=== PATIENT | male | born 1935 | race Caucasian/White ===

== ENCOUNTER → 2019-03-30 10:33 | Outpatient (CLI) | payer MEDICARE, OTHER, SELFPAY ==
[2019-03-30 10:56] LABS: Influenza A and B by PCR Rapid Negative (Negative)
== END ==
PROVIDERS: Visit Provider Physician Assistant
DX: J02.9 Acute pharyngitis, unspecified (principal); R68.89 Other general symptoms and signs
CPT/HCPCS: 87070; 87400; 87502

== ENCOUNTER 2019-11-13 11:13 | Emergency (ER) | payer MEDICARE, OTHER, SELFPAY ==
[2019-11-13 11:15] VITALS: BP 196/89; PULSE 69; RESP 18; O2SAT 99
--- NOTE | 2019-11-13 11:29 | DI.RAD.S_ITS ---
PROCEDURE: XR CHEST 1V INDICATIONS: chest pain TECHNIQUE: One view of the chest was acquired. COMPARISON: None. FINDINGS: Surgical changes and devices: None. Lungs and pleura: Subtle hazy opacity of the right upper lung zone possibly related to positioning/technique. No focal consolidation. Lung volumes are slightly diminished. Minimal eventration right hemidiaphragm. No pleural effusions or pneumothorax. Mediastinum: Mediastinal contours appear normal. Heart size is normal. Bones and chest wall: No suspicious bony lesions. Overlying soft tissues appear unremarkable. IMPRESSION: Subtle hazy opacity of the right upper lungs possibly related to positioning/technique. Otherwise, no acute cardiopulmonary abnormalities or focal consolidation. Consider dedicated PA and lateral views of the chest when patient is able. Dictated by: Emir Hilton M.D. on 11/13/2019 at 11:55 Approved by: Emir Hilton M.D. on 11/13/2019 at 11:58
--- NOTE | 2019-11-13 11:35 | ED.CHESTPAIN ---
HPI - Chest Pain <JULIANE Odom - Last Filed: 11/13/19 21:01> General Chief Complaint: Chest Pain Stated Complaint: Tightness in chest & light headed Time Seen by Provider: 11/13/19 11:13 Source: patient Mode of arrival: Wheelchair Limitations: no limitations History of Present Illness HPI narrative: This is a 84-year-old male, former smoker, who presents to ED with chief complain of intermittent mid chest pressure and lightheadedness since last night at 11:30 a.m. when he lied down to go to bed. Patient also states his left hand felt tingly and numb which was similar to carpal tunnel symptoms that he had in the past. Patient denies short of breath, dyspnea, nausea/vomiting, cold sweats but states he fell like I was in a boat rocking around. Patient reports his symptoms are intermittent and he felt similar symptoms again this morning when he woke up from sleeping and this lasts for a brief period. Patient denies current chest pressure or lightheadedness. Patient had taken 1 baby aspirin this morning as routine medication. Patient denies headache, vision change, speech difficulty, weakness to 1 side of his body. Patient denies seen pleater hand at this time. Patient is unable to associated symptoms aggravating or relieving factors. Patient walks 3 miles several times a week. Mother had sudden at age 62 and of younger brother has a pacemaker for last several years. Patient is not aware of father's medical history since he did not grow up with him since 3rd grade. Patient has history of hypertension, diabetes, hyperlipidemia, thyroid cancer with resection surgery, right hand carpal tunnel surgery, and back surgery from a ruptured disc. Related Data Home Medications Medication Instructions Recorded Confirmed aspirin [Adult Low Dose Aspirin] 81 mg PO QAM 11/13/19 11/13/19 levothyroxine [Synthroid] 125 mcg PO QAM 11/13/19 11/13/19 lisinopril 10 mg PO BEDTIME 11/13/19 11/13/19 metformin 500 mg PO TID 11/13/19 11/13/19 simvastatin 10 mg PO BEDTIME 11/13/19 11/13/19 Allergies Allergy/AdvReac Type Severity Reaction Status Date / Time No Known Drug Allergies Allergy Verified 11/13/19 11:24 Review of Systems <JULIANE Odom - Last Filed: 11/13/19 21:01> Review of Systems Narrative: General: Denies fever, chills, fatigue, malaise, sweats. HEENT: Denies sinus pain, ear pain, sore throat, difficulty swallowing, dizziness. Respiratory: Denies dyspnea, cough, wheezing, hemoptysis, sputum. Cardiovascular: See HPI Gastrointestinal: Denies nausea, vomiting, abdominal pain, diarrhea, constipation, melena. : Denies dysuria, frequency, incontinence, hematuria, urinary retention. Musculoskeletal: Denies weakness, joint pain or bony pain. Skin: Denies rash, skin lesions, or other. Neurologic: Denies weakness, headache, (+) light headededness, numbness, change in speech, confusion, seizures, incoordination. Psychiatric: No concerning psychosocial issues. 12-point review of systems is negative except for those stated above. Patient History <JULIANE Odom - Last Filed: 11/13/19 21:01> Medical History (Updated 11/13/19 @ 16:05 by JULIANE Odom) High cholesterol (Acute) Hypertension (Acute) Hypothyroid (Acute) Thyroid cancer (Acute) Type 2 diabetes mellitus (Acute) Surgical History (Updated 11/13/19 @ 11:45 by JULIANE Odom) History of back surgery (Acute) History of carpal tunnel release (Acute) History of thyroidectomy (Acute) Social History Smoking Status: Former smoker Smoking Status: Former smoker alcohol intake frequency: 0-2 drinks per day Substance Use Type: does not use Exam <JULIANE Odom - Last Filed: 11/13/19 21:01> Narrative Exam Narrative: GEN: Alert, oriented x 3, well appearing and nourished, and in no acute distress. Head: Normal cephalic, atraumatic. No scalp or temporal tenderness, palpable mass or rash. EYES: Pupils are equal, round, and reactive to light and accommodation. Extraocular muscles are intact bilaterally. There is no subconjunctival hemorrhage, exudate and sclera non-icteric. ENT: Bilateral auditory canals and tympanic membranes clear. Hearing grossly intact. Nose without bleeding, purulent discharge, septal hematoma or deviation. Turbinate without erythema or swelling. Facial sinuses nontender to palpate. Mucous membrane moist, no mucosal lesion. Throat without erythema, tonsillar hypertrophy or exudate. Uvula in midline, airway patent. Neck: Trachea in midline. No JVD, non-tender without lymphadenopathy. No masses or thyroid megaly. Supple, non-tender and no meningeal signs. CARDIAC: Normal regular rate and rhythm without murmurs, gallops, or rubs. No chest wall tenderness. No peripheral edema, cyanosis or pallor. Capillary refill is less than 2 seconds. No carotid bruits. RESPIRATORY: Lungs are cleat to auscultate bilaterally. No cough, wheezes, rales, or rhonchi. No stridor, respiratory distress, increase work of breathing, or accessary muscle used. ABD: Abdomen soft, nontender and non-distended. No guarding or rebound tenderness to palpate. Bowel sounds are normal in all 4 quadrants. There is no palpable masses or organomegaly. EXT: Full painless ROM of all extremities with no loss of sensation, strength, effusion or edema. SKIN: Warm, dry, normal color for patient. No erythema, lesions or rash. BACK: Nontender without deformity or crepitance. No flank tenderness. NEUROLOGICAL: Alert and oriented to place, time and person. No facial droops, dysphasia. Strength and sensation symmetric and intact throughout. Cerebellar testing normal. PSYCHIATRIC: Good judgement and reason, without hallucinations, abnormal affect or abnormal behaviors during the examination. Initial Vital Signs Initial Vital Signs: Vital Signs Pulse Rate 69 11/13/19 11:15 Respiratory Rate 18 11/13/19 11:15 Blood Pressure 196/89 H 11/13/19 11:15 Pulse Oximetry 99 11/13/19 11:15 <Jessy Thompson MD - Last Filed: 11/14/19 07:12> Initial Vital Signs Initial Vital Signs: Vital Signs Pulse Rate 69 11/13/19 11:15 Respiratory Rate 18 11/13/19 11:15 Blood Pressure 196/89 H 11/13/19 11:15 Pulse Oximetry 99 11/13/19 11:15 Scores <JULIANE Odom - Last Filed: 11/13/19 21:01> GCS Shane coma scale eye opening: Spontaneous [place] coma scale verbal response: Orientated [place] coma scale motor response: Obey commands Shane coma scale total score: 15 HEART Score Heart Score history: Slightly Suspicious Heart Score EKG: Normal Heart Score Age: > or = 65 years old Heart Score risk factors: 1-2 risk factors Heart Score troponin: < or = to normal limit Heart Score Total: 3 Course <JULIANE Odom - Last Filed: 11/13/19 21:01> Orders Ordered: Discontinued Medications Aspirin (Aspirin Chew) 243 mg PO NOW ONE Stop: 11/13/19 11:30 Last Admin: 11/13/19 11:43 Dose: 243 mg Documented by: CARRIE Vital Signs Vital signs: Vital Signs - 8 hr 11/13/19 13:00 11/13/19 13:58 11/13/19 15:28 Pulse Rate 72 58 L 56 L Respiratory Rate 15 16 18 Blood Pressure [Left Arm] 156/74 H 143/72 H 155/74 H Pulse Oximetry 98 98 98 11/13/19 16:07 Pulse Rate 58 L Respiratory Rate 16 Blood Pressure [Left Arm] 145/71 H Pulse Oximetry 100 <Jessy Thompson MD - Last Filed: 11/14/19 07:12> Orders Ordered: Discontinued Medications Aspirin (Aspirin Chew) 243 mg PO NOW ONE Stop: 11/13/19 11:30 Last Admin: 11/13/19 11:43 Dose: 243 mg Documented by: CARRIE Vital Signs Vital signs: Vital Signs - 8 hr 11/13/19 13:00 11/13/19 13:58 11/13/19 15:28 Pulse Rate 72 58 L 56 L Respiratory Rate 15 16 18 Blood Pressure [Left Arm] 156/74 H 143/72 H 155/74 H Pulse Oximetry 98 98 98 11/13/19 16:07 Pulse Rate 58 L Respiratory Rate 16 Blood Pressure [Left Arm] 145/71 H Pulse Oximetry 100 MDM - Chest Pain <JULIANE Odom - Last Filed: 11/13/19 21:01> Differential Diagnosis Differential diagnosis: Likely stable angina, atypical chest pain and other (Arrhythmia) Medical Records Data Attestation: I reviewed the patient's medical records. Lab Data Attestation: I reviewed the patient's lab results. Result diagrams: 11/13/19 11:20 11/13/19 11:20 Labs: Lab Results 11/13/19 11/13/19 11/13/19 Range/Units 11:20 11:20 11:20 WBC 6.1 (4.5-11.0) X10^3/uL RBC 4.64 (4.5-5.9) X10^6/uL Hgb 14.9 (13.5-17.5) g/dL Hct 44.8 (41-53) % MCV 96.6 (80-100) fL MCH 32.0 (26-34) PG MCHC 33.2 (30-36) % RDW 14.0 (11.6-14.8) % Plt Count 218 (150-400) X10^3/uL Neut % (Auto) 64.7 (50-75) % Lymph % (Auto) 24.8 L (25-40) % [place] % (Auto) 7.7 (3-14) % Eos % (Auto) 2.3 (2-4) % Baso % (Auto) 0.5 (0-2) % Neut # (Auto) 4000 (7385-2761) /uL Lymph # (Auto) 1500 (0047-6601) /uL [place] # (Auto) 500 (0-900) /uL Eos # (Auto) 100 (0-450) /uL Baso # (Auto) 0 (0-100) /uL PT 11.0 (10.1-12.7) SECONDS INR 1.0 (0.9-1.3) APTT 31 (26.4-36.2) SECONDS Sodium 136 L (137-145) mmol/L Potassium 4.6 (3.4-5.1) mmol/L Chloride 103 (98-107) mmol/L Carbon Dioxide 24 (22-32) mmol/L BUN 22 H (9-20) mg/dL Creatinine 1.17 (0.66-1.25) mg/dL Estimated GFR 59.7 L (>60) mL/min BUN/Creatinine Ratio 18.8 (6-22) Glucose 232 H (80-110) mg/dL Calcium 10.1 (8.4-10.2) mg/dL Total Bilirubin 0.7 (0.2-1.3) mg/dL AST 34 (17-59) IU/L ALT 24 (<50) IU/L Alkaline Phosphatase 63 (38-126) U/L Total Creatine Kinase 333 H (55-170) U/L CK-MB (CK-2) 6.38 H (<2.37) ng/mL CK-MB (CK-2) Rel Index 1.9 (1.5-5.0) % Troponin I < 0.012 (0.01-0.034) ng/mL Total Protein 7.5 (6.3-8.2) g/dL Albumin 4.6 (3.5-5.0) g/dL Globulin 2.9 (1.7-4.1) g/dL Albumin/Globulin Ratio 1.6 (1.0-2.8) Lipase 107 (23-300) U/L 11/13/19 Range/Units 14:25 WBC (4.5-11.0) X10^3/uL RBC (4.5-5.9) X10^6/uL Hgb (13.5-17.5) g/dL Hct (41-53) % MCV (80-100) fL MCH (26-34) PG MCHC (30-36) % RDW (11.6-14.8) % Plt Count (150-400) X10^3/uL Neut % (Auto) (50-75) % Lymph % (Auto) (25-40) % [place] % (Auto) (3-14) % Eos % (Auto) (2-4) % Baso % (Auto) (0-2) % Neut # (Auto) (0201-9843) /uL Lymph # (Auto) (1655-1887) /uL [place] # (Auto) (0-900) /uL Eos # (Auto) (0-450) /uL Baso # (Auto) (0-100) /uL PT (10.1-12.7) SECONDS INR (0.9-1.3) APTT (26.4-36.2) SECONDS Sodium (137-145) mmol/L Potassium (3.4-5.1) mmol/L Chloride (98-107) mmol/L Carbon Dioxide (22-32) mmol/L BUN (9-20) mg/dL Creatinine (0.66-1.25) mg/dL Estimated GFR (>60) mL/min BUN/Creatinine Ratio (6-22) Glucose (80-110) mg/dL Calcium (8.4-10.2) mg/dL Total Bilirubin (0.2-1.3) mg/dL AST (17-59) IU/L ALT (<50) IU/L Alkaline Phosphatase (38-126) U/L Total Creatine Kinase 296 H (55-170) U/L CK-MB (CK-2) 5.14 H (<2.37) ng/mL CK-MB (CK-2) Rel Index 1.7 (1.5-5.0) % Troponin I < 0.012 (0.01-0.034) ng/mL Total Protein (6.3-8.2) g/dL Albumin (3.5-5.0) g/dL Globulin (1.7-4.1) g/dL Albumin/Globulin Ratio (1.0-2.8) Lipase (23-300) U/L Imaging Data Chest x-ray: Radiologist's Impression: [address] [address] XRay Report Signed Patient: Yaron Hernandez [facility]#: [id number] : 7Acct:[id number] Age/Sex: 84 / MDate of Service: 11/13/19 Loc: ED Accession Number: [id number] Procedure: XR chest 1V Ordering Provider: Ben Mcneal PROCEDURE: XR CHEST 1V INDICATIONS: chest pain TECHNIQUE: One view of the chest was acquired. COMPARISON: None. FINDINGS: Surgical changes and devices: None. Lungs and pleura: Subtle hazy opacity of the right upper lung zone possibly related to positioning/technique. No focal consolidation. Lung volumes are slightly diminished. Minimal eventration right hemidiaphragm. No pleural effusions or pneumothorax. Mediastinum: Mediastinal contours appear normal. Heart size is normal. Bones and chest wall: No suspicious bony lesions. Overlying soft tissues appear unremarkable. IMPRESSION: Subtle hazy opacity of the right upper lungs possibly related to positioning/technique. Otherwise, no acute cardiopulmonary abnormalities or focal consolidation. Consider dedicated PA and lateral views of the chest when patient is able. Dictated by: Emir Hilton M.D. on 11/13/2019 at 11:55 Approved by: Emir Hilton M.D. on 11/13/2019 at 11:58 ECG Data Attestation: I personally reviewed and interpreted this ECG as follows: Prior ECG tracings: not available for review Interpretation: Sinus rhythm rate at 63. NC int 180, QRS dur 90, QT/QTC 375/381. Normal [place]. Will ST elevation or depression. MDM Narrative Medical decision making narrative: This is a 84-year-old male with history of diabetes, hypertension, hyperlipidemia presents to ED with chief complaint of intermittent mild mid chest pressure and vertigo like lightheadedness since 2330 last night at rest to go to sleep. Patient denies other associated symptoms such as breathing difficulty, cough, fever, nausea/vomiting, cold sweats. Patient had left arm tingling and numbness but he states he has carpal tunnel syndrome and has similar symptoms in the past. There was no focal neurological deficit per exam. EKG was normal sinus rhythm rate at [address] elevation or depression. H&H was within normal limits. Serum glucose slightly elevated to 232, mild elevated BUN of 22, slight hyponatremia of 136. Initial troponin was negative with slightly elevated CK-MB and total CK of 6.38/333. CK-MB index was within normal. Subtle hazy opacity of right upper lobe possibly related to positioning/technique otherwise no acute cardiopulmonary findings were appreciated. Patient does not have respiratory symptoms, fever, short of breath. Patient's O2 sat is 100% in room air without increased work of breathing. Patient was medicated with additional aspirin in ED. 2nd troponin was negative as well with trending down CK-MB and total CK of 5.1 for/296 with normal CK-MB index. Patient reports his chest discomfort and lightheadedness were resolved and feeling much better at this time. Return precautions were discussed with the patient and patient advised to follow-up with PCP for possible further evaluation and tests since patient has not seen pleater hand, treadmill test, echocardiogram in the past. Patient verbalized understanding and in agreement with the treatment plan. <Jessy Thompson MD - Last Filed: 11/14/19 07:12> Lab Data Labs: Lab Results 11/13/19 11/13/19 11/13/19 Range/Units 11:20 11:20 11:20 WBC 6.1 (4.5-11.0) X10^3/uL RBC 4.64 (4.5-5.9) X10^6/uL Hgb 14.9 (13.5-17.5) g/dL Hct 44.8 (41-53) % MCV 96.6 (80-100) fL MCH 32.0 (26-34) PG MCHC 33.2 (30-36) % RDW 14.0 (11.6-14.8) % Plt Count 218 (150-400) X10^3/uL Neut % (Auto) 64.7 (50-75) % Lymph % (Auto) 24.8 L (25-40) % [place] % (Auto) 7.7 (3-14) % Eos % (Auto) 2.3 (2-4) % Baso % (Auto) 0.5 (0-2) % Neut # (Auto) 4000 (6718-6326) /uL Lymph # (Auto) 1500 (9474-8350) /uL [place] # (Auto) 500 (0-900) /uL Eos # (Auto) 100 (0-450) /uL Baso # (Auto) 0 (0-100) /uL PT 11.0 (10.1-12.7) SECONDS INR 1.0 (0.9-1.3) APTT 31 (26.4-36.2) SECONDS Sodium 136 L (137-145) mmol/L Potassium 4.6 (3.4-5.1) mmol/L Chloride 103 (98-107) mmol/L Carbon Dioxide 24 (22-32) mmol/L BUN 22 H (9-20) mg/dL Creatinine 1.17 (0.66-1.25) mg/dL Estimated GFR 59.7 L (>60) mL/min BUN/Creatinine Ratio 18.8 (6-22) Glucose 232 H (80-110) mg/dL Calcium 10.1 (8.4-10.2) mg/dL Total Bilirubin 0.7 (0.2-1.3) mg/dL AST 34 (17-59) IU/L ALT 24 (<50) IU/L Alkaline Phosphatase 63 (38-126) U/L Total Creatine Kinase 333 H (55-170) U/L CK-MB (CK-2) 6.38 H (<2.37) ng/mL CK-MB (CK-2) Rel Index 1.9 (1.5-5.0) % Troponin I < 0.012 (0.01-0.034) ng/mL Total Protein 7.5 (6.3-8.2) g/dL Albumin 4.6 (3.5-5.0) g/dL Globulin 2.9 (1.7-4.1) g/dL Albumin/Globulin Ratio 1.6 (1.0-2.8) Lipase 107 (23-300) U/L 11/13/19 Range/Units 14:25 WBC (4.5-11.0) X10^3/uL RBC (4.5-5.9) X10^6/uL Hgb (13.5-17.5) g/dL Hct (41-53) % MCV (80-100) fL MCH (26-34) PG MCHC (30-36) % RDW (11.6-14.8) % Plt Count (150-400) X10^3/uL Neut % (Auto) (50-75) % Lymph % (Auto) (25-40) % [place] % (Auto) (3-14) % Eos % (Auto) (2-4) % Baso % (Auto) (0-2) % Neut # (Auto) (6636-4626) /uL Lymph # (Auto) (8373-0028) /uL [place] # (Auto) (0-900) /uL Eos # (Auto) (0-450) /uL Baso # (Auto) (0-100) /uL PT (10.1-12.7) SECONDS INR (0.9-1.3) APTT (26.4-36.2) SECONDS Sodium (137-145) mmol/L Potassium (3.4-5.1) mmol/L Chloride (98-107) mmol/L Carbon Dioxide (22-32) mmol/L BUN (9-20) mg/dL Creatinine (0.66-1.25) mg/dL Estimated GFR (>60) mL/min BUN/Creatinine Ratio (6-22) Glucose (80-110) mg/dL Calcium (8.4-10.2) mg/dL Total Bilirubin (0.2-1.3) mg/dL AST (17-59) IU/L ALT (<50) IU/L Alkaline Phosphatase (38-126) U/L Total Creatine Kinase 296 H (55-170) U/L CK-MB (CK-2) 5.14 H (<2.37) ng/mL CK-MB (CK-2) Rel Index 1.7 (1.5-5.0) % Troponin I < 0.012 (0.01-0.034) ng/mL Total Protein (6.3-8.2) g/dL Albumin (3.5-5.0) g/dL Globulin (1.7-4.1) g/dL Albumin/Globulin Ratio (1.0-2.8) Lipase (23-300) U/L Discharge Plan Departure Patient Disposition: Home Clinical Impression: Lightheadedness Chest pain Qualifiers: Chest pain type: unspecified Qualified Code(s): R07.9 - Chest pain, unspecified Discharge Date/Time: 11/13/19 16:13 Instructions: DI for Chest Pain, DI for Dizziness-Nonvertigo Activity Restrictions/Additional Instructions: You have been diagnosed with [chest pain and lightheadedness. EKG shows normal sinus rhythm. Cardiac enzyme for troponins were negative. Initial CK and CK-MB were mildly elevated to 333/6.38 and the 2nd enzymes for CK and CK-MB were 296/5.14 post 3 hr check. Chest x-ray does not show acute findings. Other lab tests were unremarkable. Your symptoms were resolved while in ED. What to do: *Take your medications as directed. *Follow up with your primary care provider in 2-3 days, call for an appointment. Let them know you were seen in the ED and that we asked you to be seen in follow up. You may need further workup test if your symptoms recur, persistent, as needed. *Return to ED if you have any new, worsening, or concerning symptoms, such as [chest pain, breathing difficulty, unable to tolerate fluids, nausea/vomiting, cold sweats, or any acute concerns]. Prescriptions: No Action simvastatin 10 mg tablet 10 mg PO BEDTIME RF: 0 levothyroxine [Synthroid] 125 mcg tablet 125 mcg PO QAM RF: 0 aspirin [Adult Low Dose Aspirin] 81 mg Tablet,Delayed Release (Dr/Ec) 81 mg PO QAM RF: 0 lisinopril 10 mg tablet 10 mg PO BEDTIME RF: 0 metformin 500 mg tablet extended release 24 hr 500 mg PO TID RF: 0 Referrals: Rafael Garcia MD [Non-Staff] - <Jessy Thompson MD - Last Filed: 11/14/19 07:12> Cosign ED Attending Cosignature Attestation: I was immediately available in the department for consultation throughout this patient's visit. I agree with documentation as above. Jessy Thompson MD
[2019-11-13] MEDS: ASPIRIN 81 MG CHEW TAB 243 MG PO (11:43)
[2019-11-13 11:44] LABS: Add Manual Diff / Slide Review NO; Basophils Absolute Auto 0 /uL (0-100); Basophils Percent Auto 0.5 % (0-2); Eosinophils Absolute Auto 100 /uL (0-450); Eosinophils Percent Auto 2.3 % (2-4); Hematocrit 44.8 % (41-53); Hemoglobin 14.9 g/dL (13.5-17.5); Lymphocytes Absolute Auto 1500 /uL (1100-4500); Lymphocytes Percent Auto 24.8 % (25-40); Mean Corpuscular HGB Conc 33.2 % (30-36); Mean Corpuscular Volume 96.6 fL (80-100); Monocytes Absolute Auto 500 /uL (0-900); Monocytes Percent Auto 7.7 % (3-14); Neutrophils Absolute Auto 4000 /uL (1500-7000); Neutrophils Percent Auto 64.7 % (50-75); Platelet Count 218 X10^3/uL (150-400); Red Blood Cell Count 4.64 X10^6/uL (4.5-5.9); White Blood Cell Count 6.1 X10^3/uL (4.5-11.0)
[2019-11-13 11:48] LABS: PTT Partial Thromboplastin Tim 31 SECONDS (26.4-36.2)
[2019-11-13 11:49] LABS: Alanine Aminotransferase 24 IU/L (<50); Albumin 4.6 g/dL (3.5-5.0); Albumin Globulin Ratio 1.6 (1.0-2.8); Alkaline Phosphatase 63 U/L (38-126); Aspartate Aminotransferase 34 IU/L (17-59); BUN Creatinine Ratio 18.8 (6-22); Bilirubin Total 0.7 mg/dL (0.2-1.3); Blood Urea Nitrogen 22 mg/dL (9-20); Calcium 10.1 mg/dL (8.4-10.2); Carbon Dioxide 24 mmol/L (22-32); Chloride 103 mmol/L (98-107); Creatine Kinase 333 U/L (55-170); Estimated Glomerular Filt Rate 59.7 mL/min (>60); Globulin 2.9 g/dL (1.7-4.1); Glucose 232 mg/dL (80-110); HEMOLYSIS < 15 (0-50); Lipase 107 U/L (23-300); Potassium 4.6 mmol/L (3.4-5.1); Sodium 136 mmol/L (137-145); Total Protein 7.5 g/dL (6.3-8.2)
[2019-11-13 12:00] VITALS: BP 136/68; PULSE 58; RESP 18; O2SAT 98
[2019-11-13 12:01] LABS: Troponin I < 0.012 ng/mL (0.01-0.034)
[2019-11-13 12:05] LABS: CKMB % Relative Index 1.9 % (1.5-5.0); Creatine Kinase MB 6.38 ng/mL (<2.37)
[2019-11-13 13:00] VITALS: BP 156/74; PULSE 72; RESP 15; O2SAT 98
[2019-11-13 13:58] VITALS: BP 143/72; PULSE 58; RESP 16; O2SAT 98
[2019-11-13 14:53] LABS: Creatine Kinase 296 U/L (55-170)
[2019-11-13 15:06] LABS: Troponin I < 0.012 ng/mL (0.01-0.034)
[2019-11-13 15:28] VITALS: BP 155/74; PULSE 56; RESP 18; O2SAT 98
[2019-11-13 15:31] LABS: CKMB % Relative Index 1.7 % (1.5-5.0); Creatine Kinase MB 5.14 ng/mL (<2.37)
[2019-11-13 16:07] VITALS: BP 145/71; PULSE 58; RESP 16; O2SAT 100
== END 2019-11-13 16:13 | disposition home or self-care (01) ==
PROVIDERS: Emergency Provider Nurse Practitioner Family
DX: R42 Dizziness and giddiness (principal); R07.9 Chest pain, unspecified
CPT/HCPCS: 36415; 71045; 80053; 82550; 82553; 83690; 84484; 85025; 85610; 85730; 93005; 99284

== ENCOUNTER → 2020-04-04 11:20 | Outpatient (CLI) | payer MEDICARE, OTHER, SELFPAY ==
[2020-04-04 12:05] LABS: Hemoglobin A1C% w Est Avg Glu 6.8 % (4.0-6.0)
[2020-04-04 12:10] LABS: Cholesterol 144 mg/dL (140-199); HDL Cholesterol 43 mg/dL (40-60); LDL Cholesterol Calculated 70 mg/dL (<100); Magnesium 1.9 mg/dL (1.6-2.3); Triglycerides 156 mg/dL (35-150)
[2020-04-04 12:41] LABS: Thyroid Stimulating Hormone 3.67 uIU/mL (0.47-4.68)
== END ==
PROVIDERS: PCP Family Medicine; Referring Provider Family Medicine; Visit Provider Internal Medicine Cardiovascular Disease
DX: E78.5 Hyperlipidemia, unspecified (principal); I10 Essential (primary) hypertension; E11.9 Type 2 diabetes mellitus without complications
CPT/HCPCS: 36415; 80061; 83036; 83735; 84443

== ENCOUNTER → 2020-04-12 09:36 | Outpatient (CLI) | payer MEDICARE, OTHER, SELFPAY ==
[2020-04-13 07:46] LABS: COVID19 Sendout Not Detected (Not Detect)
== END ==
PROVIDERS: PCP Family Medicine; Visit Provider Nurse Practitioner
DX: Z11.59 Encounter for screening for other viral diseases (principal)
CPT/HCPCS: 87635

== ENCOUNTER → 2020-04-15 07:58 | Outpatient (CLI) | payer MEDICARE, OTHER, SELFPAY ==
--- NOTE | 2020-04-15 08:16 | DI.ECHO.S_ITS ---
Echocardiogram Report + + :Name: VERONICA BROWN JR FStudy Date: 04/15/2020 Height: 71 in : :[facility] Weight: 193 lb : : Gender: Male BSA: 2.1 m2 : :: 1935 Age: 85 yrs BP: 157/87 mmHg: :Reason For Study: Chest pain : :Ordering Physician: Rusty : :Juan Manuel Amezquita Performed By: Apryl Mason : + + Interpretation Summary The left ventricle is normal in size. The ejection fraction is estimated to be 60-65%. The right ventricle is at the upper limits of normal in size. The right ventricular systolic function is normal. No significant valvular pathology seen. Procedure: A two-dimensional transthoracic echocardiogram with color flow and Doppler was performed. The study quality was technically adequate. There is no prior echocardiogram noted for this patient. The patient was in sinus bradycardia with heart rates between 48-57 bpm during the exam. Left Ventricle: The left ventricle is normal in size. Left ventricular wall thickness is normal. There is no ventricular septal defect visualized. There is no thrombus. The ejection fraction is estimated to be 60-65%. There are no focal wall motion abnormalities. Diastolic parameters suggest a relaxation abnormality of the left ventricle, consistent with probable normal filling pressures. Right Ventricle: The right ventricle is at the upper limits of normal in size. The right ventricular systolic function is normal. Atria: The left atrium is mildly dilated. Right atrial size is normal. A prominent eustachian valve is noted. There is no Doppler evidence for an interatrial shunt. Mitral Valve: The mitral valve leaflets appear mildly thickened, but open well. There is mild mitral annular calcification. There is trace mitral regurgitation. Aortic Valve: The aortic valve is trileaflet. The aortic valve opens well. There is mild aortic valve sclerosis. No aortic regurgitation is present. Tricuspid Valve: The tricuspid valve is normal in structure and function. There is trace tricuspid regurgitation. The right ventricular systolic pressure is estimated to be at least 28 mmHg based on an estimated right atrial pressure of 3 mm Hg. Pulmonic Valve: The pulmonic valve is not well seen, but is grossly normal. There is mild pulmonic regurgitation. Great Vessels: The aortic root is normal size. The ascending aorta is normal in size. The aortic arch is at the upper limits of normal in size. The pulmonary artery is normal size. The IVC is of normal diameter and collapses greater than 50% with a sniff. This suggests a low right atrial pressure of 3 mm Hg. Pericardium/ Pleura There is no pericardial effusion. MMode/2D Measurements & Calculations LVIDd: 4.6 cm LVOT diam: 2.0 cm LVIDs: 2.8 cm Ao root diam: 3.6 cm FS: 38.6 % asc Aorta Diam: 3.2 cm EPSS: 0.16 cm Ao Arch Diam (Prox Trans): 3.2 cm IVSd: 1.0 cm LVPWd: 0.80 cm LV aguilar. diameter/BSA (cm/m^2): 2.2 LV sys. diameter/BSA (cm/m^2): 1.3 LA A2 area: 19.5 cm2 RA long axis: 5.1 cm LA A4 area: 22.1 cm2 RA area: 15.3 cm2 LA length (vol): 5.1 cm RA vol: 38.5 ml LA vol: 71.2 ml RA : 18.5 ml/m2 LA vol index: 34.3 ml/m2 IVC diam: 1.6 cm RVD1 (basal): 4.1 cm RVD2 (mid): 3.1 cm TAPSE: 3.0 cm Doppler Measurements & Calculations Ao V2 max: 186.5 cm/sec LVOT Max Julien: 101.7 cm/sec Ao V2 mean: 121.4 cm/sec LV V1 max P.1 mmHg Ao max P.9 mmHg LV V1 VTI: 24.7 cm Ao mean P.7 mmHg LINDA(I,D): 2.0 cm2 Ao V2 VTI: 38.1 cm LINDA(V,D): 1.7 cm2 sev ratio: 0.65 LINDA indexed to BSA (cm^2/m^2): 0.95 MV E max julien: 89.8 cm/sec TR max julien: 248.8 cm/sec MV A max julien: 93.8 cm/sec TR max P.8 mmHg MV E/A: 0.96 PA V2 max: 78.4 cm/sec Med Peak E' Julien: 6.8 cm/sec PA V2 mean: 50.0 cm/sec E/E' med: 13.2 PA mean P.2 mmHg Lat Peak E' Julien: 8.3 cm/sec PA Accel Time: 0.12 sec E/E' lat: 10.8 E/e' average: 12.0 MV dec time: 0.27 sec MV P1/2t: 76.8 msec MV P1/2t max julien: 89.8 cm/sec SV(LVOT): 75.5 ml MVA(2t): 2.9 cm2 Reading Physician:05:44 PM
--- NOTE | 2020-04-15 18:46 | DI.NM.S_ITS ---
DATE OF SERVICE: 04/15/2020 PROCEDURE: Exercise perfusion study. INDICATION: Chest pain with underlying diabetes mellitus, hypertension, hyperlipidemia. Patient is an 85-year-old male. RADIOPHARMACEUTICAL: 27.1 millicurie technetium-99m Myoview IV was injected at stress and 14.5 millicurie technetium-99m Myoview IV was injected at rest. It was a one day protocol. CARDIAC STRESS: The patient underwent exercise perfusion study under the supervision of an attending staff. He walked on Jamey protocol for 3 minutes 25 seconds, achieved 4.6 METs of workload, functional aerobic impairment positive 18 percent, 95 percent of target heart rate and normal blood pressure response. No chest pain. Patient felt fatigue. Baseline EKG revealed sinus rhythm. During stress, there was some nonspecific upsloping ST depression in inferior lateral leads without any convincing ischemic changes. No significant arrhythmia is seen. RAW DATA: There is increased subdiaphragmatic activity. GATED STUDY: stress LV ejection fraction is 75 percent and resting LV ejection fraction is 73 percent. Resting end-diastolic volume 97 mL. TID ratio 0.75, which is within normal limits. Lung/heart ratio 0.28, which is within normal limits. MYOCARDIAL PERFUSION: Stress supine, resting supine and stress prone images were compared to each other. Stress supine images revealed normal myocardial perfusion. Resting supine images revealed minimally decreased perfusion of apex. On stress prone, there was small decreased perfusion of distal anterior wall. CONCLUSION: I would call this study likely a normal myocardial perfusion study, as stress supine images revealed normal myocardial perfusion. Diminished exercise tolerance. No anginal symptoms. No convincing ischemic EKG changes. No significant arrhythmias. Preserved left ventricular function. Yaron Hernandez Jr - GILLIAN/devin/selina doc#: [id number]/job#: [id number] dd: 04/15/2020 17:04:00 dt: 04/15/2020 18:40:00 DICTATING MD/COPIES TO: Rusty Amezquita MD COPIES MNE: MARVIN;
== END ==
PROVIDERS: PCP Family Medicine; Referring Provider Family Medicine; Visit Provider Internal Medicine Cardiovascular Disease
DX: I37.1 Nonrheumatic pulmonary valve insufficiency (principal); I35.8 Other nonrheumatic aortic valve disorders; R07.89 Other chest pain; I10 Essential (primary) hypertension; E78.5 Hyperlipidemia, unspecified; E11.9 Type 2 diabetes mellitus without complications
CPT/HCPCS: 78452; 93017; 93306; A9502

== ENCOUNTER → 2021-08-16 13:04 | Outpatient (CLI) | payer MEDICARE, OTHER, SELFPAY ==
--- NOTE | 2021-08-16 | DI.CT.S_ITS ---
PROCEDURE: CT ABDOMEN PELVIS WO/W CON INDICATIONS: HEMATURIA TECHNIQUE: Optional 5 mm thick noncontrast images acquired from the diaphragm to the symphysis pubis. After the administration of intravenous contrast, 5 mm thick images acquired from the diaphragm to the symphysis pubis after a 10-minute delay. 2 mm thick coronal and sagittal reformats were then performed of the kidneys and ureters. For radiation dose reduction, the following was used: automated exposure control, adjustment of mA and/or kV according to patient size. COMPARISON: None. FINDINGS: Image quality: Excellent. Lung bases: Lung bases are clear. Heart size is normal. Urinary system: Both kidneys are normal in size, without hydronephrosis or nephrolithiasis on pre-contrast images. No perinephric fat stranding. There is normal bilateral renal enhancement. Renal calyces appear normal in morphology when filled with contrast. Opacified portions of both ureters demonstrate normal caliber. There is an infiltrative bladder wall malignancy along the right lateral wall of the bladder which measures approximately 2.4 x 2.7 x 3.0 cm. There is ill definition of the subjacent fat suggesting possible subjacent spread into the perivesicular fat. Also noted is extrinsic compression on the base of the bladder by an enlarged prostate. There is mild diffuse bladder wall thickening. Other solid organs: Liver is normal in size and enhancement. Mild diffuse hepatic steatosis. Gallbladder is unremarkable . Biliary system is non dilated. Pancreas enhances normally. Spleen is normal in size and enhancement. No adrenal nodules. Peritoneum and bowel: Bowel loops demonstrate normal wall thickness and caliber. No free fluid or air. Nodes and vessels: No retroperitoneal or mesenteric adenopathy by size criteria. Aorta and inferior vena cava are normal in size. Incidental note is made of the presence of a circumaortic left renal vein. Abdominal wall: No ventral hernias. Pelvis: No pathologic free pelvic fluid. Small fat containing right inguinal hernia. Bones: Extensive lumbar degenerative change. Severe canal stenosis at L4-L5. Question hyperdense intrathecal lesion at L4-L5. No lytic or blastic bony lesions. No compression fractures. IMPRESSION: 1. There is a right lateral bladder wall malignancy of 3.0 cm maximum diameter which may have spread to the adjacent fat. 2. No evidence of metastatic disease. 3. Prostate enlargement. 4. Extensive lumbar degenerative change, multilevel lumbar canal stenosis. 5. Question intrathecal hyperdense lesion at L4-L5. Comment: Recommend lumbar spine MRI with without contrast to evaluate a possible intrathecal mass at L4-L5, possibly representing a small schwannoma or meningioma. Dictated by: Martinez Torres M.D. on 08/16/2021 at 16:32 Approved by: Martinez Torres M.D. on 08/16/2021 at 16:46
== END ==
PROVIDERS: PCP Family Medicine; Referring Provider Student in an Organized Health Care Education/Training Program; Visit Provider Student in an Organized Health Care Education/Training Program
DX: C67.2 Malignant neoplasm of lateral wall of bladder (principal); N40.0 Benign prostatic hyperplasia without lower urinary tract symptoms; M47.816 Spondylosis without myelopathy or radiculopathy, lumbar region; M48.061 Spinal stenosis, lumbar region without neurogenic claudication; R31.9 Hematuria, unspecified
CPT/HCPCS: 74178; Q9967

== ENCOUNTER → 2021-09-04 14:48 | Outpatient (CLI) | payer MEDICARE, OTHER, SELFPAY ==
[2021-09-04 16:15] LABS: COVID19 -Nasal RAPID Negative (Negative)
== END ==
PROVIDERS: PCP Family Medicine; Referring Provider Specialist; Visit Provider Specialist
DX: Z20.822 Contact with and (suspected) exposure to COVID-19 (principal)
CPT/HCPCS: 87635; C9803

== ENCOUNTER → 2021-09-18 13:00 | Outpatient (CLI) | payer MEDICARE, OTHER, SELFPAY ==
[2021-09-18 14:38] LABS: COVID19 -Nasal RAPID Negative (Negative)
== END ==
PROVIDERS: PCP Family Medicine; Visit Provider Urology
DX: Z20.822 Contact with and (suspected) exposure to COVID-19 (principal)
CPT/HCPCS: 87635; C9803

== ENCOUNTER 2021-09-21 06:43 | Day surgery (SDC) | payer MEDICARE, OTHER, SELFPAY ==
[2021-09-07 10:55] VITALS: BMI 25.7
[2021-09-21] VITALS (7 sets, daily range): BP systolic 123–147; BP diastolic 52–79; PULSE 53–70; RESP 13–18; TEMP 36.1–36.7; O2SAT 96–100; BMI 25.7
--- NOTE | 2021-09-21 | PATH_ITS ---
[facility] Accession Number: [id number] . 01 Material submitted: . bladder - BLADDER TUMOR RIGHT LATERAL WALL . 02 Diagnosis: A. Bladder, Right Lateral Wall Tumor, Biopsy: Papillary urothelial carcinoma, high-grade, focally invasive into lamina propria. Lymphovascular invasion: Not identified. A small fragment of muscularis propria (1 mm) is present and is uninvolved. . Comment: The papillary urothelial carcinoma shows predominantly inverted growth pattern. Focally, loulou/conventional invasion into the lamina propria is present. Deeper levels are examined. . As part of quality consultant and control, Dr. Gonzalez reviewed this case and concurs with the diagnosis. [facility] 09/26/2021 1818 Local . 02 Electronically signed: . Giulia Ayala MD, Pathologist NPI- [id number] . 01 Gross description: . BLADDER TUMOR RIGHT LATERAL WALL: Received in formalin are multiple fragment(s) of starr, soft tissue measuring 2.5 x 1.9 x 0.6 cm in aggregate submitted entirely in 1 cassette(s) /TR 09/23/2021 1802 Local . 02 Pathologist provided ICD-10: C67.9 . 02 CPT . 034910 Specimen Comment: A courtesy copy of this report has been sent to [phone] Performed at: 01 [facility] [address] [place] [address], [place], [place] [id number] MD Gurinder Toney MD Phone: [phone] Performed at: 02 [facility] [address] [place], [place] [id number] MD Isidra Winslow MD Phone: [phone]
--- NOTE | 2021-09-21 07:20 | SUR.OPER ---
Lithotomy on padded OR bed, head on pillow, arms secured on padded arm boards at <90 degrees abduction. Legs secured in padded yellow fins stirrups.
--- NOTE | 2021-09-21 07:21 | PM.PREOP ---
Pre-operative Note COVID-19 COVID-19 status: Negative Result date/Date tested (Pos, Neg/Pending): 09/18/21 Criteria for continued procedure: Expected advancement of disease process, Possibility delay results in more complex future surgery or treatment, Deterioration of the patient's condition or overall health, Delay expected to result in less-positive ultimate med/surg outcome and Non-surgical alternatives not available or appropriate per current SOC Interval Note History & Physical reviewed/Exam performed by Physician: Yes Changes to H&P: No
[2021-09-21] MEDS: LACTATED RINGERS 1,000 ML 42 ML IV (07:30)
[2021-09-21] MEDS: CEFAZOLIN 2 GM/20 ML SYRINGE IV (07:50)
[2021-09-21] MEDS: BELLADONNA/OPIUM SUPPOSITORIES 1 EACH PR (07:53)
--- NOTE | 2021-09-21 08:22 | PM.OP.1 ---
Procedure & Clinicians Procedure: Transurethral resection of bladder tumor medium Same procedure as scheduled: Yes Indications: This is an 86-year-old male who had CT scan which showed a right bladder wall mass with extension through the bladder wall. He presents this time for transurethral resection of bladder tumor/biopsy of the tumor. Because of the obvious extension through the bladder wall complete resection will not be entertained for multiple reasons. Patient is aware and in agreement. Surgeon: Alex Hernandez Click Yes if Unassisted: Yes Anesthesia Type: General Operative Notes Findings: Urethral meatus normal, urethra normal along its length. Sphincter as well coapted with normal mucosa. Prostate exhibits moderate to severe obstructive character with a very high bladder neck. Within the bladder there is severe trabeculation cellules there was a diverticula on the left lateral wall and proximity to the left ureteral orifice. Each ureteral orifices in normal position with clear efflux. On the right lateral wall there was an approximately 3 cm solid-appearing tumor. At its base there is a small amount of what would appear to be papillary urothelial carcinoma. Within the bladder there are no other abnormalities. Again the tumor was incompletely resected hemostasis was good. A 22 Salvadorean ?hematuria catheter? was left in place. Closure Type: not applicable Specimen(s): other (Right lateral wall bladder tumor fragments) Applied: catheter Estimated Blood Loss (mL): 5 Blood products transfused: none Procedure in detail: After informed consent was obtained, the patient was identified and brought to the operating room. The patient was then placed in a supine position on the operative table and anesthesia was induced and maintained. With an adequate level of anesthesia the patient was transitioned to the lithotomy position where he was prepped, draped and prepared in a sterile fashion for transurethral procedure. After prepping, draping, ensuring an adequate level of anesthesia the resectoscope was passed through the urethra and into the bladder under direct vision. This was after the meatus was dilated with sounds to 28 Salvadorean. Once within the bladder cystoscopy was performed findings were noted. The working element was then exchanged for the direct-vision grinder set up operator surface and resection begun. The tumor was sequentially resected till adequate samples were obtained. Hemostasis was then ensured the of the electric cautery. Patient's bladder was drained filled drained filled hemostasis appeared good. In the straining and filling process all fragments were removed and placed in formalin to be sent to pathology. The bladder was once again inspected the bladder was left full the scope backed out and the catheter passed through the urethra prostate and bladder with the balloon was filled with 30 cc of sterile water. The catheter was in place to gravity drainage, the patient was awakened and taken to the postanesthesia care unit having tolerated the procedure well. The patient will be discharged home from the postanesthesia care unit he will go home with a Nj catheter. Patient tolerated the procedure well and there were no complications. Note: The patient had a BN or suppository placed after he was prepped and before he was draped at the beginning of the procedure. Complications: none Post-operative Condition: stable Disposition: PACU Plan for aftercare: Patient to be discharged home with Nj catheter to follow up my office in approximately 10 days.
[2021-09-21] MEDS: PHENAZOPYRIDINE 100 MG TABLET 200 MG PO (09:05)
[2021-09-21] MEDS: OXYCODONE/ACETAMINOPHEN 5/325 TABLET 1 TAB PO (09:06)
--- NOTE | 2021-09-21 09:12 | SUR.PHASEI ---
Patient transferred Peg Gomez with SBAR report at bedside. Pt tolerated apple sauce and koby megan. Nj draining well.
== END 2021-09-21 09:50 | disposition home or self-care (01) ==
PROVIDERS: PCP Family Medicine; Referring Provider Urology; Visit Provider Urology
PROC: 0TBB8ZZ Excision of Bladder, Via Natural or Artificial Opening Endoscopic (ICD-10-PCS; CPT 52235; principal; 2021-09-21 07:45)
DX: C67.2 Malignant neoplasm of lateral wall of bladder (principal); N40.1 Benign prostatic hyperplasia with lower urinary tract symptoms; E11.9 Type 2 diabetes mellitus without complications; E03.9 Hypothyroidism, unspecified; I10 Essential (primary) hypertension; E78.5 Hyperlipidemia, unspecified; Z79.84 Long term (current) use of oral hypoglycemic drugs
CPT/HCPCS: 52235; 82962; J0690; J2405; J2704; J3010

== ENCOUNTER → 2021-09-28 09:54 | Outpatient (CLI) | payer MEDICARE, OTHER, SELFPAY | PROVIDERS: PCP Family Medicine; Visit Provider Urology | DX: C67.2 Malignant neoplasm of lateral wall of bladder (principal); N32.89 Other specified disorders of bladder; R30.0 Dysuria; R31.0 Gross hematuria; Z87.891 Personal history of nicotine dependence | CPT/HCPCS: 81002; 87077; 87086; 87186; 99214 ==

== ENCOUNTER 2021-10-04 13:44 | Emergency (ER) | payer MEDICARE, OTHER, SELFPAY ==
[2021-10-04] VITALS (7 sets, daily range): BP systolic 154–210; BP diastolic 71–84; PULSE 60–76; RESP 18–20; TEMP 36.9; O2SAT 95–98
[2021-10-04 14:46] LABS: Add Manual Diff / Slide Review NO; Basophils Absolute Auto 100 /uL (0-100); Basophils Percent Auto 0.7 % (0-2); Eosinophils Absolute Auto 200 /uL (0-450); Eosinophils Percent Auto 2.2 % (2-4); Hematocrit 37.6 % (41-53); Hemoglobin 12.6 g/dL (13.5-17.5); Lymphocytes Absolute Auto 1400 /uL (1100-4500); Lymphocytes Percent Auto 15.7 % (25-40); Mean Corpuscular HGB Conc 33.5 % (30-36); Mean Corpuscular Hemoglobin 32.1 PG (26-34); Mean Corpuscular Volume 95.8 fL (80-100); Monocytes Absolute Auto 1000 /uL (0-900); Monocytes Percent Auto 11.4 % (3-14); Neutrophils Absolute Auto 6200 /uL (1500-7000); Platelet Count 275 X10^3/uL (150-400); Red Blood Cell Count 3.92 X10^6/uL (4.5-5.9); Red Cell Distribution Width 13.3 % (11.6-14.8); White Blood Cell Count 8.8 X10^3/uL (4.5-11.0)
[2021-10-04 14:55] LABS: Alanine Aminotransferase 23 IU/L (<50); Albumin 4.3 g/dL (3.5-5.0); Albumin Globulin Ratio 1.4 (1.0-2.8); Alkaline Phosphatase 66 U/L (38-126); Aspartate Aminotransferase 36 IU/L (17-59); BUN Creatinine Ratio 19.7 (6-22); Bilirubin Total 0.6 mg/dL (0.2-1.3); Blood Urea Nitrogen 31 mg/dL (9-20); Calcium 10.1 mg/dL (8.4-10.2); Carbon Dioxide 27 mmol/L (22-32); Chloride 102 mmol/L (98-107); Estimated Glomerular Filt Rate 42.3 mL/min (>60); Glucose 135 mg/dL (80-110); HEMOLYSIS < 15 (0-50); Lipase 92 U/L (23-300); Potassium 4.3 mmol/L (3.4-5.1); Sodium 136 mmol/L (137-145); Total Protein 7.3 g/dL (6.3-8.2)
--- NOTE | 2021-10-04 18:30 | DI.US.S_ITS ---
PROCEDURE: US PERIPH VENOUS LOW EXTREM BI INDICATIONS: PAIN, EDEMA TECHNIQUE: Real-time imaging, as well as color and pulse Doppler interrogation, were performed of the deep veins of both legs from the inguinal ligament to the popliteal fossa. COMPARISON: None. FINDINGS: Right: The common femoral, femoral and popliteal veins are normally compressible, and free of intraluminal thrombus. Color and pulse Doppler demonstrate normal phasic intravascular flow. There is normal augmentation response to distal compression maneuver. Left: The common femoral, femoral and popliteal veins are normally compressible, and free of intraluminal thrombus. Color and pulse Doppler demonstrate normal phasic intravascular flow. There is normal augmentation response to distal compression maneuver. IMPRESSION: 1. No DVT in the right or left lower extremity. Dictated by: Felisa Palencia M.D. on 10/04/2021 at 19:46 Approved by: Felisa Palencia M.D. on 10/04/2021 at 19:46
--- NOTE | 2021-10-04 19:00 | ED_ITS ---
HPI - Extremity Injury (Lower) <Shyanne Mejiasmer, [employer] - Last Filed: 10/04/21 20:37> General Chief Complaint: Extremity Injury, Lower Stated Complaint: Severe cramping, swelling in lower extremites Time Seen by Provider: 10/04/21 16:46 Source: patient and family Mode of arrival: Ambulatory Limitations: no limitations History of Present Illness HPI Narrative: The patient is an 86-year-old male former smoker with history of Synthroid, recent diagnosis of bladder cancer with antibiotic treatment for urinary tract infection status post Nj catheter removal. He states that over the past few days he has noticed some swelling and pain is bilateral lower extremities, right worse than left. He initially spoke up with his urologist, who switched him from ciprofloxacin to a different antibiotic. However today he presents concerned about blood clots given that his leg cramping is worse at night, recent cancer diagnosis etcetera. He also notes that he has been relatively immobile with his Nj catheter. He comes with his daughter. He denies any chest pain or shortness of breath. He denies any history of blood clots. Related Data Home Medications Medication Instructions Recorded Confirmed levothyroxine 125 mcg tablet 125 mcg PO QAM 11/13/19 09/28/21 (Synthroid) lisinopril 10 mg tablet 10 mg PO BEDTIME 11/13/19 09/28/21 metformin 500 mg tablet,extended 500 mg PO TID 11/13/19 09/28/21 release 24 hr simvastatin 10 mg tablet 10 mg PO BEDTIME 11/13/19 09/28/21 CoQ 10 PO 08/29/21 09/28/21 tamsulosin 0.4 mg capsule 0.4 mg PO DAILY 08/29/21 09/28/21 Previous Rx's Medication Instructions Recorded nitrofurantoin macrocrystal 100 mg 100 mg PO BID #20 cap 10/02/21 capsule oxybutynin chloride 5 mg tablet 5 mg PO BID-TID PRN #30 tab 10/02/21 phenazopyridine 200 mg tablet 200 mg PO TID PRN #30 tab 10/02/21 (Pyridium) tamsulosin 0.4 mg capsule 0.8 mg PO DAILY #60 cap 10/02/21 methocarbamol 750 mg tablet 750 mg PO TID PRN #14 tab 10/04/21 Allergies Allergy/AdvReac Type Severity Reaction Status Date / Time No Known Drug Allergies Allergy Verified 10/02/21 15:07 Review of Systems <FLORENCE Montes De Oca - Last Filed: 10/04/21 20:37> Review of Systems Narrative: GENERAL: Denies chills, fatigue, malaise, fever, sweats. HEENT: Denies sinus pain, ear pain, sore throat, difficulty swallowing, dizziness. RESPIRATORY: Denies dyspnea, cough, wheezing, hemoptysis, sputum. CARDIOVASCULAR: Denies chest pain, palpitations, orthopnea, edema, GASTROINTESTINAL: Denies nausea, vomiting, abdominal pain, diarrhea, constipation, melena. : Denies dysuria, frequency, incontinence, hematuria, urinary retention. MUSCULOSKELETAL: See HPI SKIN: Denies rash, skin lesions, or other NEUROLOGIC: Denies weakness, headache, numbness, change in speech, confusion, seizures, incoordination. PSYCHIATRIC: No concerning psychosocial issues. 12 point review of systems is negative except for those stated above Patient History <FLORENCE Montes De Oca - Last Filed: 10/04/21 20:37> Medical History (Updated 10/04/21 @ 20:08 by FLORENCE Montes De Oca) Benign prostatic hyperplasia Bladder cancer Bladder mass Carpal tunnel syndrome Gross hematuria High cholesterol History of tobacco use Hypertension Hypothyroid Incomplete emptying of bladder Lower urinary tract symptoms Thyroid cancer Type 2 diabetes mellitus UTI (urinary tract infection) Surgical History H/O vasectomy History of appendectomy History of back surgery History of carpal tunnel release History of thyroidectomy Family History Grandmother Stroke Social History marital status: number of children: 2 Smoking Status: Former smoker alcohol intake: current Type(s) of exercise: walking and weight lifting frequency: 3-4 times per week Smoking Status: Former smoker alcohol intake frequency: 0-2 drinks per day Substance Use Type: does not use Exam <FLORENCE Montes De Oca - Last Filed: 10/04/21 20:37> Narrative Exam Narrative: GENERAL: This is a well-nourished, well-developed patient, in no acute distress HEAD: Atraumatic. Normocephalic. No temporal or scalp tenderness. EYES: Pupils equal round and reactive. Extraocular motions intact. No scleral icterus. No injection or drainage. ENT: Nose without bleeding, purulent drainage or septal hematoma. Wearing a mask Airway patent. NECK: Trachea midline. No JVD or lymphadenopathy. Supple, nontender, no meningeal signs. CARDIOVASCULAR: Regular rate and rhythm RESPIRATORY: No cough. No increased respiratory effort. No accessory muscle use. EXTREMITIES: Bilateral pedal pulses intact, bilateral pedal edema noted, right slightly worse than left. +2 on right, +1 on left. BACK: Nontender without deformity or crepitance. No flank tenderness. NEURO: AOx3. SKIN: No rash or erythema on visible skin Initial Vital Signs Initial Vital Signs: Vital Signs Temperature 98.4 F 10/04/21 13:51 Pulse Rate 76 10/04/21 13:51 Respiratory Rate 18 10/04/21 13:51 Blood Pressure 192/79 H 10/04/21 13:51 Pulse Oximetry 97 10/04/21 13:51 <Alex Upton MD - Last Filed: 10/05/21 01:32> Initial Vital Signs Initial Vital Signs: Vital Signs Temperature 98.4 F 10/04/21 13:51 Pulse Rate 76 10/04/21 13:51 Respiratory Rate 18 10/04/21 13:51 Blood Pressure 192/79 H 10/04/21 13:51 Pulse Oximetry 97 10/04/21 13:51 Scores <FLORENCE Montes De Oca - Last Filed: 10/04/21 20:37> GCS [place] coma scale eye opening: Spontaneous Shane coma scale verbal response: Orientated Shane coma scale motor response: Obey commands Shane coma scale total score: 15 <Alex Upton MD - Last Filed: 10/05/21 01:32> GCS [place] coma scale total score: 15 Course <FLORENCE Montes De Oca - Last Filed: 10/04/21 20:37> Orders Ordered: ED Orders 10/04/21 18:30 periph venous low extrem bi Stat Discontinued Medications Methocarbamol (Methocarbamol 500 Mg Tablet) 750 mg PO NOW ONE Stop: 10/04/21 20:04 Last Admin: 10/04/21 20:16 Dose: 750 mg Documented by: OKROYLE Vital Signs Vital signs: Vital Signs - 8 hr 10/04/21 18:00 10/04/21 20:27 Pulse Rate 61 67 Respiratory Rate 20 Blood Pressure 172/73 H 157/74 H Pulse Oximetry 97 95 <Alex Upton MD - Last Filed: 10/05/21 01:32> Orders Ordered: ED Orders 10/04/21 18:30 periph venous low extrem bi Stat Discontinued Medications Methocarbamol (Methocarbamol 500 Mg Tablet) 750 mg PO NOW ONE Stop: 10/04/21 20:04 Last Admin: 10/04/21 20:16 Dose: 750 mg Documented by: ROCIO Vital Signs Vital signs: Vital Signs - 8 hr 10/04/21 18:00 10/04/21 20:27 Pulse Rate 61 67 Respiratory Rate 20 Blood Pressure 172/73 H 157/74 H Pulse Oximetry 97 95 MDM - Extremity Injury (Lower) <FLORENCE Montes De Oca - Last Filed: 10/04/21 20:37> Lab Data Result diagrams: 10/04/21 14:15 10/04/21 14:15 Labs: Lab Results 10/04/21 10/04/21 10/04/21 Range/Units 14:15 14:15 14:15 WBC 8.8 (4.5-11.0) X10^3/uL RBC 3.92 L (4.5-5.9) X10^6/uL Hgb 12.6 L (13.5-17.5) g/dL Hct 37.6 L (41-53) % MCV 95.8 (80-100) fL MCH 32.1 (26-34) PG MCHC 33.5 (30-36) % RDW 13.3 (11.6-14.8) % Plt Count 275 (150-400) X10^3/uL Neut % (Auto) 70.0 (50-75) % Lymph % (Auto) 15.7 L (25-40) % [place] % (Auto) 11.4 (3-14) % Eos % (Auto) 2.2 (2-4) % Baso % (Auto) 0.7 (0-2) % Neut # (Auto) 6200 (7486-9970) /uL Lymph # (Auto) 1400 (7756-2365) /uL [place] # (Auto) 1000 H (0-900) /uL Eos # (Auto) 200 (0-450) /uL Baso # (Auto) 100 (0-100) /uL Sodium 136 L (137-145) mmol/L Potassium 4.3 (3.4-5.1) mmol/L Chloride 102 (98-107) mmol/L Carbon Dioxide 27 (22-32) mmol/L BUN 31 H (9-20) mg/dL Creatinine 1.57 H (0.66-1.25) mg/dL Estimated GFR 42.3 L (>60) mL/min BUN/Creatinine Ratio 19.7 (6-22) Glucose 135 H (80-110) mg/dL Calcium 10.1 (8.4-10.2) mg/dL Magnesium 1.9 (1.6-2.3) mg/dL Total Bilirubin 0.6 (0.2-1.3) mg/dL AST 36 (17-59) IU/L ALT 23 (<50) IU/L Alkaline Phosphatase 66 (38-126) U/L Total Protein 7.3 (6.3-8.2) g/dL Albumin 4.3 (3.5-5.0) g/dL Globulin 3.0 (1.7-4.1) g/dL Albumin/Globulin Ratio 1.4 (1.0-2.8) Lipase 92 (23-300) U/L Imaging Data US - DVT: Radiologist's Impression: [address] [place], [place] [id number] Ultrasound Report Signed Patient: Yaron Hernandez Jr MR#: [id number] : 1935 Acct:[id number] Age/Sex: 86 / M Date of Service: 10/04/21 Loc: ED Accession Number: [id number] ?? Procedure: US periph venous low extrem bi Ordering Provider: Shyanne Love- PROCEDURE:? US PERIPH VENOUS LOW EXTREM BI ? INDICATIONS:? PAIN, EDEMA ? TECHNIQUE:? Real-time imaging, as well as color and pulse Doppler interrogation, were performed of the deep veins of both legs from the inguinal ligament to the popliteal fossa.? ? COMPARISON:? None. ? FINDINGS:? ? Right: The common femoral, femoral and popliteal veins are normally compressible, and free of intraluminal thrombus.? Color and pulse Doppler demonstrate normal phasic intravascular flow.? There is normal augmentation response to distal compression maneuver.? ? Left: The common femoral, femoral and popliteal veins are normally compressible, and free of intraluminal thrombus.? Color and pulse Doppler demonstrate normal phasic intravascular flow.? There is normal augmentation response to distal compression maneuver.? ? ? IMPRESSION:? ? 1. No DVT in the right or left lower extremity.? ? ? Dictated by: Felisa Palencia M.D. on 10/04/2021 at 19:46 ? ? Approved by: Felisa Palencia M.D. on 10/04/2021 at 19:46 ? MDM Narrative Medical decision making narrative: The patient is an 86-year-old male who presents with a chief complaint of cramping, swelling bilateral lower extremities, right worse than left. I discussed muscle cramp alleviation, hydration, following up with primary care provider. We elected to do a quick trial of muscle relaxer. Discussed at length the importance of following up with primary care provider as well as his entire care team, return precautions to the emergency department for any acute concerns. Patient daughter have no questions or concerns upon discharge states understanding return precautions as well as follow-up care. <Alex Upton MD - Last Filed: 10/05/21 01:32> Lab Data Labs: Lab Results 10/04/21 10/04/21 10/04/21 Range/Units 14:15 14:15 14:15 WBC 8.8 (4.5-11.0) X10^3/uL RBC 3.92 L (4.5-5.9) X10^6/uL Hgb 12.6 L (13.5-17.5) g/dL Hct 37.6 L (41-53) % MCV 95.8 (80-100) fL MCH 32.1 (26-34) PG MCHC 33.5 (30-36) % RDW 13.3 (11.6-14.8) % Plt Count 275 (150-400) X10^3/uL Neut % (Auto) 70.0 (50-75) % Lymph % (Auto) 15.7 L (25-40) % [place] % (Auto) 11.4 (3-14) % Eos % (Auto) 2.2 (2-4) % Baso % (Auto) 0.7 (0-2) % Neut # (Auto) 6200 (8685-2700) /uL Lymph # (Auto) 1400 (4624-0534) /uL [place] # (Auto) 1000 H (0-900) /uL Eos # (Auto) 200 (0-450) /uL Baso # (Auto) 100 (0-100) /uL Sodium 136 L (137-145) mmol/L Potassium 4.3 (3.4-5.1) mmol/L Chloride 102 (98-107) mmol/L Carbon Dioxide 27 (22-32) mmol/L BUN 31 H (9-20) mg/dL Creatinine 1.57 H (0.66-1.25) mg/dL Estimated GFR 42.3 L (>60) mL/min BUN/Creatinine Ratio 19.7 (6-22) Glucose 135 H (80-110) mg/dL Calcium 10.1 (8.4-10.2) mg/dL Magnesium 1.9 (1.6-2.3) mg/dL Total Bilirubin 0.6 (0.2-1.3) mg/dL AST 36 (17-59) IU/L ALT 23 (<50) IU/L Alkaline Phosphatase 66 (38-126) U/L Total Protein 7.3 (6.3-8.2) g/dL Albumin 4.3 (3.5-5.0) g/dL Globulin 3.0 (1.7-4.1) g/dL Albumin/Globulin Ratio 1.4 (1.0-2.8) Lipase 92 (23-300) U/L Discharge Plan Departure Patient Disposition: Home Clinical Impression: Cramp in muscle, Swelling of lower leg Activity Restrictions/Additional Instructions: Thank you for trusting us with your care today. As discussed, your lab work resulted well and your ultrasound shows no evidence of blood clots. I sent a small prescription of a muscle relaxer to [facility]. You can also try pressure socks, elevation. Please be sure that you are hydrated. As discussed, please follow-up with primary care provider the next few days. Please come back to the emergency department for any acute concerns. Prescriptions: New methocarbamol 750 mg tablet 750 mg PO TID PRN (Reason: muscle spasm) Qty: 14 0RF No Action phenazopyridine [Pyridium] 200 mg tablet 200 mg PO TID PRN (Reason: Bladder irritation) Qty: 30 0RF oxybutynin chloride 5 mg tablet 5 mg PO BID-TID PRN (Reason: bladder spasms) Qty: 30 0RF tamsulosin 0.4 mg capsule 0.8 mg PO DAILY Qty: 60 12RF nitrofurantoin macrocrystal 100 mg capsule 100 mg PO BID Qty: 20 0RF Rx Instructions: must administer with a meal/food simvastatin 10 mg tablet 10 mg PO BEDTIME 0RF levothyroxine [Synthroid] 125 mcg tablet 125 mcg PO QAM 0RF lisinopril 10 mg tablet 10 mg PO BEDTIME 0RF metformin 500 mg tablet extended release 24 hr 500 mg PO TID 0RF tamsulosin 0.4 mg capsule 0.4 mg PO DAILY 0RF CoQ 10 PO 0RF Referrals: Rafael Garcia MD [Primary Care Provider] - <Alex Upton MD - Last Filed: 10/05/21 01:32> Cosign ED Attending Cosignature Attestation: I was immediately available in the department for consultation. This documentation has been reviewed and I agree with assessment and plan. Supervised by Alex Upton MD
[2021-10-04 19:29] LABS: Magnesium 1.9 mg/dL (1.6-2.3)
[2021-10-04] MEDS: methocarbamoL 500 MG TABLET 750 MG PO (20:16)
== END 2021-10-04 20:31 | disposition home or self-care (01) ==
PROVIDERS: Emergency Medicine; Emergency Provider Nurse Practitioner Family; PCP Family Medicine
DX: R25.2 Cramp and spasm (principal); M79.89 Other specified soft tissue disorders
CPT/HCPCS: 36415; 80053; 83690; 83735; 85025; 93970; 99283; 99284

== ENCOUNTER → 2021-10-05 10:37 | Outpatient (CLI) | payer MEDICARE, OTHER, SELFPAY ==
--- NOTE | 2021-10-05 10:39 | DI.NM.S_ITS ---
PROCEDURE: NM BONE SCAN WHOLE BODY RADIOPHARMACEUTICAL: 20.3 mCi Tc-99m MDP IV. INDICATIONS: Bladder cancer TECHNIQUE: Delayed whole-body scintigrams were obtained approximately 3-4 hours after intravenous injection of radiotracer. Anterior and posterior views were acquired from vertex to feet. Additional left and right oblique views of the pelvis were obtained. COMPARISON: [facility], CT, CT ABDOMEN PELVIS WO/W CON, 08/16/2021, 14:21. FINDINGS: No lesions are identified in skull, sternum, clavicles, scapulae, ribs, bony pelvis, and visualized shafts of the long bones. There are foci of increased uptake in cervical, thoracic and lumbar spine with distribution indistinguishable from degenerative disc and facet disease; early metastasis to spine could be obscured by degenerative changes. There are foci of increased periarticular activity involving shoulders, sternoclavicular joints, elbows, wrists, hands, hips, SI joints, knees, ankles and feet, compatible with degenerative/arthritic changes. IMPRESSION: 1. 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 2. Degenerative changes as described. Dictated by: Maria Del Carmen Galaviz M.D. on 10/05/2021 at 17:42 Approved by: Maria Del Carmen Galaviz M.D. on 10/06/2021 at 8:34
== END ==
PROVIDERS: PCP Family Medicine; Referring Provider Urology; Visit Provider Urology
DX: C67.9 Malignant neoplasm of bladder, unspecified (principal); Z87.891 Personal history of nicotine dependence
CPT/HCPCS: 78306; A9503

== ENCOUNTER → 2022-08-09 10:50 | Outpatient (CLI) | payer MEDICARE, OTHER, SELFPAY ==
[2022-08-09 12:59] LABS: Alanine Aminotransferase 25 IU/L (<50); Albumin 4.1 g/dL (3.5-5.0); Albumin Globulin Ratio 1.4 (1.0-2.8); Alkaline Phosphatase 50 U/L (38-126); Aspartate Aminotransferase 26 IU/L (17-59); BUN Creatinine Ratio 20.2 (6-22); Bilirubin Total 0.6 mg/dL (0.2-1.3); Blood Urea Nitrogen 24 mg/dL (9-20); Calcium 9.2 mg/dL (8.4-10.2); Carbon Dioxide 23 mmol/L (22-32); Chloride 104 mmol/L (98-107); Cholesterol 131 mg/dL (140-199); Estimated Glomerular Filt Rate 60 mL/min (>60); Globulin 2.9 g/dL (1.7-4.1); Glucose 151 mg/dL (80-110); HDL Cholesterol 44 mg/dL (40-60); HEMOLYSIS 18 (0-50); LDL Cholesterol Calculated 56 mg/dL (<100); Sodium 136 mmol/L (137-145); Triglycerides 154 mg/dL (35-150)
== END ==
PROVIDERS: PCP Student in an Organized Health Care Education/Training Program; Referring Provider Internal Medicine Cardiovascular Disease; Visit Provider Internal Medicine Cardiovascular Disease
DX: E78.5 Hyperlipidemia, unspecified (principal); I10 Essential (primary) hypertension
CPT/HCPCS: 36415; 80053; 80061

== ENCOUNTER → 2022-09-17 18:50 | Outpatient (CLI) | payer MEDICARE, OTHER, SELFPAY ==
--- NOTE | 2022-09-17 | DI.MRI.S_ITS ---
PROCEDURE: MR LUMBAR SPINE WO/W CON INDICATIONS: 87-year-old male with low back pain and history of bladder cancer TECHNIQUE: Noncontrast sagittal T1 spin echo and T2 fast spin echo, sagittal STIR, axial T1 and T2 fast spin echo through the lumbar spine. In cases with scoliosis, additional coronal T2 fast spin echo may be performed. After the administration of contrast, sagittal and axial T1 spin echo with fat saturation through the lumbar spine. COMPARISON: None. FINDINGS: Image quality: Excellent. Alignment and curvature: Convex left thoracolumbar scoliosis present. No vertebral anomalies. Grade 1 trace degenerative retrolisthesis at L1-2, L2-3 and L5-S1 Marrow: No acute vertebral body compression fractures. No suspicious marrow enhancement. Chronic degenerative endplate changes present in the upper spine. Edematous Modic type 1 degenerative changes noted L4-5 and L5-S1 Spinal cord: Conus medullaris terminates at the L1 level. Visualized spinal cord demonstrates normal signal, without suspicious enhancement. Paraspinous soft tissues: No paravertebral masses or abnormal enhancement. T12-L1: Disc height is maintained. No central or foraminal stenosis. L1-L2: Disc space narrowing with circumferential disc bulge and hypertrophic facet joints results in moderate central stenosis. Severe right and moderate left foraminal stenosis L2-L3: Disc space narrowing and circumferential disc bulge with hypertrophic facet joints and dorsal epidural fat results in moderate to severe central stenosis. Moderate right and left foraminal stenosis L3-L4: Disc space narrowing with posterior disc bulge, dorsal epidural fat and hypertrophic facet joints results in severe central stenosis. Severe left and mild right foraminal stenosis L4-L5: Disc space narrowing with circumferential disc bulge, hypertrophic facet joints and ligamentum flavum laxity all combined result in severe central stenosis. Moderate right and severe left foraminal stenosis. Additionally, probable synovial cyst arises from the left facet effaces the left lateral recess inferiorly. L5-S1: Circumferential disc bulge with superimposed central protrusion results in [id number] central stenosis. Severe left and moderate right foraminal stenosis IMPRESSION: Para 1. 1. No evidence of metastatic disease. 2. 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 Superimposed left synovial cyst also noted L4-5. Approved by: Iban Gandhi M.D. on 09/18/2022 at 11:56
== END ==
PROVIDERS: Family Provider Student in an Organized Health Care Education/Training Program; PCP Student in an Organized Health Care Education/Training Program; Referring Provider Student in an Organized Health Care Education/Training Program; Visit Provider Student in an Organized Health Care Education/Training Program
DX: M51.36 Other intervertebral disc degeneration, lumbar region (principal); M51.37 Other intervertebral disc degeneration, lumbosacral region; M47.816 Spondylosis without myelopathy or radiculopathy, lumbar region; M47.817 Spondylosis without myelopathy or radiculopathy, lumbosacral region; M71.38 Other bursal cyst, other site; M54.50 Low back pain, unspecified
CPT/HCPCS: 72158; A9579

== ENCOUNTER 2023-01-07 12:15 | Outpatient (RCR) | payer MEDICARE, OTHER, SELFPAY ==
--- NOTE | 2022-10-23 12:00 | PT.OIE ---
Current Diagnoses Other specified joint disorders, unspecified joint (10/23/22) Spinal stenosis, site unspecified (10/23/22) Other intervertebral disc degeneration, lumbar region (10/23/22) Low back pain, unspecified (10/23/22) Past Medical History (Last Updated 07/18/22 @ 08:04 by Alex Hernandez MD) Benign prostatic hyperplasia Bladder cancer Bladder mass Carpal tunnel syndrome Gross hematuria High cholesterol History of chemotherapy History of tobacco use Hx of radiation therapy Hypertension Hypothyroid Incomplete emptying of bladder Lower urinary tract symptoms Thyroid cancer Type 2 diabetes mellitus UTI (urinary tract infection) Past Surgical History (Last Reviewed 09/21/21 @ 07:08 by Cresencio Dior RN) H/O vasectomy History of appendectomy History of back surgery History of carpal tunnel release History of thyroidectomy Visit Care Team Role Provider Type Oleksandr Grove PA-C Attending Provider Non-Staff Family Provider Primary Care Provider Referring Provider Specialty: Medical Address: [address] [place] [address], [facility] Email: Physical Therapy Initial Evaluation PT-OP-A Visit Information Start: 10/22/22 16:37 Freq: Status: Active Protocol: Document 10/23/22 08:08 [facility] (Rec: 10/23/22 09:04 [facility] [id number]) Out-Patient Physical Therapy Visit Information Visit Information Visit Type Initial Evaluation Visit Start Time 08:15 Visit Stop Time 09:00 Total Visit Minutes 45 Visit Number 1 Evaluation Information Evaluation Date 10/23/22 Precautions Precautions history bladder cancer PT-OP-B Current Condition Start: 10/22/22 16:37 Freq: Status: Active Protocol: Document 10/23/22 08:08 [facility]AK (Rec: 10/23/22 09:04 [facility] [id number]) Current Condition History of Current Condition Onset Date late June Current Complaints timmy LBP and radicular symptoms timmy LE's History of Current Condition Moved furniture, helped clean out aunts place. Had lumbar surgery 40 years ago. Onset of worsened LBP with radicular symptoms left greater than right LE's including numbness left LE, tingling right LE. Activity very limited due to pain. When in bed pain worse in LEs, when gets up pain more LB and legs. Sleep very interrupted. Took a week of Prednisone initially with some improvement, flying to [place] next week and was given another week of Prednisone to tolerate that trip. Sings in group, has to stand 45 min at a time when performing, last time increased his pain. More comfortable to lay on left side for sleep vs right, gets acid reflux on right side. Prior Treatments and Tests MRI 09/17/22 convex left thoracolumbar scoliosis 1. No evidence of metastatic disease. 2. 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 Superimposed left synovial cyst also noted L4-5. BAck to oncologist in November after returns from vacation PMH: thyroidectomy, prior lumbar surgery 40 years ago L5S1, currently undergoing treatment for Future Testing and Treatments Planned none planned at the moment Treatment Goals Patient/Caregiver Goals dec pain, return to [facility] Prior Functional Status Baseline Function- ADL's Independent Baseline Function- Mobility Independent Baseline Function- Gait no limitations Baseline Function- Recreation/Hobbies golf PT-OP-C Subjective Start: 10/22/22 16:37 Freq: Status: Active Protocol: Document 10/23/22 08:08 [facility] (Rec: 10/23/22 09:04 [facility] [id number]) OP-PT Pain Assessment Pain Assessment Grid Paper Pain Assessment Grid Completed Yes Location timmy LBP, timmy LE's Intensity 5 Description Aching,Burning,Spasm,Tightness Frequency Frequent Pain Aggravating Factors Changing Position,ADL's, Activity,Exercise,Standing, Sitting,Walking Home Pain Medication Use Pain Medications Used Yes PT-OP-H Neuro Start: 10/22/22 16:37 Freq: Status: Active Protocol: Document 10/23/22 08:08 [facility] (Rec: 10/24/22 11:59 [facility] [id number]) Sensation Evaluation Gross Sensation Gross Sensation Left LE Impaired,Right LE Impaired Sensation Description Paresthesia PT-OP-J Posture/Palpation/Skin Start: 10/22/22 16:37 Freq: Status: Active Protocol: Document 10/23/22 08:08 [facility] (Rec: 10/24/22 11:59 [facility] [id number]) Posture Evaluation Position Standing Head/C-Spine Posture C-Spine Flattened T-Spine Posture Increased Kyphosis L-Spine Posture Flattened Shoulder Posture (L) Rounded,(R) Rounded Scapula Posture (L) Protracted,(R) Protracted Arm Posture (L) Internally Rotated,(R) Internally Rotated Pelvis Posture Posterior Tilted Hip Posture (L) Externally Rotated Knee Posture (L) Genu Recurvatum Palpation Assessment Location timmy lumbar paraspinals Palpation Findings Soft Tissue Tightness,Muscle Guarding PT-OP-K Range of Motion Start: 10/22/22 16:37 Freq: Status: Active Protocol: Document 10/23/22 08:08 [facility] (Rec: 10/23/22 09:04 [facility] [id number]) Lumbar Spine Range of Motion Lumbar Spine Active Flexion 30 Extension 5 Rotation Left 30 Rotation Right 25 Lateral Flexion Left 25 Lateral Flexion Right 25 Comments pain left LE with rotation right, pain left hip with left sidebending, pain right hip with right sidebending. PT-OP-L Special Tests Start: 10/22/22 16:37 Freq: Status: Active Protocol: Document 10/23/22 08:08 [facility] (Rec: 10/24/22 11:59 [facility] [id number]) Special Tests Lumbar Spine Special Tests Deangelo Test Results positive muscle tightness Straight Leg Raise Test Results positive muscle tightness Standing Flexion Test Results positive inc in pain Slump Test Results positive PT-OP-M Strength Start: 10/22/22 16:37 Freq: Status: Active Protocol: Document 10/23/22 08:08 [facility] (Rec: 10/24/22 11:59 [facility] [id number]) Trunk Strength Trunk Manual Muscle Testing Flexion 3+ Fair+ Extension 3 Fair Core Stabilization poor Hip Strength Hip Manual Muscle Testing Left Flexion (L2) 4 Good Extension (S1) 3+ Fair+ Abduction 3+ Fair+ Adduction 3+ Fair+ External Rotation 4- Good- Internal Rotation 4- Good- Right Flexion (L2) 4 Good Extension (S1) 3+ Fair+ Abduction 3+ Fair+ Adduction 3+ Fair+ External Rotation 3+ Fair+ Internal Rotation 4- Good- Knee Strength Knee Manual Muscle Testing Left Flexion (S2) 4+ Good+ Extension (L3) 4+ Good+ Right Flexion (S2) 4 Good Extension (L3) 4 Good Ankle/Foot Strength Ankle and Foot Manual Muscle Testing Right Dorsiflexion (L4) 4- Good- Plantarflexion (S1) 4- Good- Left Dorsiflexion (L4) 4 Good Plantarflexion (S1) 4- Good- PT-OP-Q Treatments Start: 10/22/22 16:37 Freq: Status: Active Protocol: Document 10/23/22 08:08 [facility] (Rec: 10/24/22 11:59 [facility] [id number]) Self-Care/Home Management Treatment Education Patient Education Body Mechanics,Home Exercise Program,Pain Management, Posture PT-OP-T Assessment and Plan Start: 10/22/22 16:37 Freq: Status: Active Protocol: Document 10/23/22 08:08 [facility] (Rec: 10/23/22 09:04 [facility] [id number]) Physical Therapy Assessment Rehab Potential Rehabilitation Potential Good Goals Four Impairment impaired sleep and ability to stand Impairment sleep is interrupted and patient unable to stand greater than 5 min without an increase in pain Director College Goal (LTG) Patient will be able to sleep 7-8 hours, and resume standing for up to 45 min to perform with singing group with minimal to no increase in pain LTG Duration 12/23/22 Three Impairment impairments in ROM, strength, and core stab Short Term Goal (STG) Patient to be instructed in HEP to address impairments STG Duration 11/23/22 [employer] Goal (LTG) Patient to be independent and compliant with HEP and demonstrate improvements in flexibility, strength, and core stabilization to allow him to return to prior level of function LTG Duration 12/23/22 Two Impairment limited ability to walks Director [employer] Goal (LTG) Able to walk and play golf for 9 holes, able to return to walking [address] for exercise (2.8 miles) with minimal to no increase in pain LTG Duration 12/23/22 One Impairment back pain Director [employer] Goal (LTG) Patient to report overall at least 50% reduction in pain level in all positions and with all activities LTG Duration 12/23/22 Assessment Summary Assessment Patient presents to PT with function limiting LBP with radicular symptoms into bilateral LE's limiting his activity level and tolerance. Evaluation reveals tightness throughout his lumbar spine and hips, decreased core muscle strength, and signs and symptoms of nerve root impingement. Feel he would benefit from PT to decrease his pain, improve his flexibility and strength and help him return to his prior level of function. POC was discussed and patient was in agreement. Physical Therapy Plan Frequency and Duration Frequency of Treatment 2x/Week Duration of treatment (weeks) 8 Plan of Care Start Date 10/23/22 Plan of Care End Date 12/23/22 Therapeutic Interventions Therapeutic Interventions Home Exercise Program,Manual Therapy,Neuromuscular Re- education,Patient/Caregiver Education,Self-Care/Home Management,Sensory Integration ,Taping,Therapeutic Activities ,Therapeutic Exercises Modalities Cold Pack/Ice Massage,Electric Stimulation,Hot Packs, Traction- Mechanical, Ultrasound Next Visit Focus/Plan Next Note Type Treatment Note Next Visit Plan Assess response to travel, HEP . Gentle progression of ther ex, trial manual traction. Modalities and manual therapy PRN
--- NOTE | 2022-10-23 12:01 | PT.OPPOC ---
Physical, Occupational & Speech Therapy At [facility] Current Diagnoses Other specified joint disorders, unspecified joint (10/23/22) Spinal stenosis, site unspecified (10/23/22) Other intervertebral disc degeneration, lumbar region (10/23/22) Low back pain, unspecified (10/23/22) Visit Care Team Role Provider Type Oleksandr Grove PA-C Attending Provider Non-Staff Family Provider Primary Care Provider Referring Provider Specialty: Medical Address: [address] [place] [address], [id number] Email: Plan Of Care PT-OP-T Assessment and Plan Start: 10/22/22 16:37 Freq: Status: Active Protocol: Document 10/23/22 08:08 [facility] (Rec: 10/23/22 09:04 [facility] [id number]) Physical Therapy Assessment Rehab Potential Rehabilitation Potential Good Goals Four Impairment impaired sleep and ability to stand Impairment sleep is interrupted and patient unable to stand greater than 5 min without an increase in pain Longterm Goal (LTG) Patient will be able to sleep 7-8 hours, and resume standing for up to 45 min to perform with singing group with minimal to no increase in pain LTG Duration 12/23/22 Three Impairment impairments in ROM, strength, and core stab Short Term Goal (STG) Patient to be instructed in HEP to address impairments STG Duration 11/23/22 Equine Science Instructor Goal (LTG) Patient to be independent and compliant with HEP and demonstrate improvements in flexibility, strength, and core stabilization to allow him to return to prior level of function LTG Duration 12/23/22 Two Impairment limited ability to walks Longterm Goal (LTG) Able to walk and play golf for 9 holes, able to return to walking [address] for exercise (2.8 miles) with minimal to no increase in pain LTG Duration 12/23/22 One Impairment back pain Longterm Goal (LTG) Patient to report overall at least 50% reduction in pain level in all positions and with all activities LTG Duration 12/23/22 Assessment Summary Assessment Patient presents to PT with function limiting LBP with radicular symptoms into bilateral LE's limiting his activity level and tolerance. Evaluation reveals tightness throughout his lumbar spine and hips, decreased core muscle strength, and signs and symptoms of nerve root impingement. Feel he would benefit from PT to decrease his pain, improve his flexibility and strength and help him return to his prior level of function. POC was discussed and patient was in agreement. Physical Therapy Plan Frequency and Duration Frequency of Treatment 2x/Week Duration of treatment (weeks) 8 Plan of Care Start Date 10/23/22 Plan of Care End Date 12/23/22 Therapeutic Interventions Therapeutic Interventions Home Exercise Program,Manual Therapy,Neuromuscular Re- education,Patient/Caregiver Education,Self-Care/Home Management,Sensory Integration ,Taping,Therapeutic Activities ,Therapeutic Exercises Modalities Cold Pack/Ice Massage,Electric Stimulation,Hot Packs, Traction- Mechanical, Ultrasound Next Visit Focus/Plan Next Note Type Treatment Note Next Visit Plan Assess response to travel, HEP . Gentle progression of ther ex, trial manual traction. Modalities and manual therapy PRN Plan of Care Dates Plan of Care Start Date 10/23/22 Plan of Care End Date 12/23/22 Electronically Signed by: Janet Youssef, PT 10/24/22 0633 If you are in agreement with this Plan of Care, please return a signed and dated copy. I have reviewed this Plan of Care and certify that the skilled therapy services above are required to meet the patient?s needs. Physician Signature Date Printed Name and Credentials Clinical Instructor Signature Printed Name and Credentials
--- NOTE | 2022-11-14 16:32 | PT.OTN ---
Current Diagnoses Other specified joint disorders, unspecified joint (11/14/22) Spinal stenosis, site unspecified (11/14/22) Other intervertebral disc degeneration, lumbar region (11/14/22) Low back pain, unspecified (11/14/22) Physical Therapy Treatment Note PT-OP-A Visit Information Start: 10/22/22 16:37 Freq: Status: Active Protocol: Document 11/14/22 09:01 [facility] (Rec: 11/14/22 09:48 [facility] [id number]) Out-Patient Physical Therapy Visit Information Visit Information Visit Type Treatment Note Visit Note Still numbness left LE. Compliant to HEP. Was on vacation for 2 weeks; some days better, some days worse. Walked a lot. Visit Start Time 09:02 Visit Stop Time 09:57 Total Visit Minutes 55 Visit Number 2 Evaluation Information Evaluation Date 10/23/22 Precautions Precautions history bladder cancer PT-OP-B Current Condition Start: 10/22/22 16:37 Freq: Status: Active Protocol: Document 11/14/22 09:01 [facility] (Rec: 11/14/22 09:48 [facility] [id number]) Current Condition History of Current Condition Onset Date late June Current Complaints timmy LBP and radicular symptoms timmy LE's History of Current Condition Moved furniture, helped clean out aunts place. Had lumbar surgery 40 years ago. Onset of worsened LBP with radicular symptoms left greater than right LE's including numbness left LE, tingling right LE. Activity very limited due to pain. When in bed pain worse in LEs, when gets up pain more LB and legs. Sleep very interrupted. Took a week of Prednisone initially with some improvement, flying to [place] next week and was given another week of Prednisone to tolerate that trip. Sings in group, has to stand 45 min at a time when performing, last time increased his pain. More comfortable to lay on left side for sleep vs right, gets acid reflux on right side. Prior Treatments and Tests MRI 09/17/22 convex left thoracolumbar scoliosis 1. No evidence of metastatic disease. 2. 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 Superimposed left synovial cyst also noted L4-5. BAck to oncologist in November after returns from vacation PMH: thyroidectomy, prior lumbar surgery 40 years ago L5S1, currently undergoing treatment for Future Testing and Treatments Planned none planned at the moment PT-OP-C Subjective Start: 10/22/22 16:37 Freq: Status: Active Protocol: Document 10/23/22 08:08 [facility] (Rec: 10/23/22 09:04 [facility] [id number]) OP-PT Pain Assessment Pain Assessment Grid Paper Pain Assessment Grid Completed Yes Location timmy LBP, timmy LE's Intensity 5 Description Aching,Burning,Spasm,Tightness Frequency Frequent Pain Aggravating Factors Changing Position,ADL's, Activity,Exercise,Standing, Sitting,Walking Home Pain Medication Use Pain Medications Used Yes PT-OP-H Neuro Start: 10/22/22 16:37 Freq: Status: Active Protocol: Document 10/23/22 08:08 [facility] (Rec: 10/24/22 11:59 [facility] [id number]) Sensation Evaluation Gross Sensation Gross Sensation Left LE Impaired,Right LE Impaired Sensation Description Paresthesia PT-OP-J Posture/Palpation/Skin Start: 10/22/22 16:37 Freq: Status: Active Protocol: Document 10/23/22 08:08 [facility] (Rec: 10/24/22 11:59 [facility] [id number]) Posture Evaluation Position Standing Head/C-Spine Posture C-Spine Flattened T-Spine Posture Increased Kyphosis L-Spine Posture Flattened Shoulder Posture (L) Rounded,(R) Rounded Scapula Posture (L) Protracted,(R) Protracted Arm Posture (L) Internally Rotated,(R) Internally Rotated Pelvis Posture Posterior Tilted Hip Posture (L) Externally Rotated Knee Posture (L) Genu Recurvatum Palpation Assessment Location timmy lumbar paraspinals Palpation Findings Soft Tissue Tightness,Muscle Guarding PT-OP-K Range of Motion Start: 10/22/22 16:37 Freq: Status: Active Protocol: Document 10/23/22 08:08 [facility] (Rec: 10/23/22 09:04 [facility] [id number]) Lumbar Spine Range of Motion Lumbar Spine Active Flexion 30 Extension 5 Rotation Left 30 Rotation Right 25 Lateral Flexion Left 25 Lateral Flexion Right 25 Comments pain left LE with rotation right, pain left hip with left sidebending, pain right hip with right sidebending. PT-OP-L Special Tests Start: 10/22/22 16:37 Freq: Status: Active Protocol: Document 10/23/22 08:08 [facility] (Rec: 10/24/22 11:59 [facility] [id number]) Special Tests Lumbar Spine Special Tests Deangelo Test Results positive muscle tightness Straight Leg Raise Test Results positive muscle tightness Standing Flexion Test Results positive inc in pain Slump Test Results positive PT-OP-M Strength Start: 10/22/22 16:37 Freq: Status: Active Protocol: Document 10/23/22 08:08 [facility] (Rec: 10/24/22 11:59 [facility] [id number]) Trunk Strength Trunk Manual Muscle Testing Flexion 3+ Fair+ Extension 3 Fair Core Stabilization poor Hip Strength Hip Manual Muscle Testing Left Flexion (L2) 4 Good Extension (S1) 3+ Fair+ Abduction 3+ Fair+ Adduction 3+ Fair+ External Rotation 4- Good- Internal Rotation 4- Good- Right Flexion (L2) 4 Good Extension (S1) 3+ Fair+ Abduction 3+ Fair+ Adduction 3+ Fair+ External Rotation 3+ Fair+ Internal Rotation 4- Good- Knee Strength Knee Manual Muscle Testing Left Flexion (S2) 4+ Good+ Extension (L3) 4+ Good+ Right Flexion (S2) 4 Good Extension (L3) 4 Good Ankle/Foot Strength Ankle and Foot Manual Muscle Testing Right Dorsiflexion (L4) 4- Good- Plantarflexion (S1) 4- Good- Left Dorsiflexion (L4) 4 Good Plantarflexion (S1) 4- Good- PT-OP-Q Treatments Start: 10/22/22 16:37 Freq: Status: Active Protocol: Document 11/14/22 09:01 [facility] (Rec: 11/14/22 09:48 [facility] [id number]) Cardio Equipment Recumbent Stepper (Sci-Fit) Duration (Minutes) 5 Resistance 1 Seat Position 13 Other cues for neutral LE alignment Gym Equipment Shuttle Recovery Unilateral Squats Resistance 50 Reps/Time 10x2 Bilateral Squats Resistance 62 Reps/Time 10x2 Therapeutic Exercises Supine Exercises TrA Reps/Minutes 5x Comments cued with breath HS stretch Supine Exercise Name manual Reps/Minutes 3x 30 Comments contract relax piriformis stretch Supine Exercise Name figure 4 and knee to opp shoulder Reps/Minutes 2x30 Sidelying Exercises clamshell Sidelying Exercise Name next session hip abd Sidelying Exercise Name next session Standing Exercises wall posture Standing Exercise Name next session Manual Therapy Treatment Soft Tissue Mobilization self-massage Body Location left piriformis Comments instruction in use of tennis or raquetball at wall left IT band, piriformis Mobilization Type Strumming,Sustained Pressure Intensity/Depth mod Body Position right sidelying Manual Traction Lumbar Reps/Duration 5 min Comments knees bent, feet on table, strap around upper thighs. May want to try withpatient 90 /90 or try mechanical traction . Self-Care/Home Management Treatment Education Patient Education Body Mechanics,Home Exercise Program,Pain Management, Posture PT-OP-R Modalities Start: 10/22/22 16:37 Freq: Status: Active Protocol: Document 11/14/22 09:01 [facility] (Rec: 11/14/22 09:48 [facility] [id number]) Hot Pack/Cold Pack Treatment left piriformis Patient Position Sidelying Treatment Duration (minutes) 15 Patient Tolerance Good Comments pillows between legs PT-OP-T Assessment and Plan Start: 10/22/22 16:37 Freq: Status: Active Protocol: Document 11/14/22 09:01 [facility] (Rec: 11/14/22 09:48 [facility] [id number]) Physical Therapy Assessment Goals Four Impairment impaired sleep and ability to stand Impairment sleep is interrupted and patient unable to stand greater than 5 min without an increase in pain Breeder [employer] Service Technician Goal (LTG) Patient will be able to sleep 7-8 hours, and resume standing for up to 45 min to perform with singing group with minimal to no increase in pain LTG Duration 12/23/22 Three Impairment impairments in ROM, strength, and core stab Short Term Goal (STG) Patient to be instructed in HEP to address impairments STG Duration 11/23/22 Breeder [employer] Service Technician Goal (LTG) Patient to be independent and compliant with HEP and demonstrate improvements in flexibility, strength, and core stabilization to allow him to return to prior level of function LTG Duration 12/23/22 Two Impairment limited ability to walks Breeder [employer] Service Technician Goal (LTG) Able to walk and play golf for 9 holes, able to return to walking [address] for exercise (2.8 miles) with minimal to no increase in pain LTG Duration 12/23/22 One Impairment back pain Breeder Hen Service Technician Goal (LTG) Patient to report overall at least 50% reduction in pain level in all positions and with all activities LTG Duration 12/23/22 Physical Therapy Plan Frequency and Duration Frequency of Treatment 2x/Week Duration of treatment (weeks) 8 Plan of Care Start Date 10/23/22 Plan of Care End Date 12/23/22 Therapeutic Interventions Therapeutic Interventions Home Exercise Program,Manual Therapy,Neuromuscular Re- education,Patient/Caregiver Education,Self-Care/Home Management,Sensory Integration ,Taping,Therapeutic Activities ,Therapeutic Exercises Modalities Cold Pack/Ice Massage,Electric Stimulation,Hot Packs, Traction- Mechanical, Ultrasound Next Visit Focus/Plan Next Note Type Treatment Note Next Visit Plan Consider manual traction with patient 90/90 or mechanical traction. Continue flexiblity ex, progress core strengthening and stab. Modalities and manual therapy PRN
--- NOTE | 2022-11-16 16:50 | PT.OTN ---
Current Diagnoses Other specified joint disorders, unspecified joint (11/16/22) Spinal stenosis, site unspecified (11/16/22) Other intervertebral disc degeneration, lumbar region (11/16/22) Low back pain, unspecified (11/16/22) Physical Therapy Treatment Note PT-OP-A Visit Information Start: 10/22/22 16:37 Freq: Status: Active Protocol: Document 11/16/22 09:14 NBM (Rec: 11/16/22 10:06 NBM [id number]) Out-Patient Physical Therapy Visit Information Visit Information Visit Type Treatment Note Visit Start Time 09:18 Visit Stop Time 10:04 Total Visit Minutes 46 Visit Number 3 Number of SIGN LANGUAGE INSTRUCTOR Visits 1 Evaluation Information Evaluation Date 10/23/22 Precautions Precautions history bladder cancer PT-OP-B Current Condition Start: 10/22/22 16:37 Freq: Status: Active Protocol: Document 11/14/22 09:01 SAK (Rec: 11/14/22 09:48 SAK [id number]) Current Condition History of Current Condition Onset Date late June Current Complaints timmy LBP and radicular symptoms timmy LE's History of Current Condition Moved furniture, helped clean out aunts place. Had lumbar surgery 40 years ago. Onset of worsened LBP with radicular symptoms left greater than right LE's including numbness left LE, tingling right LE. Activity very limited due to pain. When in bed pain worse in LEs, when gets up pain more LB and legs. Sleep very interrupted. Took a week of Prednisone initially with some improvement, flying to [place] next week and was given another week of Prednisone to tolerate that trip. Sings in group, has to stand 45 min at a time when performing, last time increased his pain. More comfortable to lay on left side for sleep vs right, gets acid reflux on right side. Prior Treatments and Tests MRI 09/17/22 convex left thoracolumbar scoliosis 1. No evidence of metastatic disease. 2. 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 Superimposed left synovial cyst also noted L4-5. BAck to oncologist in November after returns from vacation PMH: thyroidectomy, prior lumbar surgery 40 years ago L5S1, currently undergoing treatment for Future Testing and Treatments Planned none planned at the moment PT-OP-C Subjective Start: 10/22/22 16:37 Freq: Status: Active Protocol: Document 11/16/22 09:14 NB (Rec: 11/16/22 10:06 NB [id number]) OP-PT Subjective Patient Comments Patient Comments Pt states he is having some back pain this morning. He states he tried to do his ex's while traveling but that was kind of tough and he just got back, and spent the day at yesterday for scan for bladder cancer. He did a lot of walking. PT-OP-H Neuro Start: 10/22/22 16:37 Freq: Status: Active Protocol: Document 10/23/22 08:08 SAK (Rec: 10/24/22 11:59 SAK [id number]) Sensation Evaluation Gross Sensation Gross Sensation Left LE Impaired,Right LE Impaired Sensation Description Paresthesia PT-OP-J Posture/Palpation/Skin Start: 10/22/22 16:37 Freq: Status: Active Protocol: Document 10/23/22 08:08 SAK (Rec: 10/24/22 11:59 SAK [id number]) Posture Evaluation Position Standing Head/C-Spine Posture C-Spine Flattened T-Spine Posture Increased Kyphosis L-Spine Posture Flattened Shoulder Posture (L) Rounded,(R) Rounded Scapula Posture (L) Protracted,(R) Protracted Arm Posture (L) Internally Rotated,(R) Internally Rotated Pelvis Posture Posterior Tilted Hip Posture (L) Externally Rotated Knee Posture (L) Genu Recurvatum Palpation Assessment Location timmy lumbar paraspinals Palpation Findings Soft Tissue Tightness,Muscle Guarding PT-OP-K Range of Motion Start: 10/22/22 16:37 Freq: Status: Active Protocol: Document 10/23/22 08:08 SAK (Rec: 10/23/22 09:04 SAK [id number]) Lumbar Spine Range of Motion Lumbar Spine Active Flexion 30 Extension 5 Rotation Left 30 Rotation Right 25 Lateral Flexion Left 25 Lateral Flexion Right 25 Comments pain left LE with rotation right, pain left hip with left sidebending, pain right hip with right sidebending. PT-OP-L Special Tests Start: 10/22/22 16:37 Freq: Status: Active Protocol: Document 10/23/22 08:08 SAK (Rec: 10/24/22 11:59 SAK [id number]) Special Tests Lumbar Spine Special Tests Deangelo Test Results positive muscle tightness Straight Leg Raise Test Results positive muscle tightness Standing Flexion Test Results positive inc in pain Slump Test Results positive PT-OP-M Strength Start: 10/22/22 16:37 Freq: Status: Active Protocol: Document 10/23/22 08:08 [facility] (Rec: 10/24/22 11:59 [facility] [id number]) Trunk Strength Trunk Manual Muscle Testing Flexion 3+ Fair+ Extension 3 Fair Core Stabilization poor Hip Strength Hip Manual Muscle Testing Left Flexion (L2) 4 Good Extension (S1) 3+ Fair+ Abduction 3+ Fair+ Adduction 3+ Fair+ External Rotation 4- Good- Internal Rotation 4- Good- Right Flexion (L2) 4 Good Extension (S1) 3+ Fair+ Abduction 3+ Fair+ Adduction 3+ Fair+ External Rotation 3+ Fair+ Internal Rotation 4- Good- Knee Strength Knee Manual Muscle Testing Left Flexion (S2) 4+ Good+ Extension (L3) 4+ Good+ Right Flexion (S2) 4 Good Extension (L3) 4 Good Ankle/Foot Strength Ankle and Foot Manual Muscle Testing Right Dorsiflexion (L4) 4- Good- Plantarflexion (S1) 4- Good- Left Dorsiflexion (L4) 4 Good Plantarflexion (S1) 4- Good- PT-OP-Q Treatments Start: 10/22/22 16:37 Freq: Status: Active Protocol: Document 11/16/22 09:14 [id number] (Rec: 11/16/22 10:06 [facility] [id number]) Cardio Equipment Recumbent Stepper (Sci-Fit) Duration (Minutes) 5 Resistance 1 Seat Position 13 Other cues for neutral LE alignment Gym Equipment Shuttle Recovery Unilateral Squats Details vc to push through heel Resistance 50 Reps/Time 10x2 Bilateral Squats Resistance 62 Reps/Time 10x2, cues for slower pacing Therapeutic Exercises Supine Exercises Hip Adduction Supine Exercise Name Ball squeeze w/ TrA focus Equipment Used blue/white ball Reps/Minutes 10 x 5 SH Comments pt reports no back pain TrA Reps/Minutes 5x Comments cued with breath/no breathholding piriformis stretch Supine Exercise Name figure 4 and knee to opp shoulder Reps/Minutes 2x30 Comments cues for form. Standing Exercises wall posture Equipment Used wall, thick pillow behind head Reps/Minutes 4' Comments cues for chin tuck, scap setting, arms externally rotated Manual Therapy Treatment Manual Traction Lumbar Reps/Duration 5 min Comments knees bent, feet on table, strap around upper thighs. May want to try withpatient 90 /90 or try mechanical traction . Self-Care/Home Management Treatment Education Patient Education Home Exercise Program,Pain Management,Posture Other Education Review of HEP, posture and core with importance of no breathholding. PT-OP-R Modalities Start: 10/22/22 16:37 Freq: Status: Active Protocol: Document 11/14/22 09:01 SAK (Rec: 11/14/22 09:48 SAK [id number]) Hot Pack/Cold Pack Treatment left piriformis Patient Position Sidelying Treatment Duration (minutes) 15 Patient Tolerance Good Comments pillows between legs PT-OP-T Assessment and Plan Start: 10/22/22 16:37 Freq: Status: Active Protocol: Document 11/16/22 09:14 NBM (Rec: 11/16/22 10:06 NBM [id number]) Physical Therapy Assessment Goals Four Impairment impaired sleep and ability to stand Impairment sleep is interrupted and patient unable to stand greater than 5 min without an increase in pain Prison Goal (LTG) Patient will be able to sleep 7-8 hours, and resume standing for up to 45 min to perform with singing group with minimal to no increase in pain LTG Duration 12/23/22 Three Impairment impairments in ROM, strength, and core stab Short Term Goal (STG) Patient to be instructed in HEP to address impairments STG Duration 11/23/22 Prison Goal (LTG) Patient to be independent and compliant with HEP and demonstrate improvements in flexibility, strength, and core stabilization to allow him to return to prior level of function LTG Duration 12/23/22 Two Impairment limited ability to walks Prison Goal (LTG) Able to walk and play golf for 9 holes, able to return to walking [address] for exercise (2.8 miles) with minimal to no increase in pain LTG Duration 12/23/22 One Impairment back pain Prison Goal (LTG) Patient to report overall at least 50% reduction in pain level in all positions and with all activities LTG Duration 12/23/22 Assessment Summary Assessment Treatment focus on review of HEP, postural and core education. Pt requires cues for form with HEP. With wall posture pt needs cues for chin tuck and scapular retraction, and collapses into baseline posture afte ~5 steps despite cues to maintain posture. He demonstrates good awareness of LE alignment with shuttle recovery. Physical Therapy Plan Frequency and Duration Frequency of Treatment 2x/Week Duration of treatment (weeks) 8 Plan of Care Start Date 10/23/22 Plan of Care End Date 12/23/22 Therapeutic Interventions Therapeutic Interventions Home Exercise Program,Manual Therapy,Neuromuscular Re- education,Patient/Caregiver Education,Self-Care/Home Management,Sensory Integration ,Taping,Therapeutic Activities ,Therapeutic Exercises Modalities Cold Pack/Ice Massage,Electric Stimulation,Hot Packs, Traction- Mechanical, Ultrasound Next Visit Focus/Plan Next Note Type Treatment Note Next Visit Plan Consider manual traction with patient 90/90 or mechanical traction. Continue flexiblity ex, progress core strengthening and stab. Modalities and manual therapy PRN
--- NOTE | 2022-11-20 09:00 | PT.OTN ---
Current Diagnoses Other specified joint disorders, unspecified joint (11/20/22) Spinal stenosis, site unspecified (11/20/22) Other intervertebral disc degeneration, lumbar region (11/20/22) Low back pain, unspecified (11/20/22) Physical Therapy Treatment Note PT-OP-A Visit Information Start: 10/22/22 16:37 Freq: Status: Active Protocol: Document 11/20/22 08:20 SP (Rec: 11/20/22 09:05 SP [id number]) Out-Patient Physical Therapy Visit Information Visit Information Visit Type Treatment Note Visit Start Time 08:20 Visit Stop Time 09:00 Total Visit Minutes 40 Visit Number 4 Number of ENGINEERING COORDINATOR Visits 2 Evaluation Information Evaluation Date 10/23/22 Precautions Precautions history bladder cancer PT-OP-B Current Condition Start: 10/22/22 16:37 Freq: Status: Active Protocol: Document 11/14/22 09:01 SAK (Rec: 11/14/22 09:48 SAK [id number]) Current Condition History of Current Condition Onset Date late June Current Complaints timmy LBP and radicular symptoms timmy LE's History of Current Condition Moved furniture, helped clean out aunts place. Had lumbar surgery 40 years ago. Onset of worsened LBP with radicular symptoms left greater than right LE's including numbness left LE, tingling right LE. Activity very limited due to pain. When in bed pain worse in LEs, when gets up pain more LB and legs. Sleep very interrupted. Took a week of Prednisone initially with some improvement, flying to [place] next week and was given another week of Prednisone to tolerate that trip. Sings in group, has to stand 45 min at a time when performing, last time increased his pain. More comfortable to lay on left side for sleep vs right, gets acid reflux on right side. Prior Treatments and Tests MRI 09/17/22 convex left thoracolumbar scoliosis 1. No evidence of metastatic disease. 2. 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 Superimposed left synovial cyst also noted L4-5. BAck to oncologist in November after returns from vacation PMH: thyroidectomy, prior lumbar surgery 40 years ago L5S1, currently undergoing treatment for Future Testing and Treatments Planned none planned at the moment PT-OP-C Subjective Start: 10/22/22 16:37 Freq: Status: Active Protocol: Document 11/20/22 08:20 SP (Rec: 11/20/22 09:05 SP [id number]) OP-PT Subjective Patient Comments Patient Comments Pt reports lateral L leg still giving him pain. He reports has been doing the stretching his hamstring. PT-OP-H Neuro Start: 10/22/22 16:37 Freq: Status: Active Protocol: Document 10/23/22 08:08 SAK (Rec: 10/24/22 11:59 SAK [id number]) Sensation Evaluation Gross Sensation Gross Sensation Left LE Impaired,Right LE Impaired Sensation Description Paresthesia PT-OP-J Posture/Palpation/Skin Start: 10/22/22 16:37 Freq: Status: Active Protocol: Document 10/23/22 08:08 SAK (Rec: 10/24/22 11:59 SAK [id number]) Posture Evaluation Position Standing Head/C-Spine Posture C-Spine Flattened T-Spine Posture Increased Kyphosis L-Spine Posture Flattened Shoulder Posture (L) Rounded,(R) Rounded Scapula Posture (L) Protracted,(R) Protracted Arm Posture (L) Internally Rotated,(R) Internally Rotated Pelvis Posture Posterior Tilted Hip Posture (L) Externally Rotated Knee Posture (L) Genu Recurvatum Palpation Assessment Location timmy lumbar paraspinals Palpation Findings Soft Tissue Tightness,Muscle Guarding PT-OP-K Range of Motion Start: 10/22/22 16:37 Freq: Status: Active Protocol: Document 10/23/22 08:08 SAK (Rec: 10/23/22 09:04 SAK [id number]) Lumbar Spine Range of Motion Lumbar Spine Active Flexion 30 Extension 5 Rotation Left 30 Rotation Right 25 Lateral Flexion Left 25 Lateral Flexion Right 25 Comments pain left LE with rotation right, pain left hip with left sidebending, pain right hip with right sidebending. PT-OP-L Special Tests Start: 10/22/22 16:37 Freq: Status: Active Protocol: Document 10/23/22 08:08 SAK (Rec: 10/24/22 11:59 SAK [id number]) Special Tests Lumbar Spine Special Tests Deangelo Test Results positive muscle tightness Straight Leg Raise Test Results positive muscle tightness Standing Flexion Test Results positive inc in pain Slump Test Results positive PT-OP-M Strength Start: 10/22/22 16:37 Freq: Status: Active Protocol: Document 10/23/22 08:08 SAK (Rec: 10/24/22 11:59 SAK [id number]) Trunk Strength Trunk Manual Muscle Testing Flexion 3+ Fair+ Extension 3 Fair Core Stabilization poor Hip Strength Hip Manual Muscle Testing Left Flexion (L2) 4 Good Extension (S1) 3+ Fair+ Abduction 3+ Fair+ Adduction 3+ Fair+ External Rotation 4- Good- Internal Rotation 4- Good- Right Flexion (L2) 4 Good Extension (S1) 3+ Fair+ Abduction 3+ Fair+ Adduction 3+ Fair+ External Rotation 3+ Fair+ Internal Rotation 4- Good- Knee Strength Knee Manual Muscle Testing Left Flexion (S2) 4+ Good+ Extension (L3) 4+ Good+ Right Flexion (S2) 4 Good Extension (L3) 4 Good Ankle/Foot Strength Ankle and Foot Manual Muscle Testing Right Dorsiflexion (L4) 4- Good- Plantarflexion (S1) 4- Good- Left Dorsiflexion (L4) 4 Good Plantarflexion (S1) 4- Good- PT-OP-Q Treatments Start: 10/22/22 16:37 Freq: Status: Active Protocol: Document 11/20/22 08:20 SP (Rec: 11/20/22 09:05 SP [id number]) Cardio Equipment Recumbent Stepper (Sci-Fit) Duration (Minutes) 5 Resistance 2 Seat Position 13>12 Other cues for neutral LE alignment Therapeutic Exercises Supine Exercises Hip Adduction Supine Exercise Name Ball squeeze w/ TrA focus Equipment Used blue/white ball Reps/Minutes 10 x 5 SH Comments pt reports no back pain HS stretch Supine Exercise Name sustained stretch, w/ AP Resistance manual and ed towel behind thigh, lift lower leg AP Reps/Minutes 3x 30 Comments good feedback stretch, cues set up and lift lower leg piriformis stretch Supine Exercise Name figure 4 and knee to opp shoulder Reps/Minutes 2x30 Comments cues for form. Sidelying Exercises clamshell Sidelying Exercise Name added to HEP Side left Reps/Minutes 5 reps, 8 reps Comments cued TA, no pelvic wobble hip abd Sidelying Exercise Name initiated in PT Side left Reps/Minutes x5 reps Comments weakness lift, litte more tension today- recheck next tx Other Exercises self STMs Other Exercise Name quad, ITB, HS, calf Side left Equipment Used rolling pin Comments good response Manual Therapy Treatment Soft Tissue Mobilization left IT band, piriformis Mobilization Type Instrument Assisted,Strumming Intensity/Depth mod Body Position right sidelying Comments manual, ed self application rolling pin Manual Traction Lumbar Reps/Duration 5 min Comments knees bent, feet on table, strap around upper thighs. 90 /90. Good feedack response PT-OP-R Modalities Start: 10/22/22 16:37 Freq: Status: Active Protocol: Document 11/14/22 09:01 SAK (Rec: 11/14/22 09:48 SAK [id number]) Hot Pack/Cold Pack Treatment left piriformis Patient Position Sidelying Treatment Duration (minutes) 15 Patient Tolerance Good Comments pillows between legs PT-OP-T Assessment and Plan Start: 10/22/22 16:37 Freq: Status: Active Protocol: Document 11/20/22 08:20 SP (Rec: 11/20/22 09:05 SP [id number]) Physical Therapy Assessment Goals Four Impairment impaired sleep and ability to stand Impairment sleep is interrupted and patient unable to stand greater than 5 min without an increase in pain Group Home Goal (LTG) Patient will be able to sleep 7-8 hours, and resume standing for up to 45 min to perform with singing group with minimal to no increase in pain LTG Duration 12/23/22 Three Impairment impairments in ROM, strength, and core stab Short Term Goal (STG) Patient to be instructed in HEP to address impairments STG Duration 11/23/22 Dental Mold Maker Goal (LTG) Patient to be independent and compliant with HEP and demonstrate improvements in flexibility, strength, and core stabilization to allow him to return to prior level of function LTG Duration 12/23/22 Two Impairment limited ability to walks Dental Mold Maker Goal (LTG) Able to walk and play golf for 9 holes, able to return to walking [employer] road for exercise (2.8 miles) with minimal to no increase in pain LTG Duration 12/23/22 One Impairment back pain Dental Mold Maker Goal (LTG) Patient to report overall at least 50% reduction in pain level in all positions and with all activities LTG Duration 12/23/22 Assessment Summary Assessment Pt good feedback response to manual and self application. Decreased tension L ITB and will incorporate at home. Added clamshel to HEP, good muscle facilitation Glut med and ITB, no increased pain. Physical Therapy Plan Frequency and Duration Frequency of Treatment 2x/Week Duration of treatment (weeks) 8 Plan of Care Start Date 10/23/22 Plan of Care End Date 12/23/22 Therapeutic Interventions Therapeutic Interventions Home Exercise Program,Manual Therapy,Neuromuscular Re- education,Patient/Caregiver Education,Self-Care/Home Management,Sensory Integration ,Taping,Therapeutic Activities ,Therapeutic Exercises Modalities Cold Pack/Ice Massage,Electric Stimulation,Hot Packs, Traction- Mechanical, Ultrasound Next Visit Focus/Plan Next Note Type Treatment Note Next Visit Plan Consider manual traction with patient 90/90 or mechanical traction. Continue flexiblity ex, progress core strengthening and stab. Modalities and manual therapy PRN
--- NOTE | 2022-11-23 13:21 | PT.OTN ---
Current Diagnoses Other specified joint disorders, unspecified joint (11/23/22) Spinal stenosis, site unspecified (11/23/22) Other intervertebral disc degeneration, lumbar region (11/23/22) Low back pain, unspecified (11/23/22) Physical Therapy Treatment Note PT-OP-A Visit Information Start: 10/22/22 16:37 Freq: Status: Active Protocol: Document 11/23/22 12:14 NBM (Rec: 11/23/22 13:19 NBM [id number]) Out-Patient Physical Therapy Visit Information Visit Information Visit Type Treatment Note Visit Start Time 12:15 Visit Stop Time 13:02 Total Visit Minutes 47 Visit Number 5 Number of AUDITING CONTROL CLERK Visits 3 Evaluation Information Evaluation Date 10/23/22 Precautions Precautions history bladder cancer PT-OP-B Current Condition Start: 10/22/22 16:37 Freq: Status: Active Protocol: Document 11/14/22 09:01 SAK (Rec: 11/14/22 09:48 SAK [id number]) Current Condition History of Current Condition Onset Date late June Current Complaints timmy LBP and radicular symptoms timmy LE's History of Current Condition Moved furniture, helped clean out aunts place. Had lumbar surgery 40 years ago. Onset of worsened LBP with radicular symptoms left greater than right LE's including numbness left LE, tingling right LE. Activity very limited due to pain. When in bed pain worse in LEs, when gets up pain more LB and legs. Sleep very interrupted. Took a week of Prednisone initially with some improvement, flying to [place] next week and was given another week of Prednisone to tolerate that trip. Sings in group, has to stand 45 min at a time when performing, last time increased his pain. More comfortable to lay on left side for sleep vs right, gets acid reflux on right side. Prior Treatments and Tests MRI 09/17/22 convex left thoracolumbar scoliosis 1. No evidence of metastatic disease. 2. 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 Superimposed left synovial cyst also noted L4-5. BAck to oncologist in November after returns from vacation PMH: thyroidectomy, prior lumbar surgery 40 years ago L5S1, currently undergoing treatment for Future Testing and Treatments Planned none planned at the moment PT-OP-C Subjective Start: 10/22/22 16:37 Freq: Status: Active Protocol: Document 11/23/22 12:14 NBM (Rec: 11/23/22 13:19 NBM [id number]) OP-PT Subjective Patient Comments Patient Comments Pt reports his back his feeling a little better. I seem to have a little more feeling in my left calf. It's not quite as numb as it had been before. I think I detect a slight improvement on some of the stuff about his HEP. He reports he's getting 5 -6K steps daily. He's been using the rolling pin for self -massage with good results. PT-OP-H Neuro Start: 10/22/22 16:37 Freq: Status: Active Protocol: Document 10/23/22 08:08 SAK (Rec: 10/24/22 11:59 [facility] [id number]) Sensation Evaluation Gross Sensation Gross Sensation Left LE Impaired,Right LE Impaired Sensation Description Paresthesia PT-OP-J Posture/Palpation/Skin Start: 10/22/22 16:37 Freq: Status: Active Protocol: Document 10/23/22 08:08 SAK (Rec: 10/24/22 11:59 [facility] [id number]) Posture Evaluation Position Standing Head/C-Spine Posture C-Spine Flattened T-Spine Posture Increased Kyphosis L-Spine Posture Flattened Shoulder Posture (L) Rounded,(R) Rounded Scapula Posture (L) Protracted,(R) Protracted Arm Posture (L) Internally Rotated,(R) Internally Rotated Pelvis Posture Posterior Tilted Hip Posture (L) Externally Rotated Knee Posture (L) Genu Recurvatum Palpation Assessment Location timmy lumbar paraspinals Palpation Findings Soft Tissue Tightness,Muscle Guarding PT-OP-K Range of Motion Start: 10/22/22 16:37 Freq: Status: Active Protocol: Document 10/23/22 08:08 SAK (Rec: 10/23/22 09:04 SAK [id number]) Lumbar Spine Range of Motion Lumbar Spine Active Flexion 30 Extension 5 Rotation Left 30 Rotation Right 25 Lateral Flexion Left 25 Lateral Flexion Right 25 Comments pain left LE with rotation right, pain left hip with left sidebending, pain right hip with right sidebending. PT-OP-L Special Tests Start: 10/22/22 16:37 Freq: Status: Active Protocol: Document 10/23/22 08:08 SAK (Rec: 10/24/22 11:59 [facility] [id number]) Special Tests Lumbar Spine Special Tests Deangelo Test Results positive muscle tightness Straight Leg Raise Test Results positive muscle tightness Standing Flexion Test Results positive inc in pain Slump Test Results positive PT-OP-M Strength Start: 10/22/22 16:37 Freq: Status: Active Protocol: Document 10/23/22 08:08 [facility] (Rec: 10/24/22 11:59 [facility] [id number]) Trunk Strength Trunk Manual Muscle Testing Flexion 3+ Fair+ Extension 3 Fair Core Stabilization poor Hip Strength Hip Manual Muscle Testing Left Flexion (L2) 4 Good Extension (S1) 3+ Fair+ Abduction 3+ Fair+ Adduction 3+ Fair+ External Rotation 4- Good- Internal Rotation 4- Good- Right Flexion (L2) 4 Good Extension (S1) 3+ Fair+ Abduction 3+ Fair+ Adduction 3+ Fair+ External Rotation 3+ Fair+ Internal Rotation 4- Good- Knee Strength Knee Manual Muscle Testing Left Flexion (S2) 4+ Good+ Extension (L3) 4+ Good+ Right Flexion (S2) 4 Good Extension (L3) 4 Good Ankle/Foot Strength Ankle and Foot Manual Muscle Testing Right Dorsiflexion (L4) 4- Good- Plantarflexion (S1) 4- Good- Left Dorsiflexion (L4) 4 Good Plantarflexion (S1) 4- Good- PT-OP-Q Treatments Start: 10/22/22 16:37 Freq: Status: Active Protocol: Document 11/23/22 12:14 [facility] (Rec: 11/23/22 13:19 [facility] [id number]) Cardio Equipment Recumbent Stepper (Sci-Fit) Duration (Minutes) 5 Resistance 2 Seat Position 12 Other cues for L heel contact and push through heels Therapeutic Exercises Supine Exercises Hip Adduction Supine Exercise Name Ball squeeze w/ TrA focus Equipment Used blue/white ball Reps/Minutes 10 x 5 SH HS stretch Supine Exercise Name sustained stretch, w/ AP Resistance towel behind thigh, lift lower leg AP Reps/Minutes 2x 30 Comments cues for ankle pump easier than holding leg w/ hands piriformis stretch Supine Exercise Name figure 4 and knee to opp shoulder Reps/Minutes 2x30 Comments cues for form. Sidelying Exercises clamshell Sidelying Exercise Name HEP Side left Reps/Minutes 5 reps, 8 reps Comments cued TA, no pelvic wobble hip abd Sidelying Exercise Name clinic only Side left Reps/Minutes x8 reps Comments weakness lift, cues for pelvic roll - recheck next tx Standing Exercises wall posture Standing Exercise Name Discussed only Equipment Used wall, thick pillow behind head Reps/Minutes 4' Comments cues for chin tuck, scap setting, arms externally rotated Manual Therapy Treatment Manual Traction Lumbar Body Position Hooklying Reps/Duration 5 min Comments knees bent, feet on table, strap around upper thighs. Good feedack response Self-Care/Home Management Treatment Education Patient Education Home Exercise Program,Posture Other Education Discussed personal HEP using 5 # weights for seated biceps curls, and encouraged chin tuck and posture mindfulness. Reviewed wall posture and upright posture w/ chin tucks for walks and ex's. Doorway pec stretch added to HEP - HO declined. PT-OP-R Modalities Start: 10/22/22 16:37 Freq: Status: Active Protocol: Document 11/14/22 09:01 SAK (Rec: 11/14/22 09:48 SAK [id number]) Hot Pack/Cold Pack Treatment left piriformis Patient Position Sidelying Treatment Duration (minutes) 15 Patient Tolerance Good Comments pillows between legs PT-OP-T Assessment and Plan Start: 10/22/22 16:37 Freq: Status: Active Protocol: Document 11/23/22 12:14 NBM (Rec: 11/23/22 13:19 NBM [id number]) Physical Therapy Assessment Goals Four Impairment impaired sleep and ability to stand Impairment sleep is interrupted and patient unable to stand greater than 5 min without an increase in pain 11/23/22: Pt reports sleeps has been good, interrupted only for usual bathroom calls and he goes right back to sleep. Standing without pain is a little better but he notices back pain when working in the kitchen. 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 with minimal to no increase in pain LTG Duration 12/23/22 Three Impairment impairments in ROM, strength, and core stab Short Term Goal (STG) Patient to be instructed in HEP to address impairments STG Duration 11/23/22 Political Science Research Assistant Goal (LTG) Patient to be independent and compliant with HEP and demonstrate improvements in flexibility, strength, and core stabilization to allow him to return to prior level of function LTG Duration 12/23/22 Two Impairment limited ability to walks Jail Goal (LTG) Able to walk and play golf for 9 holes, able to return to walking [address] for exercise (2.8 miles) with minimal to no increase in pain LTG Duration 12/23/22 One Impairment back pain Political Science Research Assistant Goal (LTG) Patient to report overall at least 50% reduction in pain level in all positions and with all activities LTG Duration 12/23/22 Assessment Summary Assessment Pt demonstrates HEP compliance and progress w/ improved sleeping (STG 4). Pt has positive feedback response to doorway pec stretch (added to HEP, HO declined) and requires initial cues for hold. Pt requires cues on recumbant stepper for L heel contact and pushing through both heels. He needs consistent postural cues for chin tuck with upright ex's - reviewed wall posture and upright posture w/ chin tucks for walks and ex's . He is challenged in sidelying w/ hip abduction. Discussed personal HEP using 5 # weights for seated biceps curls, and encouraged chin tuck and posture mindfulness. Physical Therapy Plan Frequency and Duration Frequency of Treatment 2x/Week Duration of treatment (weeks) 8 Plan of Care Start Date 10/23/22 Plan of Care End Date 12/23/22 Therapeutic Interventions Therapeutic Interventions Home Exercise Program,Manual Therapy,Neuromuscular Re- education,Patient/Caregiver Education,Self-Care/Home Management,Sensory Integration ,Taping,Therapeutic Activities ,Therapeutic Exercises Modalities Cold Pack/Ice Massage,Electric Stimulation,Hot Packs, Traction- Mechanical, Ultrasound Next Visit Focus/Plan Next Note Type Treatment Note Next Visit Plan Consider manual traction with patient 90/90 or mechanical traction. Continue flexiblity ex, progress core strengthening and stab. Modalities and manual therapy PRN
--- NOTE | 2022-11-27 11:19 | PT.OTN ---
Current Diagnoses Other specified joint disorders, unspecified joint (11/27/22) Spinal stenosis, site unspecified (11/27/22) Other intervertebral disc degeneration, lumbar region (11/27/22) Low back pain, unspecified (11/27/22) Physical Therapy Treatment Note PT-OP-A Visit Information Start: 10/22/22 16:37 Freq: Status: Active Protocol: Document 11/27/22 10:33 SAK (Rec: 11/27/22 11:[address] [facility] [id number]) Out-Patient Physical Therapy Visit Information Visit Information Visit Type Treatment Note Visit Start Time 10:39 Visit Stop Time 10:21 Total Visit Minutes 42 Visit Number 6 Number of SUPERVISOR SAWMILL Visits 0 Evaluation Information Evaluation Date 10/23/22 Precautions Precautions history bladder cancer PT-OP-B Current Condition Start: 10/22/22 16:37 Freq: Status: Active Protocol: Document 11/27/22 10:33 SAK (Rec: 11/27/22 11:[address] [facility] [id number]) Current Condition History of Current Condition Onset Date late June Current Complaints timmy LBP and radicular symptoms timmy LE's History of Current Condition Moved furniture, helped clean out aunts place. Had lumbar surgery 40 years ago. Onset of worsened LBP with radicular symptoms left greater than right LE's including numbness left LE, tingling right LE. Activity very limited due to pain. When in bed pain worse in LEs, when gets up pain more LB and legs. Sleep very interrupted. Took a week of Prednisone initially with some improvement, flying to [place] next week and was given another week of Prednisone to tolerate that trip. Sings in group, has to stand 45 min at a time when performing, last time increased his pain. More comfortable to lay on left side for sleep vs right, gets acid reflux on right side. Prior Treatments and Tests MRI 09/17/22 convex left thoracolumbar scoliosis 1. No evidence of metastatic disease. 2. 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 Superimposed left synovial cyst also noted L4-5. BAck to oncologist in November after returns from vacation PMH: thyroidectomy, prior lumbar surgery 40 years ago L5S1, currently undergoing treatment for Future Testing and Treatments Planned none planned at the moment PT-OP-C Subjective Start: 10/22/22 16:37 Freq: Status: Active Protocol: Document 11/27/22 10:33 SAK (Rec: 11/27/22 11:[address] 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 Reports right LE significantly better, Left about the same. Using rolling pin for ruma-massage. Walking a little better, 5-6000 steps per day. PT-OP-H Neuro Start: 10/22/22 16:37 Freq: Status: Active Protocol: Document 10/23/22 08:08 SAK (Rec: 10/24/22 11:[address] [facility] [id number]) Sensation Evaluation Gross Sensation Gross Sensation Left LE Impaired,Right LE Impaired Sensation Description Paresthesia PT-OP-J Posture/Palpation/Skin Start: 10/22/22 16:37 Freq: Status: Active Protocol: Document 10/23/22 08:[address] [facility] (Rec: 10/24/22 11:[address] [facility] [id number]) Posture Evaluation Position Standing Head/C-Spine Posture C-Spine Flattened T-Spine Posture Increased Kyphosis L-Spine Posture Flattened Shoulder Posture (L) Rounded,(R) Rounded Scapula Posture (L) Protracted,(R) Protracted Arm Posture (L) Internally Rotated,(R) Internally Rotated Pelvis Posture Posterior Tilted Hip Posture (L) Externally Rotated Knee Posture (L) Genu Recurvatum Palpation Assessment Location timmy lumbar paraspinals Palpation Findings Soft Tissue Tightness,Muscle Guarding PT-OP-K Range of Motion Start: 10/22/22 16:37 Freq: Status: Active Protocol: Document 10/23/22 08:[address] [facility] (Rec: 10/23/22 09:[address] [facility] [id number]) Lumbar Spine Range of Motion Lumbar Spine Active Flexion 30 Extension 5 Rotation Left 30 Rotation Right 25 Lateral Flexion Left 25 Lateral Flexion Right 25 Comments pain left LE with rotation right, pain left hip with left sidebending, pain right hip with right sidebending. PT-OP-L Special Tests Start: 10/22/22 16:37 Freq: Status: Active Protocol: Document 10/23/22 08:08 SAK (Rec: 10/24/22 11:[address] [facility] [id number]) Special Tests Lumbar Spine Special Tests Deangelo Test Results positive muscle tightness Straight Leg Raise Test Results positive muscle tightness Standing Flexion Test Results positive inc in pain Slump Test Results positive PT-OP-M Strength Start: 10/22/22 16:37 Freq: Status: Active Protocol: Document 10/23/22 08:08 SAK (Rec: 10/24/22 11:[address] [facility] [id number]) Trunk Strength Trunk Manual Muscle Testing Flexion 3+ Fair+ Extension 3 Fair Core Stabilization poor Hip Strength Hip Manual Muscle Testing Left Flexion (L2) 4 Good Extension (S1) 3+ Fair+ Abduction 3+ Fair+ Adduction 3+ Fair+ External Rotation 4- Good- Internal Rotation 4- Good- Right Flexion (L2) 4 Good Extension (S1) 3+ Fair+ Abduction 3+ Fair+ Adduction 3+ Fair+ External Rotation 3+ Fair+ Internal Rotation 4- Good- Knee Strength Knee Manual Muscle Testing Left Flexion (S2) 4+ Good+ Extension (L3) 4+ Good+ Right Flexion (S2) 4 Good Extension (L3) 4 Good Ankle/Foot Strength Ankle and Foot Manual Muscle Testing Right Dorsiflexion (L4) 4- Good- Plantarflexion (S1) 4- Good- Left Dorsiflexion (L4) 4 Good Plantarflexion (S1) 4- Good- PT-OP-Q Treatments Start: 10/22/22 16:37 Freq: Status: Active Protocol: Document 11/27/22 10:33 SAK (Rec: 11/27/22 11:[address] [facility] [id number]) Cardio Equipment Recumbent Stepper (Sci-Fit) Duration (Minutes) 5 Resistance 2 Seat Position 12 Other cues for L heel contact and push through heels Therapeutic Exercises Supine Exercises HS stretch Supine Exercise Name sustained stretch, w/ AP Resistance towel behind thigh, lift lower leg AP Reps/Minutes 2x 30 Comments cues for ankle pump piriformis stretch Supine Exercise Name figure 4 and knee to opp shoulder Reps/Minutes 2x30 Comments cues for form. Sidelying Exercises clamshell Side bilateral Reps/Minutes 10x Comments cued TA, no pelvic wobble hip abd Sidelying Exercise Name clinic only Side left Reps/Minutes x8 reps Comments weakness lift, cues for pelvic roll - recheck next tx Other Exercises self STMs Other Exercise Name verbal review Self-Care/Home Management Treatment Education Patient Education Home Exercise Program,Posture PT-OP-R Modalities Start: 10/22/22 16:37 Freq: Status: Active Protocol: Document 11/27/22 10:33 SAK (Rec: 11/27/22 11:[address] [facility] [id number]) Spinal Traction Traction Treatment Lumbar Method Static Patient Position Hooklying Force Applied (Pounds) 52 Duration of Treatment (Minutes) 10 Heating Pad Applied n0 Traction Treatment Comment good tolerance PT-OP-T Assessment and Plan Start: 10/22/22 16:37 Freq: Status: Active Protocol: Document 11/27/22 10:[address] [facility] (Rec: 11/27/22 11:[address] [facility] [id number]) Physical Therapy Assessment Goals Four Impairment impaired sleep and ability to stand Impairment sleep is interrupted and patient unable to stand greater than 5 min without an increase in pain 11/23/22: Pt reports sleeps has been good, interrupted only for usual bathroom calls and he goes right back to sleep. Standing without pain is a little better but he notices back pain when working in the kitchen. 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 with minimal to no increase in pain LTG Duration 12/23/22 Three Impairment impairments in ROM, strength, and core stab Short Term Goal (STG) Patient to be instructed in HEP to address impairments STG Duration 11/23/22 Boat Joiner Helper Goal (LTG) Patient to be independent and compliant with HEP and demonstrate improvements in flexibility, strength, and core stabilization to allow him to return to prior level of function LTG Duration 12/23/22 Two Impairment limited ability to walks Skilled Nursing Goal (LTG) Able to walk and play golf for 9 holes, able to return to walking [address] for exercise (2.8 miles) with minimal to no increase in pain LTG Duration 12/23/22 One Impairment back pain Boat Joiner Helper Goal (LTG) Patient to report overall at least 50% reduction in pain level in all positions and with all activities LTG Duration 12/23/22 Progress Towards Goals Progress Towards Goals Progressing Toward Goals Assessment Summary Assessment Improving performance of HEP, occasional cues for not rolling backward with clamshell and s/l hip abduction. Physical Therapy Plan Frequency and Duration Frequency of Treatment 2x/Week Duration of treatment (weeks) 8 Plan of Care Start Date 10/23/22 Plan of Care End Date 12/23/22 Therapeutic Interventions Therapeutic Interventions Home Exercise Program,Manual Therapy,Neuromuscular Re- education,Patient/Caregiver Education,Self-Care/Home Management,Sensory Integration ,Taping,Therapeutic Activities ,Therapeutic Exercises Modalities Cold Pack/Ice Massage,Electric Stimulation,Hot Packs, Traction- Mechanical, Ultrasound Next Visit Focus/Plan Next Note Type Treatment Note Next Visit Plan Assess response to mechanical traction, continue exercise progression, manual treatment as indicated.
--- NOTE | 2022-11-30 13:17 | PT.OTN ---
Current Diagnoses Other specified joint disorders, unspecified joint (11/30/22) Spinal stenosis, site unspecified (11/30/22) Other intervertebral disc degeneration, lumbar region (11/30/22) Low back pain, unspecified (11/30/22) Physical Therapy Treatment Note PT-OP-A Visit Information Start: 10/22/22 16:37 Freq: Status: Active Protocol: Document 11/30/22 12:22 NBM (Rec: 11/30/22 13:15 NBM [id number]) Out-Patient Physical Therapy Visit Information Visit Information Visit Type Treatment Note Visit Start Time 12:22 Visit Stop Time 13:09 Total Visit Minutes 47 Visit Number 7 Number of DIRECTOR SCRIPT Visits 1 PT-OP-B Current Condition Start: 10/22/22 16:37 Freq: Status: Active Protocol: Document 11/27/22 10:33 SAK (Rec: 11/27/22 11:19 SAK [id number]) Current Condition History of Current Condition Onset Date late June Current Complaints timmy LBP and radicular symptoms timmy LE's History of Current Condition Moved furniture, helped clean out aunts place. Had lumbar surgery 40 years ago. Onset of worsened LBP with radicular symptoms left greater than right LE's including numbness left LE, tingling right LE. Activity very limited due to pain. When in bed pain worse in LEs, when gets up pain more LB and legs. Sleep very interrupted. Took a week of Prednisone initially with some improvement, flying to [place] next week and was given another week of Prednisone to tolerate that trip. Sings in group, has to stand 45 min at a time when performing, last time increased his pain. More comfortable to lay on left side for sleep vs right, gets acid reflux on right side. Prior Treatments and Tests MRI 09/17/22 convex left thoracolumbar scoliosis 1. No evidence of metastatic disease. 2. 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 Superimposed left synovial cyst also noted L4-5. BAck to oncologist in November after returns from vacation PMH: thyroidectomy, prior lumbar surgery 40 years ago L5S1, currently undergoing treatment for Future Testing and Treatments Planned none planned at the moment PT-OP-C Subjective Start: 10/22/22 16:37 Freq: Status: Active Protocol: Document 11/30/22 12:22 NBM (Rec: 11/30/22 13:15 [facility] [id number]) OP-PT Subjective Patient Comments Patient Comments Pt reports what we're doing here is working and his R side is pretty good right now, but the L side still has some issues. Mechanical traction felt good. He's hoping to walk about a mile tomorrow in the park at a reasonable pace. Pt reports he was in [place] for cancer follow up and was cleared to follow up in 6 months instead of 3 months. He did HEP yesterday. PT-OP-H Neuro Start: 10/22/22 16:37 Freq: Status: Active Protocol: Document 10/23/22 08:08 SAK (Rec: 10/24/22 11:59 [facility] [id number]) Sensation Evaluation Gross Sensation Gross Sensation Left LE Impaired,Right LE Impaired Sensation Description Paresthesia PT-OP-J Posture/Palpation/Skin Start: 10/22/22 16:37 Freq: Status: Active Protocol: Document 10/23/22 08:08 SAK (Rec: 10/24/22 11:59 [facility] [id number]) Posture Evaluation Position Standing Head/C-Spine Posture C-Spine Flattened T-Spine Posture Increased Kyphosis L-Spine Posture Flattened Shoulder Posture (L) Rounded,(R) Rounded Scapula Posture (L) Protracted,(R) Protracted Arm Posture (L) Internally Rotated,(R) Internally Rotated Pelvis Posture Posterior Tilted Hip Posture (L) Externally Rotated Knee Posture (L) Genu Recurvatum Palpation Assessment Location timmy lumbar paraspinals Palpation Findings Soft Tissue Tightness,Muscle Guarding PT-OP-K Range of Motion Start: 10/22/22 16:37 Freq: Status: Active Protocol: Document 10/23/22 08:08 SAK (Rec: 10/23/22 09:04 [facility] [id number]) Lumbar Spine Range of Motion Lumbar Spine Active Flexion 30 Extension 5 Rotation Left 30 Rotation Right 25 Lateral Flexion Left 25 Lateral Flexion Right 25 Comments pain left LE with rotation right, pain left hip with left sidebending, pain right hip with right sidebending. PT-OP-L Special Tests Start: 10/22/22 16:37 Freq: Status: Active Protocol: Document 10/23/22 08:08 SAK (Rec: 10/24/22 11:59 [facility] [id number]) Special Tests Lumbar Spine Special Tests Deangelo Test Results positive muscle tightness Straight Leg Raise Test Results positive muscle tightness Standing Flexion Test Results positive inc in pain Slump Test Results positive PT-OP-M Strength Start: 10/22/22 16:37 Freq: Status: Active Protocol: Document 10/23/22 08:08 [facility] (Rec: 10/24/22 11:59 [facility] [id number]) Trunk Strength Trunk Manual Muscle Testing Flexion 3+ Fair+ Extension 3 Fair Core Stabilization poor Hip Strength Hip Manual Muscle Testing Left Flexion (L2) 4 Good Extension (S1) 3+ Fair+ Abduction 3+ Fair+ Adduction 3+ Fair+ External Rotation 4- Good- Internal Rotation 4- Good- Right Flexion (L2) 4 Good Extension (S1) 3+ Fair+ Abduction 3+ Fair+ Adduction 3+ Fair+ External Rotation 3+ Fair+ Internal Rotation 4- Good- Knee Strength Knee Manual Muscle Testing Left Flexion (S2) 4+ Good+ Extension (L3) 4+ Good+ Right Flexion (S2) 4 Good Extension (L3) 4 Good Ankle/Foot Strength Ankle and Foot Manual Muscle Testing Right Dorsiflexion (L4) 4- Good- Plantarflexion (S1) 4- Good- Left Dorsiflexion (L4) 4 Good Plantarflexion (S1) 4- Good- PT-OP-Q Treatments Start: 10/22/22 16:37 Freq: Status: Active Protocol: Document 11/30/22 12:22 [facility] (Rec: 11/30/22 13:15 [facility] [id number]) Cardio Equipment Recumbent Stepper (Sci-Fit) Duration (Minutes) 5 Resistance 2 Seat Position 12 Other cues for L heel contact and push through heels Therapeutic Exercises Sidelying Exercises clamshell Side bilateral Reps/Minutes 10x Comments cued TA, no pelvic wobble hip abd Sidelying Exercise Name clinic only Side left Reps/Minutes x10 reps Comments weakness lift, cues for pelvic roll - recheck next tx Standing Exercises wall posture Equipment Used wall, thick pillow behind head Reps/Minutes 4' Comments cues for chin tuck, scap setting, arms externally rotated Manual Therapy Treatment Soft Tissue Mobilization left IT band, piriformis Mobilization Type Cross-Friction,Strumming, Sustained Pressure Intensity/Depth mod Body Position right sidelying Comments cross-friction and circular strokes to TFL and ITB, sustained pressure to Piriformis. Self-Care/Home Management Treatment Education Patient Education Home Exercise Program,Posture Other Education Reviewed being mindful of chin tucks and upright posture with walking and throughout the day. -Discussed placing foot on step/ledge with dishwashing to reduce LBP - HO of Daily Activities given. PT-OP-R Modalities Start: 10/22/22 16:37 Freq: Status: Active Protocol: Document 11/30/22 12:22 NBM (Rec: 11/30/22 13:15 [facility] [id number]) Hot Pack/Cold Pack Treatment Hot Pack Location lumbar Patient Position Hooklying Treatment Duration (minutes) 10 Patient Tolerance Good Comments LE estevan support PT-OP-T Assessment and Plan Start: 10/22/22 16:37 Freq: Status: Active Protocol: Document 11/30/22 12:22 NBM (Rec: 11/30/22 13:15 [facility] [id number]) Physical Therapy Assessment Goals Four Impairment impaired sleep and ability to stand Impairment sleep is interrupted and patient unable to stand greater than 5 min without an increase in pain 11/23/22: Pt reports sleeps has been good, interrupted only for usual bathroom calls and he goes right back to sleep. Standing without pain is a little better but he notices back pain when working in the kitchen. 11/30/22: Sleep unchanged; pt was able to stand for 30 minutes for singing last Saturday without low back pain. Personal Lines Insurance Advisor Goal (LTG) Patient will be able to sleep 7-8 hours, and resume standing for up to 45 min to perform with singing group with minimal to no increase in pain LTG Duration 12/23/22 Three Impairment impairments in ROM, strength, and core stab Short Term Goal (STG) Patient to be instructed in HEP to address impairments STG Duration 11/23/22 Skilled Nursing Goal (LTG) Patient to be independent and compliant with HEP and demonstrate improvements in flexibility, strength, and core stabilization to allow him to return to prior level of function LTG Duration 12/23/22 Two Impairment limited ability to walks Skilled Nursing Goal (LTG) Able to walk and play golf for 9 holes, able to return to walking [address] for exercise (2.8 miles) with minimal to no increase in pain LTG Duration 12/23/22 One Impairment back pain Personal Lines Insurance Advisor Goal (LTG) Patient to report overall at least 50% reduction in pain level in all positions and with all activities LTG Duration 12/23/22 Progress Towards Goals Progress Towards Goals Progressing Toward Goals Assessment Summary Assessment Two more visits. Ben continues to progress towards goals Two and Four. He lacks carryover of upright posture with wall posture ex but self-awareness improves with cues. Pt demonstrates improving self- awareness of tendency to roll pelvis backwards with sidelying clamshell and cues to focus on form rather than range. He is much more challenged w/ sidelying hip abduction when cued for neutral or slight hip extension but demonstrates good eccentric control. He has a positive feedback response to manual long-axis lumbar traction end of session. Physical Therapy Plan Frequency and Duration Frequency of Treatment 2x/Week Duration of treatment (weeks) 8 Plan of Care Start Date 10/23/22 Plan of Care End Date 12/23/22 Therapeutic Interventions Therapeutic Interventions Home Exercise Program,Manual Therapy,Neuromuscular Re- education,Patient/Caregiver Education,Self-Care/Home Management,Sensory Integration ,Taping,Therapeutic Activities ,Therapeutic Exercises Modalities Cold Pack/Ice Massage,Electric Stimulation,Hot Packs, Traction- Mechanical, Ultrasound Next Visit Focus/Plan Next Note Type Treatment Note Next Visit Plan mechanical or manual traction, continue exercise progression , manual treatment as indicated.
--- NOTE | 2022-12-04 16:50 | PT.OTN ---
Current Diagnoses Other specified joint disorders, unspecified joint (12/04/22) Spinal stenosis, site unspecified (12/04/22) Other intervertebral disc degeneration, lumbar region (12/04/22) Low back pain, unspecified (12/04/22) Physical Therapy Treatment Note PT-OP-A Visit Information Start: 10/22/22 16:37 Freq: Status: Active Protocol: Document 12/04/22 10:32 [facility] (Rec: 12/04/22 11:16 [facility] [id number]) Out-Patient Physical Therapy Visit Information Visit Information Visit Type Treatment Note Visit Start Time 10:32 Visit Stop Time 11:22 Total Visit Minutes 50 Visit Number 8 Number of RHIC SYSTEMS SAFETY ENGINEER Visits 0 Evaluation Information Evaluation Date 10/23/22 Precautions Precautions history bladder cancer PT-OP-B Current Condition Start: 10/22/22 16:37 Freq: Status: Active Protocol: Document 12/04/22 10:32 SAK (Rec: 12/04/22 11:16 [facility] [id number]) Current Condition History of Current Condition Onset Date late June Current Complaints timmy LBP and radicular symptoms timmy LE's History of Current Condition Moved furniture, helped clean out aunts place. Had lumbar surgery 40 years ago. Onset of worsened LBP with radicular symptoms left greater than right LE's including numbness left LE, tingling right LE. Activity very limited due to pain. When in bed pain worse in LEs, when gets up pain more LB and legs. Sleep very interrupted. Took a week of Prednisone initially with some improvement, flying to [place] next week and was given another week of Prednisone to tolerate that trip. Sings in group, has to stand 45 min at a time when performing, last time increased his pain. More comfortable to lay on left side for sleep vs right, gets acid reflux on right side. Prior Treatments and Tests MRI 09/17/22 convex left thoracolumbar scoliosis 1. No evidence of metastatic disease. 2. 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 Superimposed left synovial cyst also noted L4-5. BAck to oncologist in November after returns from vacation PMH: thyroidectomy, prior lumbar surgery 40 years ago L5S1, currently undergoing treatment for Future Testing and Treatments Planned none planned at the moment PT-OP-C Subjective Start: 10/22/22 16:37 Freq: Status: Active Protocol: Document 12/04/22 10:32 SAK (Rec: 12/04/22 11:16 [facility] [id number]) OP-PT Subjective Patient Comments Patient Comments [place] good Saturday after PT. Saturday started doing things on deck, trying not to do heavy lifting. Did put new gas tank in grill. Pain started getting worse. Saturday was bad with pain including down to left ankle was new. PT-OP-H Neuro Start: 10/22/22 16:37 Freq: Status: Active Protocol: Document 10/23/22 08:08 SAK (Rec: 10/24/22 11:59 [facility] [id number]) Sensation Evaluation Gross Sensation Gross Sensation Left LE Impaired,Right LE Impaired Sensation Description Paresthesia PT-OP-J Posture/Palpation/Skin Start: 10/22/22 16:37 Freq: Status: Active Protocol: Document 10/23/22 08:08 SAK (Rec: 10/24/22 11:59 [facility] [id number]) Posture Evaluation Position Standing Head/C-Spine Posture C-Spine Flattened T-Spine Posture Increased Kyphosis L-Spine Posture Flattened Shoulder Posture (L) Rounded,(R) Rounded Scapula Posture (L) Protracted,(R) Protracted Arm Posture (L) Internally Rotated,(R) Internally Rotated Pelvis Posture Posterior Tilted Hip Posture (L) Externally Rotated Knee Posture (L) Genu Recurvatum Palpation Assessment Location timmy lumbar paraspinals Palpation Findings Soft Tissue Tightness,Muscle Guarding PT-OP-K Range of Motion Start: 10/22/22 16:37 Freq: Status: Active Protocol: Document 10/23/22 08:08 [facility] (Rec: 10/23/22 09:04 [facility] [id number]) Lumbar Spine Range of Motion Lumbar Spine Active Flexion 30 Extension 5 Rotation Left 30 Rotation Right 25 Lateral Flexion Left 25 Lateral Flexion Right 25 Comments pain left LE with rotation right, pain left hip with left sidebending, pain right hip with right sidebending. PT-OP-L Special Tests Start: 10/22/22 16:37 Freq: Status: Active Protocol: Document 10/23/22 08:08 SAK (Rec: 10/24/22 11:59 [facility] [id number]) Special Tests Lumbar Spine Special Tests Deangelo Test Results positive muscle tightness Straight Leg Raise Test Results positive muscle tightness Standing Flexion Test Results positive inc in pain Slump Test Results positive PT-OP-M Strength Start: 10/22/22 16:37 Freq: Status: Active Protocol: Document 10/23/22 08:08 [facility] (Rec: 10/24/22 11:59 [facility] [id number]) Trunk Strength Trunk Manual Muscle Testing Flexion 3+ Fair+ Extension 3 Fair Core Stabilization poor Hip Strength Hip Manual Muscle Testing Left Flexion (L2) 4 Good Extension (S1) 3+ Fair+ Abduction 3+ Fair+ Adduction 3+ Fair+ External Rotation 4- Good- Internal Rotation 4- Good- Right Flexion (L2) 4 Good Extension (S1) 3+ Fair+ Abduction 3+ Fair+ Adduction 3+ Fair+ External Rotation 3+ Fair+ Internal Rotation 4- Good- Knee Strength Knee Manual Muscle Testing Left Flexion (S2) 4+ Good+ Extension (L3) 4+ Good+ Right Flexion (S2) 4 Good Extension (L3) 4 Good Ankle/Foot Strength Ankle and Foot Manual Muscle Testing Right Dorsiflexion (L4) 4- Good- Plantarflexion (S1) 4- Good- Left Dorsiflexion (L4) 4 Good Plantarflexion (S1) 4- Good- PT-OP-Q Treatments Start: 10/22/22 16:37 Freq: Status: Active Protocol: Document 12/04/22 10:32 [facility] (Rec: 12/04/22 11:16 [facility] [id number]) Cardio Equipment Recumbent Stepper (Sci-Fit) Duration (Minutes) 7 Resistance 2 Seat Position 12 Other cues for L heel contact and push through heels Therapeutic Exercises Supine Exercises SKTC Reps/Minutes 2x30 Standing Exercises wall posture Equipment Used wall, thick pillow behind head Reps/Minutes 4' Comments cues for chin tuck, scap setting, arms externally rotated Self-Care/Home Management Treatment Education Patient Education Body Mechanics,Home Exercise Program,Posture Other Education Reviewed body mechanics for lifting activities with use of yardstick for visual demo regarding long spine during squat and lift, short lever UE 's, activation of core PT-OP-R Modalities Start: 10/22/22 16:37 Freq: Status: Active Protocol: Document 12/04/22 10:32 SAK (Rec: 12/04/22 11:16 [facility] [id number]) Hot Pack/Cold Pack Treatment Hot Pack Location lumbar Patient Position Supine Treatment Duration (minutes) 10 Patient Tolerance Good Comments during LE stretches Spinal Traction Traction Treatment Lumbar Method Static Patient Position Hooklying Force Applied (Pounds) 52 Duration of Treatment (Minutes) 10 Heating Pad Applied yes;prior to LB during stretches Traction Treatment Comment good tolerance PT-OP-T Assessment and Plan Start: 10/22/22 16:37 Freq: Status: Active Protocol: Document 12/04/22 10:32 [facility] (Rec: 12/04/22 11:16 [facility] [id number]) Physical Therapy Assessment Goals Four Impairment impaired sleep and ability to stand Impairment sleep is interrupted and patient unable to stand greater than 5 min without an increase in pain 11/23/22: Pt reports sleeps has been good, interrupted only for usual bathroom calls and he goes right back to sleep. Standing without pain is a little better but he notices back pain when working in the kitchen. 11/30/22: Sleep unchanged; pt was able to stand for 30 minutes for singing last Saturday without low back pain. Wine Steward/Stewardess Goal (LTG) Patient will be able to sleep 7-8 hours, and resume standing for up to 45 min to perform with singing group with minimal to no increase in pain LTG Duration 12/23/22 Three Impairment impairments in ROM, strength, and core stab Short Term Goal (STG) Patient to be instructed in HEP to address impairments STG Duration 11/23/22 Senior Living Goal (LTG) Patient to be independent and compliant with HEP and demonstrate improvements in flexibility, strength, and core stabilization to allow him to return to prior level of function LTG Duration 12/23/22 Two Impairment limited ability to walks Wine Steward/Stewardess Goal (LTG) Able to walk and play golf for 9 holes, able to return to walking [address] for exercise (2.8 miles) with minimal to no increase in pain LTG Duration 12/23/22 One Impairment back pain Senior Living Goal (LTG) Patient to report overall at least 50% reduction in pain level in all positions and with all activities LTG Duration 12/23/22 Progress Towards Goals Progress Towards Goals Progressing Toward Goals Assessment Summary Assessment Patient back pain inc with new pain down into foot after cleaning his patio, moving furniture and installing new propane tank. Patient educated in back protection and body mechanics principles with demo and return demo; may benfit from further review and practice. Feel he would benefit from further PT as he only has 1 PT visit left on schedule. Physical Therapy Plan Frequency and Duration Frequency of Treatment 2x/Week Duration of treatment (weeks) 8 Plan of Care Start Date 10/23/22 Plan of Care End Date 12/23/22 Therapeutic Interventions Therapeutic Interventions Home Exercise Program,Manual Therapy,Neuromuscular Re- education,Patient/Caregiver Education,Self-Care/Home Management,Sensory Integration ,Taping,Therapeutic Activities ,Therapeutic Exercises Modalities Cold Pack/Ice Massage,Electric Stimulation,Hot Packs, Traction- Mechanical, Ultrasound Next Visit Focus/Plan Next Note Type Treatment Note Next Visit Plan mechanical or manual traction, continue exercise progression , manual treatment as indicated, further posture and body mechanics education
--- NOTE | 2022-12-07 13:30 | PT.OTN ---
Current Diagnoses Other specified joint disorders, unspecified joint (12/07/22) Spinal stenosis, site unspecified (12/07/22) Other intervertebral disc degeneration, lumbar region (12/07/22) Low back pain, unspecified (12/07/22) Physical Therapy Treatment Note PT-OP-A Visit Information Start: 10/22/22 16:37 Freq: Status: Active Protocol: Document 12/07/22 12:27 NBM (Rec: 12/07/22 13:30 NBM [id number]) Out-Patient Physical Therapy Visit Information Visit Information Visit Type Treatment Note Visit Start Time 12:21 Visit Stop Time 13:10 Total Visit Minutes 49 Visit Number 9 Number of MILITARY PAY TECHNICIAN Visits 1 PT-OP-B Current Condition Start: 10/22/22 16:37 Freq: Status: Active Protocol: Document 12/04/22 10:32 SAK (Rec: 12/04/22 11:16 SAK [id number]) Current Condition History of Current Condition Onset Date late June Current Complaints timmy LBP and radicular symptoms timmy LE's History of Current Condition Moved furniture, helped clean out aunts place. Had lumbar surgery 40 years ago. Onset of worsened LBP with radicular symptoms left greater than right LE's including numbness left LE, tingling right LE. Activity very limited due to pain. When in bed pain worse in LEs, when gets up pain more LB and legs. Sleep very interrupted. Took a week of Prednisone initially with some improvement, flying to [place] next week and was given another week of Prednisone to tolerate that trip. Sings in group, has to stand 45 min at a time when performing, last time increased his pain. More comfortable to lay on left side for sleep vs right, gets acid reflux on right side. Prior Treatments and Tests MRI 09/17/22 convex left thoracolumbar scoliosis 1. No evidence of metastatic disease. 2. 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 Superimposed left synovial cyst also noted L4-5. BAck to oncologist in November after returns from vacation PMH: thyroidectomy, prior lumbar surgery 40 years ago L5S1, currently undergoing treatment for Future Testing and Treatments Planned none planned at the moment PT-OP-C Subjective Start: 10/22/22 16:37 Freq: Status: Active Protocol: Document 12/07/22 12:27 NBM (Rec: 12/07/22 13:30 [facility] [id number]) OP-PT Subjective Patient Comments Patient Comments Pt reports he has felt good the past couple of days. He has scheduled 5 more PT appointments (1/week) since this is helping so much. He did not get much chance to practice the lifting techniques taught last session . He will be going to the [employer] for the first time in a couple of months. He walked leisurely close to a mile the other day with no issues. PT-OP-H Neuro Start: 10/22/22 16:37 Freq: Status: Active Protocol: Document 10/23/22 08:08 SAK (Rec: 10/24/22 11:59 [facility] [id number]) Sensation Evaluation Gross Sensation Gross Sensation Left LE Impaired,Right LE Impaired Sensation Description Paresthesia PT-OP-J Posture/Palpation/Skin Start: 10/22/22 16:37 Freq: Status: Active Protocol: Document 10/23/22 08:08 SAK (Rec: 10/24/22 11:59 [facility] [id number]) Posture Evaluation Position Standing Head/C-Spine Posture C-Spine Flattened T-Spine Posture Increased Kyphosis L-Spine Posture Flattened Shoulder Posture (L) Rounded,(R) Rounded Scapula Posture (L) Protracted,(R) Protracted Arm Posture (L) Internally Rotated,(R) Internally Rotated Pelvis Posture Posterior Tilted Hip Posture (L) Externally Rotated Knee Posture (L) Genu Recurvatum Palpation Assessment Location timmy lumbar paraspinals Palpation Findings Soft Tissue Tightness,Muscle Guarding PT-OP-K Range of Motion Start: 10/22/22 16:37 Freq: Status: Active Protocol: Document 10/23/22 08:08 SAK (Rec: 10/23/22 09:04 [facility] [id number]) Lumbar Spine Range of Motion Lumbar Spine Active Flexion 30 Extension 5 Rotation Left 30 Rotation Right 25 Lateral Flexion Left 25 Lateral Flexion Right 25 Comments pain left LE with rotation right, pain left hip with left sidebending, pain right hip with right sidebending. PT-OP-L Special Tests Start: 10/22/22 16:37 Freq: Status: Active Protocol: Document 10/23/22 08:08 SAK (Rec: 10/24/22 11:59 [facility] [id number]) Special Tests Lumbar Spine Special Tests Deangelo Test Results positive muscle tightness Straight Leg Raise Test Results positive muscle tightness Standing Flexion Test Results positive inc in pain Slump Test Results positive PT-OP-M Strength Start: 10/22/22 16:37 Freq: Status: Active Protocol: Document 10/23/22 08:08 [facility] (Rec: 10/24/22 11:59 [facility] [id number]) Trunk Strength Trunk Manual Muscle Testing Flexion 3+ Fair+ Extension 3 Fair Core Stabilization poor Hip Strength Hip Manual Muscle Testing Left Flexion (L2) 4 Good Extension (S1) 3+ Fair+ Abduction 3+ Fair+ Adduction 3+ Fair+ External Rotation 4- Good- Internal Rotation 4- Good- Right Flexion (L2) 4 Good Extension (S1) 3+ Fair+ Abduction 3+ Fair+ Adduction 3+ Fair+ External Rotation 3+ Fair+ Internal Rotation 4- Good- Knee Strength Knee Manual Muscle Testing Left Flexion (S2) 4+ Good+ Extension (L3) 4+ Good+ Right Flexion (S2) 4 Good Extension (L3) 4 Good Ankle/Foot Strength Ankle and Foot Manual Muscle Testing Right Dorsiflexion (L4) 4- Good- Plantarflexion (S1) 4- Good- Left Dorsiflexion (L4) 4 Good Plantarflexion (S1) 4- Good- PT-OP-Q Treatments Start: 10/22/22 16:37 Freq: Status: Active Protocol: Document 12/07/22 12:27 [facility] (Rec: 12/07/22 13:30 [facility] [id number]) Cardio Equipment Recumbent Stepper (Sci-Fit) Duration (Minutes) 7 Resistance 2 Seat Position 12 Other cues for L heel contact and push through heels Gym Equipment Sport Cord green Exercise Details fwd/bwd, lateral Cord/Resistance black/white cord w/ green Reps/Duration 5 x 8 steps Comments mirror, cues for hip er w/ bwd ,chin tuck. lateral: 3 x 8 steps, neutral foot position Therapeutic Exercises Supine Exercises LTR Supine Exercise Name lower trunk rotation Side bilateral Equipment Used 55cm physioball Reps/Minutes x10 ea SKTC Reps/Minutes 2x30 HS stretch Supine Exercise Name sustained stretch, w/ AP Resistance towel behind thigh, lift lower leg AP Reps/Minutes 2x 30 Comments cues for ankle pump piriformis stretch Supine Exercise Name figure 4 and knee to opp shoulder Reps/Minutes 2x30 Comments cues for form. Sidelying Exercises clamshell Side bilateral Resistance Sequoyah Tb Reps/Minutes x5, x10 w/ Tb Comments cued no pelvic wobble hip abd Sidelying Exercise Name clinic only Side left Reps/Minutes x10 reps Comments weakness lift, cues for pelvic roll - recheck next tx Standing Exercises wall squats Equipment Used 55cm physioball Reps/Minutes x10 Comments cues for LE alignment, hip hinge shoulder row Side bilateral Resistance Green Tb Reps/Minutes x12 Comments vc for chin tuck shoulder extension Side bilateral Resistance Green Tb Reps/Minutes x12 Comments initial cues for upright posture, scapular setting; eccentric control lunge stretch Standing Exercise Name calf and hamstring Side bilateral Equipment Used handrail Reps/Minutes 3 x 20s Comments cues for toes fwd, square hips . PT-OP-R Modalities Start: 10/22/22 16:37 Freq: Status: Active Protocol: Document 12/07/22 12:27 NB (Rec: 12/07/22 13:30 [facility] [id number]) Hot Pack/Cold Pack Treatment Hot Pack Location lumbar Patient Position Supine Treatment Duration (minutes) 10 Patient Tolerance Good Comments LE bolster support PT-OP-T Assessment and Plan Start: 10/22/22 16:37 Freq: Status: Active Protocol: Document 12/07/22 12:27 NBM (Rec: 12/07/22 13:30 [facility] [id number]) Physical Therapy Assessment Goals Four Impairment impaired sleep and ability to stand Impairment sleep is interrupted and patient unable to stand greater than 5 min without an increase in pain 11/23/22: Pt reports sleeps has been good, interrupted only for usual bathroom calls and he goes right back to sleep. Standing without pain is a little better but he notices back pain when working in the kitchen. 11/30/22: Sleep unchanged; pt was able to stand for 30 minutes for singing last Saturday without low back pain. Snf Goal (LTG) Patient will be able to sleep 7-8 hours, and resume standing for up to 45 min to perform with singing group with minimal to no increase in pain LTG Duration 12/23/22 Three Impairment impairments in ROM, strength, and core stab Short Term Goal (STG) Patient to be instructed in HEP to address impairments STG Duration 11/23/22 Snf Goal (LTG) Patient to be independent and compliant with HEP and demonstrate improvements in flexibility, strength, and core stabilization to allow him to return to prior level of function LTG Duration 12/23/22 Two Impairment limited ability to walks Snf Goal (LTG) Able to walk and play golf for 9 holes, able to return to walking [address] for exercise (2.8 miles) with minimal to no increase in pain LTG Duration 12/23/22 One Impairment back pain Snf Goal (LTG) Patient to report overall at least 50% reduction in pain level in all positions and with all activities LTG Duration 12/23/22 Assessment Summary Assessment Pt tolerates progression in sidelying clamshell of addition of resistance with minimal cues for form - peach Tb given. Physical Therapy Plan Frequency and Duration Frequency of Treatment 2x/Week Duration of treatment (weeks) 8 Plan of Care Start Date 10/23/22 Plan of Care End Date 12/23/22 Therapeutic Interventions Therapeutic Interventions Home Exercise Program,Manual Therapy,Neuromuscular Re- education,Patient/Caregiver Education,Self-Care/Home Management,Sensory Integration ,Taping,Therapeutic Activities ,Therapeutic Exercises Modalities Cold Pack/Ice Massage,Electric Stimulation,Hot Packs, Traction- Mechanical, Ultrasound Next Visit Focus/Plan Next Note Type Treatment Note Next Visit Plan mechanical or manual traction, continue exercise progression , manual treatment as indicated, further posture and body mechanics education
--- NOTE | 2022-12-11 16:07 | PT.OTN ---
Current Diagnoses Other specified joint disorders, unspecified joint (12/11/22) Spinal stenosis, site unspecified (12/11/22) Other intervertebral disc degeneration, lumbar region (12/11/22) Low back pain, unspecified (12/11/22) Physical Therapy Treatment Note PT-OP-A Visit Information Start: 10/22/22 16:37 Freq: Status: Active Protocol: Document 12/11/22 14:18 NBM (Rec: 12/11/22 15:56 NBM [id number]) Out-Patient Physical Therapy Visit Information Visit Information Visit Type Treatment Note Visit Start Time 14:18 Visit Stop Time 15:02 Total Visit Minutes 44 Visit Number 10 Number of HEEL ATTACHER WOOD Visits 2 Evaluation Information Evaluation Date 10/23/22 Precautions Precautions history bladder cancer PT-OP-B Current Condition Start: 10/22/22 16:37 Freq: Status: Active Protocol: Document 12/04/22 10:32 SAK (Rec: 12/04/22 11:16 SAK [id number]) Current Condition History of Current Condition Onset Date late June Current Complaints timmy LBP and radicular symptoms timmy LE's History of Current Condition Moved furniture, helped clean out aunts place. Had lumbar surgery 40 years ago. Onset of worsened LBP with radicular symptoms left greater than right LE's including numbness left LE, tingling right LE. Activity very limited due to pain. When in bed pain worse in LEs, when gets up pain more LB and legs. Sleep very interrupted. Took a week of Prednisone initially with some improvement, flying to [place] next week and was given another week of Prednisone to tolerate that trip. Sings in group, has to stand 45 min at a time when performing, last time increased his pain. More comfortable to lay on left side for sleep vs right, gets acid reflux on right side. Prior Treatments and Tests MRI 09/17/22 convex left thoracolumbar scoliosis 1. No evidence of metastatic disease. 2. 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 Superimposed left synovial cyst also noted L4-5. BAck to oncologist in November after returns from vacation PMH: thyroidectomy, prior lumbar surgery 40 years ago L5S1, currently undergoing treatment for Future Testing and Treatments Planned none planned at the moment PT-OP-C Subjective Start: 10/22/22 16:37 Freq: Status: Active Protocol: Document 12/11/22 14:18 NB (Rec: 12/11/22 15:56 [facility] [id number]) OP-PT Subjective Patient Comments Patient Comments Pt reports he did ex's on Saturday and really felt it yesterday but is better today. The ex's he did were the Fig 4 stretch, abdominal bracing, the clamshell and leg lift [ hamstring stretch], and the stretchy bands. He felt it in his L leg and both hips. He used a rolling pin on his L calf yesterday and a heating pad to low back/hips which helped. He is thinking of trying to hit a few golf balls this weekend. [place] [employer] [place] went well and he was on his feet for 40 min or more but he noticed hip pain on both sides. His singing group is singing this Sat so he will be on his feet. He's been putting foot up on ledge in kitchen and isn't sure if it's helping, but is planning to get a stool for the kitchen. He uses [employer] hot tub once/ week. PT-OP-H Neuro Start: 10/22/22 16:37 Freq: Status: Active Protocol: Document 10/23/22 08:08 SAK (Rec: 10/24/22 11:59 [facility] [id number]) Sensation Evaluation Gross Sensation Gross Sensation Left LE Impaired,Right LE Impaired Sensation Description Paresthesia PT-OP-J Posture/Palpation/Skin Start: 10/22/22 16:37 Freq: Status: Active Protocol: Document 10/23/22 08:08 SAK (Rec: 10/24/22 11:59 [facility] [id number]) Posture Evaluation Position Standing Head/C-Spine Posture C-Spine Flattened T-Spine Posture Increased Kyphosis L-Spine Posture Flattened Shoulder Posture (L) Rounded,(R) Rounded Scapula Posture (L) Protracted,(R) Protracted Arm Posture (L) Internally Rotated,(R) Internally Rotated Pelvis Posture Posterior Tilted Hip Posture (L) Externally Rotated Knee Posture (L) Genu Recurvatum Palpation Assessment Location timmy lumbar paraspinals Palpation Findings Soft Tissue Tightness,Muscle Guarding PT-OP-K Range of Motion Start: 10/22/22 16:37 Freq: Status: Active Protocol: Document 10/23/22 08:08 SAK (Rec: 03/21/23 09:04 [facility] [id number]) Lumbar Spine Range of Motion Lumbar Spine Active Flexion 30 Extension 5 Rotation Left 30 Rotation Right 25 Lateral Flexion Left 25 Lateral Flexion Right 25 Comments pain left LE with rotation right, pain left hip with left sidebending, pain right hip with right sidebending. PT-OP-L Special Tests Start: 10/22/22 16:37 Freq: Status: Active Protocol: Document 10/23/22 08:08 [facility] (Rec: 10/24/22 11:59 [facility] [id number]) Special Tests Lumbar Spine Special Tests Deangelo Test Results positive muscle tightness Straight Leg Raise Test Results positive muscle tightness Standing Flexion Test Results positive inc in pain Slump Test Results positive PT-OP-M Strength Start: 10/22/22 16:37 Freq: Status: Active Protocol: Document 10/23/22 08:08 [facility] (Rec: 10/24/22 11:59 [facility] [id number]) Trunk Strength Trunk Manual Muscle Testing Flexion 3+ Fair+ Extension 3 Fair Core Stabilization poor Hip Strength Hip Manual Muscle Testing Left Flexion (L2) 4 Good Extension (S1) 3+ Fair+ Abduction 3+ Fair+ Adduction 3+ Fair+ External Rotation 4- Good- Internal Rotation 4- Good- Right Flexion (L2) 4 Good Extension (S1) 3+ Fair+ Abduction 3+ Fair+ Adduction 3+ Fair+ External Rotation 3+ Fair+ Internal Rotation 4- Good- Knee Strength Knee Manual Muscle Testing Left Flexion (S2) 4+ Good+ Extension (L3) 4+ Good+ Right Flexion (S2) 4 Good Extension (L3) 4 Good Ankle/Foot Strength Ankle and Foot Manual Muscle Testing Right Dorsiflexion (L4) 4- Good- Plantarflexion (S1) 4- Good- Left Dorsiflexion (L4) 4 Good Plantarflexion (S1) 4- Good- PT-OP-Q Treatments Start: 10/22/22 16:37 Freq: Status: Active Protocol: Document 12/11/22 14:18 NBM (Rec: 12/11/22 15:56 NBM [id number]) Cardio Equipment Recumbent Stepper (Sci-Fit) Duration (Minutes) 6 Resistance 2 Seat Position 12>13 Other Pt felt position 12 too close today Therapeutic Exercises Supine Exercises TrA Supine Exercise Name Corrected abdominal overactivation/TrA focus - new HO issued Reps/Minutes 10x2-3 breath cycles Comments cued with breath/no breathholding HS stretch Supine Exercise Name sustained stretch Side bilateral Resistance towel behind thigh, lift lower leg AP Reps/Minutes 2x 30 piriformis stretch Supine Exercise Name figure 4 and knee to opp shoulder Reps/Minutes 2x30 Comments good form Sidelying Exercises clamshell Side bilateral Resistance Tama Tb Reps/Minutes x10 w/ Tb Comments good form and range. hip abd Sidelying Exercise Name clinic only Side left Reps/Minutes x10 reps Comments weakness lift, cues for pelvic roll - recheck next tx Standing Exercises kitchen sink stretch Side bilateral Equipment Used handrail Comments positive feedback response shoulder row Side bilateral Resistance Green Tb Reps/Minutes x12 Comments initial cues for upright posture, scap setting, slower pacing shoulder extension Side bilateral Resistance Green Tb Reps/Minutes x12 Comments initial cues for upright posture, scap setting, slower pacing lunge stretch Standing Exercise Name calf and hamstring Side bilateral Equipment Used handrail Reps/Minutes 2 x 20s Comments cues for toes fwd Self-Care/Home Management Treatment Education Patient Education Home Exercise Program,Posture Other Education HEP Review with re-education for appropriate TrA activation ex - new HO issued w/ updated instructions. Added to HEP: Kitchen sink stretch - HO declined. PT-OP-R Modalities Start: 10/22/22 16:37 Freq: Status: Active Protocol: Document 12/11/22 14:18 NBM (Rec: 12/11/22 15:56 [facility] [id number]) Hot Pack/Cold Pack Treatment Hot Pack Location lumbar Patient Position Supine Treatment Duration (minutes) 10 Patient Tolerance Good Comments LE estevan support PT-OP-T Assessment and Plan Start: 10/22/22 16:37 Freq: Status: Active Protocol: Document 12/11/22 14:18 NBM (Rec: 12/11/22 15:56 [facility] [id number]) Physical Therapy Assessment Goals Four Impairment impaired sleep and ability to stand Impairment sleep is interrupted and patient unable to stand greater than 5 min without an increase in pain 11/23/22: Pt reports sleeps has been good, interrupted only for usual bathroom calls and he goes right back to sleep. Standing without pain is a little better but he notices back pain when working in the kitchen. 11/30/22: Sleep unchanged; pt was able to stand for 30 minutes for singing last Saturday without low back pain. Intermediate Goal (LTG) Patient will be able to sleep 7-8 hours, and resume standing for up to 45 min to perform with singing group with minimal to no increase in pain LTG Duration 12/23/22 Three Impairment impairments in ROM, strength, and core stab Short Term Goal (STG) Patient to be instructed in HEP to address impairments STG Duration 11/23/22 [employer] G[employer] Goal (LTG) Patient to be independent and compliant with HEP and demonstrate improvements in flexibility, strength, and core stabilization to allow him to return to prior level of function LTG Duration 12/23/22 Two Impairment limited ability to walks Intermediate Goal (LTG) Able to walk and play golf for 9 holes, able to return to walking [employer] [address] for exercise (2.8 miles) with minimal to no increase in pain LTG Duration 12/23/22 One Impairment back pain Creative Guru Goal (LTG) Patient to report overall at least 50% reduction in pain level in all positions and with all activities LTG Duration 12/23/22 Assessment Summary Assessment Treatment focus on HEP Review which revealed pt requiring re -education for appropriate TrA activation ex due to combination of overactivation of all abdominals and breathholding - end of session pt is able to demonstrate appropriate TrA activation w/ out breathholding - new HO issued w/ updated instructions . Pt also requires postural and scapular setting cues for resisted posterior chain strengthening as well as slower pacing. Added to HEP: Kitchen sink stretch - HO declined. Physical Therapy Plan Frequency and Duration Frequency of Treatment 2x/Week Duration of treatment (weeks) 8 Plan of Care Start Date 10/23/22 Plan of Care End Date 12/23/22 Therapeutic Interventions Therapeutic Interventions Home Exercise Program,Manual Therapy,Neuromuscular Re- education,Patient/Caregiver Education,Self-Care/Home Management,Sensory Integration ,Taping,Therapeutic Activities ,Therapeutic Exercises Modalities Cold Pack/Ice Massage,Electric Stimulation,Hot Packs, Traction- Mechanical, Ultrasound Next Visit Focus/Plan Next Note Type Treatment Note Next Visit Plan Can assess s/l hip abduction for HEP; reassess TrA activation ex. Progress POC. POC: mechanical or manual traction, continue exercise progression, manual treatment as indicated, further posture and body mechanics education
--- NOTE | 2022-12-19 16:59 | PT.OTRE ---
Current Diagnoses Other specified joint disorders, unspecified joint (12/19/22) Spinal stenosis, site unspecified (12/19/22) Other intervertebral disc degeneration, lumbar region (12/19/22) Low back pain, unspecified (12/19/22) Past Medical History (Last Updated 07/18/22 @ 08:04 by Alex Hernandez MD) Benign prostatic hyperplasia Bladder cancer Bladder mass Carpal tunnel syndrome Gross hematuria High cholesterol History of chemotherapy History of tobacco use Hx of radiation therapy Hypertension Hypothyroid Incomplete emptying of bladder Lower urinary tract symptoms Thyroid cancer Type 2 diabetes mellitus UTI (urinary tract infection) Surgical History (Last Reviewed 09/21/21 @ 07:08 by Cresencio Dior RN) H/O vasectomy History of appendectomy History of back surgery History of carpal tunnel release History of thyroidectomy Visit Care Team Role Provider Type Oleksandr Grove PA-C Attending Provider Non-Staff Family Provider Primary Care Provider Referring Provider Specialty: Medical Address: [address] [place] [address], Replaced by [facility] Email: Physical Therapy Re-Evaluation PT-OP-A Visit Information Start: 10/22/22 16:37 Freq: Status: Active Protocol: Document 12/19/22 09:32 [facility] (Rec: 12/19/22 10:15 [facility] [id number]) Out-Patient Physical Therapy Visit Information Visit Information Visit Type Treatment Note Visit Start Time 09:33 Visit Stop Time 10:32 Total Visit Minutes 59 Visit Number 11 Number of SAFETY REPRESENTATIVE Visits 0 Evaluation Information Evaluation Date 10/23/22 Precautions Precautions history bladder cancer PT-OP-B Current Condition Start: 10/22/22 16:37 Freq: Status: Active Protocol: Document 12/04/22 10:32 [facility]AK (Rec: 12/04/22 11:16 [facility] [id number]) Current Condition History of Current Condition Onset Date late June Current Complaints timmy LBP and radicular symptoms timmy LE's History of Current Condition Moved furniture, helped clean out aunts place. Had lumbar surgery 40 years ago. Onset of worsened LBP with radicular symptoms left greater than right LE's including numbness left LE, tingling right LE. Activity very limited due to pain. When in bed pain worse in LEs, when gets up pain more LB and legs. Sleep very interrupted. Took a week of Prednisone initially with some improvement, flying to [place] next week and was given another week of Prednisone to tolerate that trip. Sings in group, has to stand 45 min at a time when performing, last time increased his pain. More comfortable to lay on left side for sleep vs right, gets acid reflux on right side. Prior Treatments and Tests MRI 09/17/22 convex left thoracolumbar scoliosis 1. No evidence of metastatic disease. 2. 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 Superimposed left synovial cyst also noted L4-5. BAck to oncologist in November after returns from vacation PMH: thyroidectomy, prior lumbar surgery 40 years ago L5S1, currently undergoing treatment for Future Testing and Treatments Planned none planned at the moment PT-OP-C Subjective Start: 10/22/22 16:37 Freq: Status: Active Protocol: Document 12/19/22 09:32 [facility] (Rec: 12/19/22 10:15 [facility] [id number]) OP-PT Subjective Patient Comments Patient Comments Feels PT helping, 20% better. Pain 0-4/10. Sleeping better, pain in left groin and timmy LB improved. Used to hurt just walking around the house, now that is mostly gone . Feels traction was helpful, would like to try again. PT-OP-H Neuro Start: 10/22/22 16:37 Freq: Status: Active Protocol: Document 10/23/22 08:08 [facility] (Rec: 10/24/22 11:59 [facility] [id number]) Sensation Evaluation Gross Sensation Gross Sensation Left LE Impaired,Right LE Impaired Sensation Description Paresthesia PT-OP-J Posture/Palpation/Skin Start: 10/22/22 16:37 Freq: Status: Active Protocol: Document 10/23/22 08:08 [facility] (Rec: 10/24/22 11:59 [facility] [id number]) Posture Evaluation Position Standing Head/C-Spine Posture C-Spine Flattened T-Spine Posture Increased Kyphosis L-Spine Posture Flattened Shoulder Posture (L) Rounded,(R) Rounded Scapula Posture (L) Protracted,(R) Protracted Arm Posture (L) Internally Rotated,(R) Internally Rotated Pelvis Posture Posterior Tilted Hip Posture (L) Externally Rotated Knee Posture (L) Genu Recurvatum Palpation Assessment Location timmy lumbar paraspinals Palpation Findings Soft Tissue Tightness,Muscle Guarding PT-OP-K Range of Motion Start: 10/22/22 16:37 Freq: Status: Active Protocol: Document 10/23/22 08:08 [facility] (Rec: 10/23/22 09:04 [facility] [id number]) Lumbar Spine Range of Motion Lumbar Spine Active Flexion 30 Extension 5 Rotation Left 30 Rotation Right 25 Lateral Flexion Left 25 Lateral Flexion Right 25 Comments pain left LE with rotation right, pain left hip with left sidebending, pain right hip with right sidebending. PT-OP-L Special Tests Start: 10/22/22 16:37 Freq: Status: Active Protocol: Document 10/23/22 08:08 [facility] (Rec: 10/24/22 11:59 [facility] [id number]) Special Tests Lumbar Spine Special Tests Deangelo Test Results positive muscle tightness Straight Leg Raise Test Results positive muscle tightness Standing Flexion Test Results positive inc in pain Slump Test Results positive PT-OP-M Strength Start: 10/22/22 16:37 Freq: Status: Active Protocol: Document 10/23/22 08:08 [facility] (Rec: 10/24/22 11:59 [facility] [id number]) Trunk Strength Trunk Manual Muscle Testing Flexion 3+ Fair+ Extension 3 Fair Core Stabilization poor Hip Strength Hip Manual Muscle Testing Left Flexion (L2) 4 Good Extension (S1) 3+ Fair+ Abduction 3+ Fair+ Adduction 3+ Fair+ External Rotation 4- Good- Internal Rotation 4- Good- Right Flexion (L2) 4 Good Extension (S1) 3+ Fair+ Abduction 3+ Fair+ Adduction 3+ Fair+ External Rotation 3+ Fair+ Internal Rotation 4- Good- Knee Strength Knee Manual Muscle Testing Left Flexion (S2) 4+ Good+ Extension (L3) 4+ Good+ Right Flexion (S2) 4 Good Extension (L3) 4 Good Ankle/Foot Strength Ankle and Foot Manual Muscle Testing Right Dorsiflexion (L4) 4- Good- Plantarflexion (S1) 4- Good- Left Dorsiflexion (L4) 4 Good Plantarflexion (S1) 4- Good- PT-OP-Q Treatments Start: 10/22/22 16:37 Freq: Status: Active Protocol: Document 12/19/22 09:32 [facility] (Rec: 12/19/22 10:15 [facility] [id number]) Cardio Equipment Recumbent Stepper (Sci-Fit) Duration (Minutes) 6 Resistance 2 Seat Position 13 Therapeutic Exercises Supine Exercises bridge Reps/Minutes 10x5 butterfly stretch Reps/Minutes 2x30 Sidelying Exercises clamshell Sidelying Exercise Name HEP hip abd Sidelying Exercise Name clinic only Side left Reps/Minutes x10 reps Comments weakness lift, cues for pelvic roll - recheck next tx Self-Care/Home Management Treatment Education Patient Education Home Exercise Program,Posture Other Education postural correction, importance in all positions and during all activities PT-OP-R Modalities Start: 10/22/22 16:37 Freq: Status: Active Protocol: Document 12/19/22 09:32 [facility] (Rec: 12/19/22 10:15 [facility] [id number]) Hot Pack/Cold Pack Treatment Hot Pack Location lumbar Patient Position Supine Treatment Duration (minutes) 10 Patient Tolerance Good Comments LE bolster support Spinal Traction Traction Treatment Lumbar Method Static Patient Position Hooklying Force Applied (Pounds) 55 Duration of Treatment (Minutes) 10 Heating Pad Applied No Traction Treatment Comment good tolerance PT-OP-T Assessment and Plan Start: 10/22/22 16:37 Freq: Status: Active Protocol: Document 12/19/22 09:32 [facility] (Rec: 12/19/22 10:15 [facility] [id number]) Physical Therapy Assessment Goals Four Impairment impaired sleep and ability to stand Impairment sleep is interrupted and patient unable to stand greater than 5 min without an increase in pain 11/23/22: Pt reports sleeps has been good, interrupted only for usual bathroom calls and he goes right back to sleep. Standing without pain is a little better but he notices back pain when working in the kitchen. 11/30/22: Sleep unchanged; pt was able to stand for 30 minutes for singing last Saturday without low back pain. Cement Handler Goal (LTG) Patient will be able to sleep 7-8 hours, and resume standing for up to 45 min to perform with singing group with minimal to no increase in pain 12/19/22: good progress with sleep. Was able to perform with singing group over the weekend but had increase in pain with prolonged standing LTG Duration 01/22/23 Three Impairment impairments in ROM, strength, and core stab Short Term Goal (STG) Patient to be instructed in HEP to address impairments 12/19/22: goal met, ongoing progression STG Duration goal met Cement Handler Goal (LTG) Patient to be independent and compliant with HEP and demonstrate improvements in flexibility, strength, and core stabilization to allow him to return to prior level of function 12/19/22: improving strength except left hip ext 3+/5. Added bridging to HEP today. LTG Duration 01/22/23 Two Impairment limited ability to walks Cement Handler Goal (LTG) Able to walk and play golf for 9 holes, able to return to walking [address] for exercise (2.8 miles) with minimal to no increase in pain 12/19/22: now can walk 1 mile. goal progress LTG Duration 01/22/23 One Impairment back pain Snf Goal (LTG) Patient to report overall at least 50% reduction in pain level in all positions and with all activities 12/19/22: reports now no pain while walking in house. Good progress. Experiences pain with prolonged standing and walking but reduced intensity. LTG Duration 01/22/23 Progress Towards Goals Progress Towards Goals Progressing Toward Goals Assessment Summary Assessment Good goal progress as noted above. Weakness left gluteals persists, added bridging exercise to HEP with new HO. Needs moderate cues for correct performance and alignment with hip abduction strengthening. Patient exhibiting poor postural habits sitting in waiting room , while filling out paperwork; continue postural education and importance in all positions and activities. Patient has good potential for further improvement with continued PT. Physical Therapy Plan Frequency and Duration Frequency of Treatment 2x/Week Duration of treatment (weeks) 5 Plan of Care Start Date 12/19/22 Plan of Care End Date 01/22/23 Therapeutic Interventions Therapeutic Interventions Home Exercise Program,Manual Therapy,Neuromuscular Re- education,Patient/Caregiver Education,Self-Care/Home Management,Sensory Integration ,Taping,Therapeutic Activities ,Therapeutic Exercises Modalities Cold Pack/Ice Massage,Electric Stimulation,Hot Packs, Traction- Mechanical, Ultrasound Next Visit Focus/Plan Next Note Type Treatment Note Next Visit Plan Continue PT for strengthening, core stabilization, flexibility , pain management.
--- NOTE | 2022-12-19 16:59 | PT.OPPOC ---
Physical, Occupational & Speech Therapy At [facility] Current Diagnoses Other specified joint disorders, unspecified joint (12/19/22) Spinal stenosis, site unspecified (12/19/22) Other intervertebral disc degeneration, lumbar region (12/19/22) Low back pain, unspecified (12/19/22) Visit Care Team Role Provider Type Oleksandr Grove PA-C Attending Provider Non-Staff Family Provider Primary Care Provider Referring Provider Specialty: Medical Address: [address] [place] [address], [id number] Email: Plan Of Care PT-OP-T Assessment and Plan Start: 10/22/22 16:37 Freq: Status: Active Protocol: Document 12/19/22 09:32 [facility] (Rec: 12/19/22 10:15 [facility] [id number]) Physical Therapy Assessment Goals Four Impairment impaired sleep and ability to stand Impairment sleep is interrupted and patient unable to stand greater than 5 min without an increase in pain 11/23/22: Pt reports sleeps has been good, interrupted only for usual bathroom calls and he goes right back to sleep. Standing without pain is a little better but he notices back pain when working in the kitchen. 11/30/22: Sleep unchanged; pt was able to stand for 30 minutes for singing last Saturday without low back pain. [facility] Goal (LTG) Patient will be able to sleep 7-8 hours, and resume standing for up to 45 min to perform with singing group with minimal to no increase in pain 12/19/22: good progress with sleep. Was able to perform with singing group over the weekend but had increase in pain with prolonged standing LTG Duration 01/22/23 Three Impairment impairments in ROM, strength, and core stab Short Term Goal (STG) Patient to be instructed in HEP to address impairments 12/19/22: goal met, ongoing progression STG Duration goal met Quality Control Microbiologist Goal (LTG) Patient to be independent and compliant with HEP and demonstrate improvements in flexibility, strength, and core stabilization to allow him to return to prior level of function 12/19/22: improving strength except left hip ext 3+/5. Added bridging to HEP today. LTG Duration 01/22/23 Two Impairment limited ability to walks [facility] Goal (LTG) Able to walk and play golf for 9 holes, able to return to walking [address] for exercise (2.8 miles) with minimal to no increase in pain 12/19/22: now can walk 1 mile. goal progress LTG Duration 01/22/23 One Impairment back pain Quality Control Microbiologist Goal (LTG) Patient to report overall at least 50% reduction in pain level in all positions and with all activities 12/19/22: reports now no pain while walking in house. Good progress. Experiences pain with prolonged standing and walking but reduced intensity. LTG Duration 01/22/23 Progress Towards Goals Progress Towards Goals Progressing Toward Goals Assessment Summary Assessment Good goal progress as noted above. Weakness left gluteals persists, added bridging exercise to HEP with new HO. Needs moderate cues for correct performance and alignment with hip abduction strengthening. Patient exhibiting poor postural habits sitting in waiting room , while filling out paperwork; continue postural education and importance in all positions and activities. Patient has good potential for further improvement with continued PT. Physical Therapy Plan Frequency and Duration Frequency of Treatment 2x/Week Duration of treatment (weeks) 5 Plan of Care Start Date 12/19/22 Plan of Care End Date 01/22/23 Therapeutic Interventions Therapeutic Interventions Home Exercise Program,Manual Therapy,Neuromuscular Re- education,Patient/Caregiver Education,Self-Care/Home Management,Sensory Integration ,Taping,Therapeutic Activities ,Therapeutic Exercises Modalities Cold Pack/Ice Massage,Electric Stimulation,Hot Packs, Traction- Mechanical, Ultrasound Next Visit Focus/Plan Next Note Type Treatment Note Next Visit Plan Continue PT for strengthening, core stabilization, flexibility , pain management. Plan of Care Dates Plan of Care Start Date 12/19/22 Plan of Care End Date 01/22/23 Electronically Signed by: Janet Youssef, PT 12/19/22 [id number] If you are in agreement with this Plan of Care, please return a signed and dated copy. I have reviewed this Plan of Care and certify that the skilled therapy services above are required to meet the patient?s needs. Physician Signature Date Printed Name and Credentials Clinical Instructor Signature Printed Name and Credentials
--- NOTE | 2022-12-25 12:36 | PT.OTN ---
Current Diagnoses Other specified joint disorders, unspecified joint (12/25/22) Spinal stenosis, site unspecified (12/25/22) Other intervertebral disc degeneration, lumbar region (12/25/22) Low back pain, unspecified (12/25/22) Physical Therapy Treatment Note PT-OP-A Visit Information Start: 10/22/22 16:37 Freq: Status: Active Protocol: Document 12/25/22 11:48 [facility] (Rec: 12/25/22 12:36 [facility] [id number]) Out-Patient Physical Therapy Visit Information Visit Information Visit Type Treatment Note Visit Start Time 11:48 Visit Stop Time 12:28 Total Visit Minutes 40 Visit Number 12 Number of RACECOURSE BARRIER ATTENDANT Visits 0 Evaluation Information Evaluation Date 10/23/22 PT-OP-C Subjective Start: 10/22/22 16:37 Freq: Status: Active Protocol: Document 12/25/22 11:48 [facility] (Rec: 12/25/22 12:36 [facility] [id number]) OP-PT Subjective Patient Comments Patient Comments Patient reported he was quite sore after the last treatment, thinks the traction wasn't very helpful. Still having trouble lifting anything heavy and standing/working in the kitchen, doing dishes, and singing in his singing group. Hit some golf balls last week and it made his back sore after a few shots. PT-OP-Q Treatments Start: 10/22/22 16:37 Freq: Status: Active Protocol: Document 12/25/22 11:48 [facility] (Rec: 12/25/22 12:36 [facility] [id number]) Cardio Equipment Recumbent Stepper (Sci-Fit) Duration (Minutes) 6 Resistance 2 Seat Position 13 Therapeutic Exercises Supine Exercises Hip flexor stretch Side bilateral Reps/Minutes 2x30s Comments Off edge of bed, opposite leg flexed, manual pelvic stabilization in PPT IPA core series Supine Exercise Name Flexion, extension, and oblique Reps/Minutes [id number] ea position SL bridge Side bilateral Reps/Minutes [id number] ea side bridge Reps/Minutes [id number] Standing Exercises shoulder row Side bilateral Resistance Green Tb Reps/Minutes x15 shoulder extension Side bilateral Resistance Green Tb Reps/Minutes x15 Self-Care/Home Management Treatment Education Patient Education Home Exercise Program,Posture Other Education Patient brought in HEP folder, reviewed with patient. Education on hip hinge with bending, including with golf posture. PT-OP-R Modalities Start: 10/22/22 16:37 Freq: Status: Active Protocol: Document 12/19/22 09:32 [facility] (Rec: 12/19/22 10:15 [facility] [id number]) Hot Pack/Cold Pack Treatment Hot Pack Location lumbar Patient Position Supine Treatment Duration (minutes) 10 Patient Tolerance Good Comments LE bolster support Spinal Traction Traction Treatment Lumbar Method Static Patient Position Hooklying Force Applied (Pounds) 55 Duration of Treatment (Minutes) 10 Heating Pad Applied No Traction Treatment Comment good tolerance PT-OP-T Assessment and Plan Start: 10/22/22 16:37 Freq: Status: Active Protocol: Document 12/25/22 11:48 [facility] (Rec: 12/25/22 12:36 [facility] [id number]) Physical Therapy Assessment Goals Four Impairment impaired sleep and ability to stand Impairment sleep is interrupted and patient unable to stand greater than 5 min without an increase in pain 11/23/22: Pt reports sleeps has been good, interrupted only for usual bathroom calls and he goes right back to sleep. Standing without pain is a little better but he notices back pain when working in the kitchen. 11/30/22: Sleep unchanged; pt was able to stand for 30 minutes for singing last Saturday without low back pain. Intermediate Goal (LTG) Patient will be able to sleep 7-8 hours, and resume standing for up to 45 min to perform with singing group with minimal to no increase in pain 12/19/22: good progress with sleep. Was able to perform with singing group over the weekend but had increase in pain with prolonged standing LTG Duration 01/22/23 Three Impairment impairments in ROM, strength, and core stab Short Term Goal (STG) Patient to be instructed in HEP to address impairments 12/19/22: goal met, ongoing progression STG Duration goal met Intermediate Goal (LTG) Patient to be independent and compliant with HEP and demonstrate improvements in flexibility, strength, and core stabilization to allow him to return to prior level of function 12/19/22: improving strength except left hip ext 3+/5. Added bridging to HEP today. LTG Duration 01/22/23 Two Impairment limited ability to walks Energy Specialist Goal (LTG) Able to walk and play golf for 9 holes, able to return to walking [address] for exercise (2.8 miles) with minimal to no increase in pain 12/19/22: now can walk 1 mile. goal progress LTG Duration 01/22/23 One Impairment back pain Energy Specialist Goal (LTG) Patient to report overall at least 50% reduction in pain level in all positions and with all activities 12/19/22: reports now no pain while walking in house. Good progress. Experiences pain with prolonged standing and walking but reduced intensity. LTG Duration 01/22/23 Progress Towards Goals Progress Towards Goals Progressing Toward Goals Assessment Summary Assessment Patient had increased pain with standing band ex's, and demonstrated tendency for forward flexion in trunk with prolonged standing. He was able to tolerate progression of SL bridge without increased pain. He had increased pain with hip flexor stretching, reduced with opposite knee flexed and with manual stabilization of pelvis. He was easily fatigued with core series and will benefit from further glute and abdominal strengthening to improve standing tolerance. Physical Therapy Plan Next Visit Focus/Plan Next Note Type Treatment Note Next Visit Plan Progress TrA and glute strength, hip flexibility.
--- NOTE | 2023-01-07 13:36 | PT.OTN ---
Current Diagnoses Other specified joint disorders, unspecified joint (01/07/23) Spinal stenosis, site unspecified (01/07/23) Other intervertebral disc degeneration, lumbar region (01/07/23) Low back pain, unspecified (01/07/23) Physical Therapy Treatment Note PT-OP-A Visit Information Start: 10/22/22 16:37 Freq: Status: Active Protocol: Document 01/07/23 12:26 NBM (Rec: 01/07/23 13:33 NBM [id number]) Out-Patient Physical Therapy Visit Information Visit Information Visit Type Treatment Note Visit Start Time 12:17 Visit Stop Time 13:03 Total Visit Minutes 46 Visit Number 13 Number of LOCUM TENENS Visits 1 Evaluation Information Evaluation Date 10/23/22 Precautions Precautions history bladder cancer PT-OP-B Current Condition Start: 10/22/22 16:37 Freq: Status: Active Protocol: Document 12/04/22 10:32 SAK (Rec: 12/04/22 11:16 SAK [id number]) Current Condition History of Current Condition Onset Date late June Current Complaints timmy LBP and radicular symptoms timmy LE's History of Current Condition Moved furniture, helped clean out aunts place. Had lumbar surgery 40 years ago. Onset of worsened LBP with radicular symptoms left greater than right LE's including numbness left LE, tingling right LE. Activity very limited due to pain. When in bed pain worse in LEs, when gets up pain more LB and legs. Sleep very interrupted. Took a week of Prednisone initially with some improvement, flying to [place] next week and was given another week of Prednisone to tolerate that trip. Sings in group, has to stand 45 min at a time when performing, last time increased his pain. More comfortable to lay on left side for sleep vs right, gets acid reflux on right side. Prior Treatments and Tests MRI 09/17/22 convex left thoracolumbar scoliosis 1. No evidence of metastatic disease. 2. 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 Superimposed left synovial cyst also noted L4-5. BAck to oncologist in November after returns from vacation PMH: thyroidectomy, prior lumbar surgery 40 years ago L5S1, currently undergoing treatment for Future Testing and Treatments Planned none planned at the moment PT-OP-C Subjective Start: 10/22/22 16:37 Freq: Status: Active Protocol: Document 01/07/23 12:26 NB (Rec: 01/07/23 13:33 [facility] [id number]) OP-PT Subjective Patient Comments Patient Comments Pt reports his L hip and leg are sore today. He did a lot of walking 7K steps Sat and ~ 5K steps Saturday. He was able to stand and sing for one hour and walked around festival after probably 2 hours altogether, but he was sore later. His singing group is singing next weekend [facility]. PT-OP-H Neuro Start: 10/22/22 16:37 Freq: Status: Active Protocol: Document 10/23/22 08:08 SAK (Rec: 10/24/22 11:59 [facility] [id number]) Sensation Evaluation Gross Sensation Gross Sensation Left LE Impaired,Right LE Impaired Sensation Description Paresthesia PT-OP-J Posture/Palpation/Skin Start: 10/22/22 16:37 Freq: Status: Active Protocol: Document 10/23/22 08:08 SAK (Rec: 10/24/22 11:59 [facility] [id number]) Posture Evaluation Position Standing Head/C-Spine Posture C-Spine Flattened T-Spine Posture Increased Kyphosis L-Spine Posture Flattened Shoulder Posture (L) Rounded,(R) Rounded Scapula Posture (L) Protracted,(R) Protracted Arm Posture (L) Internally Rotated,(R) Internally Rotated Pelvis Posture Posterior Tilted Hip Posture (L) Externally Rotated Knee Posture (L) Genu Recurvatum Palpation Assessment Location timmy lumbar paraspinals Palpation Findings Soft Tissue Tightness,Muscle Guarding PT-OP-K Range of Motion Start: 10/22/22 16:37 Freq: Status: Active Protocol: Document 10/23/22 08:08 SAK (Rec: 10/23/22 09:04 [facility] [id number]) Lumbar Spine Range of Motion Lumbar Spine Active Flexion 30 Extension 5 Rotation Left 30 Rotation Right 25 Lateral Flexion Left 25 Lateral Flexion Right 25 Comments pain left LE with rotation right, pain left hip with left sidebending, pain right hip with right sidebending. PT-OP-L Special Tests Start: 10/22/22 16:37 Freq: Status: Active Protocol: Document 10/23/22 08:08 SAK (Rec: 10/24/22 11:59 [facility] [id number]) Special Tests Lumbar Spine Special Tests Deangelo Test Results positive muscle tightness Straight Leg Raise Test Results positive muscle tightness Standing Flexion Test Results positive inc in pain Slump Test Results positive PT-OP-M Strength Start: 10/22/22 16:37 Freq: Status: Active Protocol: Document 10/23/22 08:08 [facility] (Rec: 10/24/22 11:59 [facility] [id number]) Trunk Strength Trunk Manual Muscle Testing Flexion 3+ Fair+ Extension 3 Fair Core Stabilization poor Hip Strength Hip Manual Muscle Testing Left Flexion (L2) 4 Good Extension (S1) 3+ Fair+ Abduction 3+ Fair+ Adduction 3+ Fair+ External Rotation 4- Good- Internal Rotation 4- Good- Right Flexion (L2) 4 Good Extension (S1) 3+ Fair+ Abduction 3+ Fair+ Adduction 3+ Fair+ External Rotation 3+ Fair+ Internal Rotation 4- Good- Knee Strength Knee Manual Muscle Testing Left Flexion (S2) 4+ Good+ Extension (L3) 4+ Good+ Right Flexion (S2) 4 Good Extension (L3) 4 Good Ankle/Foot Strength Ankle and Foot Manual Muscle Testing Right Dorsiflexion (L4) 4- Good- Plantarflexion (S1) 4- Good- Left Dorsiflexion (L4) 4 Good Plantarflexion (S1) 4- Good- PT-OP-Q Treatments Start: 10/22/22 16:37 Freq: Status: Active Protocol: Document 01/07/23 12:26 NB (Rec: 01/07/23 13:33 [facility] [id number]) Cardio Equipment Recumbent Stepper (Sci-Fit) Duration (Minutes) 6 Resistance 2 Seat Position 13 Therapeutic Exercises Supine Exercises Hip flexor stretch Side bilateral Reps/Minutes 2x30s Comments Off edge of bed, opposite leg flexed, cue for PPT LTR Supine Exercise Name lower trunk rotation Side bilateral Equipment Used 55cm physioball Reps/Minutes x10 ea Comments I feel that in the hips piriformis stretch Supine Exercise Name figure 4 and knee to opp shoulder Reps/Minutes 2x30 Comments good form Standing Exercises Corner Pec stretch Side bilateral Equipment Used corner Reps/Minutes 3x20s Comments cues for initial form shoulder row Side bilateral Resistance Green Tb Reps/Minutes x15 shoulder extension Side bilateral Resistance Green Tb Reps/Minutes x15 lunge stretch Standing Exercise Name calf and hamstring>hip flexor Side bilateral Equipment Used handrail Reps/Minutes 2 x 20s Comments cues for toes fwd Other Exercises self STMs Other Exercise Name verbal review Manual Therapy Treatment Soft Tissue Mobilization left IT band, piriformis Body Location L hip abductors and adductors Mobilization Type Cross-Friction,Rolling, Strumming,Sustained Pressure Intensity/Depth mod Body Position Hooklying Comments abductor focus. cross-friction and circular strokes to TFL and ITB; discussed self-STM w/ rolling pin to L adductors as well as abductors and quads. Manual Traction Lumbar Body Position Hooklying Reps/Duration 3x90s Comments knees bent, feet on table, strap around upper thighs. Good feedack response. No change to baseline LE symptoms . Self-Care/Home Management Treatment Education Patient Education Home Exercise Program,Posture Other Education -Standing postural education review. -Reviewed education on hip hinge with bending, including with golf posture. -HEP discussion with encouragement of stretching with strengthening, and mindfulness of PPT. -Verbal review of self-STM w/ rolling pin and tennis ball. PT-OP-R Modalities Start: 10/22/22 16:37 Freq: Status: Active Protocol: Document 12/19/22 09:32 [facility] (Rec: 12/19/22 10:15 [facility] [id number]) Hot Pack/Cold Pack Treatment Hot Pack Location lumbar Patient Position Supine Treatment Duration (minutes) 10 Patient Tolerance Good Comments LE bolster support Spinal Traction Traction Treatment Lumbar Method Static Patient Position Hooklying Force Applied (Pounds) 55 Duration of Treatment (Minutes) 10 Heating Pad Applied No Traction Treatment Comment good tolerance PT-OP-T Assessment and Plan Start: 10/22/22 16:37 Freq: Status: Active Protocol: Document 01/07/23 12:26 NB (Rec: 01/07/23 13:33 [facility] [id number]) Physical Therapy Assessment Goals Four Impairment impaired sleep and ability to stand Impairment sleep is interrupted and patient unable to stand greater than 5 min without an increase in pain 11/23/22: Pt reports sleeps has been good, interrupted only for usual bathroom calls and he goes right back to sleep. Standing without pain is a little better but he notices back pain when working in the kitchen. 11/30/22: Sleep unchanged; pt was able to stand for 30 minutes for singing last Saturday without low back pain. Fdc Goal (LTG) Patient will be able to sleep 7-8 hours, and resume standing for up to 45 min to perform with singing group with minimal to no increase in pain 12/19/22: good progress with sleep. Was able to perform with singing group over the weekend but had increase in pain with prolonged standing LTG Duration 01/22/23 Three Impairment impairments in ROM, strength, and core stab Short Term Goal (STG) Patient to be instructed in HEP to address impairments 12/19/22: goal met, ongoing progression STG Duration goal met Fdc Goal (LTG) Patient to be independent and compliant with HEP and demonstrate improvements in flexibility, strength, and core stabilization to allow him to return to prior level of function 12/19/22: improving strength except left hip ext 3+/5. Added bridging to HEP today. LTG Duration 01/22/23 Two Impairment limited ability to walks Fdc Goal (LTG) Able to walk and play golf for 9 holes, able to return to walking [address] for exercise (2.8 miles) with minimal to no increase in pain 12/19/22: now can walk 1 mile. goal progress 01/07/23: Pt reports 7K steps Saturday and ~5K steps Saturday, and that he stood 1 hour for singing group and walked another hour after with soreness onset later. LBP with golf stance. LTG Duration 01/22/23 One Impairment back pain Business Management Specialist Goal (LTG) Patient to report overall at least 50% reduction in pain level in all positions and with all activities 12/19/22: reports now no pain while walking in house. Good progress. Experiences pain with prolonged standing and walking but reduced intensity. LTG Duration 01/22/23 Assessment Summary Assessment One more visit scheduled w/ PT . Pt is compliant with HEP but discussed not to overdo activity as he consistently experiences onset of soreness within 24 hours rather than during activity. Treatment focus on postural and HEP review. Pt requires cues for chin tuck and scapular retraction with resisted shoulder ex's. Significant time spent on Self-Care: Review of standing postural education and hip hinge with bending, including with golf posture, as well as HEP discussion with emphasis on stretching, and mindfulness of PPT. Cues for Posterior pelvic tilt improves pt's low back and hip pain with LTR ex, and pt has a positive feedback response to manual lumbar short-axis traction. Physical Therapy Plan Frequency and Duration Frequency of Treatment 2x/Week Duration of treatment (weeks) 5 Plan of Care Start Date 12/19/22 Plan of Care End Date 01/22/23 Therapeutic Interventions Therapeutic Interventions Home Exercise Program,Manual Therapy,Neuromuscular Re- education,Patient/Caregiver Education,Self-Care/Home Management,Sensory Integration ,Taping,Therapeutic Activities ,Therapeutic Exercises Modalities Cold Pack/Ice Massage,Electric Stimulation,Hot Packs, Traction- Mechanical, Ultrasound Next Visit Focus/Plan Next Note Type Treatment Note Next Visit Plan Last visit 01/17/23. Assess for D/C vs continueing PT. POC: Progress TrA and glute strength, hip flexibility.
--- NOTE | 2023-03-04 15:57 | PT.OPDS ---
Current Diagnoses Other specified joint disorders, unspecified joint (01/07/23) Spinal stenosis, site unspecified (01/07/23) Other intervertebral disc degeneration, lumbar region (01/07/23) Low back pain, unspecified (01/07/23) Visit Care Team Role Provider Type Oleksandr Grove PA-C Attending Provider Non-Staff Family Provider Primary Care Provider Referring Provider Specialty: Medical Address: [address] [place] [address], [id number] Email: Visit Number Visit Number 13 Discharge Summary PT-OP-B Current Condition Start: 10/22/22 16:37 Freq: Status: Active Protocol: Document 12/04/22 10:32 SAK (Rec: 12/04/22 11:16 SAK [id number]) Current Condition History of Current Condition Onset Date late June Current Complaints timmy LBP and radicular symptoms timmy LE's History of Current Condition Moved furniture, helped clean out aunts place. Had lumbar surgery 40 years ago. Onset of worsened LBP with radicular symptoms left greater than right LE's including numbness left LE, tingling right LE. Activity very limited due to pain. When in bed pain worse in LEs, when gets up pain more LB and legs. Sleep very interrupted. Took a week of Prednisone initially with some improvement, flying to [place] next week and was given another week of Prednisone to tolerate that trip. Sings in group, has to stand 45 min at a time when performing, last time increased his pain. More comfortable to lay on left side for sleep vs right, gets acid reflux on right side. Prior Treatments and Tests MRI 09/17/22 convex left thoracolumbar scoliosis 1. No evidence of metastatic disease. 2. 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 Superimposed left synovial cyst also noted L4-5. BAck to oncologist in November after returns from vacation PMH: thyroidectomy, prior lumbar surgery 40 years ago L5S1, currently undergoing treatment for Future Testing and Treatments Planned none planned at the moment PT-OP-C Subjective Start: 10/22/22 16:37 Freq: Status: Active Protocol: Document 01/07/23 12:26 NBM (Rec: 01/07/23 13:33 NBM [id number]) OP-PT Subjective Patient Comments Patient Comments Pt reports his L hip and leg are sore today. He did a lot of walking 7K steps Sat and ~ 5K steps Saturday. He was able to stand and sing for one hour and walked around festival after probably 2 hours altogether, but he was sore later. His singing group is singing next weekend on [facility]. PT-OP-H Neuro Start: 10/22/22 16:37 Freq: Status: Active Protocol: Document 10/23/22 08:08 [facility] (Rec: 10/24/22 11:59 [facility] [id number]) Sensation Evaluation Gross Sensation Gross Sensation Left LE Impaired,Right LE Impaired Sensation Description Paresthesia PT-OP-J Posture/Palpation/Skin Start: 10/22/22 16:37 Freq: Status: Active Protocol: Document 10/23/22 08:08 [facility] (Rec: 10/24/22 11:59 [facility] [id number]) Posture Evaluation Position Standing Head/C-Spine Posture C-Spine Flattened T-Spine Posture Increased Kyphosis L-Spine Posture Flattened Shoulder Posture (L) Rounded,(R) Rounded Scapula Posture (L) Protracted,(R) Protracted Arm Posture (L) Internally Rotated,(R) Internally Rotated Pelvis Posture Posterior Tilted Hip Posture (L) Externally Rotated Knee Posture (L) Genu Recurvatum Palpation Assessment Location timmy lumbar paraspinals Palpation Findings Soft Tissue Tightness,Muscle Guarding PT-OP-K Range of Motion Start: 10/22/22 16:37 Freq: Status: Active Protocol: Document 10/23/22 08:08 [facility] (Rec: 10/23/22 09:04 [facility] [id number]) Lumbar Spine Range of Motion Lumbar Spine Active Flexion 30 Extension 5 Rotation Left 30 Rotation Right 25 Lateral Flexion Left 25 Lateral Flexion Right 25 Comments pain left LE with rotation right, pain left hip with left sidebending, pain right hip with right sidebending. PT-OP-L Special Tests Start: 10/22/22 16:37 Freq: Status: Active Protocol: Document 10/23/22 08:08 [facility] (Rec: 10/24/22 11:59 [facility] [id number]) Special Tests Lumbar Spine Special Tests Deangelo Test Results positive muscle tightness Straight Leg Raise Test Results positive muscle tightness Standing Flexion Test Results positive inc in pain Slump Test Results positive PT-OP-M Strength Start: 10/22/22 16:37 Freq: Status: Active Protocol: Document 10/23/22 08:08 [facility] (Rec: 10/24/22 11:59 [facility] [id number]) Trunk Strength Trunk Manual Muscle Testing Flexion 3+ Fair+ Extension 3 Fair Core Stabilization poor Hip Strength Hip Manual Muscle Testing Left Flexion (L2) 4 Good Extension (S1) 3+ Fair+ Abduction 3+ Fair+ Adduction 3+ Fair+ External Rotation 4- Good- Internal Rotation 4- Good- Right Flexion (L2) 4 Good Extension (S1) 3+ Fair+ Abduction 3+ Fair+ Adduction 3+ Fair+ External Rotation 3+ Fair+ Internal Rotation 4- Good- Knee Strength Knee Manual Muscle Testing Left Flexion (S2) 4+ Good+ Extension (L3) 4+ Good+ Right Flexion (S2) 4 Good Extension (L3) 4 Good Ankle/Foot Strength Ankle and Foot Manual Muscle Testing Right Dorsiflexion (L4) 4- Good- Plantarflexion (S1) 4- Good- Left Dorsiflexion (L4) 4 Good Plantarflexion (S1) 4- Good- PT-OP-T Assessment and Plan Start: 10/22/22 16:37 Freq: Status: Active Protocol: Document 03/04/23 15:56 [facility] (Rec: 03/04/23 15:57 [facility] [id number]) Physical Therapy Plan Discharge Physical Therapy Discharge Reasons No Longer Attending PT
== END 2023-04-09 11:07 ==
LOC: PHYS 12:15
PROVIDERS: Family Provider Student in an Organized Health Care Education/Training Program; PCP Student in an Organized Health Care Education/Training Program; Referring Provider Student in an Organized Health Care Education/Training Program; Visit Provider Student in an Organized Health Care Education/Training Program
DX: M51.36 Other intervertebral disc degeneration, lumbar region (principal); M54.50 Low back pain, unspecified; M48.00 Spinal stenosis, site unspecified; M25.80 Other specified joint disorders, unspecified joint
CPT/HCPCS: 97012; 97110; 97140; 97162; 97535

== ENCOUNTER → 2023-01-28 09:59 | Outpatient (CLI) | payer MEDICARE, OTHER, SELFPAY | PROVIDERS: Family Provider Student in an Organized Health Care Education/Training Program; PCP Student in an Organized Health Care Education/Training Program; Visit Provider Nurse Practitioner Family | DX: J02.9 Acute pharyngitis, unspecified (principal) | CPT/HCPCS: 87070 ==

== ENCOUNTER 2023-01-30 07:04 | Emergency (ER) | payer MEDICARE, OTHER, SELFPAY ==
[2023-01-30 07:06] VITALS: BP 185/73; PULSE 67; RESP 20; TEMP 36.4; O2SAT 99; BMI 25.1
--- NOTE | 2023-01-30 07:20 | ED.GENADULT ---
HPI - General Adult General Chief complaint: Upper Respiratory Symptoms Stated complaint: cold, sore throat Time Seen by Provider: 01/30/23 07:06 Source: patient Mode of arrival: Ambulatory History of Present Illness HPI narrative: Patient is an 88-year-old male. He is here for evaluation of a sore throat for the past week. He is also had upper respiratory tract infection symptoms for greater than a week. Earlier this week he was seen in the walk-in clinic. Had a rapid strep that was negative. Was told that if he was still having a sore throat that he needs to return to the emergency department. He has been taking the kjqn-peo-adypsod medications that they recommended to include nasal sprays and also Claritin. He states he is no longer congested but is still having sore throat. It does hurt to swallow but no problems breathing. Related Data Home Medications Medication Instructions Recorded Confirmed levothyroxine 125 mcg tablet 125 mcg PO QAM 11/13/19 01/28/23 (Synthroid) lisinopril 10 mg tablet 10 mg PO BEDTIME 11/13/19 01/28/23 metformin 500 mg tablet,extended 500 mg PO TID 11/13/19 01/28/23 release 24 hr simvastatin 10 mg tablet 10 mg PO BEDTIME 11/13/19 01/28/23 CoQ 10 PO 08/29/21 01/28/23 Previous Rx's Medication Instructions Recorded tamsulosin 0.4 mg capsule 0.8 mg PO DAILY #120 caps 01/08/23 methylprednisolone 4 mg tablets in See Rx Instructions PO PER PKG DIR 01/18/23 a dose pack (Medrol (Yeison)) #21 ea fluticasone propionate 50 1 spray intranasal Q12H #16 grams 01/28/23 mcg/actuation nasal spray,suspension (Flonase Allergy Relief) ipratropium bromide 42 mcg (0.06 2 spray intranasal TID 4 days #15 01/28/23 %) nasal spray mL Allergies Allergy/AdvReac Type Severity Reaction Status Date / Time No Known Drug Allergies Allergy Verified 01/28/23 09:39 Review of Systems Constitutional Constitutional: Reports system reviewed and no additional complaints, except as documented ENT Ears, Nose, Mouth, and Throat: Reports system reviewed and no additional complaints, except as documented Neurologic Neurologic: Reports system reviewed and no additional complaints, except as documented Patient History Medical History Benign prostatic hyperplasia Bladder cancer Bladder mass Carpal tunnel syndrome Gross hematuria High cholesterol History of chemotherapy History of tobacco use Hx of radiation therapy Hypertension Hypothyroid Incomplete emptying of bladder Lower urinary tract symptoms Thyroid cancer Type 2 diabetes mellitus UTI (urinary tract infection) Surgical History H/O vasectomy History of appendectomy History of back surgery History of carpal tunnel release History of thyroidectomy Family History Grandmother Stroke Social History marital status: number of children: 2 Smoking Status: Former smoker alcohol intake: current Type(s) of exercise: walking and weight lifting frequency: 3-4 times per week Smoking Status: Former smoker alcohol intake frequency: 0-2 drinks per day Substance Use Type: does not use Exam Initial Vital Signs Initial Vital Signs: Vital Signs Temperature 97.6 F 01/30/23 07:06 Pulse Rate 67 01/30/23 07:06 Respiratory Rate 20 01/30/23 07:06 Blood Pressure 185/73 H 01/30/23 07:06 Pulse Oximetry 99 01/30/23 07:06 Oxygen Delivery Method Room Air 01/30/23 07:06 Const General: cooperative and comfortable HENMT Head: normal to inspection and normocephalic Ears: TM's normal bilaterally Mouth: oral mucosae normal and moist mucous membranes Throat: posterior oropharynx normal Resp Effort & Inspection: normal respiratory effort Skin General: no rashes or lesions noted Neuro General: patient alert, patient awake, patient oriented x3 and moves all extremities Extrem General: normal to inspection and capillary refill normal Course Orders Ordered: ED Orders 01/30/23 07:25 Respiratory Panel (Film Array) Stat 01/30/23 07:31 Monotest Stat 01/30/23 07:32 Strep Grp A by PCR Rapid Stat Vital Signs Vital signs: Vital Signs - 8 hr 01/30/23 07:06 Temperature 97.6 F Pulse Rate 67 Respiratory Rate 20 Blood Pressure 185/73 H Pulse Oximetry 99 Oxygen Delivery Method Room Air Medical Decision Making Lab Data Labs: Lab Results 06/01/30/23 01/30/23 Range/Units 07:25 07:31 07:32 Chlamy pneumoniae PCR Not detected (Not Detect) Adenovirus (PCR) Not detected (Not Detect) B. pertussis DNA (PCR) Not detected (Not Detecte) B.parapertussis DNA PCR Not detected (Not Detecte) Coronavirus OC43 (PCR) Not detected (Not Detect) Coronavirus HKU1 (PCR) Not detected (Not Detect) Coronavirus 229E (PCR) Not detected (Not Detect) SARS-CoV-2 (PCR) Not detected (Not Detecte) Coronavirus NL63 (PCR) Not detected (Not Detect) Monoscreen Negative (Negative) Human Metapneumovir PCR Not detected (Not Detect) Influenza Type A (PCR) Not detected (Not Detect) Influenza Type B (PCR) Not detected (Not Detect) M. pneumoniae (PCR) Not detected (Not Detect) Parainfluenza 1 (PCR) Not detected (Not Detect) Parainfluenza 2 (PCR) Not detected (Not Detect) Parainfluenza 3 (PCR) Not detected (Not Detect) Parainfluenza 4 (PCR) Not detected (Not Detect) RSV (PCR) Not detected (Not Detect) Entero/Rhino (PCR) Not detected (Not Detect) Group A Strep (PCR) Negative (Negative) MDM Narrative Medical decision making narrative: Workup here in the emergency department is reassuring. Strep test is negative. Daggett was negative. He had a throat culture from a couple days ago that is negative. His respiratory panel was negative. He is no signs of peritonsillar abscess/retropharyngeal abscess. No problems breathing. No problems swallowing. No indication for antibiotics. I do suspect that this is postnasal drip. We did discuss sore throat lozenges and other symptomatic treatment. He was given return precautions and follow-up instructions. He expressed understanding and agreement. Discharge Plan Departure Patient Disposition: Home Clinical Impression: Pharyngitis Instructions: Sore Throat Activity Restrictions/Additional Instructions: Recommend that you continue to take all of your medications as directed. You can also try rdyi-gov-[id number] sore throat lozenges to try to help with the symptoms. Continue with the nasal sprays and Claritin. Return to the emergency department for new or worsening symptoms. Prescriptions: No Action methylprednisolone [Medrol (Yeison)] 4 mg tablets,dose pack See Rx Instructions PO PER PKG DIR Qty: 21 0RF Rx Instructions: PO PER PKG DIR ipratropium bromide 42 mcg (0.06 %) spray,non-aerosol 2 spray intranasal TID 4 Days Qty: 15 0RF Rx Instructions: administer into each nostril fluticasone propionate [Flonase Allergy Relief] 50 mcg/actuation spray,suspension 1 spray intranasal Q12H Qty: 16 0RF Rx Instructions: administer into each nostril simvastatin 10 mg tablet 10 mg PO BEDTIME levothyroxine [Synthroid] 125 mcg tablet 125 mcg PO QAM lisinopril 10 mg tablet 10 mg PO BEDTIME metformin 500 mg tablet extended release 24 hr 500 mg PO TID CoQ 10 PO tamsulosin 0.4 mg capsule 0.8 mg PO DAILY Qty: 120 3RF Referrals: Oleksandr Grove PA-C [Primary Care Provider] - Stand Alone Forms: Patient Portal/API
[2023-01-30 07:47] LABS: Monotest Negative (Negative)
[2023-01-30 07:48] LABS: Strep Grp A by PCR Rapid Negative (Negative)
[2023-01-30 08:23] LABS: Adenovirus Not Detected (Not Detect); B. parapertussis Not Detected (Not Detecte); Bordetella pertussis Not Detected (Not Detecte); Chlamydophila pneumoniae Not Detected (Not Detect); Coronavirus 229E Not Detected (Not Detect); Coronavirus HKU1 Not Detected (Not Detect); Coronavirus NL 63 Not Detected (Not Detect); Coronavirus OC43 Not Detected (Not Detect); Human Metapneumovirus Not Detected (Not Detect); Human Rhinovirus/Enterovirus Not Detected (Not Detect); Influenza A Not Detected (Not Detect); Influenza B Not Detected (Not Detect); Mycoplasma pneumoniae Not Detected (Not Detect); Parainfluenza Virus 1 Not Detected (Not Detect); Parainfluenza Virus 2 Not Detected (Not Detect); Parainfluenza Virus 3 Not Detected (Not Detect); Parainfluenza Virus 4 Not Detected (Not Detect); Respiratory Syncytial Virus Not Detected (Not Detect); SARS- CoV-2 Not Detected (Not Detecte)
[2023-01-30 08:53] VITALS: BP 163/76; PULSE 70; O2SAT 99
== END 2023-01-30 08:57 | disposition home or self-care (01) ==
PROVIDERS: Emergency Provider Emergency Medicine; Family Provider Student in an Organized Health Care Education/Training Program; PCP Student in an Organized Health Care Education/Training Program
DX: J02.9 Acute pharyngitis, unspecified (principal); Z20.822 Contact with and (suspected) exposure to COVID-19
CPT/HCPCS: 86318; 87633; 87651; 99282

== ENCOUNTER → 2023-03-12 10:01 | Outpatient (CLI) | payer MEDICARE, OTHER, SELFPAY ==
--- NOTE | 2023-03-12 10:02 | DI.RAD.S_ITS ---
PROCEDURE: XR LUMBAR SPINE MIN 4V INDICATIONS: LOW BACK PAIN TECHNIQUE: 5 views of the lumbar spine were acquired, including bilateral oblique views. COMPARISON: None. FINDINGS: Bones: 5 nonrib-bearing vertebrae are present. There is moderate levoscoliosis with apex at L2 level. Degenerative endplate changes are noted throughout lower thoracic and lumbar spine . 7 millimeter retrolisthesis of L2 on L3 and 5 millimeter retrolisthesis of L1 on L2 is seen. There is also 6 millimeter anterolisthesis of L4 on L5. No vertebral body compression fractures. No suspicious bony lesions. Soft tissues: Overlying bowel gas pattern is normal. No suspicious soft tissue calcifications. Oblique images: No pars defects. IMPRESSION: 1. Moderate levoscoliosis centered at L2 level. No acute compression fracture. Grade 1 spondylolisthesis at L1-2, L2-3 and L4-5 levels as above. Degenerative disc disease throughout lower thoracic and lumbar spine. 2. No gross pars defects. Dictated by: Zhen Porras M.D. on 03/12/2023 at 12:13 Approved by: Zhen Porras M.D. on 03/12/2023 at 12:15
== END ==
PROVIDERS: Family Provider Student in an Organized Health Care Education/Training Program; PCP Student in an Organized Health Care Education/Training Program; Referring Provider Anesthesiology; Visit Provider Anesthesiology
DX: M51.34 Other intervertebral disc degeneration, thoracic region (principal); M47.26 Other spondylosis with radiculopathy, lumbar region; M51.16 Intervertebral disc disorders with radiculopathy, lumbar region; M43.16 Spondylolisthesis, lumbar region; M48.061 Spinal stenosis, lumbar region without neurogenic claudication; M41.25 Other idiopathic scoliosis, thoracolumbar region; M41.9 Scoliosis, unspecified; M54.50 Low back pain, unspecified
CPT/HCPCS: 72110; 99214

== ENCOUNTER 2023-03-27 09:33 | Outpatient (CLI) | payer MEDICARE, OTHER, SELFPAY ==
[2023-03-27] VITALS (7 sets, daily range): BP systolic 174–198; BP diastolic 77–97; PULSE 54–64; RESP 12–20; TEMP 36.4; O2SAT 98–100
--- NOTE | 2023-03-27 09:34 | DI.RAD.S_ITS ---
PROCEDURE: PAIN L/S TRANSFORAMINAL INJECT INDICATIONS: SPONDYLOSIS COMPARISON: [facility], CR, XR LUMBAR SPINE MIN 4V, 03/12/2023, 10:13. FINDINGS: Fluoroscopic spot filming was performed to verify placement of spinal needles on the left at the L4-L5 and L5-S1 levels, as labeled on the films. Appropriate location of the needle tips was confirmed by injection of iodinated contrast. IMPRESSION: Intraprocedural examination demonstrating appropriate positions of the needles. Dictated by: Kwesi Ashton M.D. on 03/27/2023 at 17:28 Approved by: Kwesi Ashton M.D. on 03/27/2023 at 17:29
[2023-03-27] MEDS: IOPAMIDOL 15 ML VIAL 3 ML INJ (10:05)
[2023-03-27] MEDS: DEXAMETHASONE 10 MG/ML VIAL 20 MG INJ (10:06)
--- NOTE | 2023-03-27 11:54 | P.PCN_ITS ---
Date/Time/Diagnoses Date of procedure: 03/27/23 Time of procedure: 10:00 Procedure Notes Physician: John Garrido Total Fluoroscopy time (seconds): 39 Total sedation minutes: 0 Procedure in detail & Post-procedure care: Left L4-5 and L5-S1 Transforaminal Epidural Steroid Injection Indications: Ben is presenting for treatment of lumbar radiculopathy with low back and leg pain. Preoperative diagnosis: Lumbar radiculopathy Postoperative diagnosis: Same Focused Examination: Ax3 Mood and affect are normal Vital Signs: VSS Consent: Following review of allergies and potential side effects/complications, including, but not necessarily limited to, infection, allergic reaction, local tissue breakdown, stroke, temporary or permanent nerve injury, paralysis, and possible , the patient indicated that they understood and agreed to proceed.? An informed consent document was signed by the patient, witnessed by a nurse and placed in the patient's chart.? Additionally, other treatment options including medications and physical therapy were reviewed with the patient. All questions were answered. Site was then marked. Anesthesia: Local Position: Prone Monitoring: NIBP, Pulse oximetry, 3 lead EKG Needle used: 22G, 5 inch spinal needle Contrast: Isovue 300M Injectate: 7.5 mg Dexamethasone mixed with 1% lidocaine 1 ml and normal saline 1 mL per site Technique: The skin was prepped with chloraprep and draped in a sterile fashion. Time out was performed as per protocol. Oxygen applied via NC. Skin and subcutaneous structures of the needle entry site were infiltrated with 3mL of lidocaine 1%. Under fluoroscopic guidance, using an ipsilateral oblique view,?a 22 gauge 5 inch needle was advanced to the base of the left L4?pedicle.? The needle was advanced to the superio-posterior aspect of the neural foramen under lateral view.? Oblique and AP views were rechecked. No paresthesias noted by the patient during needle placement. In AP view and utilizing real-time digital subtraction fluoroscopy, 2 ml contrast was slowly injected. Epidural spread was observed without evidence for intravascular nor intrathecal uptake. Contrast spread was seen craniocaudally. The above injectate was then administered, and the needle was subsequently withdrawn. Band-Aids applied to injection sites. Under fluoroscopic guidance, using an ipsilateral oblique view,?a 22 gauge 5 inch needle was advanced to the base of the left L5?pedicle.? The needle was advanced to the superio-posterior aspect of the neural foramen under lateral view.? Oblique and AP views were rechecked. No paresthesias noted by the patient during needle placement. In AP view and utilizing real-time digital subtraction fluoroscopy, 2 ml contrast was slowly injected. Epidural spread was observed without evidence for intravascular nor intrathecal uptake. Contrast spread was seen craniocaudally. The above injectate was then administered, and the needle was subsequently withdrawn. Band-Aids applied to injection sites. EBL: less than 1 ml Complications: None Post Procedure: Patient was taken to the recovery and monitored. The patient was provided a Pain Log to continue to record the patient's response to the target- specific procedure prior to the patient's follow-up visit with the referring physician. Patient was stable upon discharge. Detailed post procedure instructions were provided. Patient was asked to call in the event of worsening pain, fever, weakness, numbness or bladder or bowel incontinence.
== END 2023-03-27 10:34 | disposition home or self-care (01) ==
PROVIDERS: Family Provider Student in an Organized Health Care Education/Training Program; PCP Student in an Organized Health Care Education/Training Program; Referring Provider Anesthesiology; Visit Provider Anesthesiology
DX: M54.16 Radiculopathy, lumbar region (principal)
CPT/HCPCS: 64483; 64484; J1100

== ENCOUNTER 2023-04-13 12:54 | Emergency (ER) | payer MEDICARE, OTHER, SELFPAY ==
[2023-04-13] VITALS (7 sets, daily range): BP systolic 157–191; BP diastolic 76–84; PULSE 45–64; RESP 14–23; TEMP 36.8; O2SAT 98–100; BMI 25.1
--- NOTE | 2023-04-13 13:14 | DI.RAD.S_ITS ---
PROCEDURE: XR CHEST 1V INDICATIONS: chest pain TECHNIQUE: One view of the chest was acquired. COMPARISON: [facility], CR, XR CHEST 1V, 11/13/2019, 11:35. FINDINGS: Surgical changes and devices: None. Lungs and pleura: Lungs are clear. No pleural effusions or pneumothorax. Mediastinum: Mediastinal contours appear normal. Heart size is normal. Bones and chest wall: No suspicious bony lesions. Overlying soft tissues appear unremarkable. IMPRESSION: No acute cardiopulmonary findings Approved by: Iban Gandhi M.D. on 04/13/2023 at 14:27
[2023-04-13 13:35] LABS: Add Manual Diff / Slide Review NO; Basophils Absolute Auto 0 /uL (0-100); Basophils Percent Auto 0.5 % (0-2); Eosinophils Absolute Auto 0 /uL (0-450); Eosinophils Percent Auto 0.7 % (2-4); Hematocrit 42.1 % (41-53); Hemoglobin 14.1 g/dL (13.5-17.5); Lymphocytes Absolute Auto 1900 /uL (1100-4500); Mean Corpuscular HGB Conc 33.4 % (30-36); Mean Corpuscular Hemoglobin 31.8 PG (26-34); Mean Corpuscular Volume 95.4 fL (80-100); Monocytes Absolute Auto 600 /uL (0-900); Monocytes Percent Auto 8.5 % (3-14); Neutrophils Absolute Auto 4500 /uL (1500-7000); Neutrophils Percent Auto 63.3 % (50-75); Platelet Count 203 X10^3/uL (150-400); Red Blood Cell Count 4.41 X10^6/uL (4.5-5.9); White Blood Cell Count 7.1 X10^3/uL (4.5-11.0)
[2023-04-13 13:43] LABS: PTT Partial Thromboplastin Tim 28 SECONDS (26-36)
[2023-04-13 13:46] LABS: Alanine Aminotransferase 23 IU/L (<50); Albumin 4.3 g/dL (3.5-5.0); Albumin Globulin Ratio 1.5 (1.0-2.8); Alkaline Phosphatase 53 U/L (38-126); Aspartate Aminotransferase 26 IU/L (17-59); Bilirubin Total 0.6 mg/dL (0.2-1.3); Blood Urea Nitrogen 25 mg/dL (9-20); Calcium 10.1 mg/dL (8.4-10.2); Carbon Dioxide 22 mmol/L (22-32); Chloride 104 mmol/L (98-107); Creatine Kinase 159 U/L (55-170); Estimated Glomerular Filt Rate 56 mL/min (>60); Globulin 2.8 g/dL (1.7-4.1); Glucose 218 mg/dL (80-110); HEMOLYSIS < 15 (0-50); Lipase 208 U/L (23-300); Magnesium 1.7 mg/dL (1.6-2.3); Potassium 4.7 mmol/L (3.4-5.1); Sodium 136 mmol/L (137-145); Total Protein 7.1 g/dL (6.3-8.2)
[2023-04-13 13:57] LABS: Troponin I < 0.012 ng/mL (0.01-0.034)
--- NOTE | 2023-04-13 15:44 | PC.NURSE ---
Pt initially denied feeling dizzy, but after asking more pt states he felt swaying when standing last night, and states almost like I was dizzy. Denies dizziness today. Pt has history of dizziness 3x years ago and saw Dr. Amezquita with a full work up including stress test which was all negative. Now he goes to cardiology yearly for EKG and checkup.
--- NOTE | 2023-04-13 15:45 | PC.NURSE ---
Pt ambulated to the bathroom to give a urine sample. He states he feels better than he had this morning and doesnt feel dizzy when walking now. Pt b ack in bed with call light at side. Pt's daughter sitting at bedside.
--- NOTE | 2023-04-13 16:26 | PC.NURSE ---
Pt has had frequent PVC's while being monitored in the room on the air sampling and monitoring. This has changed into transient trigeminal pvc's which were caught on the air sampling and monitoring and then aquired an EKG of. Patient denies hearing that he has ever had PVC's from his previous cardiology visits.
--- NOTE | 2023-04-13 16:38 | ED.DIZZY ---
HPI - Dizziness <Jeremy Dupont PA-C - Last Filed: 04/13/23 17:09> General Chief Complaint: Dizziness Stated Complaint: shaking since last night, high BP Time Seen by Provider: 04/13/23 15:17 Source: patient Mode of arrival: Ambulatory History of Present Illness HPI Narrative: This is an 88-year-old male presents emergency department due to Feeling ?shaky and dizzy? last night. Denies shortness breath or chest pain. Also reports a systolic blood pressure reading of 180 this morning when he states he is normally around 150. Patient states that he has been routinely taking his 20 mg lisinopril daily as well as well as other medications as prescribed. States that he feels a lot better now than he did this morning. Patient denies any abdominal pain, fevers, or any other concerning signs or symptoms. Related Data Home Medications Medication Instructions Recorded Confirmed levothyroxine 125 mcg tablet 125 mcg PO QAM 11/13/19 03/12/23 (Synthroid) metformin 500 mg tablet,extended 500 mg PO TID 11/13/19 03/12/23 release 24 hr simvastatin 10 mg tablet 10 mg PO BEDTIME 11/13/19 03/12/23 CoQ 10 PO 08/29/21 03/12/23 lisinopril 20 mg tablet 20 mg PO DAILY 03/12/23 03/12/23 naproxen sodium 220 mg capsule 220 mg PO BID PRN 03/12/23 03/12/23 (Aleve) Previous Rx's Medication Instructions Recorded tamsulosin 0.4 mg capsule 0.8 mg PO DAILY #120 caps 01/08/23 fluticasone propionate 50 1 spray intranasal Q12H #16 grams 01/28/23 mcg/actuation nasal spray,suspension (Flonase Allergy Relief) Allergies Allergy/AdvReac Type Severity Reaction Status Date / Time No Known Drug Allergies Allergy Verified 04/13/23 13:13 Review of Systems <Jeremy Dupont PA-C - Last Filed: 04/13/23 17:09> Review of Systems Narrative: GENERAL: Reports dizziness earlier this morning as well as ?feeling shaky?. Denies chills, fatigue, malaise, fever, sweats. HEENT: Denies sinus pain, ear pain, sore throat, difficulty swallowing, dizziness. RESPIRATORY: Denies dyspnea, cough, wheezing, hemoptysis, sputum. CARDIOVASCULAR: Denies chest pain, palpitations, orthopnea, edema, GASTROINTESTINAL: Denies nausea, vomiting, abdominal pain, diarrhea, constipation, melena. : Denies dysuria, frequency, incontinence, hematuria, urinary retention. MUSCULOSKELETAL: denies weakness, joint pain, or bony pain SKIN: Denies rash, skin lesions, or other NEUROLOGIC: Denies weakness, headache, numbness, change in speech, confusion, seizures, incoordination. PSYCHIATRIC: No concerning psychosocial issues. 12 point review of systems is negative except for those stated above Patient History <Jeremy Dupont PA-C - Last Filed: 04/13/23 17:09> Medical History (Updated 04/13/23 @ 17:01 by Jeremy Dupont PA-C) Benign prostatic hyperplasia Bladder cancer Bladder mass Carpal tunnel syndrome Gross hematuria High cholesterol History of chemotherapy History of tobacco use Hx of radiation therapy Hypertension Hypothyroid Incomplete emptying of bladder Lower urinary tract symptoms Lumbar degenerative disc disease Lumbar facet arthropathy Lumbar radiculopathy Lumbar spinal stenosis Lumbar spondylosis Scoliosis Thyroid cancer Type 2 diabetes mellitus UTI (urinary tract infection) Surgical History H/O vasectomy History of appendectomy History of back surgery History of carpal tunnel release History of thyroidectomy Family History Grandmother Stroke Social History marital status: number of children: 2 Smoking Status: Former smoker alcohol intake: current Type(s) of exercise: walking and weight lifting frequency: 3-4 times per week Smoking Status: Former smoker alcohol intake frequency: 0-2 drinks per day Substance Use Type: does not use Exam <Jeremy Dupont PA-C - Last Filed: 04/13/23 17:09> Narrative Exam Narrative: GENERAL: Well-developed patient, in mild distress. HEAD: Atraumatic. Normocephalic. EYES: Pupils equal round and reactive. Extraocular motions intact. No scleral icterus. No injection or drainage. ENT: Nose without bleeding, purulent drainage. Throat without erythema, tonsillar hypertrophy or exudate. Airway patent. NECK: Trachea midline. Non tender CARDIOVASCULAR: Regular rate and rhythm without murmurs, gallops, or rubs. RESPIRATORY: Clear to auscultation. Breath sounds equal bilaterally. No wheezes, rales, or rhonchi. GASTROINTESTINAL: Abdomen soft, non-tender, nondistended. EXTREMITIES: No edema or joint tenderness. BACK: Nontender without deformity or crepitance. No flank tenderness. NEURO: AOx3. SKIN: No rash or erythema of visible areas Initial Vital Signs Initial Vital Signs: Vital Signs Temperature 98.3 F 04/13/23 13:08 Pulse Rate 64 04/13/23 13:08 Respiratory Rate 18 04/13/23 13:08 Blood Pressure 191/84 H 04/13/23 13:08 Pulse Oximetry 98 04/13/23 13:08 Oxygen Delivery Method Room Air 04/13/23 13:08 <Shyanne Lopez DO - Last Filed: 04/13/23 18:43> Initial Vital Signs Initial Vital Signs: Vital Signs Temperature 98.3 F 04/13/23 13:08 Pulse Rate 64 04/13/23 13:08 Respiratory Rate 18 04/13/23 13:08 Blood Pressure 191/84 H 04/13/23 13:08 Pulse Oximetry 98 04/13/23 13:08 Oxygen Delivery Method Room Air 04/13/23 13:08 Course <Jeremy Dupont PA-C - Last Filed: 04/13/23 17:09> Orders Ordered: ED Orders 04/13/23 13:14 XR chest 1V Stat EKG-12 Lead Stat 04/13/23 13:21 Complete Blood Count AUTO DIFF Stat Comprehensive Metabolic Panel Stat Lipase Stat Magnesium Stat PTT Partial Thromboplastin [place] Stat Prothrombin Time INR Stat Troponin & CK Cardiac Panel Stat Discontinued Medications Aspirin (Aspirin 81 Mg Chew Tab) 324 mg PO NOW ONE Stop: 04/13/23 13:15 Last Admin: 04/13/23 17:04 Dose: Not Given Documented By: ROCHELLE Vital Signs Vital signs: Vital Signs - 8 hr 04/13/23 13:08 04/13/23 15:11 04/13/23 15:30 Temperature 98.3 F Pulse Rate 64 58 L 45 L Respiratory Rate 18 21 Blood Pressure 191/84 H Pulse Oximetry 98 100 99 Oxygen Delivery Method Room Air 04/13/23 16:00 04/13/23 16:30 04/13/23 17:00 Temperature Pulse Rate 58 L 60 58 L Respiratory Rate 14 16 23 Blood Pressure Pulse Oximetry 100 100 98 Oxygen Delivery Method 04/13/23 17:08 04/13/23 17:08 Temperature Pulse Rate 61 Respiratory Rate 22 Blood Pressure 157/76 H Pulse Oximetry 100 Oxygen Delivery Method Room Air <Shyanne Lopez DO - Last Filed: 04/13/23 18:43> Orders Ordered: ED Orders 04/13/23 13:14 XR chest 1V Stat EKG-12 Lead Stat 04/13/23 13:21 Complete Blood Count AUTO DIFF Stat Comprehensive Metabolic Panel Stat Lipase Stat Magnesium Stat PTT Partial Thromboplastin [place] Stat Prothrombin Time INR Stat Troponin & CK Cardiac Panel Stat Discontinued Medications Aspirin (Aspirin 81 Mg Chew Tab) 324 mg PO NOW ONE Stop: 04/13/23 13:15 Last Admin: 04/13/23 17:04 Dose: Not Given Documented By: ROCHELLE Vital Signs Vital signs: Vital Signs - 8 hr 04/13/23 13:08 04/13/23 15:11 04/13/23 15:30 Temperature 98.3 F Pulse Rate 64 58 L 45 L Respiratory Rate 18 21 Blood Pressure 191/84 H Pulse Oximetry 98 100 99 Oxygen Delivery Method Room Air 04/13/23 16:00 04/13/23 16:30 04/13/23 17:00 Temperature Pulse Rate 58 L 60 58 L Respiratory Rate 14 16 23 Blood Pressure Pulse Oximetry 100 100 98 Oxygen Delivery Method 04/13/23 17:08 04/13/23 17:08 Temperature Pulse Rate 61 Respiratory Rate 22 Blood Pressure 157/76 H Pulse Oximetry 100 Oxygen Delivery Method Room Air MDM - Dizziness <Jeremy Dupont PA-C - Last Filed: 04/13/23 17:09> Lab Data 04/13/23 13:21 04/13/23 13:21 Labs: Lab Results 04/13/23 04/13/23 04/13/23 Range/Units 13:21 13:21 13:21 WBC 7.1 (4.5-11.0) X10^3/uL RBC 4.41 L (4.5-5.9) X10^6/uL Hgb 14.1 (13.5-17.5) g/dL Hct 42.1 (41-53) % MCV 95.4 (80-100) fL MCH 31.8 (26-34) PG MCHC 33.4 (30-36) % RDW 15.0 H (11.6-14.8) % Plt Count 203 (150-400) X10^3/uL Neut % (Auto) 63.3 (50-75) % Lymph % (Auto) 27.0 (25-40) % Bradford % (Auto) 8.5 (3-14) % Eos % (Auto) 0.7 L (2-4) % Baso % (Auto) 0.5 (0-2) % Neut # (Auto) 4500 (7262-0414) /uL Lymph # (Auto) 1900 (9772-8949) /uL Bradford # (Auto) 600 (0-900) /uL Eos # (Auto) 0 (0-450) /uL Baso # (Auto) 0 (0-100) /uL PT 11.0 (10.1-12.7) SECONDS INR 1.0 (0.9-1.3) APTT 28 (26-36) SECONDS Sodium 136 L (137-145) mmol/L Potassium 4.7 (3.4-5.1) mmol/L Chloride 104 (98-107) mmol/L Carbon Dioxide 22 (22-32) mmol/L BUN 25 H (9-20) mg/dL Creatinine 1.25 (0.66-1.25) mg/dL Estimated GFR 56 L (>60) mL/min BUN/Creatinine Ratio 20.0 (6-22) Glucose 218 H (80-110) mg/dL Calcium 10.1 (8.4-10.2) mg/dL Magnesium 1.7 (1.6-2.3) mg/dL Total Bilirubin 0.6 (0.2-1.3) mg/dL AST 26 (17-59) IU/L ALT 23 (<50) IU/L Alkaline Phosphatase 53 (38-126) U/L Total Creatine Kinase 159 (55-170) U/L Troponin I < 0.012 (0.01-0.034) ng/mL Total Protein 7.1 (6.3-8.2) g/dL Albumin 4.3 (3.5-5.0) g/dL Globulin 2.8 (1.7-4.1) g/dL Albumin/Globulin Ratio 1.5 (1.0-2.8) Lipase 208 (23-300) U/L Urine Dip Bedside Urine Glucose 100 mg/dl Bedside Urine Bilirubin - Negative Bedside Urine Ketone - Negative Urine Specific [place] 1.015 Bedside Urine Occult Blood - Negative Bedside Urine pH 6.0 Bedside Urine Protein - Negative Bedside Urine Urobilinogen - Negative Bedside Urine Nitrite - Negative Bedside Urine Leukocytes - Negative Esterase Imaging Data Chest x-ray: Radiologist's Impression: [address] [address] XRay Report Signed Patient: Yaron Hernandez Jr MR#: [id number] : 1935 Acct:[id number] Age/Sex: 88 / M Date of Service: 04/13/23 Loc: ED Accession Number: [id number] ?? Procedure: XR chest 1V Ordering Provider: Shyanne Lopez D.O. PROCEDURE:? XR CHEST 1V ? INDICATIONS:? chest pain ? TECHNIQUE:? One view of the chest was acquired.? ? COMPARISON:? [facility], CR, XR CHEST 1V, 11/13/2019, 11:35. ? FINDINGS:? ? Surgical changes and devices:? None.? ? Lungs and pleura:? Lungs are clear.? No pleural effusions or pneumothorax.? ? Mediastinum:? Mediastinal contours appear normal.? Heart size is normal.? ? Bones and chest wall:? No suspicious bony lesions.? Overlying soft tissues appear unremarkable.? ? ? IMPRESSION:? No acute cardiopulmonary findings ? ? ? Approved by: Iban Gandhi M.D. on 04/13/2023 at 14:27? MDM Narrative Medical decision making narrative: MDM * differential diagnosis includes but not limited to * Prior records reviewed: Patient was seen here about 3 months ago for acute pharyngitis. History bladder cancer, hypertension, hypothyroidism, type 2 diabetes * My lab interpretation: CBC unremarkable. No leukocytosis. Magnesium within normal limits. CMP did show elevated glucose of 216. Troponin within normal limits lipase within normal limits * My imaging interpretation: Chest x-ray unremarkable * Clinical Decision Rules/Scores evaluated: None * Independent discussions with: None ED Course: This is a 88-year-old male presents emergency department due to a sensation of feeling ?shaky and dizzy? last night as well as this morning although it has improved upon my arrival to the room. Patient did not present with any neurologic changes concerning for any kind of intracranial bleed and did not describe any symptoms. Lab work unremarkable. EKG, chest x-ray, troponin within normal limits. Suspect symptoms may be due to elevated blood pressures which have recommended he follow up with his primary care provider about for possible medication dosing altering. May also be due to elevated glucose as he did have a glucose of 216. Recommend he follow up with his primary care provider for possible monitoring and changing of his diabetes medications as well. No evidence of end-organ damage. UA negative. Blood pressure had improved to systolics in proximally the 160s by the time of discharge. Shared Decision Making: Discussed plan with patient who is comfortable with the plan Social Considerations: None Disposition: Discharged to home <Shyanne Lopez DO - Last Filed: 04/13/23 18:43> Lab Data Labs: Lab Results 04/13/23 04/13/23 04/13/23 Range/Units 13:21 13:21 13:21 WBC 7.1 (4.5-11.0) X10^3/uL RBC 4.41 L (4.5-5.9) X10^6/uL Hgb 14.1 (13.5-17.5) g/dL Hct 42.1 (41-53) % MCV 95.4 (80-100) fL MCH 31.8 (26-34) PG MCHC 33.4 (30-36) % RDW 15.0 H (11.6-14.8) % Plt Count 203 (150-400) X10^3/uL Neut % (Auto) 63.3 (50-75) % Lymph % (Auto) 27.0 (25-40) % Bradford % (Auto) 8.5 (3-14) % Eos % (Auto) 0.7 L (2-4) % Baso % (Auto) 0.5 (0-2) % Neut # (Auto) 4500 (3705-9258) /uL Lymph # (Auto) 1900 (5502-9654) /uL Bradford # (Auto) 600 (0-900) /uL Eos # (Auto) 0 (0-450) /uL Baso # (Auto) 0 (0-100) /uL PT 11.0 (10.1-12.7) SECONDS INR 1.0 (0.9-1.3) APTT 28 (26-36) SECONDS Sodium 136 L (137-145) mmol/L Potassium 4.7 (3.4-5.1) mmol/L Chloride 104 (98-107) mmol/L Carbon Dioxide 22 (22-32) mmol/L BUN 25 H (9-20) mg/dL Creatinine 1.25 (0.66-1.25) mg/dL Estimated GFR 56 L (>60) mL/min BUN/Creatinine Ratio 20.0 (6-22) Glucose 218 H (80-110) mg/dL Calcium 10.1 (8.4-10.2) mg/dL Magnesium 1.7 (1.6-2.3) mg/dL Total Bilirubin 0.6 (0.2-1.3) mg/dL AST 26 (17-59) IU/L ALT 23 (<50) IU/L Alkaline Phosphatase 53 (38-126) U/L Total Creatine Kinase 159 (55-170) U/L Troponin I < 0.012 (0.01-0.034) ng/mL Total Protein 7.1 (6.3-8.2) g/dL Albumin 4.3 (3.5-5.0) g/dL Globulin 2.8 (1.7-4.1) g/dL Albumin/Globulin Ratio 1.5 (1.0-2.8) Lipase 208 (23-300) U/L Urine Dip Bedside Urine Glucose 100 mg/dl Bedside Urine Bilirubin - Negative Bedside Urine Ketone - Negative Urine Specific [place] 1.015 Bedside Urine Occult Blood - Negative Bedside Urine pH 6.0 Bedside Urine Protein - Negative Bedside Urine Urobilinogen - Negative Bedside Urine Nitrite - Negative Bedside Urine Leukocytes - Negative Esterase ECG Data Attestation: I personally reviewed and interpreted this ECG as follows: Interpretation: Sinus rhythm rate of 62 ID 164 QRS 86 QTC 383. PVC is noted on EKG no acute ST changes. Repeat EKG shows frequent PVC, sinus bradycardia rate of 59 ID 160 QRS 86 QTC 386. No acute ST changes or dynamic changes otherwise noted. Discharge Plan Departure Patient Disposition: Home Clinical Impression: Elevated blood pressure reading Activity Restrictions/Additional Instructions: Thank you for coming to the [facility] Emergency Department today. Your lab work was unremarkable. There was no evidence of any kind of heart attack in your chest x-ray was unremarkable. Your physical exam was reassuring I have low concern for any kind of intracranial bleed. I strongly suggest he follow up with the primary care provider for possible altering of your blood pressure and diabetes medications as they seem to be somewhat ineffective based on your elevated blood pressure readings. Your lab work all today was unremarkable. I hope you feel better soon. Please follow up with your primary care provider within a week if your symptoms continue. If you do not have a primary care provider please contact the [facility] Resource line at [phone]. They will ask some questions about your medical history and help you get set up with a provider in the community. Prescriptions: No Action fluticasone propionate [Flonase Allergy Relief] 50 mcg/actuation spray,suspension 1 spray intranasal Q12H Qty: 16 0RF Rx Instructions: administer into each nostril simvastatin 10 mg tablet 10 mg PO BEDTIME levothyroxine [Synthroid] 125 mcg tablet 125 mcg PO QAM metformin 500 mg tablet extended release 24 hr 500 mg PO TID lisinopril 20 mg tablet 20 mg PO DAILY naproxen sodium [Aleve] 220 mg capsule 220 mg PO BID PRN CoQ 10 PO tamsulosin 0.4 mg capsule 0.8 mg PO DAILY Qty: 120 3RF Referrals: Oleksandr Grove PA-C [Primary Care Provider] - Stand Alone Forms: Patient Portal/API <Shyanne Lopez DO - Last Filed: 04/13/23 18:43> Cosign ED Attending Yamil Attestation: I was immediately available in the department for consultation. Documentation has been reviewed.
== END 2023-04-13 17:14 | disposition home or self-care (01) ==
PROVIDERS: Emergency Medicine; Emergency Provider Physician Assistant Medical; Family Provider Student in an Organized Health Care Education/Training Program; PCP Student in an Organized Health Care Education/Training Program
DX: R03.0 Elevated blood-pressure reading, without diagnosis of hypertension (principal); R07.9 Chest pain, unspecified; Z79.899 Other long term (current) drug therapy
CPT/HCPCS: 36415; 71045; 80053; 81003; 82550; 83690; 83735; 84484; 85025; 85610; 85730; 93005; 93010; 99284

== ENCOUNTER 2023-06-26 09:28 | Outpatient (CLI) | payer MEDICARE, OTHER, SELFPAY ==
[2023-06-26] VITALS (7 sets, daily range): BP systolic 130–153; BP diastolic 61–71; PULSE 53–68; RESP 12–22; TEMP 36.4; O2SAT 99–100
--- NOTE | 2023-06-26 09:30 | DI.RAD.S_ITS ---
PROCEDURE: PAIN L/S FACET INJ/BLK 1ST HUA INDICATIONS: SPONDYLOSIS COMPARISON: [facility], XA, PAIN L/S TRANSFORAMINAL INJECT, 03/27/2023, 10:01. [facility], CR, XR LUMBAR SPINE MIN 4V, 03/12/2023, 10:13. FINDINGS: Fluoroscopic spot filming was performed to verify placement of spinal needles on both sides at the L3, L4, and L5 levels, as labeled on the films. Appropriate location of the needle tips was confirmed by injection of iodinated contrast. IMPRESSION: Intraprocedural examination demonstrating appropriate positions of the needles. Dictated by: Kwesi Ashton M.D. on 06/26/2023 at 12:08 Approved by: Kwesi Ashton M.D. on 06/26/2023 at 12:08
[2023-06-26] MEDS: MIDAZOLAM 2 MG/2 ML VIAL 1 MG IV (10:10)
[2023-06-26] MEDS: iopamidoL 15 ML VIAL 3 ML INJ (10:14)
[2023-06-26] MEDS: BUPIVACAINE 0.5% (PF) 10 ML VIAL 5 ML INJ (10:14)
--- NOTE | 2023-06-26 12:34 | P.PCN_ITS ---
Date/Time/Diagnoses Date of procedure: 06/26/23 Time of procedure: 10:00 Procedure Notes Physician: John Garrido Total Fluoroscopy time (seconds): 21 Total sedation minutes: 14 Procedure in detail & Post-procedure care: Bilateral L3, 4, 5 Lumbar Medial Branch Blocks Indications: Ben is presenting for treatment of lumbar spondylosis with low back pain. Preoperative diagnosis: Lumbar spondylosis Postoperative diagnosis: Same Pre-procedure History: Patient demonstrates today moderate to severe non- radicular back pain without neurologic deficit aggravated by hyperextension yes Back pain greater than leg pain? yes Patient today has tenderness over the suspected joint(s) yes History of post-traumatic injury? no Hypertrophic arthropathy yes Back pain associated with suspected motion segment instability, hypermobility or pseudoarthrosis no Pre-testing pain score (VAS): 4/10 Focused Examination: Ax3 Mood and affect are normal Vital Signs: VSS ASA: 2 Consent: Following review of allergies and potential side effects/complications, including, but not necessarily limited to, infection, allergic reaction, local tissue breakdown, stroke, temporary or permanent nerve injury, paralysis, and possible , the patient indicated that they understood and agreed to proceed.? An informed consent document was signed by the patient, witnessed by a nurse and placed in the patient's chart.? Additionally, other treatment options including medications and physical therapy were reviewed with the patient. All questions were answered. Site was then marked. Anesthesia: After review of previous anesthetic history and IV conscious sedation, the patient was deemed safe to proceed with today's procedure with IV conscious sedation. IV sedation was accomplished with midazolam 1 mg administered by the RN after order by Dr. Garrido. Sedation was titrated to patient comfort during the course of the procedure. Patient remained responsive to all verbal commands. Position: Prone Monitoring: NIBP, Pulse oximetry, 3 lead EKG Needle used: 22 ga 3.5 inch spinal needle Contrast: Isovue 300M Injectate: 0.5% bupivacaine 1 mL per site Procedure: The patient was brought into the procedure room and positioned into the prone position. Skin was prepped with a Chloraprep solution, allowed to air dry, and then draped in sterile fashion.? The right L4-5 and L5-S1 facet joints were visually identified with fluoroscopy. Lidocaine 1% was used to anesthetize the skin over each target destination with a 25ga needle. A 22 ga, 3.5 inch spinal needle was advanced to the location of the medial branch at the junction of the superior articular process and the transverse process at L4,5 and the base of the SAP of the sacrum using intermittent fluoroscopy in the AP view. Isovue 300M contrast 0.2ml was injected at each level outlining the medial borders for each level and the base of the SAP of the sacrum in the AP and lateral views. There was no evidence of vascular or intrathecal uptake. The above injectate was slowly injected at each target destination. The left L4-5 and L5-S1 facet joints were visually identified with fluoroscopy. Lidocaine 1% was used to anesthetize the skin over each target destination with a 25ga needle. A 22 ga, 3.5 inch spinal needle was advanced to the location of the medial branch at the junction of the superior articular process and the transverse process at L4,5 and the base of the SAP of the sacrum using intermittent fluoroscopy in the AP view. Isovue 300M contrast 0.2ml was injected at each level outlining the medial borders for each level and the base of the SAP of the sacrum in the AP and lateral views. There was no evidence of vascular or intrathecal uptake. The above injectate was slowly injected at each target destination. At the end of the procedure the needles were withdrawn and Band- Aids were applied for a dressing. Post Procedure: Patient was taken to the recovery and monitored. The patient was provided a Pain Log to continue to record the patient's response to the target- specific procedure prior to the patient's follow-up visit with the referring physician. Patient was stable upon discharge. Detailed post procedure instructions were provided. Patient was asked to call in the event of worsening pain, fever, weakness, numbness or bladder or bowel incontinence. Postoperatively, today patient demonstrates the following changes with hyperextension and with tenderness over the suspected joint(s). Provacative testing using the Bateman's facet loading test Right side Left side Directly before the block ?VAS (0-10) = 4/10 VAS (0-10) = 4/10 5 minutes after the block VAS (0-10) = 0/10 VAS (0-10) = 0/10 Percentage relief obtained with this diagnostic block 100% 100% Any improved physical functioning directly after the blocks? Range of motion Based on the medial branches blocked today, if the patient meets insurance criteria for radiofrequency, the treatment should result in the denervation of the bilateral L4-5 and L5-S1 facet joint nerves. We would expect to denervate a total of 4 facets during the radiofrequency ablation.
== END 2023-06-26 10:45 | disposition home or self-care (01) ==
LOC: RAD 09:29
PROVIDERS: Family Provider Student in an Organized Health Care Education/Training Program; PCP Student in an Organized Health Care Education/Training Program; Referring Provider Anesthesiology; Visit Provider Anesthesiology
DX: M47.816 Spondylosis without myelopathy or radiculopathy, lumbar region (principal)
CPT/HCPCS: 64493; 64494; 99152; J2250

== ENCOUNTER 2023-08-14 09:01 | Outpatient (CLI) | payer MEDICARE, OTHER, SELFPAY ==
[2023-08-14] VITALS (8 sets, daily range): BP systolic 109–169; BP diastolic 49–74; PULSE 54–61; RESP 10–20; TEMP 36.3; O2SAT 99–100
--- NOTE | 2023-08-14 09:30 | DI.RAD.S_ITS ---
PROCEDURE: PAIN L/S FACET INJ/BLK 1ST HUA INDICATIONS: SPONDYLOSIS COMPARISON: [facility], , PAIN L/S FACET INJ/BLK 1ST HUA, 06/26/2023, 11:13. FINDINGS: Fluoroscopic spot filming was performed to verify placement of spinal needles at the bilateral L3, L4, and L5 level(s), as labeled on the films. Appropriate location(s) of the needle tip(s) was confirmed by injection of iodinated contrast. IMPRESSION: 1. Intraoperative fluoroscopy for medial branch block at the above levels. Dictated by: Felisa Palencia M.D. on 08/14/2023 at 12:09 Approved by: Felisa Palencia M.D. on 08/14/2023 at 12:10
[2023-08-14] MEDS: MIDAZOLAM 2 MG/2 ML VIAL 1 MG IV (09:47)
[2023-08-14] MEDS: iopamidoL 15 ML VIAL 3 ML INJ (09:50)
[2023-08-14] MEDS: LIDOCAINE 2% INJ SDV 5ML 10 ML INJ (09:51)
--- NOTE | 2023-08-14 10:18 | P.PCN_ITS ---
Date/Time/Diagnoses Date of procedure: 08/14/23 Time of procedure: 09:30 Procedure Notes Physician: John Garrido Total Fluoroscopy time (seconds): 24 Total sedation minutes: 14 Procedure in detail & Post-procedure care: Bilateral L3, 4, 5 Lumbar Medial Branch Blocks Indications: Ben is presenting for treatment of lumbar spondylosis with low back pain. Preoperative diagnosis: Lumbar spondylosis Postoperative diagnosis: Same Pre-procedure History: Patient demonstrates today moderate to severe non- radicular back pain without neurologic deficit aggravated by hyperextension yes Back pain greater than leg pain? yes Patient today has tenderness over the suspected joint(s) yes History of post-traumatic injury? no Hypertrophic arthropathy yes Back pain associated with suspected motion segment instability, hypermobility or pseudoarthrosis no Focused Examination: Ax3 Mood and affect are normal Vital Signs: VSS ASA: 2 Consent: Following review of allergies and potential side effects/complications, including, but not necessarily limited to, infection, allergic reaction, local tissue breakdown, stroke, temporary or permanent nerve injury, paralysis, and possible , the patient indicated that they understood and agreed to proceed.? An informed consent document was signed by the patient, witnessed by a nurse and placed in the patient's chart.? Additionally, other treatment options including medications and physical therapy were reviewed with the patient. All questions were answered. Site was then marked. Anesthesia: After review of previous anesthetic history and IV conscious sedation, the patient was deemed safe to proceed with today's procedure with IV conscious sedation. IV sedation was accomplished with midazolam 1 mg administered by the RN after order by Dr. Garrido. Sedation was titrated to patient comfort during the course of the procedure. Patient remained responsive to all verbal commands. Position: Prone Monitoring: NIBP, Pulse oximetry, 3 lead EKG Needle used: 22 ga 3.5 inch spinal needle Contrast: Isovue 300M Injectate: 2% lidocaine 1 mL per site Procedure: The patient was brought into the procedure room and positioned into the prone position. Skin was prepped with a Chloraprep solution, allowed to air dry, and then draped in sterile fashion.? The right L4-5 and L5-S1 facet joints were visually identified with fluoroscopy. Lidocaine 1% was used to anesthetize the skin over each target destination with a 25ga needle. A 22 ga, 3.5 inch s yeny needle was advanced to the location of the medial branch at the junction of the superior articular process and the transverse process at L4,5 and the base of the SAP of the sacrum using intermittent fluoroscopy in the AP view. Isovue 300M contrast 0.2ml was injected at each level outlining the medial borders for each level and the base of the SAP of the sacrum in the AP and lateral views. There was no evidence of vascular or intrathecal uptake. The above injectate was slowly injected at each target destination. The left L4-5 and L5-S1 facet joints were visually identified with fluoroscopy. Lidocaine 1% was used to anesthetize the skin over each target destination with a 25ga needle. A 22 ga, 3.5 inch spinal needle was advanced to the location of the medial branch at the junction of the superior articular process and the transverse process at L4,5 and the base of the SAP of the sacrum using intermittent fluoroscopy in the AP view. Isovue 300M contrast 0.2ml was injected at each level outlining the medial borders for each level and the base of the SAP of the sacrum in the AP and lateral views. There was no evidence of vascular or intrathecal uptake. The above injectate was slowly injected at each target destination. At the end of the procedure the needles were withdrawn and Band- Aids were applied for a dressing. Post Procedure: Patient was taken to the recovery and monitored. The patient was provided a Pain Log to continue to record the patient's response to the target- specific procedure prior to the patient's follow-up visit with the referring physician. Patient was stable upon discharge. Detailed post procedure instructions were provided. Patient was asked to call in the event of worsening pain, fever, weakness, numbness or bladder or bowel incontinence. Based on the medial branches blocked today, if the patient meets insurance criteria for radiofrequency, the treatment should result in the denervation of the bilateral L4-5 and L5-S1 facet joint nerves. We would expect to denervate a total of 4 facets during the radiofrequency ablation.
== END 2023-08-14 10:24 | disposition home or self-care (01) ==
PROVIDERS: Family Provider Student in an Organized Health Care Education/Training Program; PCP Student in an Organized Health Care Education/Training Program; Referring Provider Anesthesiology; Visit Provider Anesthesiology
DX: M47.816 Spondylosis without myelopathy or radiculopathy, lumbar region (principal)
CPT/HCPCS: 64493; 64494; 99152; J2250

== ENCOUNTER 2023-10-23 08:24 | Outpatient (CLI) | payer MEDICARE, OTHER, SELFPAY ==
[2023-10-23] VITALS (12 sets, daily range): BP systolic 113–152; BP diastolic 55–70; PULSE 46–53; RESP 14–20; TEMP 36.2; O2SAT 99–100
[2023-10-23] MEDS: MIDAZOLAM 2 MG/2 ML VIAL 0.5 MG IV ×2 (09:00→09:05)
--- NOTE | 2023-10-23 09:00 | DI.RAD.S_ITS ---
PROCEDURE: PAIN L/S MED/LAT N RFA BILAT INDICATIONS: LUMBAR SPONDYLOSIS COMPARISON: None. FINDINGS: Fluoroscopic spot filming was performed to verify placement of spinal needles at the L3 through L5 level(s), as labeled on the films. Appropriate location(s) of the needle tip(s) was confirmed by injection of iodinated contrast. IMPRESSION: Needle and contrast localization from L3 through L5. Dictated by: Sandy Nguyen M.D. on 10/23/2023 at 12:37 Approved by: Sandy Nguyen M.D. on 10/23/2023 at 12:38
[2023-10-23] MEDS: DEXAMETHASONE 10 MG/ML VIAL INJ (09:07)
[2023-10-23] MEDS: BUPIVACAINE 0.5% (PF) 10 ML VIAL 5 ML INJ (09:07)
[2023-10-23] MEDS: LIDOCAINE 2% INJ SDV 5ML 10 ML INJ (09:08)
--- NOTE | 2023-10-23 11:41 | P.PCN_ITS ---
Date/Time/Diagnoses Date of procedure: 10/23/23 Time of procedure: 09:00 Procedure Notes Physician: John Garrido Total Fluoroscopy time (seconds): 34 Total sedation minutes: 37 Procedure in detail & Post-procedure care: Bilateral L3, 4, 5 Lumbar Medial Branch Radio Frequency Ablation Indications: Ben presents for treatment of lumbar spondylosis with low back pain. Preoperative diagnosis: Lumbar spondylosis Postoperative diagnosis: Same Focused Examination: Ax3 Mood and affect are normal Vital Signs: VSS ASA: 3 [id number] Consent: Following review of allergies and potential side effects/complications, including, but not necessarily limited to, infection, allergic reaction, local tissue breakdown, stroke, temporary or permanent nerve injury, paralysis, and possible , the patient indicated that they understood and agreed to proc eed.? An informed consent document was signed by the patient, witnessed by a nurse and placed in the patient's chart.? Additionally, other treatment options including medications and physical therapy were reviewed with the patient. All questions were answered. Site was then marked. Position: Prone Monitoring: NIBP, Pulse oximetry, 3 lead EKG Needle used: 18 guage, 100 mm, 10 mm active tip Anesthesia: Local, oral and IV sedation. After review of previous anesthetic history and IV conscious sedation, the patient was deemed safe to proceed with today's procedure with IV conscious sedation. IV sedation was accomplished with midazolam 1 mg administered by the RN after order by Dr. Garrido. Sedation was titrated to patient comfort during the course of the procedure. Patient remained responsive to all verbal commands. Procedure: The patient was brought into the procedure room and positioned into the prone position. Skin was prepped with a Chloraprep solution, allowed to air dry, and then draped in sterile fashion.? The right L4-5 and L5-S1 facet joints were visually identified with fluoroscopy. Lidocaine 1% was used to anesthetize the skin over each target destination with a 25ga needle. An 18 ga, 100 mm RFA needle with a 10 mm active tip was advanced to the location of the medial branch at the junction of the superior articular process and the transverse process at L4,5 and the base of the SAP of the sacrum using intermittent fluoroscopy in the oblique view with caudal tilt. AP and lateral radiographs were taken to confirm proper needle placement. No paresthesias were noted. The stylet was removed and the radiofrequency probe was inserted through the cannula. Each level was individually tested.? Motor stimulation up to 2V elicited multifidus twitching in the lumbar spine. There was no motor stimulation in the lower extremities. After negative aspiration, 1ml of 2% lidocaine was injected at each of the levels and radiofrequency denervation carried out using 80 degrees Celsius for 90 seconds. The needles were then rotated 90 degrees and a second ablation was performed at 80 degrees Celsius for 90 seconds. Next, the left L4-5 and L5-S1 facet joints were visually identified with fluoroscopy. Lidocaine 1% was used to anesthetize the skin over each target destination with a 25ga needle. An 18 ga, 100 mm RFA needle with a 10 mm active tip was advanced to the location of the medial branch at the junction of the superior articular process and the transverse process at L4,5 and the base of the SAP of the sacrum using intermittent fluoroscopy in the oblique view with caudal tilt. AP and lateral radiographs were taken to confirm proper needle placement. No paresthesias were noted. The stylet was removed and the radiofrequency probe was inserted through the cannula. Each level was individually tested. Motor stimulation up to 2V elicited multifidus twitching in the lumbar spine. There was no motor stimulation in the lower extremities. After negative aspiration, 1ml of 2% lidocaine was injected at each of the levels and radiofrequency denervation carried out using 80 degrees Celsius for 90 seconds. The needles were then rotated 90 degrees and a second ablation was performed at 80 degrees Celsius for 90 seconds. After ablation, a mixture of 10 mg dexamethasone with 0.5% bupivacaine 5 mL was injected in equal amounts among the sites (1 mL per site). At the end of the procedure the needles were withdrawn and Band-Aids were applied for a dressing. This procedure is expected to denervate the bilateral L4-5 and L5-S1 facet joints. Post Procedure: Patient was taken to the recovery and monitored. The patient was provided a Pain Log to continue to record the patient's response to the target- specific procedure prior to the patient's follow-up visit with the referring physician. Patient was stable upon discharge. Detailed post procedure instructions were provided. Patient was asked to call in the event of worsening pain, fever, weakness, numbness or bladder or bowel incontinence. Complications: None
== END 2023-10-23 09:50 | disposition home or self-care (01) ==
PROVIDERS: Family Provider Student in an Organized Health Care Education/Training Program; PCP Student in an Organized Health Care Education/Training Program; Referring Provider Anesthesiology; Visit Provider Anesthesiology
DX: M47.816 Spondylosis without myelopathy or radiculopathy, lumbar region (principal)
CPT/HCPCS: 64635; 64636; 82962; 99152; 99153; J1100; J2250

== ENCOUNTER 2023-11-18 12:58 | Emergency (ER) | payer MEDICARE, OTHER, SELFPAY ==
[2023-11-18 13:03] VITALS: BP 190/76; PULSE 55; RESP 16; TEMP 36.8; O2SAT 100; BMI 25.7
--- NOTE | 2023-11-18 13:14 | DI.US.S_ITS ---
PROCEDURE: US PERIPH VENOUS LOW EXTREM LT INDICATIONS: EDEMA, PAIN TECHNIQUE: Real-time imaging, as well as color and pulse Doppler interrogation, were performed of the lower extremity deep veins from the inguinal ligament to the popliteal fossa, with documentation of the visualized calf veins. COMPARISON: None. FINDINGS: The common femoral, femoral, popliteal, and the visualized calf veins are normally compressible, and free of intraluminal thrombus. Color and pulse Doppler demonstrate normal phasic intraluminal flow. There is normal augmentation response to distal compression maneuver. IMPRESSION: No findings of lower extremity deep venous thrombosis. Dictated by: Felisa Palencia M.D. on 11/18/2023 at 14:04 Approved by: Felisa Palencia M.D. on 11/18/2023 at 14:05
[2023-11-18 15:16] VITALS: BP 178/76; PULSE 54; RESP 18; O2SAT 99
--- NOTE | 2023-11-18 19:40 | ED.EXTPRO ---
HPI - Extremity Problem <Aubrey Trevino PA-C - Last Filed: 11/18/23 19:45> General Chief complaint: Extremity Problem,Nontraumatic Stated complaint: numbness pain and swelling in leg, sent by dr julian Time Seen by Provider: 11/18/23 13:34 Source: patient Mode of arrival: Ambulatory History of Present Illness HPI Narrative: 88-year-old male with chronic lower back pain, sciatica, left leg numbness presents to the ED with an acute on chronic exacerbation of left leg pain. Patient called his doctor earlier today and was sent to the ED to rule out a DVT. Patient states that he does have pain and numbness at baseline in that left leg, but that the pain has just been worse over the last 3 days. No new trauma. Patient states that his back has actually been feeling better over the last few weeks, as a result of which he has increased his exercise and walking. No chest pain, shortness of breath. Related Data Home Medications Medication Instructions Recorded Confirmed levothyroxine 125 mcg tablet 125 mcg PO QAM 11/13/19 08/19/23 (Synthroid) metformin 500 mg tablet,extended 500 mg PO TID 11/13/19 08/19/23 release 24 hr simvastatin 10 mg tablet 10 mg PO BEDTIME 11/13/19 08/19/23 CoQ 10 PO 08/29/21 08/19/23 lisinopril 20 mg tablet 20 mg PO DAILY 03/12/23 08/19/23 naproxen sodium 220 mg capsule 220 mg PO BID PRN 03/12/23 08/19/23 (Aleve) amlodipine 5 mg tablet 5 mg PO DAILY 07/01/23 08/19/23 Previous Rx's Medication Instructions Recorded fluticasone propionate 50 1 spray intranasal Q12H #16 grams 01/28/23 mcg/actuation nasal spray,suspension (Flonase Allergy Relief) oxycodone 5 mg tablet 5 mg PO TID PRN pain #10 tabs 08/19/23 tamsulosin 0.4 mg capsule 0.8 mg (2 x 0.4 mg) PO DAILY #120 09/04/23 caps Allergies Allergy/AdvReac Type Severity Reaction Status Date / Time ciprofloxacin AdvReac Verified 11/18/23 13:12 Review of Systems <Aubrey Trevino PA-C - Last Filed: 11/18/23 19:45> Constitutional Constitutional: Denies chills, Denies fatigue, Denies fever(s), Denies frequent falls, Denies lethargy and Denies weakness Eyes Eyes: Denies change in vision, Denies eye discharge, Denies irritation and Denies loss of vision ENT Ears, Nose, Mouth, and Throat: Denies change in voice, Denies dizziness, Denies neck pain, Denies sore throat and Denies throat swelling Cardiovascular Cardiovascular: Denies chest pain, Denies irregular heart rhythm, Denies lightheadedness, Denies palpitations, Denies dyspnea, Denies dyspnea on exertion and Denies orthopnea Respiratory Respiratory: Denies cough, Denies dyspnea, Denies dyspnea on exertion and Denies wheezing Gastrointestinal Gastrointestinal: Denies abdominal pain, Denies change in bowel habits, Denies diarrhea, Denies nausea and Denies vomiting Musculoskeletal Musculoskeletal: Denies neck pain and Reports numbness Comments: Left leg pain Integumentary/Breasts Skin/Breast: Denies pruritus, Denies erythema, Denies rash and Denies wounds Neurologic Neurologic: Denies behavioral changes, Denies confusion, Denies dizziness, Denies frequent falls, Denies loss of vision, Reports numbness and Denies weakness Psychiatric Psychiatric: Denies anxiety, Denies behavioral changes, Denies confusion, Denies depression, Denies homicidal ideation and Denies suicidal ideation Endocrine Endocrine: Denies fatigue, Denies flushing and Denies palpitations Hematologic/Lymphatic Hematologic/Lymphatic: Denies easy bruising Allergic/Immunologic Allergic/Immunologic: Denies urticaria, Denies throat swelling and Denies wheezing Patient History <Aubrey Trevino PA-C - Last Filed: 11/18/23 19:45> Medical History Scoliosis Lumbar degenerative disc disease Lumbar facet arthropathy Lumbar spondylosis Lumbar spinal stenosis Lumbar radiculopathy Hx of radiation therapy History of chemotherapy Incomplete emptying of bladder UTI (urinary tract infection) Bladder cancer Benign prostatic hyperplasia History of tobacco use Lower urinary tract symptoms Bladder mass Gross hematuria Carpal tunnel syndrome Thyroid cancer Type 2 diabetes mellitus Hypothyroid Hypertension High cholesterol Surgical History H/O vasectomy History of appendectomy History of back surgery History of carpal tunnel release History of thyroidectomy Family History Grandmother Stroke Social History marital status: number of children: 2 Smoking Status: Former smoker alcohol intake: current Type(s) of exercise: walking and weight lifting frequency: 3-4 times per week Smoking Status: Former smoker alcohol intake frequency: 0-2 drinks per day Substance Use Type: does not use Exam <Aubrey Trevino PA-C - Last Filed: 11/18/23 19:45> Narrative Exam Narrative: Const General:?cooperative, healthy appearing and comfortable HENKS Head:?normal to inspection Ears:?hearing grossly normal bilaterally Nose:?external nose normal Face and sinus:?normal facial exam and sinuses nontender Mouth:?oral mucosae normal Throat:?posterior oropharynx normal Eyes General:?appearance normal, both eyes and all related structures Neck Neck:?normal visual inspection and no lymphadenopathy noted Resp Effort & Inspection:?normal respiratory effort Auscultation:?clear to auscultation bilaterally Cardio Rate:?regular rate Rhythm:?regular rhythm Musculoskeletal No swelling, tenderness to palpation of left leg. Neurovascularly intact. Neuro General:?patient alert, patient awake and patient oriented x3 Initial Vital Signs Initial Vital Signs: Vital Signs Temperature 98.3 F 11/18/23 13:03 Pulse Rate 55 L 11/18/23 13:03 Respiratory Rate 16 11/18/23 13:03 Blood Pressure 190/76 H 11/18/23 13:03 Pulse Oximetry 100 11/18/23 13:03 Oxygen Delivery Method Room Air 11/18/23 13:03 <Shyanne Lopez DO - Last Filed: 11/23/23 01:18> Initial Vital Signs Initial Vital Signs: Vital Signs Temperature 98.3 F 11/18/23 13:03 Pulse Rate 55 L 11/18/23 13:03 Respiratory Rate 16 11/18/23 13:03 Blood Pressure 190/76 H 11/18/23 13:03 Pulse Oximetry 100 11/18/23 13:03 Oxygen Delivery Method Room Air 11/18/23 13:03 Course <Aubrey Trevino PA-C - Last Filed: 11/18/23 19:45> Orders Ordered: ED Orders 11/18/23 13:14 US periph venous low extrem lt Stat Vital Signs Vital signs: Vital Signs - 8 hr 11/18/23 13:03 11/18/23 15:16 Temperature 98.3 F Pulse Rate 55 L 54 L Respiratory Rate 16 18 Blood Pressure 190/76 H 178/76 H Pulse Oximetry 100 99 Oxygen Delivery Method Room Air Room Air <Shyanne Lopez DO - Last Filed: 11/23/23 01:18> Orders Ordered: ED Orders 11/18/23 13:14 perip venous low extrem lt Stat Vital Signs Vital signs: Vital Signs - 8 hr 11/18/23 13:03 11/18/23 15:16 Temperature 98.3 F Pulse Rate 55 L 54 L Respiratory Rate 16 18 Blood Pressure 190/76 H 178/76 H Pulse Oximetry 100 99 Oxygen Delivery Method Room Air Room Air MDM - Extremity (Nontraumatic) <Aubrey Trevino PA-C - Last Filed: 11/18/23 19:45> MDM Narrative Medical decision making narrative: 88-year-old male with chronic lower back pain, sciatica, left leg numbness presents to the ED with an acute on chronic exacerbation of left leg pain. Obtained ultrasound of left lower extremity which was without acute findings. Patient's symptoms are most consistent with a musculoskeletal sprain/strain, likely caused by his increased activity. Recommend rest, stretching, Tylenol. Patient agrees to follow-up with [facility] where he gets treatment for his back pain. He has an appointment in 2 weeks. ED return precautions were discussed with patient. Patient verbalized understanding. Medical records reviewed: Yes Discharge Plan Departure Patient Disposition: Home Clinical Impression: Left leg pain Instructions: DI for Leg Pain Activity Restrictions/Additional Instructions: You were evaluated in the ED today for left-sided leg pain. Your ultrasound did not show any blood clots or DVTs. Your symptoms are most likely from a musculoskeletal sprain/strain. You may continue to take a leave, do light stretching. Please follow-up with [facility] as scheduled in 2 weeks. Return to the ED if you have any new numbness, tingling, weakness, urinary difficulties. Prescriptions: No Action fluticasone propionate [Flonase Allergy Relief] 50 mcg/actuation spray,suspension 1 spray intranasal Q12H Qty: 16 0RF Rx Instructions: administer into each nostril tamsulosin 0.4 mg capsule 0.8 mg PO DAILY Qty: 120 3RF simvastatin 10 mg tablet 10 mg PO BEDTIME levothyroxine [Synthroid] 125 mcg tablet 125 mcg PO QAM metformin 500 mg tablet extended release 24 hr 500 mg PO TID lisinopril 20 mg tablet 20 mg PO DAILY naproxen sodium [Aleve] 220 mg capsule 220 mg PO BID PRN amlodipine 5 mg tablet 5 mg PO DAILY oxycodone 5 mg tablet 5 mg PO TID PRN (Reason: pain) Qty: 10 0RF Rx Instructions: Take 1 tab 1 hour prior to procedure then t.i.d. as needed after procedure. CoQ 10 PO Referrals: Oleksandr Grove PA-C [Primary Care Provider] - Stand Alone Forms: Patient Portal/API ED Sign-out <Shyanne Lopez DO - Last Filed: 11/23/23 01:18> Cosign ED Attending Yamil Attestation: I was immediately available in the department for consultation.
== END 2023-11-18 15:50 | disposition home or self-care (01) ==
PROVIDERS: Emergency Provider Student in an Organized Health Care Education/Training Program; Family Provider Student in an Organized Health Care Education/Training Program; PCP Student in an Organized Health Care Education/Training Program
DX: M79.605 Pain in left leg (principal); Z79.899 Other long term (current) drug therapy
CPT/HCPCS: 93971; 99283

== ENCOUNTER 2024-01-15 08:48 | Outpatient (CLI) | payer MEDICARE, OTHER, SELFPAY ==
[2024-01-15] VITALS (8 sets, daily range): BP systolic 137–184; BP diastolic 63–79; PULSE 49–54; RESP 15–18; TEMP 36.4; O2SAT 98–100
--- NOTE | 2024-01-15 09:30 | DI.RAD.S_ITS ---
PROCEDURE: PAIN L/S TRANSFORAMINAL INJECT INDICATIONS: lumbar radiculopathy COMPARISON: [facility], , PAIN L/S TRANSFORAMINAL INJECT, 03/27/2023, 10:01. FINDINGS: Fluoroscopic spot filming was performed to verify placement of spinal needles at the L4-5 and L5-S1 level(s), as labeled on the films. Appropriate location(s) of the needle tip(s) was confirmed by injection of iodinated contrast. IMPRESSION: Fluoro guidance was provided intraoperatively for left L4-5 and L5-S1 transforaminal GREGORIO performed by the ordering physician. Dictated by: Zhen Porras M.D. on 01/15/2024 at 13:43 Approved by: Zhen Porras M.D. on 01/15/2024 at 13:50
[2024-01-15] MEDS: MIDAZOLAM 2 MG/2 ML VIAL 1 MG IV (09:47)
[2024-01-15] MEDS: iopamidoL 15 ML VIAL 3 ML INJ (09:48)
[2024-01-15] MEDS: DEXAMETHASONE 10 MG/ML VIAL 20 MG INJ (09:49)
--- NOTE | 2024-01-15 12:15 | P.PCN_ITS ---
Date/Time/Diagnoses Date of procedure: 01/15/24 Time of procedure: 09:30 Procedure Notes Physician: John Garrido Total Fluoroscopy time (seconds): 27 Total sedation minutes: 10 Procedure in detail & Post-procedure care: Left L4-5 and L5-S1 Transforaminal Epidural Steroid Injection Indications: Yaron is presenting for treatment of lumbar radiculopathy with low back and leg pain. Preoperative diagnosis: Lumbar radiculopathy Postoperative diagnosis: Same Focused Examination: Ax3 Mood and affect are normal Vital Signs: VSS ASA: 2 Consent: Following review of allergies and potential side effects/complications, including, but not necessarily limited to, infection, allergic reaction, local tissue breakdown, stroke, temporary or permanent nerve injury, paralysis, and possible , the patient indicated that they understood and agreed to proceed.? An informed consent document was signed by the patient, witnessed by a nurse and placed in the patient's chart.? Additionally, other treatment options including medications and physical therapy were reviewed with the patient. All questions were answered. Site was then marked. Anesthesia: After review of previous anesthetic history and IV conscious sedation, the patient was deemed safe to proceed with today's procedure with IV conscious sedation. IV sedation was accomplished with midazolam 1 mg administered by the RN after order by Dr. Garrido. Sedation was titrated to patient comfort during the course of the procedure. Patient remained responsive to all verbal commands. Position: Prone Monitoring: NIBP, Pulse oximetry, 3 lead EKG Needle used: 22 gauge, 5 inch spinal needle at each level Contrast: Isovue 300M Injectate: 5 mg Dexamethasone mixed with 1% lidocaine 1.5 ml per level Technique: The skin was prepped with chloraprep and draped in a sterile fashion. Time out was performed as per protocol. Oxygen applied via NC. Skin and subcutaneous structures of the needle entry site were infiltrated with 3mL of lidocaine 1%. Under fluoroscopic guidance, using an ipsilateral oblique view,?a 22 gauge 5 inch needle was advanced to the base of the left L4?pedicle.? The needle was advanced to the superio-posterior aspect of the neural foramen under lateral view.? Oblique and AP views were rechecked. No paresthesias noted by the patient during needle placement. In AP view and utilizing real-time digital subtraction fluoroscopy, 2 ml contrast was slowly injected. Epidural spread was observed without evidence for intravascular nor intrathecal uptake. Contrast spread was seen craniocaudally. The above injectate was then administered without paresthesias and the needle was subsequently withdrawn. The above procedure was then repeated for the left L5. Band-Aids applied to injection sites. EBL: less than 1 ml Complications: None Post Procedure: Patient was taken to the recovery and monitored. The patient was provided a Pain Log to continue to record the patient's response to the target- specific procedure prior to the patient's follow-up visit with the referring physician. Patient was stable upon discharge. Detailed post procedure instructions were provided. Patient was asked to call in the event of worsening pain, fever, weakness, numbness or bladder or bowel incontinence.
== END 2024-01-15 10:19 | disposition home or self-care (01) ==
LOC: RAD 08:49
PROVIDERS: Family Provider Student in an Organized Health Care Education/Training Program; PCP Student in an Organized Health Care Education/Training Program; Referring Provider Anesthesiology; Visit Provider Anesthesiology
DX: M54.16 Radiculopathy, lumbar region (principal)
CPT/HCPCS: 64483; 64484; 82962; 99152; J1100; J2250

== ENCOUNTER → 2024-05-04 12:00 | Outpatient (CLI) | payer MEDICARE, OTHER, SELFPAY ==
--- NOTE | 2024-05-04 12:02 | DI.RAD.S_ITS ---
PROCEDURE: XR HIP W PEL IF DONE HUA MIN 3V INDICATIONS: HIP PAIN LEFT LEG PAIN TECHNIQUE: AP pelvis with lateral views of the bilateral hips. COMPARISON: None. FINDINGS / IMPRESSION: Moderate degenerative changes bilateral hips with joint space narrowing and osteophytes. Bilateral ischial tuberosity and femoral trochanteric calcifications commonly enthesophytes. Moderate diffuse vascular calcifications. Moderate degenerate changes of the lower lumbar spine partially imaged. No radiographic evidence of fracture, dislocation or high attenuation foreign body. If symptoms persist or worsen, or there is high clinical suspicion of pelvic/hip abnormality, MRI could be performed. Dictated by: Tony Jacobs M.D. on 05/04/2024 at 20:24 Approved by: Tony Jacobs M.D. on 05/04/2024 at 20:27
== END ==
LOC: RAD 12:01
PROVIDERS: Family Provider Student in an Organized Health Care Education/Training Program; PCP Student in an Organized Health Care Education/Training Program; Referring Provider Physical Medicine & Rehabilitation; Visit Provider Physical Medicine & Rehabilitation
DX: M47.816 Spondylosis without myelopathy or radiculopathy, lumbar region (principal); M79.605 Pain in left leg; M25.559 Pain in unspecified hip
CPT/HCPCS: 73522

== ENCOUNTER 2024-06-04 10:12 | Outpatient (CLI) | payer MEDICARE, OTHER, SELFPAY ==
[2024-06-04] VITALS (9 sets, daily range): BP systolic 137–192; BP diastolic 65–81; PULSE 52–60; RESP 15–20; TEMP 36.6; O2SAT 96–100
--- NOTE | 2024-06-04 10:45 | DI.RAD.S_ITS ---
PROCEDURE: PAIN L/S TRANSFORAMINAL INJECT INDICATIONS: Left L4-5 transforaminal GREGORIO COMPARISON: [facility], , PAIN L/S TRANSFORAMINAL INJECT, 01/15/2024, 9:45. FINDINGS: Fluoroscopic spot filming was performed to verify placement of spinal needles at the L4-L5 level(s), as labeled on the films. Appropriate location(s) of the needle tip(s) was confirmed by injection of iodinated contrast. IMPRESSION: L4-L5 injection, please see operative note for full details. Dictated by: Cosmo Couch M.D. on 06/04/2024 at 12:29 Approved by: Cosmo Couch M.D. on 06/04/2024 at 12:30
[2024-06-04] MEDS: MIDAZOLAM 2 MG/2 ML VIAL IV (11:42)
[2024-06-04] MEDS: DEXAMETHASONE 10 MG/ML VIAL INJ (11:44)
[2024-06-04] MEDS: BETAMETHASONE 30 MG/5 ML MDV 12 MG INJ (11:44)
[2024-06-04] MEDS: iopamidoL 15 ML VIAL 3 ML INJ (11:45)
[2024-06-04] MEDS: BUPIVACAINE 0.25% (PF) VIAL 2 ML INJ (11:45)
--- NOTE | 2024-06-04 12:02 | P.PCN_ITS ---
Date/Time/Diagnoses Date of procedure: 06/04/24 Time of procedure: 12:02 Pre-procedure diagnosis: 1. FACET ARTHROPATHY, 2. AXIAL LBP, 3. MULTILEVEL DDD Post-procedure diagnosis: same Procedure Notes Procedure: 1. FLUOROSCOPICALLY GUIDED CONTRAST CONTROLLED FACET JOINT INJECTIONS LEFT L4/5 Indications: Yaron is referred by NAZIA Grove for treatment of Axial LBP Physician: Alec Sanchez Total Fluoroscopy time (seconds): 11 Total sedation minutes: 14 Complications: none Procedure in detail & Post-procedure care: FINDINGS Multilevel Facet Arthropathy with Clinically significant axial LBP DESCRIPTION OF PROCEDURE Fluoroscopically guided, contrast-controlled left L4/5 facet joint injections. Following review of allergy and review of potential side effects and complicat ions, including, but not necessarily limited to, infection, allergic reaction, local tissue breakdown, stroke, temporary or permanent nerve injury, paralysis, and possible , the patient indicated that the patient understood and agreed to proceed. An informed consent document was signed by the patient, witnessed by a nurse, and placed in the patient's chart. Additionally, other treatment options including medications, modalities, and physical therapy were reviewed with the patient. After review of previous anaesthesic history and IV conscious sedation the patient was deemed safe to proceed with today?s procedure with IV conscious sedation as ASA class II designation. Safety time-out was performed to confirm patient ID, procedure to be performed and site of procedure. IV sedation was accomplished with a combination of 2mg of Versed administered by the RN after DO order, titrated to patient comfort during the course of the procedure while the patient remained responsive to all verbal commands. In the prone position, following sterile prep and drape of the lumbar region, the posterior aspect of the left L4/5 facet joints were identified fluoroscopically. The skin was anesthetized via a 25-gauge 1.5-inch needle with 1% lidocaine solution into the corresponding facet joints. At this point, a 22- gauge 3.5-inch spinal needle was atraumatically introduced and advanced under f luoroscopic guidance into the corresponding facet joints. Following negative aspiration, injections of approximately 0.2cc of Isovue 200 confirmed interarticular placement without vascular uptake. Radiological data, including multiple fluoroscopic views of the lumbosacral spine, reveal a spinal needle at the left L4/5 facet joints. Subsequent views show flow of contrast material both superiorly and inferiorly within the joint space without vascular or intrathecal uptake. At this point, a total of 0.5cc including a mixture of 0.25cc Marcaine and 0.25cc betamethasone was injected without complication into each of the corresponding facet joints. The patient tolerated the procedure well without signs or symptoms of complications prior to transfer to the recovery area for further monitoring. The patient was then transferred to the recovery area where they were observed for an appropriate period of time after the injection. The patient reported a VAS score of 7 prior to the procedure and a post-procedure VAS of 0. POSTOP INSTRUCTIONS The patient was provided a Pain Log to continue to record their response to the target-specific procedure prior to follow-up visit with their referring physician. Additionally, specific post-injection care instructions and a contact number to our office were provided if concerns arise regarding possible complications associated with the procedure are suspected.
--- NOTE | 2024-06-04 12:03 | P.PCN_ITS ---
Date/Time/Diagnoses Date of procedure: 06/04/24 Time of procedure: 12:04 Pre-procedure diagnosis: 1. FORAMINAL STENOSIS WITH LE SYMPTOMS Post-procedure diagnosis: same Procedure Notes Procedure: 1. FLUOROSCOPICALLY GUIDED CONTRAST CONTROLLED TRANSFORAMINAL EPIDURAL STEROID INJECTION - LEFT L4/5 Indications: Yaron is referred by NAZAI Grove for treatment of Foraminal Stenosis with Left LE Symptoms Physician: Alec Sanchez Total Fluoroscopy time (seconds): 11 Total sedation minutes: 14 Complications: none Procedure in detail & Post-procedure care: FINDINGS Foraminal Nerve Root Compression secondary to disc disease and facet hypertrophy DESCRIPTION OF PROCEDURE Following review of allergy and review of potential side effects and complications, including, but not necessarily limited to, infection, allergic reaction, local tissue breakdown, stroke, temporary or permanent nerve injury, paralysis, and possible , the patient indicated that the patient understood and agreed to proceed. An informed consent document was signed by the patient, witnessed by a nurse, and placed in the patient's chart. Additionally, other treatment options including medications, modalities, and physical therapy were reviewed with the patient. After review of previous anaesthesic history and IV conscious sedation the patient was deemed safe to proceed with today?s procedure with IV conscious sedation as ASA class II designation. Safety time-out was performed to confirm patient ID, procedure to be performed and site of procedure. IV sedation was accomplished with a combination of 2mg of Versed administered by the RN after DO order, titrated to patient comfort during the course of the procedure while the patient remained responsive to all verbal commands In the prone position following sterile prep and drape of the lumbar region, the left L4/5 posterior neuroforamen was identified fluoroscopically. The skin was anesthetized via a 25-gauge 1.5-inch needle with 1% lidocaine solution. At this point, a 25-gauge 3.5-inch spinal needle was atraumatically introduced and advanced under fluoroscopic guidance through the posterior left L4/5 neuroforamen to approximately the anterior aspect of the canal. Depth was confirmed on lateral view. Following negative aspiration, injection of approximately 1.5 cc of Isovue 200 under live fluoroscopy in the AP view confirmed excellent flow along the nerve root, into the epidural space without vascular or intrathecal uptake observed Radiological data, including multiple fluoroscopic views of the lumbosacral spine, reveal a spinal needle at the left L4/5 posterior neuroforamen. Subsequent views show flow of contrast material flowing superiorly and inferiorly along the nerve root confirming epidural flow. Subsequently, a test dose of 1.5 cc of 1% lidocaine solution was administered and patient was observed for two minutes for signs or symptoms of complications, including abdominal pain, shortness of breath, bilateral upper or lower extremity weakness, nausea and vomiting, prior to steroid injection. At this point, a total of 2cc or 10mg of dexamethasone and 6mg of betamethasone was injected without incident. The procedure tolerated the procedure well without signs or symptoms of complications prior to transfer to the recovery area continued monitoring without incident. The patient was then transferred to the recovery area where they were observed for an appropriate time after the injection. The patient reported a VAS score of 7 prior to the procedure and a post- procedure VAS of 0. POST OP INSTRUCTIONS The patient was provided a Pain Log to continue to record their response to the target-specific procedure prior to follow-up visit with their referring physician. Additionally, specific post-injection care instructions and a contact number to our office were provided if concerns arise regarding possible complications associated with the procedure are suspected.
== END 2024-06-04 12:25 | disposition home or self-care (01) ==
LOC: RAD 10:13
PROVIDERS: Family Provider Student in an Organized Health Care Education/Training Program; PCP Student in an Organized Health Care Education/Training Program; Referring Provider Physical Medicine & Rehabilitation; Visit Provider Physical Medicine & Rehabilitation
DX: M48.061 Spinal stenosis, lumbar region without neurogenic claudication; M47.26 Other spondylosis with radiculopathy, lumbar region; M51.16 Intervertebral disc disorders with radiculopathy, lumbar region
CPT/HCPCS: 64483; 64493; 99152; J0702; J1100; J2250; J3490

== ENCOUNTER 2024-09-10 09:26 | Outpatient (CLI) | payer MEDICARE, OTHER, SELFPAY ==
[2024-09-10] VITALS (13 sets, daily range): BP systolic 94–144; BP diastolic 52–64; PULSE 53–62; RESP 16–20; TEMP 36.6; O2SAT 96–100
--- NOTE | 2024-09-10 09:27 | DI.RAD.S_ITS ---
PROCEDURE: PAIN L INTERLAMINAR/CAUDAL INJ INDICATIONS: para left L4/5 TL GREGORIO COMPARISON: None. FINDINGS/IMPRESSION: Fluoroscopic spot filming was performed to verify placement of spinal needles at the L4-L5 level(s), as labeled on the films. Appropriate location(s) of the needle tip(s) was confirmed by injection of iodinated contrast. Dictated by: Cosmo Couch M.D. on 09/10/2024 at 12:54 Approved by: Cosmo Couch M.D. on 09/10/2024 at 12:54
[2024-09-10] MEDS: MIDAZOLAM 2 MG/2 ML VIAL IV (09:56)
[2024-09-10] MEDS: DEXAMETHASONE 10 MG/ML VIAL INJ (10:02)
[2024-09-10] MEDS: iopamidoL 15 ML VIAL 3 ML INJ (10:02)
[2024-09-10] MEDS: BUPIVACAINE 0.25% (PF) VIAL 2 ML INJ (10:02)
[2024-09-10] MEDS: BETAMETHASONE 30 MG/5 ML MDV 12 MG INJ (10:02)
--- NOTE | 2024-09-10 10:16 | P.PCN_ITS ---
Date/Time/Diagnoses Date of procedure: 09/10/24 Time of procedure: 10:16 Pre-procedure diagnosis: 1. HNP WITH RADICULAR FEATURES, 2. MULTILEVEL CENTRAL STENOSIS, Post-procedure diagnosis: same Procedure Notes Procedure: 1. FLUOROSCOPICALLY GUIDED CONTRAST CONTROLLED INTERLAMINAR EPIDURAL STEROID INJECTION -L4/5 Indications: Yaron is referred by ARVIND Grove for treatment of Bilateral Foraminal Stenosis R>L LE symptoms. Physician: Alec Sanchez Total Fluoroscopy time (seconds): 7 Total sedation minutes: 13 Complications: none Procedure in detail & Post-procedure care: FINDINGS Multilevel Central Spinal Stenosis with Nerve Root Compression DESCRIPTION OF PROCEDURE Fluoroscopically guided, contrast-controlled L4/5 translaminar epidural steroid injection. Following review of allergy and review of potential side effects and complications, including, but not necessarily limited to, infection, allergic reaction, local tissue breakdown, temporary as well as permanent nerve injury, paralysis, stroke and possible , the patient indicated that the patient understood and agreed to proceed. An informed consent document was signed by the patient, witnessed by a nurse, and placed in the patient's chart. Additionally, other treatment options including modalities, medications, and physical therapy were reviewed with the patient. After review of previous anaesthesic history and IV conscious sedation the patient was deemed safe to proceed with today?s procedure with IV conscious sedation as ASA class II designation. Safety time-out was performed to confirm patient ID, procedure to be performed and site of procedure. IV sedation was accomplished with a combination of 2mg of Versed was administered by the RN after DO order, titrated to patient comfort during the course of the procedure while the patient remained responsive to all verbal commands In the prone position, following sterile prep and drape of the lumbar region, the L4/5 translaminar space was identified fluoroscopically. The skin was anesthetized via a 25-gauge, 1.5inch needle with 1% lidocaine solution. At this point, a 22-gauge short bevel spinal needle was atraumatically introduced and a dvanced under fluoroscopic guidance into the region of the L4/5 translaminar space. Depth was confirmed on lateral view. Radiological data, including multiple fluoroscopic views of the lumbar spine, reveal a spinal needle at the L4/5 translaminar space. Lateral views then show placement of the needle in the epidural space. Subsequent views show contrast material flowing superiorly and inferiorly in the epidural space. No vascular or intrathecal uptake is observed. At this point, using loss of resistance technique with saline and air, the epidural space was entered. This was confirmed following negative aspiration with injection of approximately 1.5cc of Isovue 200, showing excellent epidural flow without vascular or intrathecal uptake. At this point, 1cc of 1% lidocaine solution combined with 2cc or 10mg of dexamethasone and 6mg betamethasone was injected without incident. The patient tolerated the procedure well without signs or symptoms of complications prior to transfer to the recovery area continued monitoring without incident. The patient was then transferred to the recovery area where they were observed for an appropriate period of time after the injection. The patient reported a VAS score of 7 prior to the procedure and a post- procedure VAS of 1. POST OP INSTRUCTIONS The patient was provided a Pain Log to continue to record their response to the target-specific procedure prior to follow-up visit with their referring physician. Additionally, specific post-injection care instructions and a contact number to our office were provided if concerns arise regarding possible complications associated with the procedure are suspected.
--- NOTE | 2024-09-10 10:40 | PC.NURSE ---
Patient arrived back to pre/post-procedure room at 1015 via wheelchair. resident doctor reported patient had stable vital signs throughout procedure, received 2mg IV Versed at 0956. Patient able to transfer from wheelchair to recliner with SBA, denies being lightheaded or dizzy. Initial post-procedure BP was 102/59 (78) with HR 54. Patient remains hypotensive during post-procedure monitoring. He denies feeling any lightheadedness or dizziness, denies any pain, and is tolerating PO intake well. Dr. Sanchez aware of low BP's in post-procedure. Orthostatic blood pressures assessed prior to DC: @ 1035 Sitting BP-102/57 (76) HR-53 Standing BP-94/52 (70) HR- 62 *Patient denies any symptoms, has a steady stance, and states feeling ready to go home* Patient remained standing additional minute and repeat standing BP was 110/59 (77) with HR 58. Orthostatic hypotension education reviewed with patient and patient stated understanding and states he can check BP at home. Patient also states his daughter is remaining with him at home today to help him. Yessica (daughter) was informed of patient's low BP post-procedure and she was given information on symptoms of low BP to watch for today. Patient's vitals at DC were 128/60 BP with HR 57. Patient continues to deny any lightheadedness, dizziness, or weakness upon standing and transferring to wheelchair and to car.
== END 2024-09-10 10:45 | disposition home or self-care (01) ==
PROVIDERS: Family Provider Student in an Organized Health Care Education/Training Program; PCP Student in an Organized Health Care Education/Training Program; Referring Provider Physical Medicine & Rehabilitation; Visit Provider Physical Medicine & Rehabilitation
DX: M51.16 Intervertebral disc disorders with radiculopathy, lumbar region (principal); M48.061 Spinal stenosis, lumbar region without neurogenic claudication
CPT/HCPCS: 62323; 99152; J0702; J1100; J2250; J3490

== ENCOUNTER → 2024-09-21 13:11 | Outpatient (CLI) | payer MEDICARE, OTHER, SELFPAY ==
--- NOTE | 2024-09-21 13:13 | DI.MRI.S_ITS ---
PROCEDURE: MR LUMBAR SPINE WO CON INDICATIONS: lumbar pain TECHNIQUE: Noncontrast sagittal T1 spin echo and T2 fast echo, sagittal STIR, and T2 fast spin echo through the lumbar spine. In cases with scoliosis, additional coronal T2 fast spin echo may be performed. COMPARISON: [facility], MR, MR LUMBAR SPINE WO/W CON, 09/17/2022, 19:03. FINDINGS: Image quality: Excellent. Alignment and Curvature: There is normal bony alignment. Bone Marrow: Convex left scoliosis centered at L2. No compression deformities. Grade 1 anterolisthesis of L4 on L5 due to facet arthrosis. Spinal Cord: Conus medullaris terminates at the L1-2 level. Visualized cord demonstrates normal signal and size. Paraspinous Soft Tissues: No paravertebral masses. T12-L1: Moderate disc height loss. L1-L2: Severe disc height loss, broad-based disc bulge, ligamentum flavum hypertrophy, facet hypertrophy. Severe spinal canal narrowing, severe right neural foraminal narrowing and moderate left neural foraminal narrowing. This has progressed from prior. L2-L3: Broad-based disc bulge, facet hypertrophy, ligamentum flavum hypertrophy. This results in severe spinal canal narrowing. Moderate right neural foraminal narrowing. This has progressed from prior. L3-L4: Broad-based disc bulge, facet hypertrophy, ligamentum flavum hypertrophy. This results in severe spinal canal narrowing and moderate to severe left neural foraminal narrowing . This has progressed from prior. L4-L5: Broad-based disc bulge, facet hypertrophy, ligamentum flavum hypertrophy. This results in severe spinal canal narrowing and moderate to severe left neural foraminal narrowing and moderate right neural foraminal narrowing . L5-S1: Central disc protrusion. Annular fissure. Severe left and mild right neural foraminal narrowing. Mild spinal canal narrowing. IMPRESSION: Multilevel degenerative disc disease and facet arthrosis, with progressive degenerative changes compared with prior. Of note: Multilevel severe spinal canal narrowing. Multilevel severe neural foraminal narrowing. Dictated by: Jose Elias Campos M.D. on 09/21/2024 at 14:57 Approved by: Jose Elias Campos M.D. on 09/21/2024 at 15:01
== END ==
PROVIDERS: Family Provider Student in an Organized Health Care Education/Training Program; PCP Student in an Organized Health Care Education/Training Program; Referring Provider Physician Assistant; Visit Provider Physician Assistant
DX: M48.07 Spinal stenosis, lumbosacral region (principal); M48.062 Spinal stenosis, lumbar region with neurogenic claudication; M47.816 Spondylosis without myelopathy or radiculopathy, lumbar region; M51.360 Other intervertebral disc degeneration, lumbar region with discogenic back pain only; M41.9 Scoliosis, unspecified; Z85.51 Personal history of malignant neoplasm of bladder; Z85.850 Personal history of malignant neoplasm of thyroid
CPT/HCPCS: 72148

== ENCOUNTER 2024-10-13 10:45 | Outpatient (RCR) | payer MEDICARE, OTHER, SELFPAY ==
--- NOTE | 2024-08-18 15:56 | PT.OIE ---
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) Spinal stenosis, lumbar region without neurogenic claudication (08/20/24) Spinal stenosis, lumbar region with neurogenic claudication (08/20/24) Low back pain, unspecified (08/20/24) Other lack of coordination (08/20/24) Weakness (08/20/24) Personal history of malignant neoplasm of bladder (08/20/24) Past Medical History (Last Reviewed 08/19/24 @ 10:00 by Alec Sanchez DO) Benign prostatic hyperplasia Bladder cancer Bladder mass Carpal tunnel syndrome Gross hematuria High cholesterol History of chemotherapy History of tobacco use Hx of primary hypertension Hx of radiation therapy Hypertension Hypothyroid Incomplete emptying of bladder Lower urinary tract symptoms Lumbar degenerative disc disease Lumbar facet arthropathy Lumbar radiculopathy Lumbar spinal stenosis Lumbar spondylosis Scoliosis Thyroid cancer Type 2 diabetes mellitus UTI (urinary tract infection) Past Surgical History (Last Reviewed 08/19/24 @ 10:00 by Alec Sanchez DO) H/O vasectomy History of appendectomy History of back surgery History of carpal tunnel release History of thyroidectomy Visit Care Team Role Provider Type Oleksandr Grove PA-C Family Provider Non-Staff Primary Care Provider Specialty: Medical Address: [address] [place] [address], [address] Email: Wendy Juarez PA-C Attending Provider [employer] Referring Provider Specialty: Orthopedics Orthopedic Surgery Address: [address] [place] [address], [address] Email: [email or web address] Physical Therapy Initial Evaluation PT-OP-A Visit Information Start: 08/17/24 16:38 Freq: Status: Active Protocol: Document 08/18/24 08:17 NM (Rec: 08/18/24 09:02 NM [id number]) Out-Patient Physical Therapy Visit Information Visit Information Visit Type Initial Evaluation Visit Note KX after 19 visits Visit Start Time 08:18 Visit Stop Time 09:00 Visit Number 1 Evaluation Information Evaluation Date 08/18/24 Precautions Precautions scoliosis, fall risk PT-OP-B Current Condition Start: 08/17/24 16:38 Freq: Status: Active Protocol: Document 08/18/24 08:17 NM (Rec: 08/18/24 09:02 NM [id number]) Current Condition History of Current Condition Onset Date chronic History of Current Condition Pt presents with chronic back pain. He has had pain for several years. He reports that he has a spine deformity ( scoliosis) since childhood. He was casted/braced. He ruptured a disc many years ago , had surgery due to condition . Reports that was doing well until several years ago. He has hx of bladder cancer; is follow up with oncologist for bladder cancer this month. Has hx of chemo and radiation, 3 years ago. 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 Has been seeing pain management with [facility]. Will see Dr. Sanchez; has had hx of injections and ablations; however, pt reports short term relief only. Pt had cyst at L4-L5, Dr Sanchez ruptured the cyst, which helped with the leg pain. Pt reports has had PT for same condition, states did not improve and has gotten worse. Pain is primarily on L side, reports that both in back and leg. He reports that he gets muscle pain in the legs. He reports that following his last discharge, he did his exercises for several months; states stretches currently not helping. He has been referred to an orthopedic office in [facility], not planning on surgery. He reports that symptoms started to get worse. Currently unable to play golf (1 year ago, unable lift his clubs), ambulate (previously 5000/day, now 3000/day)- states only can do 300-400 ft before needing to take a seated rest break. Uses a trek pole (1) for gait; denies any falls. Prior Treatments and Tests Pt's kidneys are being monitored for kidney function due to high creatinine Lumbar spine radiograph 03/2024 : Impression- Moderate levoscoliosis centered at L2 level. No acute compression fracture. Grade 1 spondylolisthesis at L1-2, L2- 3, and L4-5 levels as above. Degenerative disc disease throughout lower thoracic and lumbar spine. No gross pars defect Lumbar spine MRI 09/2022: Impression- No evidence of metastatic disease. Multilevel degenerative disc disease and arthropathy results in several central canal stenosis L3-4 and L4-5. Superimposed left synovial cyst also noted L4-5. PT-OP-C Subjective Start: 08/17/24 16:38 Freq: Status: Active Protocol: Document 08/18/24 08:17 NM (Rec: 08/18/24 09:02 NM [id number]) OP-PT Subjective Patient Comments Patient Comments Pt consents to participate in PT evaluation Patient Questionnaires Oswestry Low Back Index Oswestry Score 42/100 (42% impairment) OP-PT Pain Assessment Location back Pain Location Details SIJ, lower lumbar spine, muscle ea side Intensity 5 Scale Used Numeric (0 - 10) Description Aching,Dull,Sharp Description- Other never completely gone Frequency Frequent Radiating Location to LLE mostly posteriorly Variations/Patterns numbness to L lateral leg to ankle Pain Aggravating Factors ADL's,Activity,Exercise, Standing,Walking Other Pain Aggravating Factors cough, sneeze, strain Pain Alleviating Factors Medication,Sitting Comments Pain Comments malexicom (stopped 3 weeks ago due to swelling), tylenol PT-OP-E Functional Tests Start: 08/17/24 16:38 Freq: Status: Active Protocol: Document 08/18/24 08:17 NM (Rec: 08/18/24 09:02 NM [id number]) Functional Tests Five Times Sit to Stand Test Score 40.3 sec Comments 19 chair PT-OP-F Manual Assessment Start: 08/17/24 16:38 Freq: Status: Active Protocol: Document 08/18/24 08:17 NM (Rec: 08/18/24 11:17 NM [id number]) Manual Assessments Soft Tissue Assessment Soft Tissue Mobility Assessment Tightness and restrictions of B paraspinals, hamstrings, hip flexors, and calves. L is more restricted than R. L side also has swelling along foot/ ankle to calf compared to RLE Joint Mobility Assessment Joint Mobility Assessment Decreased mobility with PA springing of lumbar spine in sitting. Decreased joint space related to lumbar curve to L, rib hump present posteriorly on L side as well. Decreased AROM and PROM B hips, L>R PT-OP-G Mobility & Gait Start: 08/17/24 16:38 Freq: Status: Active Protocol: Document 08/18/24 08:17 NM (Rec: 08/18/24 11:17 NM [id number]) OP Gait Assessment Gait Gait Assistance Required: Standby Assistance Distance (Feet) 150 Gait Deviations General Gait Pattern Antalgic,Decreased Stride Length,Decreased Feet Clearance,Flexed Trunk,Step-to Gait Comments Gait Comments Decreased L foot clearance especially with ankle dorsiflexion. Forward trunk lean and demos unsteadiness of gait. Uses 1 trek pole in R hand for steadying PT-OP-H Neuro Start: 08/17/24 16:38 Freq: Status: Active Protocol: Document 08/18/24 08:17 NM (Rec: 08/18/24 11:17 NM [id number]) Sensation Evaluation Comments Summary Comments Assess next session due to time Deep Tendon Reflex & Clonus Assessment Deep Tendon Reflex Right Achilles Deep Tendon Reflex 0 Absent Right Patellar Deep Tendon Reflex 2+ Normal Left Achilles Deep Tendon Reflex 0 Absent Left Patellar Deep Tendon Reflex 1+ Diminished PT-OP-J Posture/Palpation/Skin Start: 08/17/24 16:38 Freq: Status: Active Protocol: Document 08/18/24 08:17 NM (Rec: 08/18/24 11:17 NM [id number]) Posture Evaluation Position Standing Head/C-Spine Posture Forward Head T-Spine Posture Increased Kyphosis Thorax Posture (L) Prominent L-Spine Posture Fixed Scoliosis on (L) Shoulder Posture (L) Rounded,(R) Rounded Scapula Posture (L) Retracted Pelvis Posture Anteriorly Tilted,(L) Rotated Posterior,(R) Iliac Crest Superior,(L) Iliac Crest Inferior Hip Posture (L) Externally Rotated,(R) Externally Rotated Palpation Assessment Location lumbar spine Palpation Details Tenderness along B SIJ, lumbar paraspinals, glutes, posterior ribs No hamstring tenderness but increased restrictions L>R PT-OP-K Range of Motion Start: 08/17/24 16:38 Freq: Status: Active Protocol: Document 08/18/24 08:17 NM (Rec: 08/18/24 09:02 NM [id number]) Lumbar Spine Range of Motion Lumbar Spine Active Percentage Testing Position Standing Flexion 50 Extension 0 Rotation Left 100 Rotation Right 25 Lateral Flexion Left 25 Lateral Flexion Right 75 Comments pain with all motions; ext limited by bony restriction. L side more limited into R rotation and L lateral flexion Knee Goniometric Range of Motion Knee ROM Limitations Comments Observable limitations in hamstring length L>R, did not measure due to time PT-OP-L Special Tests Start: 08/17/24 16:38 Freq: Status: Active Protocol: Document 08/18/24 08:17 NM (Rec: 08/18/24 09:02 NM [id number]) Special Tests Lumbar Spine Special Tests Bateman/quadrant Test Results + L Straight Leg Raise Test Results + Comments L Standing Flexion Test Results + Slump Test Results - Comments tightness in hamstrings PT-OP-M Strength Start: 08/17/24 16:38 Freq: Status: Active Protocol: Document 08/18/24 08:17 NM (Rec: 08/18/24 09:02 NM [id number]) Trunk Strength Trunk Manual Muscle Testing Flexion 3+ Fair+ Extension 3+ Fair+ Rotation Left 3+ Fair+ Rotation Right 3+ Fair+ Lateral Flexion Left 3+ Fair+ Lateral Flexion Right 3+ Fair+ Comments pain with R LF Hip Strength Hip Manual Muscle Testing Right Flexion (L2) 3+ Fair+ Extension (S1) 4- Good- Abduction 4- Good- Adduction 4- Good- External Rotation 4- Good- Internal Rotation 4- Good- Left Flexion (L2) 3+ Fair+ Extension (S1) 4- Good- Abduction 4- Good- Adduction 4- Good- External Rotation 3+ Fair+ Internal Rotation 3+ Fair+ Knee Strength Knee Manual Muscle Testing Right Flexion (S2) 4- Good- Extension (L3) 4- Good- Left Flexion (S2) 3+ Fair+ Extension (L3) 4- Good- Ankle/Foot Strength Ankle and Foot Manual Muscle Testing Right Dorsiflexion (L4) 3 Fair Plantarflexion (S1) 3 Fair Comments tested in sitting Left Dorsiflexion (L4) 3 Fair Plantarflexion (S1) 3 Fair Comments tested in sitting PT-OP-Q Treatments Start: 08/17/24 16:38 Freq: Status: Active Protocol: Document 08/18/24 08:17 NM (Rec: 08/18/24 09:02 NM [id number]) Therapeutic Exercises Supine Exercises lumbar traction Supine Exercise Name self traction with bolster Equipment Used bolster under knees; emphasis on breathwork and rib expansion Reps/Minutes 4 minutes Comments during pt education Sitting Exercises calf stretch Side bilateral Equipment Used with gait belt, heel elevated on bolster Reps/Minutes 60 ea hamstring stretch Sitting Exercise Name with AP mob Side bilateral Equipment Used heel elevated on bolster Reps/Minutes 30 total (2 min ea) Self-Care/Home Management Treatment Education Other Education Educated positioning, stretching, and anatomy. Initiated discussion on use of light weight 4WW for chair and to offload spine during ambulation for exercise/pain management PT-OP-T Assessment and Plan Start: 08/17/24 16:38 Freq: Status: Active Protocol: Document 08/18/24 08:17 NM (Rec: 08/18/24 09:02 NM [id number]) Physical Therapy Assessment Goals Three Impairment forward trunk flexion 50% AROM Clay Caster Goal (LTG) Pt will increase forward trunk flexion AROM > 50% in order to demonstrate improved hamstring length and ability to perform ADLs involving bending LTG Duration 8 weeks Two Impairment pain with ambulation; limited tolerance Short Term Goal (STG) If appropriate, pt will be educated on and fitted for appropriate LRAD, likely 4WW, for symptom management STG Duration 6 weeks Custodial Goal (LTG) Pt will report that he is able to ambulate at least 50% farther during daily ambulation in order to demonstrate improved activity tolerance and pain management LTG Duration 8 weeks One Impairment 5x STS 40.3 sec Short Term Goal (STG) Pt will be able to perform at least 8/10 STS from standard chair with or without UE assist with improved form in order to increase BLE strength for transfers and decrease reliance on low back during transfers STG Duration 4 weeks Clay Caster Goal (LTG) Pt will decrease 5x STS score by at least 5 seconds in order to demonstrate improved BLE strength and endurance for transfers LTG Duration 8 weeks Four Impairment not performing HEP Impairment . Clay Caster Goal (LTG) Pt will report compliance with HEP at least 3x/wk in order to maximize progression with PT and maintain progression after transition to maitenance program LTG Duration 8 weeks Assessment Summary Assessment Pt is an 89 y.o. male presenting with chronic back pain related to scoliosis and likely stenosis, consistent with dx. Pt's symptoms are worse with compression, ROM, resisted muscle testing; pt reports and demos signs of LLE radicular symptoms, including a positive straight leg raise . He has limitations in BLE and trunk strength and ROM, in addition to impairments in trunk and BLE muscle length which further impacts symptom management and mobility. Pt demos difficulty with gait, balance, and transfers; he is below age-related norms for 5x STS, indicating fall risk and poor mobility. Pt has had PT for same condition several times, and he is currently being treated by a facility practice specialist and an loss mitigation specialist. PT educated pt on exam findings and plan of care . Pt would benefit from skilled PT for progressive strengthening and flexibility, in addition to transfer and body mechanics training in order to decrease pain symptoms and improve functional mobility during ADLs and gait. Physical Therapy Plan Frequency and Duration Frequency of Treatment 2x/Week Duration of treatment (weeks) 8 Plan of Care Start Date 08/18/24 Plan of Care End Date 10/16/24 Therapeutic Interventions Therapeutic Interventions Balance Training,Gait Training ,Home Exercise Program,Joint Mobilizations,Manual Therapy, Neuromuscular Re-education, Orthotic/Prosthetic Management ,Patient/Caregiver Education, Self-Care/Home Management, Sensory Integration,Soft Tissue Mobilization,Taping, Therapeutic Activities, Therapeutic Exercises Modalities Cold Pack/Ice Massage,Hot Packs Next Visit Focus/Plan Next Note Type Treatment Note Next Visit Plan Review HEP. Assess sensation Trial crow stretch vs standing hip flexor stretch with support. Spinal elongation, rib expansion and breathwork. Lengthen L trunk/ QL as able. Transfers, STS, log roll
--- NOTE | 2024-08-20 16:44 | PT.OTN ---
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) Spinal stenosis, lumbar region without neurogenic claudication (08/20/24) Spinal stenosis, lumbar region with neurogenic claudication (08/20/24) Low back pain, unspecified (08/20/24) Other lack of coordination (08/20/24) Weakness (08/20/24) Personal history of malignant neoplasm of bladder (08/20/24) Physical Therapy Treatment Note PT-OP-A Visit Information Start: 08/17/24 16:38 Freq: Status: Active Protocol: Document 08/20/24 10:47 NM (Rec: 08/20/24 11:34 NM [id number]) Out-Patient Physical Therapy Visit Information Visit Information Visit Type Treatment Note Visit Note KX after 19 visits Visit Start Time 10:47 Visit Stop Time 11:27 Visit Number 2 Evaluation Information Evaluation Date 08/18/24 Precautions Precautions scoliosis, fall risk PT-OP-B Current Condition Start: 08/17/24 16:38 Freq: Status: Active Protocol: Document 08/18/24 08:17 NM (Rec: 08/18/24 09:02 NM [id number]) Current Condition History of Current Condition Onset Date chronic History of Current Condition Pt presents with chronic back pain. He has had pain for several years. He reports that he has a spine deformity ( scoliosis) since childhood. He was casted/braced. He ruptured a disc many years ago , had surgery due to condition . Reports that was doing well until several years ago. He has hx of bladder cancer; is follow up with oncologist for bladder cancer this month. Has hx of chemo and radiation, 3 years ago. 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 Has been seeing pain management with [facility]. Will see Dr. Sanchez; has had hx of injections and ablations; however, pt reports short term relief only. Pt had cyst at L4-L5, Dr Sanchez ruptured the cyst, which helped with the leg pain. Pt reports has had PT for same condition, states did not improve and has gotten worse. Pain is primarily on L side, reports that both in back and leg. He reports that he gets muscle pain in the legs. He reports that following his last discharge, he did his exercises for several months; states stretches currently not helping. He has been referred to an orthopedic office in [facility], not planning on surgery. He reports that symptoms started to get worse. Currently unable to play golf (1 year ago, unable lift his clubs), ambulate (previously 5000/day, now 3000/day)- states only can do 300-400 ft before needing to take a seated rest break. Uses a trek pole (1) for gait; denies any falls. Prior Treatments and Tests Pt's kidneys are being monitored for kidney function due to high creatinine Lumbar spine radiograph 03/2024 : Impression- Moderate levoscoliosis centered at L2 level. No acute compression fracture. Grade 1 spondylolisthesis at L1-2, L2- 3, and L4-5 levels as above. Degenerative disc disease throughout lower thoracic and lumbar spine. No gross pars defect Lumbar spine MRI 09/2022: Impression- No evidence of metastatic disease. Multilevel degenerative disc disease and arthropathy results in several central canal stenosis L3-4 and L4-5. Superimposed left synovial cyst also noted L4-5. PT-OP-C Subjective Start: 08/17/24 16:38 Freq: Status: Active Protocol: Document 08/20/24 10:47 NM (Rec: 08/20/24 11:34 NM [id number]) OP-PT Subjective Patient Comments Patient Comments Pt reports no changes following evaluation. He reports that he tried exercises but no pain or discomfort, reports a stretch. Pt saw Dr. Sanchez yesterday, planning an injection in future. PT-OP-E Functional Tests Start: 08/17/24 16:38 Freq: Status: Active Protocol: Document 08/18/24 08:17 NM (Rec: 08/18/24 09:02 NM [id number]) Functional Tests Five Times Sit to Stand Test Score 40.3 sec Comments 19 chair PT-OP-F Manual Assessment Start: 08/17/24 16:38 Freq: Status: Active Protocol: Document 08/18/24 08:17 NM (Rec: 08/18/24 11:17 NM [id number]) Manual Assessments Soft Tissue Assessment Soft Tissue Mobility Assessment Tightness and restrictions of B paraspinals, hamstrings, hip flexors, and calves. L is more restricted than R. L side also has swelling along foot/ ankle to calf compared to RLE Joint Mobility Assessment Joint Mobility Assessment Decreased mobility with PA springing of lumbar spine in sitting. Decreased joint space related to lumbar curve to L, rib hump present posteriorly on L side as well. Decreased AROM and PROM B hips, L>R PT-OP-G Mobility & Gait Start: 08/17/24 16:38 Freq: Status: Active Protocol: Document 08/18/24 08:17 NM (Rec: 08/18/24 11:17 NM [id number]) OP Gait Assessment Gait Gait Assistance Required: Standby Assistance Distance (Feet) 150 Gait Deviations General Gait Pattern Antalgic,Decreased Stride Length,Decreased Feet Clearance,Flexed Trunk,Step-to Gait Comments Gait Comments Decreased L foot clearance especially with ankle dorsiflexion. Forward trunk lean and demos unsteadiness of gait. Uses 1 trek pole in R hand for steadying PT-OP-H Neuro Start: 08/17/24 16:38 Freq: Status: Active Protocol: Document 08/20/24 10:47 NM (Rec: 08/20/24 11:34 NM [id number]) Sensation Evaluation Comments Summary Comments Decreased light touch sensation along L lower leg and calf PT-OP-J Posture/Palpation/Skin Start: 08/17/24 16:38 Freq: Status: Active Protocol: Document 08/18/24 08:17 NM (Rec: 08/18/24 11:17 NM [id number]) Posture Evaluation Position Standing Head/C-Spine Posture Forward Head T-Spine Posture Increased Kyphosis Thorax Posture (L) Prominent L-Spine Posture Fixed Scoliosis on (L) Shoulder Posture (L) Rounded,(R) Rounded Scapula Posture (L) Retracted Pelvis Posture Anteriorly Tilted,(L) Rotated Posterior,(R) Iliac Crest Superior,(L) Iliac Crest Inferior Hip Posture (L) Externally Rotated,(R) Externally Rotated Palpation Assessment Location lumbar spine Palpation Details Tenderness along B SIJ, lumbar paraspinals, glutes, posterior ribs No hamstring tenderness but increased restrictions L>R PT-OP-K Range of Motion Start: 08/17/24 16:38 Freq: Status: Active Protocol: Document 08/18/24 08:17 NM (Rec: 08/18/24 09:02 NM [id number]) Lumbar Spine Range of Motion Lumbar Spine Active Percentage Testing Position Standing Flexion 50 Extension 0 Rotation Left 100 Rotation Right 25 Lateral Flexion Left 25 Lateral Flexion Right 75 Comments pain with all motions; ext limited by bony restriction. L side more limited into R rotation and L lateral flexion Knee Goniometric Range of Motion Knee ROM Limitations Comments Observable limitations in hamstring length L>R, did not measure due to time PT-OP-L Special Tests Start: 08/17/24 16:38 Freq: Status: Active Protocol: Document 08/18/24 08:17 NM (Rec: 08/18/24 09:02 NM [id number]) Special Tests Lumbar Spine Special Tests Bateman/quadrant Test Results + L Straight Leg Raise Test Results + Comments L Standing Flexion Test Results + Slump Test Results - Comments tightness in hamstrings PT-OP-M Strength Start: 08/17/24 16:38 Freq: Status: Active Protocol: Document 08/18/24 08:17 NM (Rec: 08/18/24 09:02 NM [id number]) Trunk Strength Trunk Manual Muscle Testing Flexion 3+ Fair+ Extension 3+ Fair+ Rotation Left 3+ Fair+ Rotation Right 3+ Fair+ Lateral Flexion Left 3+ Fair+ Lateral Flexion Right 3+ Fair+ Comments pain with R LF Hip Strength Hip Manual Muscle Testing Right Flexion (L2) 3+ Fair+ Extension (S1) 4- Good- Abduction 4- Good- Adduction 4- Good- External Rotation 4- Good- Internal Rotation 4- Good- Left Flexion (L2) 3+ Fair+ Extension (S1) 4- Good- Abduction 4- Good- Adduction 4- Good- External Rotation 3+ Fair+ Internal Rotation 3+ Fair+ Knee Strength Knee Manual Muscle Testing Right Flexion (S2) 4- Good- Extension (L3) 4- Good- Left Flexion (S2) 3+ Fair+ Extension (L3) 4- Good- Ankle/Foot Strength Ankle and Foot Manual Muscle Testing Right Dorsiflexion (L4) 3 Fair Plantarflexion (S1) 3 Fair Comments tested in sitting Left Dorsiflexion (L4) 3 Fair Plantarflexion (S1) 3 Fair Comments tested in sitting PT-OP-Q Treatments Start: 08/17/24 16:38 Freq: Status: Active Protocol: Document 08/20/24 10:47 NM (Rec: 08/20/24 11:34 NM [id number]) Therapeutic Exercises Supine Exercises piriformis stretch Supine Exercise Name 1. figure 4, 2. cross body Side bilateral Equipment Used towel assist behind knee for cross body Reps/Minutes 60 ea crow stretch Supine Exercise Name modified crow stretch Side bilateral Equipment Used with ppt Reps/Minutes 2x30 Comments feels in low back > hip flexors so d/c to standing Sidelying Exercises clams Side bilateral Resistance AROM Reps/Minutes 10 Comments pain free Sitting Exercises sciatic nerve glide Sitting Exercise Name 1. ankle only, 2. knee flex/ ext + ankle Side left Reps/Minutes 20 ea Standing Exercises hip flexor stretch Standing Exercise Name foot on 2nd step, 1 rail assist balance Side bilateral Equipment Used with ppt Reps/Minutes 3x10 ea Comments cued set up and form Therapeutic Activity Therapeutic Activity log roll Name several reps Reps/Minutes 8 min Comments To L side. Cued for nonsegmental rolling, segmental LE movement when dropping BLE off table. Cueing also needed to remain on side longer for improved positioning. Educated on rationale, demonstration Manual Therapy Treatment Consent Patient gave verbal consent for manual Yes treatment Soft Tissue Mobilization lumbar spine Body Location paraspinals, QL Mobilization Type Rolling,Other Intensity/Depth Moderate Body Position R sidelying Comments Pillow between legs. Performed with sidelying elongation of pelvis and ribs on L side, performed also with A/P tilts. Monitored for pain BLE Body Location hip flexors, proximal quad, TFL, calf, HS, glutes Mobilization Type Myofascial Release,Rolling, Strumming,Sustained Pressure Intensity/Depth Moderate Comments Hooklying, R sidelying with pillow between legs. Trigger points along distal HS, proximal quad/TFL B. Reduced but not completely resolved with manual treatment PT-OP-T Assessment and Plan Start: 08/17/24 16:38 Freq: Status: Active Protocol: Document 08/20/24 10:47 NM (Rec: 08/20/24 11:34 NM [id number]) Physical Therapy Assessment Goals Three Impairment forward trunk flexion 50% AROM Alf Goal (LTG) Pt will increase forward trunk flexion AROM > 50% in order to demonstrate improved hamstring length and ability to perform ADLs involving bending LTG Duration 8 weeks Two Impairment pain with ambulation; limited tolerance Short Term Goal (STG) If appropriate, pt will be educated on and fitted for appropriate LRAD, likely 4WW, for symptom management STG Duration 6 weeks Alf Goal (LTG) Pt will report that he is able to ambulate at least 50% farther during daily ambulation in order to demonstrate improved activity tolerance and pain management LTG Duration 8 weeks One Impairment 5x STS 40.3 sec Short Term Goal (STG) Pt will be able to perform at least 8/10 STS from standard chair with or without UE assist with improved form in order to increase BLE strength for transfers and decrease reliance on low back during transfers STG Duration 4 weeks Alf Goal (LTG) Pt will decrease 5x STS score by at least 5 seconds in order to demonstrate improved BLE strength and endurance for transfers LTG Duration 8 weeks Four Impairment not performing HEP Impairment . Alf Goal (LTG) Pt will report compliance with HEP at least 3x/wk in order to maximize progression with PT and maintain progression [facility] LTG Duration 8 weeks Assessment Summary Assessment Pt tolerated session well, reports no increase in back pain at end of session, only achiness in hamstrings. Responds well to manual treatment to promote increased muscle length. Educated on use of rolling pin at home on hamstrings. Initiated stretching to promote improved muscle length. Several modifications needed for correct execution and pt comfort. Still limited in hip flexor length and hamstring length. Physical Therapy Plan Frequency and Duration Frequency of Treatment 2x/Week Duration of treatment (weeks) 8 Plan of Care Start Date 08/18/24 Plan of Care End Date 10/16/24 Therapeutic Interventions Therapeutic Interventions Balance Training,Gait Training ,Home Exercise Program,Joint Mobilizations,Manual Therapy, Neuromuscular Re-education, Orthotic/Prosthetic Management ,Patient/Caregiver Education, Self-Care/Home Management, Sensory Integration,Soft Tissue Mobilization,Taping, Therapeutic Activities, Therapeutic Exercises Modalities Cold Pack/Ice Massage,Hot Packs Next Visit Focus/Plan Next Note Type Treatment Note Next Visit Plan Assess yuri standing hip flexor stretch with support. Spinal elongation, rib expansion and breathwork. Lengthen L trunk/ QL as able. STS training. Core and glute, HS length and sciatic neural tension. calf stretch Manual ok to lumbar spine and hips; trial grade I-II hip mobs as needed, SIJ mob
--- NOTE | 2024-08-24 10:02 | PT-OP ANOTE ---
Pt DNS for 945 appt, called and forgot about appt, agreeable to coming in at 1045 opening with DEVELOPMENT SPECIALIST.
--- NOTE | 2024-08-24 11:27 | PT.OTN ---
Current Diagnoses Stiffness of right hip, not elsewhere classified (08/24/24) Stiffness of left hip, not elsewhere classified (08/24/24) Scoliosis, unspecified (08/24/24) Spondylosis without myelopathy or radiculopathy, lumbar region (08/24/24) Spinal stenosis, lumbar region without neurogenic claudication (08/24/24) Spinal stenosis, lumbar region with neurogenic claudication (08/24/24) Low back pain, unspecified (08/24/24) Other lack of coordination (08/24/24) Weakness (08/24/24) Personal history of malignant neoplasm of bladder (08/24/24) Physical Therapy Treatment Note PT-OP-A Visit Information Start: 08/17/24 16:38 Freq: Status: Active Protocol: Document 08/24/24 10:45 SP (Rec: 08/24/24 12:21 SP [id number]) Out-Patient Physical Therapy Visit Information Visit Information Visit Type Treatment Note Visit Note KX after 19 visits Visit Start Time 10:47 Visit Stop Time 11:27 Visit Number 3 Number of IMPLEMENTATION COORDINATOR Visits 1 Evaluation Information Evaluation Date 08/18/24 Precautions Precautions scoliosis, fall risk PT-OP-B Current Condition Start: 08/17/24 16:38 Freq: Status: Active Protocol: Document 08/18/24 08:17 NM (Rec: 08/18/24 09:02 NM [id number]) Current Condition History of Current Condition Onset Date chronic History of Current Condition Pt presents with chronic back pain. He has had pain for several years. He reports that he has a spine deformity ( scoliosis) since childhood. He was casted/braced. He ruptured a disc many years ago , had surgery due to condition . Reports that was doing well until several years ago. He has hx of bladder cancer; is follow up with oncologist for bladder cancer this month. Has hx of chemo and radiation, 3 years ago. 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 Has been seeing pain management with [facility]. Will see Dr. Sanchez; has had hx of injections and ablations; however, pt reports short term relief only. Pt had cyst at L4-L5, Dr Sanchez ruptured the cyst, which helped with the leg pain. Pt reports has had PT for same condition, states did not improve and has gotten worse. Pain is primarily on L side, reports that both in back and leg. He reports that he gets muscle pain in the legs. He reports that following his last discharge, he did his exercises for several months; states stretches currently not helping. He has been referred to an orthopedic office in [facility], not planning on surgery. He reports that symptoms started to get worse. Currently unable to play golf (1 year ago, unable lift his clubs), ambulate (previously 5000/day, now 3000/day)- states only can do 300-400 ft before needing to take a seated rest break. Uses a trek pole (1) for gait; denies any falls. Prior Treatments and Tests Pt's kidneys are being monitored for kidney function due to high creatinine Lumbar spine radiograph 03/2024 : Impression- Moderate levoscoliosis centered at L2 level. No acute compression fracture. Grade 1 spondylolisthesis at L1-2, L2- 3, and L4-5 levels as above. Degenerative disc disease throughout lower thoracic and lumbar spine. No gross pars defect Lumbar spine MRI 09/2022: Impression- No evidence of metastatic disease. Multilevel degenerative disc disease and arthropathy results in several central canal stenosis L3-4 and L4-5. Superimposed left synovial cyst also noted L4-5. PT-OP-C Subjective Start: 08/17/24 16:38 Freq: Status: Active Protocol: Document 08/24/24 10:45 SP (Rec: 08/24/24 12:21 SP [id number]) OP-PT Subjective Patient Comments Patient Comments Pt reports stiffer in am and loosens up as day goes on. Arrival L low back goes down lateral L leg. When sneezed/ coughs can feel pain go down leg. PT-OP-E Functional Tests Start: 08/17/24 16:38 Freq: Status: Active Protocol: Document 08/18/24 08:17 NM (Rec: 08/18/24 09:02 NM [id number]) Functional Tests Five Times Sit to Stand Test Score 40.3 sec Comments 19 chair PT-OP-F Manual Assessment Start: 08/17/24 16:38 Freq: Status: Active Protocol: Document 08/18/24 08:17 NM (Rec: 08/18/24 11:17 NM [id number]) Manual Assessments Soft Tissue Assessment Soft Tissue Mobility Assessment Tightness and restrictions of B paraspinals, hamstrings, hip flexors, and calves. L is more restricted than R. L side also has swelling along foot/ ankle to calf compared to RLE Joint Mobility Assessment Joint Mobility Assessment Decreased mobility with PA springing of lumbar spine in sitting. Decreased joint space related to lumbar curve to L, rib hump present posteriorly on L side as well. Decreased AROM and PROM B hips, L>R PT-OP-G Mobility & Gait Start: 08/17/24 16:38 Freq: Status: Active Protocol: Document 08/18/24 08:17 NM (Rec: 08/18/24 11:17 NM [id number]) OP Gait Assessment Gait Gait Assistance Required: Standby Assistance Distance (Feet) 150 Gait Deviations General Gait Pattern Antalgic,Decreased Stride Length,Decreased Feet Clearance,Flexed Trunk,Step-to Gait Comments Gait Comments Decreased L foot clearance especially with ankle dorsiflexion. Forward trunk lean and demos unsteadiness of gait. Uses 1 trek pole in R hand for steadying PT-OP-H Neuro Start: 08/17/24 16:38 Freq: Status: Active Protocol: Document 08/20/24 10:47 NM (Rec: 08/20/24 11:34 NM [id number]) Sensation Evaluation Comments Summary Comments Decreased light touch sensation along L lower leg and calf PT-OP-J Posture/Palpation/Skin Start: 08/17/24 16:38 Freq: Status: Active Protocol: Document 08/18/24 08:17 NM (Rec: 08/18/24 11:17 NM [id number]) Posture Evaluation Position Standing Head/C-Spine Posture Forward Head T-Spine Posture Increased Kyphosis Thorax Posture (L) Prominent L-Spine Posture Fixed Scoliosis on (L) Shoulder Posture (L) Rounded,(R) Rounded Scapula Posture (L) Retracted Pelvis Posture Anteriorly Tilted,(L) Rotated Posterior,(R) Iliac Crest Superior,(L) Iliac Crest Inferior Hip Posture (L) Externally Rotated,(R) Externally Rotated Palpation Assessment Location lumbar spine Palpation Details Tenderness along B SIJ, lumbar paraspinals, glutes, posterior ribs No hamstring tenderness but increased restrictions L>R PT-OP-K Range of Motion Start: 08/17/24 16:38 Freq: Status: Active Protocol: Document 08/18/24 08:17 NM (Rec: 08/18/24 09:02 NM [id number]) Lumbar Spine Range of Motion Lumbar Spine Active Percentage Testing Position Standing Flexion 50 Extension 0 Rotation Left 100 Rotation Right 25 Lateral Flexion Left 25 Lateral Flexion Right 75 Comments pain with all motions; ext limited by bony restriction. L side more limited into R rotation and L lateral flexion Knee Goniometric Range of Motion Knee ROM Limitations Comments Observable limitations in hamstring length L>R, did not measure due to time PT-OP-L Special Tests Start: 08/17/24 16:38 Freq: Status: Active Protocol: Document 08/18/24 08:17 NM (Rec: 08/18/24 09:02 NM [id number]) Special Tests Lumbar Spine Special Tests Bateman/quadrant Test Results + L Straight Leg Raise Test Results + Comments L Standing Flexion Test Results + Slump Test Results - Comments tightness in hamstrings PT-OP-M Strength Start: 08/17/24 16:38 Freq: Status: Active Protocol: Document 08/18/24 08:17 NM (Rec: 08/18/24 09:02 NM [id number]) Trunk Strength Trunk Manual Muscle Testing Flexion 3+ Fair+ Extension 3+ Fair+ Rotation Left 3+ Fair+ Rotation Right 3+ Fair+ Lateral Flexion Left 3+ Fair+ Lateral Flexion Right 3+ Fair+ Comments pain with R LF Hip Strength Hip Manual Muscle Testing Right Flexion (L2) 3+ Fair+ Extension (S1) 4- Good- Abduction 4- Good- Adduction 4- Good- External Rotation 4- Good- Internal Rotation 4- Good- Left Flexion (L2) 3+ Fair+ Extension (S1) 4- Good- Abduction 4- Good- Adduction 4- Good- External Rotation 3+ Fair+ Internal Rotation 3+ Fair+ Knee Strength Knee Manual Muscle Testing Right Flexion (S2) 4- Good- Extension (L3) 4- Good- Left Flexion (S2) 3+ Fair+ Extension (L3) 4- Good- Ankle/Foot Strength Ankle and Foot Manual Muscle Testing Right Dorsiflexion (L4) 3 Fair Plantarflexion (S1) 3 Fair Comments tested in sitting Left Dorsiflexion (L4) 3 Fair Plantarflexion (S1) 3 Fair Comments tested in sitting PT-OP-Q Treatments Start: 08/17/24 16:38 Freq: Status: Active Protocol: Document 08/24/24 10:45 SP (Rec: 08/24/24 12:21 SP [id number]) Therapeutic Exercises Supine Exercises Sciatic Nerve glide Supine Exercise Name trialed in PT Side bilateral Resistance L>R Equipment Used grasp behind thigh Reps/Minutes 10 AP Comments pnfree range piriformis stretch Supine Exercise Name 1. figure 4, 2. cross body ( piriformis) Side bilateral Resistance Ankle on opp kneed Equipment Used towel assist behind knee for cross body Reps/Minutes 60 ea direction Comments cued gentle range pnfree crow stretch Supine Exercise Name modified crow stretch Side bilateral Equipment Used with ppt & opp LE knee bent Reps/Minutes 60 Comments Cued low back toward table/ TA / breath- improved hip flex lumbar traction Supine Exercise Name self traction with bolster Equipment Used BLEs over portable bench ( [employer]) emphasis on breathwork and rib expansion Reps/Minutes 2 minutes Comments during pt education breath allow gentle stretch LS Sitting Exercises sciatic nerve glide Sitting Exercise Name 1. ankle only, 2. knee flex/ ext + ankle Side left Reps/Minutes 20 ea Comments reviewed hamstring stretch Sitting Exercise Name with AP mob Side bilateral Equipment Used heel elevated on bolster Reps/Minutes 30 total (2 min ea) Standing Exercises calf stretch Standing Exercise Name added to HEP /c HO: Gastroc & Soleus Side bilateral Equipment Used 6step /c HR support Reps/Minutes 60 SH each hip flexor stretch Standing Exercise Name foot on 2nd step vs floor, 1 rail assist balance Side bilateral Equipment Used with ppt Reps/Minutes 3x10 ea Comments cued set up and form Other Exercises self STMs Other Exercise Name Reviewed /c HO provided Resistance L>R Equipment Used ball wall: ES, glut region; rolling pin: quad, HS, add, abd, calf, peroneal Reps/Minutes 4 min total Comments good feedback response, less tension in low back, gentle pressure legs good Manual Therapy Treatment Consent Patient gave verbal consent for manual Yes treatment Soft Tissue Mobilization lumbar spine Body Location paraspinals, QL Mobilization Type Rolling,Other Intensity/Depth Moderate Body Position Sidelying Comments Pillow between legs. Performed with sidelying STMs and ed use ball wall rolling. Monitored for pain BLE Body Location hip flexors, proximal quad, TFL, calf, HS, glutes Mobilization Type Myofascial Release,Rolling, Strumming,Sustained Pressure Intensity/Depth Moderate Comments SL: pillow between legs. Trigger points along distal HS , proximal quad/TFL, distal Glut med & piriformis B L>R . Reduced but not completely resolved with manual treatment . Ed self use rolling pin PT-OP-T Assessment and Plan Start: 08/17/24 16:38 Freq: Status: Active Protocol: Document 08/24/24 10:45 SP (Rec: 08/24/24 12:21 SP [id number]) Physical Therapy Assessment Goals Three Impairment forward trunk flexion 50% AROM Snf Goal (LTG) Pt will increase forward trunk flexion AROM > 50% in order to demonstrate improved hamstring length and ability to perform ADLs involving bending LTG Duration 8 weeks Two Impairment pain with ambulation; limited tolerance Short Term Goal (STG) If appropriate, pt will be educated on and fitted for appropriate LRAD, likely 4WW, for symptom management STG Duration 6 weeks Snf Goal (LTG) Pt will report that he is able to ambulate at least 50% farther during daily ambulation in order to demonstrate improved activity tolerance and pain management LTG Duration 8 weeks One Impairment 5x STS 40.3 sec Short Term Goal (STG) Pt will be able to perform at least 8/10 STS from standard chair with or without UE assist with improved form in order to increase BLE strength for transfers and decrease reliance on low back during transfers STG Duration 4 weeks Snf Goal (LTG) Pt will decrease 5x STS score by at least 5 seconds in order to demonstrate improved BLE strength and endurance for transfers LTG Duration 8 weeks Four Impairment not performing HEP Impairment . [employer] Goal (LTG) Pt will report compliance with HEP at least 3x/wk in order to maximize progression with PT and maintain progression after transition to maitenance program LTG Duration 8 weeks Assessment Summary Assessment Pt reported decreased L leg tension and no LBP post manual and instructional review stretching and self STMs using ball on wall and rolling pin. Cues as needed for set up and performance for carryover and provided HOs for recall. Physical Therapy Plan Frequency and Duration Frequency of Treatment 2x/Week Duration of treatment (weeks) 8 Plan of Care Start Date 08/18/24 Plan of Care End Date 10/16/24 Therapeutic Interventions Therapeutic Interventions Balance Training,Gait Training ,Home Exercise Program,Joint Mobilizations,Manual Therapy, Neuromuscular Re-education, Orthotic/Prosthetic Management ,Patient/Caregiver Education, Self-Care/Home Management, Sensory Integration,Soft Tissue Mobilization,Taping, Therapeutic Activities, Therapeutic Exercises Modalities Cold Pack/Ice Massage,Hot Packs Next Visit Focus/Plan Next Note Type Treatment Note Next Visit Plan Assess yuri standing hip flexor stretch with support. Spinal elongation, rib expansion and breathwork. Lengthen L trunk/ QL as able. STS training. Core and glute, HS length and sciatic neural tension. calf stretch Manual ok to lumbar spine and hips; trial grade I-II hip mobs as needed, SIJ mob
--- NOTE | 2024-08-26 12:15 | PT.OTN ---
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/24) Spinal stenosis, lumbar region without neurogenic claudication (08/26/24) Spinal stenosis, lumbar region with neurogenic claudication (08/26/24) Low back pain, unspecified (08/26/24) Other lack of coordination (08/26/24) Weakness (08/26/24) Personal history of malignant neoplasm of bladder (08/26/24) Physical Therapy Treatment Note PT-OP-A Visit Information Start: 08/17/24 16:38 Freq: Status: Active Protocol: Document 08/26/24 11:37 SP (Rec: 08/26/24 12:25 SP [id number]) Out-Patient Physical Therapy Visit Information Visit Information Visit Type Treatment Note Visit Note KX after 19 visits Visit Start Time 11:37 Visit Stop Time 12:15 Visit Number 4 Number of [facility] Visits 2 Evaluation Information Evaluation Date 08/18/24 Precautions Precautions scoliosis, fall risk PT-OP-B Current Condition Start: 08/17/24 16:38 Freq: Status: Active Protocol: Document 08/18/24 08:17 NM (Rec: 08/18/24 09:02 NM [id number]) Current Condition History of Current Condition Onset Date chronic History of Current Condition Pt presents with chronic back pain. He has had pain for several years. He reports that he has a spine deformity ( scoliosis) since childhood. He was casted/braced. He ruptured a disc many years ago , had surgery due to condition . Reports that was doing well until several years ago. He has hx of bladder cancer; is follow up with oncologist for bladder cancer this month. Has hx of chemo and radiation, 3 years ago. 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 Has been seeing pain management with [facility]. Will see Dr. Sanchez; has had hx of injections and ablations; however, pt reports short term relief only. Pt had cyst at L4-L5, Dr Sanchez ruptured the cyst, which helped with the leg pain. Pt reports has had PT for same condition, states did not improve and has gotten worse. Pain is primarily on L side, reports that both in back and leg. He reports that he gets muscle pain in the legs. He reports that following his last discharge, he did his exercises for several months; states stretches currently not helping. He has been referred to an orthopedic office in [facility], not planning on surgery. He reports that symptoms started to get worse. Currently unable to play golf (1 year ago, unable lift his clubs), ambulate (previously 5000/day, now 3000/day)- states only can do 300-400 ft before needing to take a seated rest break. Uses a trek pole (1) for gait; denies any falls. Prior Treatments and Tests Pt's kidneys are being monitored for kidney function due to high creatinine Lumbar spine radiograph 03/2024 : Impression- Moderate levoscoliosis centered at L2 level. No acute compression fracture. Grade 1 spondylolisthesis at L1-2, L2- 3, and L4-5 levels as above. Degenerative disc disease throughout lower thoracic and lumbar spine. No gross pars defect Lumbar spine MRI 09/2022: Impression- No evidence of metastatic disease. Multilevel degenerative disc disease and arthropathy results in several central canal stenosis L3-4 and L4-5. Superimposed left synovial cyst also noted L4-5. PT-OP-C Subjective Start: 08/17/24 16:38 Freq: Status: Active Protocol: Document 08/26/24 11:37 SP (Rec: 08/26/24 12:25 SP [id number]) OP-PT Subjective Patient Comments Patient Comments Pt report soreness in L hip after last tx and was pretty stiff when woke up. Tried some of the stretching before got out of bed. PT-OP-E Functional Tests Start: 08/17/24 16:38 Freq: Status: Active Protocol: Document 08/18/24 08:17 NM (Rec: 08/18/24 09:02 NM [id number]) Functional Tests Five Times Sit to Stand Test Score 40.3 sec Comments 19 chair PT-OP-F Manual Assessment Start: 08/17/24 16:38 Freq: Status: Active Protocol: Document 08/18/24 08:17 NM (Rec: 08/18/24 11:17 NM [id number]) Manual Assessments Soft Tissue Assessment Soft Tissue Mobility Assessment Tightness and restrictions of B paraspinals, hamstrings, hip flexors, and calves. L is more restricted than R. L side also has swelling along foot/ ankle to calf compared to RLE Joint Mobility Assessment Joint Mobility Assessment Decreased mobility with PA springing of lumbar spine in sitting. Decreased joint space related to lumbar curve to L, rib hump present posteriorly on L side as well. Decreased AROM and PROM B hips, L>R PT-OP-G Mobility & Gait Start: 08/17/24 16:38 Freq: Status: Active Protocol: Document 08/18/24 08:17 NM (Rec: 08/18/24 11:17 NM [id number]) OP Gait Assessment Gait Gait Assistance Required: Standby Assistance Distance (Feet) 150 Gait Deviations General Gait Pattern Antalgic,Decreased Stride Length,Decreased Feet Clearance,Flexed Trunk,Step-to Gait Comments Gait Comments Decreased L foot clearance especially with ankle dorsiflexion. Forward trunk lean and demos unsteadiness of gait. Uses 1 trek pole in R hand for steadying PT-OP-H Neuro Start: 08/17/24 16:38 Freq: Status: Active Protocol: Document 08/20/24 10:47 NM (Rec: 08/20/24 11:34 NM [id number]) Sensation Evaluation Comments Summary Comments Decreased light touch sensation along L lower leg and calf PT-OP-J Posture/Palpation/Skin Start: 08/17/24 16:38 Freq: Status: Active Protocol: Document 08/18/24 08:17 NM (Rec: 08/18/24 11:17 NM [id number]) Posture Evaluation Position Standing Head/C-Spine Posture Forward Head T-Spine Posture Increased Kyphosis Thorax Posture (L) Prominent L-Spine Posture Fixed Scoliosis on (L) Shoulder Posture (L) Rounded,(R) Rounded Scapula Posture (L) Retracted Pelvis Posture Anteriorly Tilted,(L) Rotated Posterior,(R) Iliac Crest Superior,(L) Iliac Crest Inferior Hip Posture (L) Externally Rotated,(R) Externally Rotated Palpation Assessment Location lumbar spine Palpation Details Tenderness along B SIJ, lumbar paraspinals, glutes, posterior ribs No hamstring tenderness but increased restrictions L>R PT-OP-K Range of Motion Start: 08/17/24 16:38 Freq: Status: Active Protocol: Document 08/18/24 08:17 NM (Rec: 08/18/24 09:02 NM [id number]) Lumbar Spine Range of Motion Lumbar Spine Active Percentage Testing Position Standing Flexion 50 Extension 0 Rotation Left 100 Rotation Right 25 Lateral Flexion Left 25 Lateral Flexion Right 75 Comments pain with all motions; ext limited by bony restriction. L side more limited into R rotation and L lateral flexion Knee Goniometric Range of Motion Knee ROM Limitations Comments Observable limitations in hamstring length L>R, did not measure due to time PT-OP-L Special Tests Start: 08/17/24 16:38 Freq: Status: Active Protocol: Document 08/18/24 08:17 NM (Rec: 08/18/24 09:02 NM [id number]) Special Tests Lumbar Spine Special Tests Bateman/quadrant Test Results + L Straight Leg Raise Test Results + Comments L Standing Flexion Test Results + Slump Test Results - Comments tightness in hamstrings PT-OP-M Strength Start: 08/17/24 16:38 Freq: Status: Active Protocol: Document 08/18/24 08:17 NM (Rec: 08/18/24 09:02 NM [id number]) Trunk Strength Trunk Manual Muscle Testing Flexion 3+ Fair+ Extension 3+ Fair+ Rotation Left 3+ Fair+ Rotation Right 3+ Fair+ Lateral Flexion Left 3+ Fair+ Lateral Flexion Right 3+ Fair+ Comments pain with R LF Hip Strength Hip Manual Muscle Testing Right Flexion (L2) 3+ Fair+ Extension (S1) 4- Good- Abduction 4- Good- Adduction 4- Good- External Rotation 4- Good- Internal Rotation 4- Good- Left Flexion (L2) 3+ Fair+ Extension (S1) 4- Good- Abduction 4- Good- Adduction 4- Good- External Rotation 3+ Fair+ Internal Rotation 3+ Fair+ Knee Strength Knee Manual Muscle Testing Right Flexion (S2) 4- Good- Extension (L3) 4- Good- Left Flexion (S2) 3+ Fair+ Extension (L3) 4- Good- Ankle/Foot Strength Ankle and Foot Manual Muscle Testing Right Dorsiflexion (L4) 3 Fair Plantarflexion (S1) 3 Fair Comments tested in sitting Left Dorsiflexion (L4) 3 Fair Plantarflexion (S1) 3 Fair Comments tested in sitting PT-OP-Q Treatments Start: 08/17/24 16:38 Freq: Status: Active Protocol: Document 08/26/24 11:37 SP (Rec: 08/26/24 12:25 SP [id number]) Therapeutic Exercises Supine Exercises ITB stretch Supine Exercise Name trialed in PT: Side left Equipment Used strap on foot Reps/Minutes 20 Sh x2 Comments cued TKE, tolerant range cross over straight leg Sciatic Nerve glide Supine Exercise Name REviewed a previous active stretch does on own Side left Equipment Used grasp behind thigh Reps/Minutes 10 AP Comments pnfree range piriformis stretch Supine Exercise Name 1. figure 4, 2. cross body ( piriformis) Side bilateral Resistance Ankle on opp kneed Equipment Used towel assist behind knee for cross body Reps/Minutes 60 ea direction Comments cued gentle range pnfree crow stretch Supine Exercise Name modified crow stretch Side bilateral Equipment Used with ppt & opp LE knee bent Reps/Minutes 60 Comments Cued low back toward table/ TA / breath- improved hip ext Sidelying Exercises QL stretch Sidelying Exercise Name trialed in PT ribcage and trunk elongation Side left Equipment Used R leg bent, L leg straight, LUE reach OH Reps/Minutes trunk over pillow clams Sidelying Exercise Name reviewed HEP Side bilateral Resistance AROM Reps/Minutes 10 Comments pain free Sitting Exercises STS Sitting Exercise Name added to HEP /c HO Equipment Used arms front, mesh chair Reps/Minutes 10 rep, instructed BID Comments cued scoot front chair, feet& knees shld apart, full stand, hip hinge sit Standing Exercises calf stretch Standing Exercise Name reviewed: Gastroc & Soleus Side bilateral Equipment Used 6step /c HR support Reps/Minutes 60 SH each Comments knees straight and bent Other Exercises self STMs Other Exercise Name Reviewed /c HO provided Resistance L>R Equipment Used ball wall: ES & distal Glut Max Reps/Minutes 30 sec Comments gentle pressure not over do to long Manual Therapy Treatment Consent Patient gave verbal consent for manual Yes treatment Soft Tissue Mobilization lumbar spine Body Location L paraspinals, QL Mobilization Type Rolling,Other Intensity/Depth Moderate Body Position R Sidelying Comments Pillow between legs then L SL QL stretch pillow under lateral abdominals. BLE Body Location L VL, TFL, prox lateral HS, glutes Mobilization Type Myofascial Release,Rolling Intensity/Depth Moderate Body Position R SL Comments R SL: pillow between legs. Mainly tightness L Glut Max distal tendon and prox lat HS> TFL. PT-OP-T Assessment and Plan Start: 08/17/24 16:38 Freq: Status: Active Protocol: Document 08/26/24 11:37 SP (Rec: 08/26/24 12:25 SP [id number]) Physical Therapy Assessment Goals Three Impairment forward trunk flexion 50% AROM Cloth Carrier Goal (LTG) Pt will increase forward trunk flexion AROM > 50% in order to demonstrate improved hamstring length and ability to perform ADLs involving bending LTG Duration 8 weeks Two Impairment pain with ambulation; limited tolerance Short Term Goal (STG) If appropriate, pt will be educated on and fitted for appropriate LRAD, likely 4WW, for symptom management STG Duration 6 weeks Intermediate Goal (LTG) Pt will report that he is able to ambulate at least 50% farther during daily ambulation in order to demonstrate improved activity tolerance and pain management LTG Duration 8 weeks One Impairment 5x STS 40.3 sec Short Term Goal (STG) Pt will be able to perform at least 8/10 STS from standard chair with or without UE assist with improved form in order to increase BLE strength for transfers and decrease reliance on low back during transfers STG Duration 4 weeks Intermediate Goal (LTG) Pt will decrease 5x STS score by at least 5 seconds in order to demonstrate improved BLE strength and endurance for transfers LTG Duration 8 weeks Four Impairment not performing HEP Impairment . Cloth Carrier Goal (LTG) Pt will report compliance with HEP at least 3x/wk in order to maximize progression with PT and maintain progression after transition to maitenance program LTG Duration 8 weeks Assessment Summary Assessment Pt reports decreased tightness after L hip and LB STMs, stretching instruction with added ITB and active HS for distal Glut Max region mobility. REviewed under if needed self STMs ball wall. Progressed HEP today hip hinge STS without UE support, cues for full stand elongated posture, pelvis under trunk, slow hip hinge descend to sit, good response little tiring but finds will be helpful. Physical Therapy Plan Frequency and Duration Frequency of Treatment 2x/Week Duration of treatment (weeks) 8 Plan of Care Start Date 08/18/24 Plan of Care End Date 10/16/24 Therapeutic Interventions Therapeutic Interventions Balance Training,Gait Training ,Home Exercise Program,Joint Mobilizations,Manual Therapy, Neuromuscular Re-education, Orthotic/Prosthetic Management ,Patient/Caregiver Education, Self-Care/Home Management, Sensory Integration,Soft Tissue Mobilization,Taping, Therapeutic Activities, Therapeutic Exercises Modalities Cold Pack/Ice Massage,Hot Packs Next Visit Focus/Plan Next Note Type Treatment Note Next Visit Plan Recheck L hip and STS. Continue Spinal elongation, rib expansion and breathwork. Lengthen L trunk/QL as able. STS training. Core and glute, HS length and sciatic neural tension. calf stretch Manual ok to lumbar spine and hips; trial grade I-II hip mobs as needed, SIJ mob
--- NOTE | 2024-08-31 16:18 | PT.OTN ---
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/24) Spinal stenosis, lumbar region without neurogenic claudication (08/31/24) Spinal stenosis, lumbar region with neurogenic claudication (08/31/24) Low back pain, unspecified (08/31/24) Other lack of coordination (08/31/24) Weakness (08/31/24) Personal history of malignant neoplasm of bladder (08/31/24) Physical Therapy Treatment Note PT-OP-A Visit Information Start: 08/17/24 16:38 Freq: Status: Active Protocol: Document 08/31/24 12:55 AB (Rec: 08/31/24 16:17 AB [id number]) Out-Patient Physical Therapy Visit Information Visit Information Visit Type Treatment Note Visit Note KX after 19 visits Visit Start Time 14:35 Visit Stop Time 15:17 Visit Number 5 Number of LATHE TENDER Visits 1 Evaluation Information Evaluation Date 08/18/24 Precautions Precautions scoliosis, fall risk PT-OP-B Current Condition Start: 08/17/24 16:38 Freq: Status: Active Protocol: Document 08/18/24 08:17 NM (Rec: 08/18/24 09:02 NM [id number]) Current Condition History of Current Condition Onset Date chronic History of Current Condition Pt presents with chronic back pain. He has had pain for several years. He reports that he has a spine deformity ( scoliosis) since childhood. He was casted/braced. He ruptured a disc many years ago , had surgery due to condition . Reports that was doing well until several years ago. He has hx of bladder cancer; is follow up with oncologist for bladder cancer this month. Has hx of chemo and radiation, 3 years ago. 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 Has been seeing pain management with sport and spine. Will see Dr. Sanchez; has had hx of injections and ablations; however, pt reports short term relief only. Pt had cyst at L4-L5, Dr Sanchez ruptured the cyst, which helped with the leg pain. Pt reports has had PT for same condition, states did not improve and has gotten worse. Pain is primarily on L side, reports that both in back and leg. He reports that he gets muscle pain in the legs. He reports that following his last discharge, he did his exercises for several months; states stretches currently not helping. He has been referred to an orthopedic office in [facility], not planning on surgery. He reports that symptoms started to get worse. Currently unable to play golf (1 year ago, unable lift his clubs), ambulate (previously 5000/day, now 3000/day)- states only can do 300-400 ft before needing to take a seated rest break. Uses a trek pole (1) for gait; denies any falls. Prior Treatments and Tests Pt's kidneys are being monitored for kidney function due to high creatinine Lumbar spine radiograph 03/2024 : Impression- Moderate levoscoliosis centered at L2 level. No acute compression fracture. Grade 1 spondylolisthesis at L1-2, L2- 3, and L4-5 levels as above. Degenerative disc disease throughout lower thoracic and lumbar spine. No gross pars defect Lumbar spine MRI 09/2022: Impression- No evidence of metastatic disease. Multilevel degenerative disc disease and arthropathy results in several central canal stenosis L3-4 and L4-5. Superimposed left synovial cyst also noted L4-5. PT-OP-C Subjective Start: 08/17/24 16:38 Freq: Status: Active Protocol: Document 08/31/24 12:55 AB (Rec: 08/31/24 16:17 AB [id number]) OP-PT Subjective Patient Comments Patient Comments Patient reports he is a little bit better, comments he is a little shaky today, had food poisoning yesterday. L hip pain 09/14, post previous session 09/14. PT-OP-E Functional Tests Start: 08/17/24 16:38 Freq: Status: Active Protocol: Document 08/18/24 08:17 NM (Rec: 08/18/24 09:02 NM [id number]) Functional Tests Five Times Sit to Stand Test Score 40.3 sec Comments 19 chair PT-OP-F Manual Assessment Start: 08/17/24 16:38 Freq: Status: Active Protocol: Document 08/18/24 08:17 NM (Rec: 08/18/24 11:17 NM [id number]) Manual Assessments Soft Tissue Assessment Soft Tissue Mobility Assessment Tightness and restrictions of B paraspinals, hamstrings, hip flexors, and calves. L is more restricted than R. L side also has swelling along foot/ ankle to calf compared to RLE Joint Mobility Assessment Joint Mobility Assessment Decreased mobility with PA springing of lumbar spine in sitting. Decreased joint space related to lumbar curve to L, rib hump present posteriorly on L side as well. Decreased AROM and PROM B hips, L>R PT-OP-G Mobility & Gait Start: 08/17/24 16:38 Freq: Status: Active Protocol: Document 08/18/24 08:17 NM (Rec: 08/18/24 11:17 NM [id number]) OP Gait Assessment Gait Gait Assistance Required: Standby Assistance Distance (Feet) 150 Gait Deviations General Gait Pattern Antalgic,Decreased Stride Length,Decreased Feet Clearance,Flexed Trunk,Step-to Gait Comments Gait Comments Decreased L foot clearance especially with ankle dorsiflexion. Forward trunk lean and demos unsteadiness of gait. Uses 1 trek pole in R hand for steadying PT-OP-H Neuro Start: 08/17/24 16:38 Freq: Status: Active Protocol: Document 08/20/24 10:47 NM (Rec: 08/20/24 11:34 NM [id number]) Sensation Evaluation Comments Summary Comments Decreased light touch sensation along L lower leg and calf PT-OP-J Posture/Palpation/Skin Start: 08/17/24 16:38 Freq: Status: Active Protocol: Document 08/18/24 08:17 NM (Rec: 08/18/24 11:17 NM [id number]) Posture Evaluation Position Standing Head/C-Spine Posture Forward Head T-Spine Posture Increased Kyphosis Thorax Posture (L) Prominent L-Spine Posture Fixed Scoliosis on (L) Shoulder Posture (L) Rounded,(R) Rounded Scapula Posture (L) Retracted Pelvis Posture Anteriorly Tilted,(L) Rotated Posterior,(R) Iliac Crest Superior,(L) Iliac Crest Inferior Hip Posture (L) Externally Rotated,(R) Externally Rotated Palpation Assessment Location lumbar spine Palpation Details Tenderness along B SIJ, lumbar paraspinals, glutes, posterior ribs No hamstring tenderness but increased restrictions L>R PT-OP-K Range of Motion Start: 08/17/24 16:38 Freq: Status: Active Protocol: Document 08/18/24 08:17 NM (Rec: 08/18/24 09:02 NM [id number]) Lumbar Spine Range of Motion Lumbar Spine Active Percentage Testing Position Standing Flexion 50 Extension 0 Rotation Left 100 Rotation Right 25 Lateral Flexion Left 25 Lateral Flexion Right 75 Comments pain with all motions; ext limited by bony restriction. L side more limited into R rotation and L lateral flexion Knee Goniometric Range of Motion Knee ROM Limitations Comments Observable limitations in hamstring length L>R, did not measure due to time PT-OP-L Special Tests Start: 08/17/24 16:38 Freq: Status: Active Protocol: Document 08/18/24 08:17 NM (Rec: 08/18/24 09:02 NM [id number]) Special Tests Lumbar Spine Special Tests Bateman/quadrant Test Results + L Straight Leg Raise Test Results + Comments L Standing Flexion Test Results + Slump Test Results - Comments tightness in hamstrings PT-OP-M Strength Start: 08/17/24 16:38 Freq: Status: Active Protocol: Document 08/18/24 08:17 NM (Rec: 08/18/24 09:02 NM [id number]) Trunk Strength Trunk Manual Muscle Testing Flexion 3+ Fair+ Extension 3+ Fair+ Rotation Left 3+ Fair+ Rotation Right 3+ Fair+ Lateral Flexion Left 3+ Fair+ Lateral Flexion Right 3+ Fair+ Comments pain with R LF Hip Strength Hip Manual Muscle Testing Right Flexion (L2) 3+ Fair+ Extension (S1) 4- Good- Abduction 4- Good- Adduction 4- Good- External Rotation 4- Good- Internal Rotation 4- Good- Left Flexion (L2) 3+ Fair+ Extension (S1) 4- Good- Abduction 4- Good- Adduction 4- Good- External Rotation 3+ Fair+ Internal Rotation 3+ Fair+ Knee Strength Knee Manual Muscle Testing Right Flexion (S2) 4- Good- Extension (L3) 4- Good- Left Flexion (S2) 3+ Fair+ Extension (L3) 4- Good- Ankle/Foot Strength Ankle and Foot Manual Muscle Testing Right Dorsiflexion (L4) 3 Fair Plantarflexion (S1) 3 Fair Comments tested in sitting Left Dorsiflexion (L4) 3 Fair Plantarflexion (S1) 3 Fair Comments tested in sitting PT-OP-Q Treatments Start: 08/17/24 16:38 Freq: Status: Active Protocol: Document 08/31/24 12:55 AB (Rec: 08/31/24 16:17 AB [id number]) Therapeutic Exercises Supine Exercises Hamstring stretch Supine Exercise Name from hooklying Side bilateral Reps/Minutes 60 sec each LE X 1 Comments verbal cues piriformis stretch Supine Exercise Name 1. figure 4, 2. cross body ( piriformis) Side bilateral Reps/Minutes 60 sec each ex each LE crow stretch Supine Exercise Name modified crow stretch Side bilateral Equipment Used opp knee to chest opp off mat Reps/Minutes 60 Comments monitored for pain lumbar traction Supine Exercise Name self traction with bolster Equipment Used BLEs over portable bench ( ottAchieve X) emphasis on breathwork and rib expansion Reps/Minutes 2 minutes Comments during pt education breath allow gentle stretch LS Standing Exercises sit to stand Side bilateral Reps/Minutes X8 Comments Pt ed mech of sit to stand and self tactile cues for hip hinge Manual Therapy Treatment Soft Tissue Mobilization lumbar spine Body Location B LS and SI Mobilization Type Cross-Friction,Rolling, Sustained Pressure,Other Intensity/Depth Moderate Body Position R Sidelying Comments pillow btw LE's BLE Body Location glute/piriformis Mobilization Type Cross-Friction,Rolling Intensity/Depth Moderate Body Position Sidelying Comments pillow btw LE's Joint Mobilizations bilateral hips Joint bilateral hips Direction AP Grade II Body Position Hooklying Reps/Duration X10 X3 PT-OP-T Assessment and Plan Start: 08/17/24 16:38 Freq: Status: Active Protocol: Document 08/31/24 12:55 AB (Rec: 08/31/24 16:17 AB [id number]) Physical Therapy Assessment Goals Three Impairment forward trunk flexion 50% AROM Director Independent Goal (LTG) Pt will increase forward trunk flexion AROM > 50% in order to demonstrate improved hamstring length and ability to perform ADLs involving bending LTG Duration 8 weeks Two Impairment pain with ambulation; limited tolerance Short Term Goal (STG) If appropriate, pt will be educated on and fitted for appropriate LRAD, likely 4WW, for symptom management STG Duration 6 weeks Director Independent Goal (LTG) Pt will report that he is able to ambulate at least 50% farther during daily ambulation in order to demonstrate improved activity tolerance and pain management LTG Duration 8 weeks One Impairment 5x STS 40.3 sec Short Term Goal (STG) Pt will be able to perform at least 8/10 STS from standard chair with or without UE assist with improved form in order to increase BLE strength for transfers and decrease reliance on low back during transfers STG Duration 4 weeks Director Independent Goal (LTG) Pt will decrease 5x STS score by at least 5 seconds in order to demonstrate improved BLE strength and endurance for transfers LTG Duration 8 weeks Four Impairment not performing HEP Impairment . Group Home Goal (LTG) Pt will report compliance with HEP at least 3x/wk in order to maximize progression with PT and maintain progression after transition to maitenance program LTG Duration 8 weeks Assessment Summary Assessment 3/10 L hip pain end of session , pain with sit to stand likely increased HS stiffness contributing to poor mechanics /hip hinge; Bilateral HS AROM 90/90 position lacking 40 deg. Physical Therapy Plan Frequency and Duration Frequency of Treatment 2x/Week Duration of treatment (weeks) 8 Plan of Care Start Date 08/18/24 Plan of Care End Date 10/16/24 Next Visit Focus/Plan Next Note Type Treatment Note Next Visit Plan Recheck L hip Continue Spinal elongation, rib expansion and breathwork. Lengthen L trunk/QL as able. Core and glute, HS length and sciatic neural tension. calf stretch Manual ok to lumbar spine and hips; assess yuri to grade I-II hip mobs as needed, SIJ mob, MET
--- NOTE | 2024-09-02 12:32 | PT.OTN ---
Current Diagnoses Stiffness of right hip, not elsewhere classified (09/02/24) Stiffness of left hip, not elsewhere classified (09/02/24) Scoliosis, unspecified (09/02/24) Spondylosis without myelopathy or radiculopathy, lumbar region (09/02/24) Spinal stenosis, lumbar region without neurogenic claudication (09/02/24) Spinal stenosis, lumbar region with neurogenic claudication (09/02/24) Low back pain, unspecified (09/02/24) Other lack of coordination (09/02/24) Weakness (09/02/24) Personal history of malignant neoplasm of bladder (09/02/24) Physical Therapy Treatment Note PT-OP-A Visit Information Start: 08/17/24 16:38 Freq: Status: Active Protocol: Document 09/02/24 08:55 AB (Rec: 09/02/24 12:32 AB [id number]) Out-Patient Physical Therapy Visit Information Visit Information Visit Type Treatment Note Visit Note KX after 19 visits Visit Start Time 10:48 Visit Stop Time 11:33 Visit Number 6 Number of CONTRACTOR BROOMCORN THRESHING Visits 2 Evaluation Information Evaluation Date 08/18/24 Precautions Precautions scoliosis, fall risk PT-OP-B Current Condition Start: 08/17/24 16:38 Freq: Status: Active Protocol: Document 08/18/24 08:17 NM (Rec: 08/18/24 09:02 NM [id number]) Current Condition History of Current Condition Onset Date chronic History of Current Condition Pt presents with chronic back pain. He has had pain for several years. He reports that he has a spine deformity ( scoliosis) since childhood. He was casted/braced. He ruptured a disc many years ago , had surgery due to condition . Reports that was doing well until several years ago. He has hx of bladder cancer; is follow up with oncologist for bladder cancer this month. Has hx of chemo and radiation, 3 years ago. 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 Has been seeing pain management with sport and spine. Will see Dr. Sanchez; has had hx of injections and ablations; however, pt reports short term relief only. Pt had cyst at L4-L5, Dr Sanchez ruptured the cyst, which helped with the leg pain. Pt reports has had PT for same condition, states did not improve and has gotten worse. Pain is primarily on L side, reports that both in back and leg. He reports that he gets muscle pain in the legs. He reports that following his last discharge, he did his exercises for several months; states stretches currently not helping. He has been referred to an orthopedic office in [facility], not planning on surgery. He reports that symptoms started to get worse. Currently unable to play golf (1 year ago, unable lift his clubs), ambulate (previously 5000/day, now 3000/day)- states only can do 300-400 ft before needing to take a seated rest break. Uses a trek pole (1) for gait; denies any falls. Prior Treatments and Tests Pt's kidneys are being monitored for kidney function due to high creatinine Lumbar spine radiograph 03/2024 : Impression- Moderate levoscoliosis centered at L2 level. No acute compression fracture. Grade 1 spondylolisthesis at L1-2, L2- 3, and L4-5 levels as above. Degenerative disc disease throughout lower thoracic and lumbar spine. No gross pars defect Lumbar spine MRI 09/2022: Impression- No evidence of metastatic disease. Multilevel degenerative disc disease and arthropathy results in several central canal stenosis L3-4 and L4-5. Superimposed left synovial cyst also noted L4-5. PT-OP-C Subjective Start: 08/17/24 16:38 Freq: Status: Active Protocol: Document 09/02/24 08:55 AB (Rec: 09/02/24 12:32 AB [id number]) OP-PT Subjective Patient Comments Patient Comments Patient reports having less pain in the morning when he gets up attribues to perform ing stretches prior to out of bed. Patient rates left hip pain 1-2/10 start of session. Patient reports he cancelled Aug 11 due to a procedure on spine on the comments MD said it is ok to continue with PT after that. PT-OP-E Functional Tests Start: 08/17/24 16:38 Freq: Status: Active Protocol: Document 08/18/24 08:17 NM (Rec: 08/18/24 09:02 NM [id number]) Functional Tests Five Times Sit to Stand Test Score 40.3 sec Comments 19 chair PT-OP-F Manual Assessment Start: 08/17/24 16:38 Freq: Status: Active Protocol: Document 08/18/24 08:17 NM (Rec: 08/18/24 11:17 NM [id number]) Manual Assessments Soft Tissue Assessment Soft Tissue Mobility Assessment Tightness and restrictions of B paraspinals, hamstrings, hip flexors, and calves. L is more restricted than R. L side also has swelling along foot/ ankle to calf compared to RLE Joint Mobility Assessment Joint Mobility Assessment Decreased mobility with PA springing of lumbar spine in sitting. Decreased joint space related to lumbar curve to L, rib hump present posteriorly on L side as well. Decreased AROM and PROM B hips, L>R PT-OP-G Mobility & Gait Start: 08/17/24 16:38 Freq: Status: Active Protocol: Document 08/18/24 08:17 NM (Rec: 08/18/24 11:17 NM [id number]) OP Gait Assessment Gait Gait Assistance Required: Standby Assistance Distance (Feet) 150 Gait Deviations General Gait Pattern Antalgic,Decreased Stride Length,Decreased Feet Clearance,Flexed Trunk,Step-to Gait Comments Gait Comments Decreased L foot clearance especially with ankle dorsiflexion. Forward trunk lean and demos unsteadiness of gait. Uses 1 trek pole in R hand for steadying PT-OP-H Neuro Start: 08/17/24 16:38 Freq: Status: Active Protocol: Document 08/20/24 10:47 NM (Rec: 08/20/24 11:34 NM [id number]) Sensation Evaluation Comments Summary Comments Decreased light touch sensation along L lower leg and calf PT-OP-J Posture/Palpation/Skin Start: 08/17/24 16:38 Freq: Status: Active Protocol: Document 08/18/24 08:17 NM (Rec: 08/18/24 11:17 NM [id number]) Posture Evaluation Position Standing Head/C-Spine Posture Forward Head T-Spine Posture Increased Kyphosis Thorax Posture (L) Prominent L-Spine Posture Fixed Scoliosis on (L) Shoulder Posture (L) Rounded,(R) Rounded Scapula Posture (L) Retracted Pelvis Posture Anteriorly Tilted,(L) Rotated Posterior,(R) Iliac Crest Superior,(L) Iliac Crest Inferior Hip Posture (L) Externally Rotated,(R) Externally Rotated Palpation Assessment Location lumbar spine Palpation Details Tenderness along B SIJ, lumbar paraspinals, glutes, posterior ribs No hamstring tenderness but increased restrictions L>R PT-OP-K Range of Motion Start: 08/17/24 16:38 Freq: Status: Active Protocol: Document 08/18/24 08:17 NM (Rec: 08/18/24 09:02 NM [id number]) Lumbar Spine Range of Motion Lumbar Spine Active Percentage Testing Position Standing Flexion 50 Extension 0 Rotation Left 100 Rotation Right 25 Lateral Flexion Left 25 Lateral Flexion Right 75 Comments pain with all motions; ext limited by bony restriction. L side more limited into R rotation and L lateral flexion Knee Goniometric Range of Motion Knee ROM Limitations Comments Observable limitations in hamstring length L>R, did not measure due to time PT-OP-L Special Tests Start: 08/17/24 16:38 Freq: Status: Active Protocol: Document 08/18/24 08:17 NM (Rec: 08/18/24 09:02 NM [id number]) Special Tests Lumbar Spine Special Tests Bateman/quadrant Test Results + L Straight Leg Raise Test Results + Comments L Standing Flexion Test Results + Slump Test Results - Comments tightness in hamstrings PT-OP-M Strength Start: 08/17/24 16:38 Freq: Status: Active Protocol: Document 08/18/24 08:17 NM (Rec: 08/18/24 09:02 NM [id number]) Trunk Strength Trunk Manual Muscle Testing Flexion 3+ Fair+ Extension 3+ Fair+ Rotation Left 3+ Fair+ Rotation Right 3+ Fair+ Lateral Flexion Left 3+ Fair+ Lateral Flexion Right 3+ Fair+ Comments pain with R LF Hip Strength Hip Manual Muscle Testing Right Flexion (L2) 3+ Fair+ Extension (S1) 4- Good- Abduction 4- Good- Adduction 4- Good- External Rotation 4- Good- Internal Rotation 4- Good- Left Flexion (L2) 3+ Fair+ Extension (S1) 4- Good- Abduction 4- Good- Adduction 4- Good- External Rotation 3+ Fair+ Internal Rotation 3+ Fair+ Knee Strength Knee Manual Muscle Testing Right Flexion (S2) 4- Good- Extension (L3) 4- Good- Left Flexion (S2) 3+ Fair+ Extension (L3) 4- Good- Ankle/Foot Strength Ankle and Foot Manual Muscle Testing Right Dorsiflexion (L4) 3 Fair Plantarflexion (S1) 3 Fair Comments tested in sitting Left Dorsiflexion (L4) 3 Fair Plantarflexion (S1) 3 Fair Comments tested in sitting PT-OP-Q Treatments Start: 08/17/24 16:38 Freq: Status: Active Protocol: Document 09/02/24 08:55 AB (Rec: 09/02/24 12:32 AB [id number]) Therapeutic Exercises Supine Exercises Hamstring stretch Supine Exercise Name from hooklying Side bilateral Reps/Minutes 60 sec each LE X 1 Comments verbal cues Sciatic Nerve glide Side left Equipment Used grasp behind thigh Reps/Minutes 10 AP Comments pnfree range piriformis stretch Supine Exercise Name 1. figure 4, 2. cross body ( piriformis) Side bilateral Reps/Minutes 60 sec each ex each LE crow stretch Supine Exercise Name modified crow stretch Side bilateral Equipment Used opp knee to chest opp off mat Reps/Minutes 60 Comments monitored for pain Standing Exercises sit to stand Standing Exercise Name from a raised seat height Side bilateral Reps/Minutes level one band Comments close supervision calf stretch Standing Exercise Name reviewed: Gastroc & Soleus Side bilateral Equipment Used 6step /c HR support Reps/Minutes 60 SH each Comments knees straight and bent Manual Therapy Treatment Consent Patient gave verbal consent for manual Yes treatment Soft Tissue Mobilization lumbar spine Body Location B LS and SI Mobilization Type Cross-Friction,Rolling, Sustained Pressure,Other Intensity/Depth Moderate Body Position R Sidelying Comments pillow btw LE's BLE Body Location glute/piriformis Mobilization Type Cross-Friction,Rolling Intensity/Depth Moderate Body Position Sidelying Comments pillow btw LE's Joint Mobilizations bilateral hips Joint bilateral hips Direction AP Grade II Body Position Hooklying Reps/Duration X10 X3 Manual Techniques R AI left PI MET also pub shotgun Reps/Duration 6 X 6 sec each Comments R LE into mat L manual resistance PT-OP-T Assessment and Plan Start: 08/17/24 16:38 Freq: Status: Active Protocol: Document 09/02/24 08:55 AB (Rec: 09/02/24 12:32 AB [id number]) Physical Therapy Assessment Goals Three Impairment forward trunk flexion 50% AROM Semi Conductor Assembler Goal (LTG) Pt will increase forward trunk flexion AROM > 50% in order to demonstrate improved hamstring length and ability to perform ADLs involving bending LTG Duration 8 weeks Two Impairment pain with ambulation; limited tolerance Short Term Goal (STG) If appropriate, pt will be educated on and fitted for appropriate LRAD, likely 4WW, for symptom management STG Duration 6 weeks Semi Conductor Assembler Goal (LTG) Pt will report that he is able to ambulate at least 50% farther during daily ambulation in order to demonstrate improved activity tolerance and pain management LTG Duration 8 weeks One Impairment 5x STS 40.3 sec Short Term Goal (STG) Pt will be able to perform at least 8/10 STS from standard chair with or without UE assist with improved form in order to increase BLE strength for transfers and decrease reliance on low back during transfers STG Duration 4 weeks Semi Conductor Assembler Goal (LTG) Pt will decrease 5x STS score by at least 5 seconds in order to demonstrate improved BLE strength and endurance for transfers LTG Duration 8 weeks Four Impairment not performing HEP Impairment . Semi Conductor Assembler Goal (LTG) Pt will report compliance with HEP at least 3x/wk in order to maximize progression with PT and maintain progression after transition to maitenance program LTG Duration 8 weeks Assessment Summary Assessment Patient rates L hip pain 2/10 ambulating out of session. Good mechanics and reports of no pain with sit to stand with band from a raised seat height. Physical Therapy Plan Frequency and Duration Frequency of Treatment 2x/Week Duration of treatment (weeks) 8 Plan of Care Start Date 08/18/24 Plan of Care End Date 10/16/24 Next Visit Focus/Plan Next Note Type Treatment Note Next Visit Plan Recheck L hip Continue Spinal elongation, rib expansion and breathwork. Lengthen L trunk/QL as able. Core and glute, Manual ok to lumbar spine and hips; assess yuri to grade I-II hip mobs as needed, SIJ mob, MET
--- NOTE | 2024-09-08 10:01 | PT.OTN ---
Current Diagnoses Stiffness of right hip, not elsewhere classified (09/08/24) Stiffness of left hip, not elsewhere classified (09/08/24) Scoliosis, unspecified (09/08/24) Spondylosis without myelopathy or radiculopathy, lumbar region (09/08/24) Spinal stenosis, lumbar region without neurogenic claudication (09/08/24) Spinal stenosis, lumbar region with neurogenic claudication (09/08/24) Low back pain, unspecified (09/08/24) Other lack of coordination (09/08/24) Weakness (09/08/24) Personal history of malignant neoplasm of bladder (09/08/24) Physical Therapy Treatment Note PT-OP-A Visit Information Start: 08/17/24 16:38 Freq: Status: Active Protocol: Document 09/08/24 09:04 NM (Rec: 09/08/24 10:01 NM [id number]) Out-Patient Physical Therapy Visit Information Visit Information Visit Type Treatment Note Visit Note KX after 19 visits Visit Start Time 09:05 Visit Stop Time 09:45 Visit Number 7 Evaluation Information Evaluation Date 08/18/24 Precautions Precautions scoliosis, fall risk PT-OP-B Current Condition Start: 08/17/24 16:38 Freq: Status: Active Protocol: Document 08/18/24 08:17 NM (Rec: 08/18/24 09:02 NM [id number]) Current Condition History of Current Condition Onset Date chronic History of Current Condition Pt presents with chronic back pain. He has had pain for several years. He reports that he has a spine deformity ( scoliosis) since childhood. He was casted/braced. He ruptured a disc many years ago , had surgery due to condition . Reports that was doing well until several years ago. He has hx of bladder cancer; is follow up with oncologist for bladder cancer this month. Has hx of chemo and radiation, 3 years ago. 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 Has been seeing pain management with [facility]. Will see Dr. Sanchez; has had hx of injections and ablations; however, pt reports short term relief only. Pt had cyst at L4-L5, Dr Sanchez ruptured the cyst, which helped with the leg pain. Pt reports has had PT for same condition, states did not improve and has gotten worse. Pain is primarily on L side, reports that both in back and leg. He reports that he gets muscle pain in the legs. He reports that following his last discharge, he did his exercises for several months; states stretches currently not helping. He has been referred to an orthopedic office in [facility], not planning on surgery. He reports that symptoms started to get worse. Currently unable to play golf (1 year ago, unable lift his clubs), ambulate (previously 5000/day, now 3000/day)- states only can do 300-400 ft before needing to take a seated rest break. Uses a trek pole (1) for gait; denies any falls. Prior Treatments and Tests Pt's kidneys are being monitored for kidney function due to high creatinine Lumbar spine radiograph 03/2024 : Impression- Moderate levoscoliosis centered at L2 level. No acute compression fracture. Grade 1 spondylolisthesis at L1-2, L2- 3, and L4-5 levels as above. Degenerative disc disease throughout lower thoracic and lumbar spine. No gross pars defect Lumbar spine MRI 09/2022: Impression- No evidence of metastatic disease. Multilevel degenerative disc disease and arthropathy results in several central canal stenosis L3-4 and L4-5. Superimposed left synovial cyst also noted L4-5. PT-OP-C Subjective Start: 08/17/24 16:38 Freq: Status: Active Protocol: Document 09/08/24 09:04 NM (Rec: 09/08/24 10:01 NM [id number]) OP-PT Subjective Patient Comments Patient Comments Pt reports stiff this morning in his low back. He states that his hips are feeling better with. Pt planning to have an injection for pain management on his low back on Saturday. Planning to schedule further, will ask Dr. Sanchez if can resume PT afterward. Mainly L sided pain, reports less shooting down the L leg. PT-OP-E Functional Tests Start: 08/17/24 16:38 Freq: Status: Active Protocol: Document 08/18/24 08:17 NM (Rec: 08/18/24 09:02 NM [id number]) Functional Tests Five Times Sit to Stand Test Score 40.3 sec Comments 19 chair PT-OP-F Manual Assessment Start: 08/17/24 16:38 Freq: Status: Active Protocol: Document 08/18/24 08:17 NM (Rec: 08/18/24 11:17 NM [id number]) Manual Assessments Soft Tissue Assessment Soft Tissue Mobility Assessment Tightness and restrictions of B paraspinals, hamstrings, hip flexors, and calves. L is more restricted than R. L side also has swelling along foot/ ankle to calf compared to RLE Joint Mobility Assessment Joint Mobility Assessment Decreased mobility with PA springing of lumbar spine in sitting. Decreased joint space related to lumbar curve to L, rib hump present posteriorly on L side as well. Decreased AROM and PROM B hips, L>R PT-OP-G Mobility & Gait Start: 08/17/24 16:38 Freq: Status: Active Protocol: Document 08/18/24 08:17 NM (Rec: 08/18/24 11:17 NM [id number]) OP Gait Assessment Gait Gait Assistance Required: Standby Assistance Distance (Feet) 150 Gait Deviations General Gait Pattern Antalgic,Decreased Stride Length,Decreased Feet Clearance,Flexed Trunk,Step-to Gait Comments Gait Comments Decreased L foot clearance especially with ankle dorsiflexion. Forward trunk lean and demos unsteadiness of gait. Uses 1 trek pole in R hand for steadying PT-OP-H Neuro Start: 08/17/24 16:38 Freq: Status: Active Protocol: Document 08/20/24 10:47 NM (Rec: 08/20/24 11:34 NM [id number]) Sensation Evaluation Comments Summary Comments Decreased light touch sensation along L lower leg and calf PT-OP-J Posture/Palpation/Skin Start: 08/17/24 16:38 Freq: Status: Active Protocol: Document 08/18/24 08:17 NM (Rec: 08/18/24 11:17 NM [id number]) Posture Evaluation Position Standing Head/C-Spine Posture Forward Head T-Spine Posture Increased Kyphosis Thorax Posture (L) Prominent L-Spine Posture Fixed Scoliosis on (L) Shoulder Posture (L) Rounded,(R) Rounded Scapula Posture (L) Retracted Pelvis Posture Anteriorly Tilted,(L) Rotated Posterior,(R) Iliac Crest Superior,(L) Iliac Crest Inferior Hip Posture (L) Externally Rotated,(R) Externally Rotated Palpation Assessment Location lumbar spine Palpation Details Tenderness along B SIJ, lumbar paraspinals, glutes, posterior ribs No hamstring tenderness but increased restrictions L>R PT-OP-K Range of Motion Start: 08/17/24 16:38 Freq: Status: Active Protocol: Document 08/18/24 08:17 NM (Rec: 08/18/24 09:02 NM [id number]) Lumbar Spine Range of Motion Lumbar Spine Active Percentage Testing Position Standing Flexion 50 Extension 0 Rotation Left 100 Rotation Right 25 Lateral Flexion Left 25 Lateral Flexion Right 75 Comments pain with all motions; ext limited by bony restriction. L side more limited into R rotation and L lateral flexion Knee Goniometric Range of Motion Knee ROM Limitations Comments Observable limitations in hamstring length L>R, did not measure due to time PT-OP-L Special Tests Start: 08/17/24 16:38 Freq: Status: Active Protocol: Document 08/18/24 08:17 NM (Rec: 08/18/24 09:02 NM [id number]) Special Tests Lumbar Spine Special Tests Bateman/quadrant Test Results + L Straight Leg Raise Test Results + Comments L Standing Flexion Test Results + Slump Test Results - Comments tightness in hamstrings PT-OP-M Strength Start: 08/17/24 16:38 Freq: Status: Active Protocol: Document 08/18/24 08:17 NM (Rec: 08/18/24 09:02 NM [id number]) Trunk Strength Trunk Manual Muscle Testing Flexion 3+ Fair+ Extension 3+ Fair+ Rotation Left 3+ Fair+ Rotation Right 3+ Fair+ Lateral Flexion Left 3+ Fair+ Lateral Flexion Right 3+ Fair+ Comments pain with R LF Hip Strength Hip Manual Muscle Testing Right Flexion (L2) 3+ Fair+ Extension (S1) 4- Good- Abduction 4- Good- Adduction 4- Good- External Rotation 4- Good- Internal Rotation 4- Good- Left Flexion (L2) 3+ Fair+ Extension (S1) 4- Good- Abduction 4- Good- Adduction 4- Good- External Rotation 3+ Fair+ Internal Rotation 3+ Fair+ Knee Strength Knee Manual Muscle Testing Right Flexion (S2) 4- Good- Extension (L3) 4- Good- Left Flexion (S2) 3+ Fair+ Extension (L3) 4- Good- Ankle/Foot Strength Ankle and Foot Manual Muscle Testing Right Dorsiflexion (L4) 3 Fair Plantarflexion (S1) 3 Fair Comments tested in sitting Left Dorsiflexion (L4) 3 Fair Plantarflexion (S1) 3 Fair Comments tested in sitting PT-OP-Q Treatments Start: 08/17/24 16:38 Freq: Status: Active Protocol: Document 09/08/24 09:04 NM (Rec: 09/08/24 10:01 NM [id number]) Therapeutic Exercises Sitting Exercises trunk flexion Sitting Exercise Name for mobility: 1. fwd, 2. lateral Side bilateral Resistance AROM Equipment Used orange turkmen ball Reps/Minutes 10 ea Comments segmental mobility; reports looser; kyphotic Standing Exercises lateral stepping Standing Exercise Name trialed in PT Side bilateral Resistance level 1 band at thighs Reps/Minutes 2x10 ft Comments reports LBP w/ stepping to R; demos slight trunk lean, no change c/ cues sit to stand Standing Exercise Name 21 plinth Side bilateral Resistance level 1 band at thighs Equipment Used no UE support, slight fwd lean Reps/Minutes 10 Comments c/ hip hinge self cues; cues for exhale c/ exertion; feels in quads Other Exercises counter stretch Other Exercise Name @ counter Side bilateral Reps/Minutes 3x10 hold Comments no pain; cued straight leg, demos HS shortening deadlift Other Exercise Name trialed Equipment Used c/ self tactile cues for hinge Reps/Minutes 2 Comments d/c due to low back pain at this time Manual Therapy Treatment Consent Patient gave verbal consent for manual Yes treatment Soft Tissue Mobilization lumbar spine Body Location B LS and SI Mobilization Type Cross-Friction,Rolling, Sustained Pressure,Other Intensity/Depth Moderate Body Position R Sidelying Comments pillow btw LE's BLE Body Location glute/piriformis Mobilization Type Cross-Friction,Rolling Intensity/Depth Moderate Body Position Sidelying Comments pillow btw LE's Joint Mobilizations bilateral hips Joint bilateral hips Direction AP, inf, lat Grade II Body Position Hooklying Reps/Duration X10 X3 Comments trialed c/ mobility strap for lat and inf; does not tolerate for inf glide but ok with grade II c/o strap PT-OP-T Assessment and Plan Start: 08/17/24 16:38 Freq: Status: Active Protocol: Document 09/08/24 09:04 NM (Rec: 09/08/24 10:01 NM [id number]) Physical Therapy Assessment Goals Three Impairment forward trunk flexion 50% AROM Coil Rewind Machine Operator Goal (LTG) Pt will increase forward trunk flexion AROM > 50% in order to demonstrate improved hamstring length and ability to perform ADLs involving bending 09/08/24: initiated in PT LTG Duration 8 weeks Two Impairment pain with ambulation; limited tolerance Short Term Goal (STG) If appropriate, pt will be educated on and fitted for appropriate LRAD, likely 4WW, for symptom management STG Duration 6 weeks Coil Rewind Machine Operator Goal (LTG) Pt will report that he is able to ambulate at least 50% farther during daily ambulation in order to demonstrate improved activity tolerance and pain management LTG Duration 8 weeks One Impairment 5x STS 40.3 sec Short Term Goal (STG) Pt will be able to perform at least 8/10 STS from standard chair with or without UE assist with improved form in order to increase BLE strength for transfers and decrease reliance on low back during transfers 09/08/24: able to perform STS from 21 plinth without UE assist, minimal cues STG Duration 4 weeks Coil Rewind Machine Operator Goal (LTG) Pt will decrease 5x STS score by at least 5 seconds in order to demonstrate improved BLE strength and endurance for transfers LTG Duration 8 weeks Four Impairment not performing HEP Impairment . Coil Rewind Machine Operator Goal (LTG) Pt will report compliance with HEP at least 3x/wk in order to maximize progression with PT and maintain progression after transition to [facility] program 09/08/24: pt performing stretching daily, HEP otherwise as prescribed LTG Duration 8 weeks Assessment Summary Assessment Pt continuing to progress with PT but still has poor activity tolerance due to back pain; L hip pain continues to improve. Trialed progressions with resisted stepping for increased glute activation, but pt has increased low back pain. Also trialed deadlift but pt unable to perform without maximal cueing for form, further restricted by B hamstring length. Pt with good feedback to seated trunk flexion and counter stretch; however, unable to functionally lengthen hamstrings due to shortening and poor body mechanics/ awareness. Pt did not tolerate hip mobilizations with mobility strap. Recommended that pt get doctor's approval to return to PT following scheduled injection Saturday. Pt verbalizes understanding. Physical Therapy Plan Frequency and Duration Frequency of Treatment 2x/Week Duration of treatment (weeks) 8 Plan of Care Start Date 08/18/24 Plan of Care End Date 10/16/24 Therapeutic Interventions Therapeutic Interventions Balance Training,Gait Training ,Home Exercise Program,Joint Mobilizations,Manual Therapy, Neuromuscular Re-education, Orthotic/Prosthetic Management ,Patient/Caregiver Education, Self-Care/Home Management, Sensory Integration,Soft Tissue Mobilization,Taping, Therapeutic Activities, Therapeutic Exercises Modalities Cold Pack/Ice Massage,Hot Packs Next Visit Focus/Plan Next Note Type Treatment Note Next Visit Plan PN 2 visits. Cont HS lengthening. Retrial standing hip strengthening: trial hip abd/ext in standing vs stepping. Leg press. STS from std chair- look at goals. Seated/supine core as able, dec kyphosis c/ wall ball trunk ext. Continue Spinal elongation, rib expansion and breathwork. Lengthen L trunk/QL as able. Manual ok to lumbar spine and hips; assess yuri to grade I-II hip mobs as needed, SIJ mob, MET
--- NOTE | 2024-09-15 09:52 | PT.OTN ---
Current Diagnoses Stiffness of right hip, not elsewhere classified (09/15/24) Stiffness of left hip, not elsewhere classified (09/15/24) Scoliosis, unspecified (09/15/24) Spondylosis without myelopathy or radiculopathy, lumbar region (09/15/24) Spinal stenosis, lumbar region without neurogenic claudication (09/15/24) Spinal stenosis, lumbar region with neurogenic claudication (09/15/24) Low back pain, unspecified (09/15/24) Other lack of coordination (09/15/24) Weakness (09/15/24) Personal history of malignant neoplasm of bladder (09/15/24) Physical Therapy Treatment Note PT-OP-A Visit Information Start: 08/17/24 16:38 Freq: Status: Active Protocol: Document 09/15/24 09:06 SP (Rec: 09/15/24 09:54 SP [id number]) Out-Patient Physical Therapy Visit Information Visit Information Visit Type Treatment Note Visit Note KX after 19 visits Visit Start Time 09:06 Visit Stop Time 09:52 Visit Number 8 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 He has had pain for several years. He reports that he has a spine deformity ( scoliosis) since childhood. He was casted/braced. He ruptured a disc many years ago , had surgery due to condition . Reports that was doing well until several years ago. He has hx of bladder cancer; is follow up with oncologist for bladder cancer this month. Has hx of chemo and radiation, 3 years ago. 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 Has been seeing pain management with [facility]. Will see Dr. Sanchez; has had hx of injections and ablations; however, pt reports short term relief only. Pt had cyst at L4-L5, Dr Sanchez ruptured the cyst, which helped with the leg pain. Pt reports has had PT for same condition, states did not improve and has gotten worse. Pain is primarily on L side, reports that both in back and leg. He reports that he gets muscle pain in the legs. He reports that following his last discharge, he did his exercises for several months; states stretches currently not helping. He has been referred to an orthopedic office in [facility], not planning on surgery. He reports that symptoms started to get worse. Currently unable to play golf (1 year ago, unable lift his clubs), ambulate (previously 5000/day, now 3000/day)- states only can do 300-400 ft before needing to take a seated rest break. Uses a trek pole (1) for gait; denies any falls. Prior Treatments and Tests Pt's kidneys are being monitored for kidney function due to high creatinine Lumbar spine radiograph 03/2024 : Impression- Moderate levoscoliosis centered at L2 level. No acute compression fracture. Grade 1 spondylolisthesis at L1-2, L2- 3, and L4-5 levels as above. Degenerative disc disease throughout lower thoracic and lumbar spine. No gross pars defect Lumbar spine MRI 09/2022: Impression- No evidence of metastatic disease. Multilevel degenerative disc disease and arthropathy results in several central canal stenosis L3-4 and L4-5. Superimposed left synovial cyst also noted L4-5. PT-OP-C Subjective Start: 08/17/24 16:38 Freq: Status: Active Protocol: Document 09/15/24 09:06 SP (Rec: 09/15/24 09:54 SP [id number]) OP-PT Subjective Patient Comments Patient Comments Pt reported Dr Sanchez did an injection in low back last Th and feels less pain in low back, today L leg hurting today. PT-OP-E Functional Tests Start: 08/17/24 16:38 Freq: Status: Active Protocol: Document 08/18/24 08:17 NM (Rec: 08/18/24 09:02 NM [id number]) Functional Tests Five Times Sit to Stand Test Score 40.3 sec Comments 19 chair PT-OP-F Manual Assessment Start: 08/17/24 16:38 Freq: Status: Active Protocol: Document 08/18/24 08:17 NM (Rec: 08/18/24 11:17 NM [id number]) Manual Assessments Soft Tissue Assessment Soft Tissue Mobility Assessment Tightness and restrictions of B paraspinals, hamstrings, hip flexors, and calves. L is more restricted than R. L side also has swelling along foot/ ankle to calf compared to RLE Joint Mobility Assessment Joint Mobility Assessment Decreased mobility with PA springing of lumbar spine in sitting. Decreased joint space related to lumbar curve to L, rib hump present posteriorly on L side as well. Decreased AROM and PROM B hips, L>R PT-OP-G Mobility & Gait Start: 08/17/24 16:38 Freq: Status: Active Protocol: Document 08/18/24 08:17 NM (Rec: 08/18/24 11:17 NM [id number]) OP Gait Assessment Gait Gait Assistance Required: Standby Assistance Distance (Feet) 150 Gait Deviations General Gait Pattern Antalgic,Decreased Stride Length,Decreased Feet Clearance,Flexed Trunk,Step-to Gait Comments Gait Comments Decreased L foot clearance especially with ankle dorsiflexion. Forward trunk lean and demos unsteadiness of gait. Uses 1 trek pole in R hand for steadying PT-OP-H Neuro Start: 08/17/24 16:38 Freq: Status: Active Protocol: Document 08/20/24 10:47 NM (Rec: 08/20/24 11:34 NM [id number]) Sensation Evaluation Comments Summary Comments Decreased light touch sensation along L lower leg and calf PT-OP-J Posture/Palpation/Skin Start: 08/17/24 16:38 Freq: Status: Active Protocol: Document 08/18/24 08:17 NM (Rec: 08/18/24 11:17 NM [id number]) Posture Evaluation Position Standing Head/C-Spine Posture Forward Head T-Spine Posture Increased Kyphosis Thorax Posture (L) Prominent L-Spine Posture Fixed Scoliosis on (L) Shoulder Posture (L) Rounded,(R) Rounded Scapula Posture (L) Retracted Pelvis Posture Anteriorly Tilted,(L) Rotated Posterior,(R) Iliac Crest Superior,(L) Iliac Crest Inferior Hip Posture (L) Externally Rotated,(R) Externally Rotated Palpation Assessment Location lumbar spine Palpation Details Tenderness along B SIJ, lumbar paraspinals, glutes, posterior ribs No hamstring tenderness but increased restrictions L>R PT-OP-K Range of Motion Start: 08/17/24 16:38 Freq: Status: Active Protocol: Document 08/18/24 08:17 NM (Rec: 08/18/24 09:02 NM [id number]) Lumbar Spine Range of Motion Lumbar Spine Active Percentage Testing Position Standing Flexion 50 Extension 0 Rotation Left 100 Rotation Right 25 Lateral Flexion Left 25 Lateral Flexion Right 75 Comments pain with all motions; ext limited by bony restriction. L side more limited into R rotation and L lateral flexion Knee Goniometric Range of Motion Knee ROM Limitations Comments Observable limitations in hamstring length L>R, did not measure due to time PT-OP-L Special Tests Start: 08/17/24 16:38 Freq: Status: Active Protocol: Document 08/18/24 08:17 NM (Rec: 08/18/24 09:02 NM [id number]) Special Tests Lumbar Spine Special Tests Bateman/quadrant Test Results + L Straight Leg Raise Test Results + Comments L Standing Flexion Test Results + Slump Test Results - Comments tightness in hamstrings PT-OP-M Strength Start: 08/17/24 16:38 Freq: Status: Active Protocol: Document 08/18/24 08:17 NM (Rec: 08/18/24 09:02 NM [id number]) Trunk Strength Trunk Manual Muscle Testing Flexion 3+ Fair+ Extension 3+ Fair+ Rotation Left 3+ Fair+ Rotation Right 3+ Fair+ Lateral Flexion Left 3+ Fair+ Lateral Flexion Right 3+ Fair+ Comments pain with R LF Hip Strength Hip Manual Muscle Testing Right Flexion (L2) 3+ Fair+ Extension (S1) 4- Good- Abduction 4- Good- Adduction 4- Good- External Rotation 4- Good- Internal Rotation 4- Good- Left Flexion (L2) 3+ Fair+ Extension (S1) 4- Good- Abduction 4- Good- Adduction 4- Good- External Rotation 3+ Fair+ Internal Rotation 3+ Fair+ Knee Strength Knee Manual Muscle Testing Right Flexion (S2) 4- Good- Extension (L3) 4- Good- Left Flexion (S2) 3+ Fair+ Extension (L3) 4- Good- Ankle/Foot Strength Ankle and Foot Manual Muscle Testing Right Dorsiflexion (L4) 3 Fair Plantarflexion (S1) 3 Fair Comments tested in sitting Left Dorsiflexion (L4) 3 Fair Plantarflexion (S1) 3 Fair Comments tested in sitting PT-OP-Q Treatments Start: 08/17/24 16:38 Freq: Status: Active Protocol: Document 09/15/24 09:06 SP (Rec: 09/15/24 09:54 SP [id number]) Therapeutic Exercises Supine Exercises crow stretch Supine Exercise Name crow stretch Side bilateral Equipment Used opp LE knee bent, ft on table Reps/Minutes 60 Comments cued LB toward table, breath allow hip flex stretch, stop feel tension bk Sitting Exercises hip IR & ER Sitting Exercise Name added to HEP /c HO Side bilateral Resistance Tb #2 anchored together (IR), anchored leg to same leg of chair (ER) Equipment Used ball between knees Reps/Minutes 10 reps each Comments cued sit fully back, keep pelvis on chair evenly, no tilt hip compensations trunk flexion Sitting Exercise Name for mobility: 1. fwd, 2. lateral Side bilateral Resistance AROM Equipment Used orange german ball on floor Reps/Minutes 10 ea Comments segmental mobility; reports looser; kyphotic Standing Exercises hip abd & ext Standing Exercise Name added to HEP /c HO Side bilateral Resistance TB #2 at shins Equipment Used BUE rail support Reps/Minutes 10 each Rafael Comments cued upright posture, glut/hip abd muscle fac/not height Other Exercises counter stretch Other Exercise Name reviewed @ rail Side bilateral Equipment Used BUE on rail (counter home) Reps/Minutes 3x10 hold Comments no pain; cued straight leg, demos HS shortening Manual Therapy Treatment Consent Patient gave verbal consent for manual Yes treatment Soft Tissue Mobilization lumbar spine Body Location B LS and SI Mobilization Type Cross-Friction,Rolling, Sustained Pressure,Other Intensity/Depth Moderate Body Position Prone Comments pillows under pelvis BLE Body Location L glute/piriformis Mobilization Type Cross-Friction,Rolling Intensity/Depth Moderate Body Position prone over pillows Comments STMs and PA MWM PROM hip IR/ER and CR into ER and IR improved range. Joint Mobilizations bilateral hips Joint bilateral hips Direction AP, inf, lat Grade II Body Position Hooklying Comments anteromedial and inf; inf glide better with towel under, good feedback stretch PT-OP-T Assessment and Plan Start: 08/17/24 16:38 Freq: Status: Active Protocol: Document 09/15/24 09:06 SP (Rec: 09/15/24 09:54 SP [id number]) Physical Therapy Assessment Goals Three Impairment forward trunk flexion 50% AROM [employer]porter Goal (LTG) Pt will increase forward trunk flexion AROM > 50% in order to demonstrate improved hamstring length and ability to perform ADLs involving bending 09/08/24: initiated in PT LTG Duration 8 weeks Two Impairment pain with ambulation; limited tolerance Short Term Goal (STG) If appropriate, pt will be educated on and fitted for appropriate LRAD, likely 4WW, for symptom management STG Duration 6 weeks Prison Goal (LTG) Pt will report that he is able to ambulate at least 50% farther during daily ambulation in order to demonstrate improved activity tolerance and pain management LTG Duration 8 weeks One Impairment 5x STS 40.3 sec Short Term Goal (STG) Pt will be able to perform at least 8/10 STS from standard chair with or without UE assist with improved form in order to increase BLE strength for transfers and decrease reliance on low back during transfers 09/08/24: able to perform STS from 21 plinth without UE assist, minimal cues STG Duration 4 weeks [employer] Transporter Goal (LTG) Pt will decrease 5x STS score by at least 5 seconds in order to demonstrate improved BLE strength and endurance for transfers LTG Duration 8 weeks Four Impairment not performing HEP Impairment . Prison Goal (LTG) Pt will report compliance with HEP at least 3x/wk in order to maximize progression with PT and maintain progression after transition to [facility] 09/08/24: pt performing stretching daily, HEP otherwise as prescribed LTG Duration 8 weeks Assessment Summary Assessment Pt good feedback response to manual, able gain increased L hip IR and ER. Discussed weakness during strength assessment. Progressed hip strengthening use TB standing hip abd, ext and seated hip IR and ER with cues as needed for posture and proper form. Cues no pain just hip abd tiring. Provide HOs. Physical Therapy Plan Frequency and Duration Frequency of Treatment 2x/Week Duration of treatment (weeks) 8 Plan of Care Start Date 08/18/24 Plan of Care End Date 10/16/24 Therapeutic Interventions Therapeutic Interventions Balance Training,Gait Training ,Home Exercise Program,Joint Mobilizations,Manual Therapy, Neuromuscular Re-education, Orthotic/Prosthetic Management ,Patient/Caregiver Education, Self-Care/Home Management, Sensory Integration,Soft Tissue Mobilization,Taping, Therapeutic Activities, Therapeutic Exercises Modalities Cold Pack/Ice Massage,Hot Packs Next Visit Focus/Plan Next Note Type Progress Note Next Visit Plan PN Next visit. Cont HS lengthening. Review TB hip abd /ext in standing vs stepping and seated TB hip IR & ER. Add Leg press. STS from std chair - look at goals. Seated/supine core as able, dec kyphosis c/ wall ball trunk ext. Continue Spinal elongation, rib expansion and breathwork. Lengthen L trunk/QL as able. Manual ok to lumbar spine and hips; assess yuri to grade I-II hip mobs as needed, SIJ mob, MET
--- NOTE | 2024-09-18 12:59 | PT.OTN ---
Current Diagnoses Stiffness of right hip, not elsewhere classified (09/18/24) Stiffness of left hip, not elsewhere classified (09/18/24) Scoliosis, unspecified (09/18/24) Spondylosis without myelopathy or radiculopathy, lumbar region (09/18/24) Spinal stenosis, lumbar region without neurogenic claudication (09/18/24) Spinal stenosis, lumbar region with neurogenic claudication (09/18/24) Low back pain, unspecified (09/18/24) Other lack of coordination (09/18/24) Weakness (09/18/24) Personal history of malignant neoplasm of bladder (09/18/24) Physical Therapy Treatment Note PT-OP-A Visit Information Start: 08/17/24 16:38 Freq: Status: Active Protocol: Document 09/18/24 10:45 NM (Rec: 09/18/24 12:23 NM [id number]) Out-Patient Physical Therapy Visit Information Visit Information Visit Type Treatment Note Visit Note KX after 19 visits Visit Start Time 10:47 Visit Stop Time 11:30 Visit Number 9 Evaluation Information Evaluation Date 08/18/24 Precautions Precautions scoliosis, fall risk PT-OP-B Current Condition Start: 08/17/24 16:38 Freq: Status: Active Protocol: Document 08/18/24 08:17 NM (Rec: 08/18/24 09:02 NM [id number]) Current Condition History of Current Condition Onset Date chronic History of Current Condition Pt presents with chronic back pain. He has had pain for several years. He reports that he has a spine deformity ( scoliosis) since childhood. He was casted/braced. He ruptured a disc many years ago , had surgery due to condition . Reports that was doing well until several years ago. He has hx of bladder cancer; is follow up with oncologist for bladder cancer this month. Has hx of chemo and radiation, 3 years ago. 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 Has been seeing pain management with [facility]. Will see Dr. Sanchez; has had hx of injections and ablations; however, pt reports short term relief only. Pt had cyst at L4-L5, Dr Sanchez ruptured the cyst, which helped with the leg pain. Pt reports has had PT for same condition, states did not improve and has gotten worse. Pain is primarily on L side, reports that both in back and leg. He reports that he gets muscle pain in the legs. He reports that following his last discharge, he did his exercises for several months; states stretches currently not helping. He has been referred to an orthopedic office in [facility], not planning on surgery. He reports that symptoms started to get worse. Currently unable to play golf (1 year ago, unable lift his clubs), ambulate (previously 5000/day, now 3000/day)- states only can do 300-400 ft before needing to take a seated rest break. Uses a trek pole (1) for gait; denies any falls. Prior Treatments and Tests Pt's kidneys are being monitored for kidney function due to high creatinine Lumbar spine radiograph 03/2024 : Impression- Moderate levoscoliosis centered at L2 level. No acute compression fracture. Grade 1 spondylolisthesis at L1-2, L2- 3, and L4-5 levels as above. Degenerative disc disease throughout lower thoracic and lumbar spine. No gross pars defect Lumbar spine MRI 09/2022: Impression- No evidence of metastatic disease. Multilevel degenerative disc disease and arthropathy results in several central canal stenosis L3-4 and L4-5. Superimposed left synovial cyst also noted L4-5. PT-OP-C Subjective Start: 08/17/24 16:38 Freq: Status: Active Protocol: Document 09/18/24 10:45 NM (Rec: 09/18/24 12:23 NM [id number]) OP-PT Subjective Patient Comments Patient Comments Pt reports that his back pain is a little less than before. Overall the general pain level is lower. He reports that his L hip is still bothering him, states injection did not help ; feels on the side of the back/side of his leg. He reports stretching every morning, which helps but does not resolve. Still ambulating [id number] ea day. PT-OP-E Functional Tests Start: 08/17/24 16:38 Freq: Status: Active Protocol: Document 08/18/24 08:17 NM (Rec: 08/18/24 09:02 NM [id number]) Functional Tests Five Times Sit to Stand Test Score 40.3 sec Comments 19 chair PT-OP-F Manual Assessment Start: 08/17/24 16:38 Freq: Status: Active Protocol: Document 08/18/24 08:17 NM (Rec: 08/18/24 11:17 NM [id number]) Manual Assessments Soft Tissue Assessment Soft Tissue Mobility Assessment Tightness and restrictions of B paraspinals, hamstrings, hip flexors, and calves. L is more restricted than R. L side also has swelling along foot/ ankle to calf compared to RLE Joint Mobility Assessment Joint Mobility Assessment Decreased mobility with PA springing of lumbar spine in sitting. Decreased joint space related to lumbar curve to L, rib hump present posteriorly on L side as well. Decreased AROM and PROM B hips, L>R PT-OP-G Mobility & Gait Start: 08/17/24 16:38 Freq: Status: Active Protocol: Document 08/18/24 08:17 NM (Rec: 08/18/24 11:17 NM [id number]) OP Gait Assessment Gait Gait Assistance Required: Standby Assistance Distance (Feet) 150 Gait Deviations General Gait Pattern Antalgic,Decreased Stride Length,Decreased Feet Clearance,Flexed Trunk,Step-to Gait Comments Gait Comments Decreased L foot clearance especially with ankle dorsiflexion. Forward trunk lean and demos unsteadiness of gait. Uses 1 trek pole in R hand for steadying PT-OP-H Neuro Start: 08/17/24 16:38 Freq: Status: Active Protocol: Document 08/20/24 10:47 NM (Rec: 08/20/24 11:34 NM [id number]) Sensation Evaluation Comments Summary Comments Decreased light touch sensation along L lower leg and calf PT-OP-J Posture/Palpation/Skin Start: 08/17/24 16:38 Freq: Status: Active Protocol: Document 08/18/24 08:17 NM (Rec: 08/18/24 11:17 NM [id number]) Posture Evaluation Position Standing Head/C-Spine Posture Forward Head T-Spine Posture Increased Kyphosis Thorax Posture (L) Prominent L-Spine Posture Fixed Scoliosis on (L) Shoulder Posture (L) Rounded,(R) Rounded Scapula Posture (L) Retracted Pelvis Posture Anteriorly Tilted,(L) Rotated Posterior,(R) Iliac Crest Superior,(L) Iliac Crest Inferior Hip Posture (L) Externally Rotated,(R) Externally Rotated Palpation Assessment Location lumbar spine Palpation Details Tenderness along B SIJ, lumbar paraspinals, glutes, posterior ribs No hamstring tenderness but increased restrictions L>R PT-OP-K Range of Motion Start: 08/17/24 16:38 Freq: Status: Active Protocol: Document 09/18/24 10:45 NM (Rec: 09/18/24 12:23 NM [id number]) Lumbar Spine Range of Motion Lumbar Spine Active Percentage Testing Position Standing Flexion 50 Extension 0 Rotation Left 100 Rotation Right 25 Lateral Flexion Left 25 Lateral Flexion Right 75 Comments pain with all motions; ext limited by bony restriction. L side more limited into R rotation and L lateral flexion PT-OP-L Special Tests Start: 08/17/24 16:38 Freq: Status: Active Protocol: Document 08/18/24 08:17 NM (Rec: 08/18/24 09:02 NM [id number]) Special Tests Lumbar Spine Special Tests Bateman/quadrant Test Results + L Straight Leg Raise Test Results + Comments L Standing Flexion Test Results + Slump Test Results - Comments tightness in hamstrings PT-OP-M Strength Start: 08/17/24 16:38 Freq: Status: Active Protocol: Document 09/18/24 10:45 NM (Rec: 09/18/24 12:23 NM [id number]) Trunk Strength Trunk Manual Muscle Testing Flexion 3+ Fair+ Extension 3+ Fair+ Rotation Left 3+ Fair+ Rotation Right 3+ Fair+ Lateral Flexion Left 3+ Fair+ Lateral Flexion Right 3+ Fair+ Comments pain with R LF Hip Strength Hip Manual Muscle Testing Right Flexion (L2) 3+ Fair+ Extension (S1) 4- Good- Abduction 4- Good- Adduction 4- Good- External Rotation 4- Good- Internal Rotation 4- Good- Left Flexion (L2) 3+ Fair+ Extension (S1) 4- Good- Abduction 4- Good- Adduction 4- Good- External Rotation 3+ Fair+ Internal Rotation 3+ Fair+ PT-OP-Q Treatments Start: 08/17/24 16:38 Freq: Status: Active Protocol: Document 09/18/24 10:45 NM (Rec: 09/18/24 12:23 NM [id number]) Gym Equipment Shuttle Recovery Bilateral Squats Resistance 62# (1 navy) > 50# Reps/Time x8 ea 62#, Therapeutic Exercises Standing Exercises hamstring stretch Standing Exercise Name on stairs Side bilateral Equipment Used 2nd step Reps/Minutes 60 ea lat pull down Standing Exercise Name 1. arms extended, 2. W pull down Side bilateral Resistance level 2 band Equipment Used staggered stance Reps/Minutes 12 ea Comments cued for lat activation, posture, core bracing; feels low back calf stretch Standing Exercise Name knees extended Side bilateral Resistance RL Equipment Used c/ hand support Reps/Minutes 60 ea Comments cueing for neutral foot Manual Therapy Treatment Consent Patient gave verbal consent for manual Yes treatment Soft Tissue Mobilization lumbar spine Body Location B LS and SI Mobilization Type Cross-Friction,Rolling, Sustained Pressure,Other Intensity/Depth Moderate Body Position Prone Comments pillows under pelvis BLE Body Location L glute/piriformis Mobilization Type Cross-Friction,Rolling Intensity/Depth Moderate Body Position Sidelying Comments Tenderness and restrictions of glutes. Pillows between legs. Joint Mobilizations bilateral hips Joint L Direction AP, inf, lat, AP Grade II Body Position Hooklying Comments c/ mobility strap for all except for AP. Towel for comfort inf and lat glide. Improved tolerance overall PT-OP-T Assessment and Plan Start: 08/17/24 16:38 Freq: Status: Active Protocol: Document 09/18/24 10:45 NM (Rec: 09/18/24 12:23 NM [id number]) Physical Therapy Assessment Goals Three Impairment forward trunk flexion 50% AROM Petroleum Inspector Goal (LTG) Pt will increase forward trunk flexion AROM > 50% in order to demonstrate improved hamstring length and ability to perform ADLs involving bending 09/08/24: initiated in PT LTG Duration 8 weeks Two Impairment pain with ambulation; limited tolerance Short Term Goal (STG) If appropriate, pt will be educated on and fitted for appropriate LRAD, likely 4WW, for symptom management STG Duration 6 weeks Fdc Goal (LTG) Pt will report that he is able to ambulate at least 50% farther during daily ambulation in order to demonstrate improved activity tolerance and pain management 09/18/24: LTG Duration 8 weeks One Impairment 5x STS 40.3 sec Short Term Goal (STG) Pt will be able to perform at least 8/10 STS from standard chair with or without UE assist with improved form in order to increase BLE strength for transfers and decrease reliance on low back during transfers 09/08/24: able to perform STS from 21 plinth without UE assist, minimal cues STG Duration 4 weeks Petroleum Inspector Goal (LTG) Pt will decrease 5x STS score by at least 5 seconds in order to demonstrate improved BLE strength and endurance for transfers LTG Duration 8 weeks Four Impairment not performing HEP Impairment ... Fdc Goal (LTG) Pt will report compliance with HEP at least 3x/wk in order to maximize progression with PT and maintain progression [facility] 09/08/24: pt performing stretching daily, HEP otherwise as prescribed LTG Duration 8 weeks Assessment Summary Assessment Pt reports less back pain and hip stiffness at end of session. Feels increased posterior hip pain and hamstring discomfort at end of session. Trialed progression to leg press for glute/quad strengthening; regressed resistance for comfort. Restricted by hamstring tightness bilaterally and L neural tightness. Cueing needed for posture and execution with lat pull downs for postural control, core bracing, and alignment. Better tolerance for manual treatment with mobility strap today. Pt would continue to benefit from skilled PT for progressive mobility and strengthening to improve ability to perform ADLs. Physical Therapy Plan Frequency and Duration Frequency of Treatment 2x/Week Duration of treatment (weeks) 8 Plan of Care Start Date 08/18/24 Plan of Care End Date 10/16/24 Therapeutic Interventions Therapeutic Interventions Balance Training,Gait Training ,Home Exercise Program,Joint Mobilizations,Manual Therapy, Neuromuscular Re-education, Orthotic/Prosthetic Management ,Patient/Caregiver Education, Self-Care/Home Management, Sensory Integration,Soft Tissue Mobilization,Taping, Therapeutic Activities, Therapeutic Exercises Modalities Cold Pack/Ice Massage,Hot Packs Next Visit Focus/Plan Next Note Type Progress Note Next Visit Plan Pallof. Cont HS lengthening, trial active lengthening. Review TB hip abd/ext in standing vs stepping and seated TB hip IR & ER. Add Leg press. STS from std chair- look at goals. Seated/supine core as able, dec kyphosis c/ wall ball trunk ext. Continue Spinal elongation, rib expansion and breathwork. Lengthen L trunk/QL as able. Manual ok to lumbar spine and hips; assess yuri to grade I-II hip mobs as needed, SIJ mob, MET
--- NOTE | 2024-09-23 09:57 | PT.OTN ---
Current Diagnoses Stiffness of right hip, not elsewhere classified (09/23/24) Stiffness of left hip, not elsewhere classified (09/23/24) Scoliosis, unspecified (09/23/24) Spondylosis without myelopathy or radiculopathy, lumbar region (09/23/24) Spinal stenosis, lumbar region without neurogenic claudication (09/23/24) Spinal stenosis, lumbar region with neurogenic claudication (09/23/24) Low back pain, unspecified (09/23/24) Other lack of coordination (09/23/24) Weakness (09/23/24) Personal history of malignant neoplasm of bladder (09/23/24) Physical Therapy Treatment Note PT-OP-A Visit Information Start: 08/17/24 16:38 Freq: Status: Active Protocol: Document 09/23/24 09:01 NM (Rec: 09/23/24 09:57 NM [id number]) Out-Patient Physical Therapy Visit Information Visit Information Visit Type Progress Note Visit Note KX after 19 visits Visit Start Time 09:03 Visit Stop Time 09:45 Visit Number 10 Evaluation Information Evaluation Date 08/18/24 Precautions Precautions scoliosis, fall risk PT-OP-B Current Condition Start: 08/17/24 16:38 Freq: Status: Active Protocol: Document 08/18/24 08:17 NM (Rec: 08/18/24 09:02 NM [id number]) Current Condition History of Current Condition Onset Date chronic History of Current Condition Pt presents with chronic back pain. He has had pain for several years. He reports that he has a spine deformity ( scoliosis) since childhood. He was casted/braced. He ruptured a disc many years ago , had surgery due to condition . Reports that was doing well until several years ago. He has hx of bladder cancer; is follow up with oncologist for bladder cancer this month. Has hx of chemo and radiation, 3 years ago. 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 Has been seeing pain management with [facility]. Will see Dr. Sanchez; has had hx of injections and ablations; however, pt reports short term relief only. Pt had cyst at L4-L5, Dr Sanchez ruptured the cyst, which helped with the leg pain. Pt reports has had PT for same condition, states did not improve and has gotten worse. Pain is primarily on L side, reports that both in back and leg. He reports that he gets muscle pain in the legs. He reports that following his last discharge, he did his exercises for several months; states stretches currently not helping. He has been referred to an orthopedic office in [facility], not planning on surgery. He reports that symptoms started to get worse. Currently unable to play golf (1 year ago, unable lift his clubs), ambulate (previously 5000/day, now 3000/day)- states only can do 300-400 ft before needing to take a seated rest break. Uses a trek pole (1) for gait; denies any falls. Prior Treatments and Tests Pt's kidneys are being monitored for kidney function due to high creatinine Lumbar spine radiograph 03/2024 : Impression- Moderate levoscoliosis centered at L2 level. No acute compression fracture. Grade 1 spondylolisthesis at L1-2, L2- 3, and L4-5 levels as above. Degenerative disc disease throughout lower thoracic and lumbar spine. No gross pars defect Lumbar spine MRI 09/2022: Impression- No evidence of metastatic disease. Multilevel degenerative disc disease and arthropathy results in several central canal stenosis L3-4 and L4-5. Superimposed left synovial cyst also noted L4-5. PT-OP-C Subjective Start: 08/17/24 16:38 Freq: Status: Active Protocol: Document 09/23/24 09:01 NM (Rec: 09/23/24 09:57 NM [id number]) OP-PT Subjective Patient Comments Patient Comments Pt reports that his L leg is really tight, did some stretching, which helped to loosen his legs. He continues to report that he has numbness into his LLE but is primarily reporting tightness. He reports that back pain is better. He reports that with doing laundry and then with cooking, has to lean over which bothers his back. PT-OP-E Functional Tests Start: 08/17/24 16:38 Freq: Status: Active Protocol: Document 08/18/24 08:17 NM (Rec: 08/18/24 09:02 NM [id number]) Functional Tests Five Times Sit to Stand Test Score 40.3 sec Comments 19 chair PT-OP-F Manual Assessment Start: 08/17/24 16:38 Freq: Status: Active Protocol: Document 08/18/24 08:17 NM (Rec: 08/18/24 11:17 NM [id number]) Manual Assessments Soft Tissue Assessment Soft Tissue Mobility Assessment Tightness and restrictions of B paraspinals, hamstrings, hip flexors, and calves. L is more restricted than R. L side also has swelling along foot/ ankle to calf compared to RLE Joint Mobility Assessment Joint Mobility Assessment Decreased mobility with PA springing of lumbar spine in sitting. Decreased joint space related to lumbar curve to L, rib hump present posteriorly on L side as well. Decreased AROM and PROM B hips, L>R PT-OP-G Mobility & Gait Start: 08/17/24 16:38 Freq: Status: Active Protocol: Document 08/18/24 08:17 NM (Rec: 08/18/24 11:17 NM [id number]) OP Gait Assessment Gait Gait Assistance Required: Standby Assistance Distance (Feet) 150 Gait Deviations General Gait Pattern Antalgic,Decreased Stride Length,Decreased Feet Clearance,Flexed Trunk,Step-to Gait Comments Gait Comments Decreased L foot clearance especially with ankle dorsiflexion. Forward trunk lean and demos unsteadiness of gait. Uses 1 trek pole in R hand for steadying PT-OP-H Neuro Start: 08/17/24 16:38 Freq: Status: Active Protocol: Document 08/20/24 10:47 NM (Rec: 08/20/24 11:34 NM [id number]) Sensation Evaluation Comments Summary Comments Decreased light touch sensation along L lower leg and calf PT-OP-J Posture/Palpation/Skin Start: 08/17/24 16:38 Freq: Status: Active Protocol: Document 08/18/24 08:17 NM (Rec: 08/18/24 11:17 NM [id number]) Posture Evaluation Position Standing Head/C-Spine Posture Forward Head T-Spine Posture Increased Kyphosis Thorax Posture (L) Prominent L-Spine Posture Fixed Scoliosis on (L) Shoulder Posture (L) Rounded,(R) Rounded Scapula Posture (L) Retracted Pelvis Posture Anteriorly Tilted,(L) Rotated Posterior,(R) Iliac Crest Superior,(L) Iliac Crest Inferior Hip Posture (L) Externally Rotated,(R) Externally Rotated Palpation Assessment Location lumbar spine Palpation Details Tenderness along B SIJ, lumbar paraspinals, glutes, posterior ribs No hamstring tenderness but increased restrictions L>R PT-OP-K Range of Motion Start: 08/17/24 16:38 Freq: Status: Active Protocol: Document 09/23/24 09:01 NM (Rec: 09/23/24 09:57 NM [id number]) Lumbar Spine Range of Motion Lumbar Spine Active Percentage Testing Position Standing Flexion 75 Extension 0 Rotation Left 100 Rotation Right 25 Lateral Flexion Left 50 Lateral Flexion Right 75 Comments pain with all motions; ext limited by bony restriction. L side more limited into R rotation and L lateral flexion PT-OP-L Special Tests Start: 08/17/24 16:38 Freq: Status: Active Protocol: Document 08/18/24 08:17 NM (Rec: 08/18/24 09:02 NM [id number]) Special Tests Lumbar Spine Special Tests Bateman/quadrant Test Results + L Straight Leg Raise Test Results + Comments L Standing Flexion Test Results + Slump Test Results - Comments tightness in hamstrings PT-OP-M Strength Start: 08/17/24 16:38 Freq: Status: Active Protocol: Document 09/23/24 09:01 NM (Rec: 09/23/24 09:57 NM [id number]) Trunk Strength Trunk Manual Muscle Testing Flexion 4- Good- Extension 4- Good- Rotation Left 4- Good- Rotation Right 4- Good- Lateral Flexion Left 4- Good- Lateral Flexion Right 4- Good- Comments pain with R LF Hip Strength Hip Manual Muscle Testing Right Flexion (L2) 4- Good- Extension (S1) 4- Good- Abduction 4- Good- Adduction 4- Good- External Rotation 4- Good- Internal Rotation 4- Good- Left Flexion (L2) 4- Good- Extension (S1) 4- Good- Abduction 4- Good- Adduction 4- Good- External Rotation 3+ Fair+ Internal Rotation 3+ Fair+ Knee Strength Knee Manual Muscle Testing Right Flexion (S2) 4 Good Extension (L3) 4 Good Left Flexion (S2) 4- Good- Extension (L3) 4 Good PT-OP-Q Treatments Start: 08/17/24 16:38 Freq: Status: Active Protocol: Document 09/23/24 09:01 NM (Rec: 09/23/24 09:57 NM [id number]) Therapeutic Exercises Supine Exercises Hamstring stretch Supine Exercise Name from hooklying Side bilateral Equipment Used c/ strap Reps/Minutes 60 ea Comments verbal cues; more tightness on R side Sciatic Nerve glide Supine Exercise Name from hooklying: knee flex/ext Side left Equipment Used c/ strap assist Reps/Minutes 30 Sitting Exercises hip IR & ER Sitting Exercise Name HEP review Side bilateral Resistance Tb #1 anchored together (IR), anchored leg to same leg of chair (ER) Equipment Used ball between knees Reps/Minutes 10 reps each (performred ea leg individually) Comments challenging; dec band for improved form/carryover; not performing HEP STS Sitting Exercise Name from int 20 Side bilateral Resistance level 2 band thighs Reps/Minutes 10 Comments min cues form; still challenging for ecc control Standing Exercises retro stepping Standing Exercise Name for HS lengthening Side bilateral Equipment Used 1 hand on rail for balance and guidance; close SBA Reps/Minutes 2x15 ft ea Comments cued tall posture pallof Standing Exercise Name press Side bilateral Resistance level 1 band Reps/Minutes 10 ea side Comments cued form, core brace hip abd & ext Standing Exercise Name HEP review Side bilateral Resistance TB #2 at shins Equipment Used BUE rail support Reps/Minutes 10 each Rafael Comments cued posture, no trunk lean; improved form Other Exercises counter stretch Other Exercise Name reviewed @ rail Side bilateral Equipment Used BUE on rail (counter home) Reps/Minutes 3x10 hold Comments no pain; cued straight leg, demos HS shortening Manual Therapy Treatment Consent Patient gave verbal consent for manual Yes treatment Soft Tissue Mobilization lumbar spine Body Location B LS and SI Mobilization Type Cross-Friction,Rolling, Sustained Pressure,Other Intensity/Depth Moderate Body Position Prone Comments pillows under pelvis BLE Body Location L glute/piriformis Mobilization Type Cross-Friction,Rolling Intensity/Depth Moderate Body Position Prone Comments Positioned Joint Mobilizations SIJ Joint L SIJ Direction caudal glide Grade III Body Position Prone Reps/Duration 2x30 Comments positioned with pillows under hips PT-OP-T Assessment and Plan Start: 08/17/24 16:38 Freq: Status: Active Protocol: Document 09/23/24 09:01 NM (Rec: 09/23/24 09:57 NM [id number]) Physical Therapy Assessment Goals Three Impairment forward trunk flexion 50% AROM Correction Goal (LTG) Pt will increase forward trunk flexion AROM > 50% in order to demonstrate improved hamstring length and ability to perform ADLs involving bending 09/08/24: initiated in PT 09/23/24: 75% forward trunk flexion, limited by HS length LTG Duration 8 weeks MET 09/23 Two Impairment pain with ambulation; limited tolerance Short Term Goal (STG) If appropriate, pt will be educated on and fitted for appropriate LRAD, likely 4WW, for symptom management 09/23/24: no appropriate for AD at this time STG Duration 6 weeks- GOAL NOT APPLICABLE Correction Goal (LTG) Pt will report that he is able to ambulate at least 50% farther during daily ambulation in order to demonstrate improved activity tolerance and pain management 09/23/24: pt reports can ambulate 25% further before needing to take a break due to back pain LTG Duration 8 weeks PROGRESSING 09/23 One Impairment 5x STS 40.3 sec Short Term Goal (STG) Pt will be able to perform at least 8/10 STS from standard chair with or without UE assist with improved form in order to increase BLE strength for transfers and decrease reliance on low back during transfers 09/08/24: able to perform STS from 21 plinth without UE assist, minimal cues 09/23/24: 10 STS from 20 plinth without UE assist, minimal cues for form, no pain in low back or hips STG Duration 4 weeks PROGRESSING 09/23 Correction Goal (LTG) Pt will decrease 5x STS score by at least 5 seconds in order to demonstrate improved BLE strength and endurance for transfers LTG Duration 8 weeks Four Impairment not performing HEP Impairment ... [place] Picker Goal (LTG) Pt will report compliance with HEP at least 3x/wk in order to maximize progression with PT and maintain progression after transition to maitenance program 09/08/24: pt performing stretching daily, HEP otherwise as prescribed 09/23/24: performing HEP as prescribed LTG Duration 8 weeks MET Progress Towards Goals Progress Towards Goals Progressing Toward Goals,Goals Met Progress Comments Met 2/4 goals, progressing 2/4 goals Assessment Summary Assessment Pt with improved tolerance for therapeutic exercise today. Reviewed past HEP for improved carryover at home. LLE weaker than RLE, needs regression in band and cueing to perform exercises individually to limit compensations. Dmeos tendency for trunk lean during hip strengthening; fatigues quickly but does not have pain . Trialed progression to pallof press for trunk/core strength; will continue to progress in future for improved strengthening and carryover at home. Eccentric control during sit to stand still challenging but minimal cueing for form. L hip and hamstring length still restricting ROM and pain management. Physical Therapy Plan Frequency and Duration Frequency of Treatment 2x/Week Duration of treatment (weeks) 8 Plan of Care Start Date 08/18/24 Plan of Care End Date 10/16/24 Therapeutic Interventions Therapeutic Interventions Balance Training,Gait Training ,Home Exercise Program,Joint Mobilizations,Manual Therapy, Neuromuscular Re-education, Orthotic/Prosthetic Management ,Patient/Caregiver Education, Self-Care/Home Management, Sensory Integration,Soft Tissue Mobilization,Taping, Therapeutic Activities, Therapeutic Exercises Modalities Cold Pack/Ice Massage,Hot Packs Next Visit Focus/Plan Next Note Type Treatment Note Next Visit Plan reveiew Pallof. retrial deadlift and body mechanics. Cont HS lengthening, trial active lengthening. Add Leg press. STS from std chair- look at goals. Seated/supine core as able, dec kyphosis c/ wall ball trunk ext. Continue Spinal elongation, rib expansion and breathwork. Lengthen L trunk/QL as able. Manual ok to lumbar spine and hips; assess yuri to grade I-II hip mobs as needed, SIJ mob, MET
--- NOTE | 2024-09-25 12:21 | PT.OTN ---
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/24) Spinal stenosis, lumbar region without neurogenic claudication (09/25/24) Spinal stenosis, lumbar region with neurogenic claudication (09/25/24) Low back pain, unspecified (09/25/24) Other lack of coordination (09/25/24) Weakness (09/25/24) Personal history of malignant neoplasm of bladder (09/25/24) Physical Therapy Treatment Note PT-OP-A Visit Information Start: 08/17/24 16:38 Freq: Status: Active Protocol: Document 09/25/24 11:34 NM (Rec: 09/25/24 12:21 NM [id number]) Out-Patient Physical Therapy Visit Information Visit Information Visit Type Treatment Note Visit Note KX after 19 visits Visit Start Time 11:35 Visit Stop Time 12:17 Visit Number 11 (2/ PN) Evaluation Information Evaluation Date 08/18/24 Precautions Precautions scoliosis, fall risk PT-OP-B Current Condition Start: 08/17/24 16:38 Freq: Status: Active Protocol: Document 08/18/24 08:17 NM (Rec: 08/18/24 09:02 NM [id number]) Current Condition History of Current Condition Onset Date chronic History of Current Condition Pt presents with chronic back pain. He has had pain for several years. He reports that he has a spine deformity ( scoliosis) since childhood. He was casted/braced. He ruptured a disc many years ago , had surgery due to condition . Reports that was doing well until several years ago. He has hx of bladder cancer; is follow up with oncologist for bladder cancer this month. Has hx of chemo and radiation, 3 years ago. 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 Has been seeing pain management with [facility]. Will see Dr. Sanchez; has had hx of injections and ablations; however, pt reports short term relief only. Pt had cyst at L4-L5, Dr Sanchez ruptured the cyst, which helped with the leg pain. Pt reports has had PT for same condition, states did not improve and has gotten worse. Pain is primarily on L side, reports that both in back and leg. He reports that he gets muscle pain in the legs. He reports that following his last discharge, he did his exercises for several months; states stretches currently not helping. He has been referred to an orthopedic office in [facility], not planning on surgery. He reports that symptoms started to get worse. Currently unable to play golf (1 year ago, unable lift his clubs), ambulate (previously 5000/day, now 3000/day)- states only can do 300-400 ft before needing to take a seated rest break. Uses a trek pole (1) for gait; denies any falls. Prior Treatments and Tests Pt's kidneys are being monitored for kidney function due to high creatinine Lumbar spine radiograph 03/2024 : Impression- Moderate levoscoliosis centered at L2 level. No acute compression fracture. Grade 1 spondylolisthesis at L1-2, L2- 3, and L4-5 levels as above. Degenerative disc disease throughout lower thoracic and lumbar spine. No gross pars defect Lumbar spine MRI 09/2022: Impression- No evidence of metastatic disease. Multilevel degenerative disc disease and arthropathy results in several central canal stenosis L3-4 and L4-5. Superimposed left synovial cyst also noted L4-5. PT-OP-C Subjective Start: 08/17/24 16:38 Freq: Status: Active Protocol: Document 09/25/24 11:34 NM (Rec: 09/25/24 12:21 NM [id number]) OP-PT Subjective Patient Comments Patient Comments Pt reports not much change but states that his back is feeling good. LLE feels stiff. Pt reports that overall hips are feeling better since starting PT. PT-OP-E Functional Tests Start: 08/17/24 16:38 Freq: Status: Active Protocol: Document 08/18/24 08:17 NM (Rec: 08/18/24 09:02 NM [id number]) Functional Tests Five Times Sit to Stand Test Score 40.3 sec Comments 19 chair PT-OP-F Manual Assessment Start: 08/17/24 16:38 Freq: Status: Active Protocol: Document 08/18/24 08:17 NM (Rec: 08/18/24 11:17 NM [id number]) Manual Assessments Soft Tissue Assessment Soft Tissue Mobility Assessment Tightness and restrictions of B paraspinals, hamstrings, hip flexors, and calves. L is more restricted than R. L side also has swelling along foot/ ankle to calf compared to RLE Joint Mobility Assessment Joint Mobility Assessment Decreased mobility with PA springing of lumbar spine in sitting. Decreased joint space related to lumbar curve to L, rib hump present posteriorly on L side as well. Decreased AROM and PROM B hips, L>R PT-OP-G Mobility & Gait Start: 08/17/24 16:38 Freq: Status: Active Protocol: Document 08/18/24 08:17 NM (Rec: 08/18/24 11:17 NM [id number]) OP Gait Assessment Gait Gait Assistance Required: Standby Assistance Distance (Feet) 150 Gait Deviations General Gait Pattern Antalgic,Decreased Stride Length,Decreased Feet Clearance,Flexed Trunk,Step-to Gait Comments Gait Comments Decreased L foot clearance especially with ankle dorsiflexion. Forward trunk lean and demos unsteadiness of gait. Uses 1 trek pole in R hand for steadying PT-OP-H Neuro Start: 08/17/24 16:38 Freq: Status: Active Protocol: Document 08/20/24 10:47 NM (Rec: 08/20/24 11:34 NM [id number]) Sensation Evaluation Comments Summary Comments Decreased light touch sensation along L lower leg and calf PT-OP-J Posture/Palpation/Skin Start: 08/17/24 16:38 Freq: Status: Active Protocol: Document 08/18/24 08:17 NM (Rec: 08/18/24 11:17 NM [id number]) Posture Evaluation Position Standing Head/C-Spine Posture Forward Head T-Spine Posture Increased Kyphosis Thorax Posture (L) Prominent L-Spine Posture Fixed Scoliosis on (L) Shoulder Posture (L) Rounded,(R) Rounded Scapula Posture (L) Retracted Pelvis Posture Anteriorly Tilted,(L) Rotated Posterior,(R) Iliac Crest Superior,(L) Iliac Crest Inferior Hip Posture (L) Externally Rotated,(R) Externally Rotated Palpation Assessment Location lumbar spine Palpation Details Tenderness along B SIJ, lumbar paraspinals, glutes, posterior ribs No hamstring tenderness but increased restrictions L>R PT-OP-K Range of Motion Start: 08/17/24 16:38 Freq: Status: Active Protocol: Document 09/23/24 09:01 NM (Rec: 09/23/24 09:57 NM [id number]) Lumbar Spine Range of Motion Lumbar Spine Active Percentage Testing Position Standing Flexion 75 Extension 0 Rotation Left 100 Rotation Right 25 Lateral Flexion Left 50 Lateral Flexion Right 75 Comments pain with all motions; ext limited by bony restriction. L side more limited into R rotation and L lateral flexion PT-OP-L Special Tests Start: 08/17/24 16:38 Freq: Status: Active Protocol: Document 08/18/24 08:17 NM (Rec: 08/18/24 09:02 NM [id number]) Special Tests Lumbar Spine Special Tests Bateman/quadrant Test Results + L Straight Leg Raise Test Results + Comments L Standing Flexion Test Results + Slump Test Results - Comments tightness in hamstrings PT-OP-M Strength Start: 08/17/24 16:38 Freq: Status: Active Protocol: Document 09/23/24 09:01 NM (Rec: 09/23/24 09:57 NM [id number]) Trunk Strength Trunk Manual Muscle Testing Flexion 4- Good- Extension 4- Good- Rotation Left 4- Good- Rotation Right 4- Good- Lateral Flexion Left 4- Good- Lateral Flexion Right 4- Good- Comments pain with R LF Hip Strength Hip Manual Muscle Testing Right Flexion (L2) 4- Good- Extension (S1) 4- Good- Abduction 4- Good- Adduction 4- Good- External Rotation 4- Good- Internal Rotation 4- Good- Left Flexion (L2) 4- Good- Extension (S1) 4- Good- Abduction 4- Good- Adduction 4- Good- External Rotation 3+ Fair+ Internal Rotation 3+ Fair+ Knee Strength Knee Manual Muscle Testing Right Flexion (S2) 4 Good Extension (L3) 4 Good Left Flexion (S2) 4- Good- Extension (L3) 4 Good PT-OP-Q Treatments Start: 08/17/24 16:38 Freq: Status: Active Protocol: Document 09/25/24 11:34 NM (Rec: 09/25/24 12:21 NM [id number]) Gym Equipment Shuttle Recovery Unilateral Squats Details challenging Resistance 50# (2 teal) Reps/Time 10x2 Therapeutic Exercises Standing Exercises hip AROM Standing Exercise Name trialed in PT- hip circles Side bilateral Equipment Used holding TM bar for balance Reps/Minutes 10 ea Comments post manual tx; no pain, less ROM on L hip pallof Standing Exercise Name HEP press Side bilateral Resistance level 1 band Reps/Minutes 15 ea Comments cued for relaxed shoulders lat pull down Standing Exercise Name HEP- 1. arms extended, 2. W pull down Side bilateral Resistance level 2 band Equipment Used staggered stance Reps/Minutes 20 ea Comments cued for core bracing sit to stand Standing Exercise Name c/ band under feet Resistance level 3 band under feet Equipment Used std mesh chair c/ foam pad added Reps/Minutes 2x8 c/ seated rest break between sets Comments seated deadlift; no pain but challenging Manual Therapy Treatment Consent Patient gave verbal consent for manual Yes treatment Soft Tissue Mobilization BLE Body Location L glute/piriformis, HS, calf Mobilization Type Cross-Friction,Rolling Intensity/Depth Moderate Body Position Sidelying Comments Trigger points in HS, calf. Less tenderness in piriformis Joint Mobilizations bilateral hips Joint L Direction inf, lat, PA Grade II Body Position Hooklying Comments c/ mobility strap for all except for AP. Towel for comfort inf and lat glide. Improved tolerance overall PT-OP-T Assessment and Plan Start: 08/17/24 16:38 Freq: Status: Active Protocol: Document 09/25/24 11:34 NM (Rec: 09/25/24 12:21 NM [id number]) Physical Therapy Assessment Goals Three Impairment forward trunk flexion 50% AROM Monotype Setter Goal (LTG) Pt will increase forward trunk flexion AROM > 50% in order to demonstrate improved hamstring length and ability to perform ADLs involving bending 09/08/24: initiated in PT 09/23/24: 75% forward trunk flexion, limited by HS length LTG Duration 8 weeks MET 09/23 Two Impairment pain with ambulation; limited tolerance Short Term Goal (STG) If appropriate, pt will be educated on and fitted for appropriate LRAD, likely 4WW, for symptom management 09/23/24: no appropriate for AD at this time STG Duration 6 weeks- GOAL NOT APPLICABLE Mcc Goal (LTG) Pt will report that he is able to ambulate at least 50% farther during daily ambulation in order to demonstrate improved activity tolerance and pain management 09/23/24: pt reports can ambulate 25% further before needing to take a break due to back pain LTG Duration 8 weeks PROGRESSING 09/23 One Impairment 5x STS 40.3 sec Short Term Goal (STG) Pt will be able to perform at least 8/10 STS from standard chair with or without UE assist with improved form in order to increase BLE strength for transfers and decrease reliance on low back during transfers 09/08/24: able to perform STS from 21 plinth without UE assist, minimal cues 09/23/24: 10 STS from 20 plinth without UE assist, minimal cues for form, no pain in low back or hips STG Duration 4 weeks PROGRESSING 09/23 Mcc Goal (LTG) Pt will decrease 5x STS score by at least 5 seconds in order to demonstrate improved BLE strength and endurance for transfers LTG Duration 8 weeks Four Impairment not performing HEP Impairment ... Monotype Setter Goal (LTG) Pt will report compliance with HEP at least 3x/wk in order to maximize progression with PT and maintain progression after transition to maitenance program 09/08/24: pt performing stretching daily, HEP otherwise as prescribed 09/23/24: performing HEP as prescribed LTG Duration 8 weeks MET Assessment Summary Assessment Pt responds well during session to increased resistance and progressive therapeutic exercise. Needs cueing for correct execution and tall posture. Restricted by postural limitations including kyphosis. Improved feedback response to L hip joint mobilizations. L hip ROM more limited than R but improves post manual and with AROM by observation. Physical Therapy Plan Frequency and Duration Frequency of Treatment 2x/Week Duration of treatment (weeks) 8 Plan of Care Start Date 08/18/24 Plan of Care End Date 10/16/24 Therapeutic Interventions Therapeutic Interventions Balance Training,Gait Training ,Home Exercise Program,Joint Mobilizations,Manual Therapy, Neuromuscular Re-education, Orthotic/Prosthetic Management ,Patient/Caregiver Education, Self-Care/Home Management, Sensory Integration,Soft Tissue Mobilization,Taping, Therapeutic Activities, Therapeutic Exercises Modalities Cold Pack/Ice Massage,Hot Packs Next Visit Focus/Plan Next Note Type Treatment Note Next Visit Plan review Pallof as needed. Trial calf raise and HS flex/ext in standing for active lengthening/shortening. retrial hip hinge> deadlift and body mechanics training. STS from std chair- look at goals. Seated/supine core as able. Continue Spinal elongation, rib expansion and breathwork. Lengthen L trunk/QL as able. Manual ok to lumbar spine and hips; assess yuri to grade I-II hip mobs as needed, SIJ mob, MET
--- NOTE | 2024-09-30 12:15 | PT.OTN ---
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/24) Spinal stenosis, lumbar region without neurogenic claudication (09/30/24) Spinal stenosis, lumbar region with neurogenic claudication (09/30/24) Low back pain, unspecified (09/30/24) Other lack of coordination (09/30/24) Weakness (09/30/24) Personal history of malignant neoplasm of bladder (09/30/24) Physical Therapy Treatment Note PT-OP-A Visit Information Start: 08/17/24 16:38 Freq: Status: Active Protocol: Document 09/30/24 11:32 SP (Rec: 09/30/24 12:24 SP [id number]) Out-Patient Physical Therapy Visit Information Visit Information Visit Type Treatment Note Visit Note KX after 19 visits Visit Start Time 11:32 Visit Stop Time 12:15 Visit Number 12 (3/10 PN) Number of FOOD EDITOR Visits 1 Evaluation Information Evaluation Date 08/18/24 Precautions Precautions scoliosis, fall risk PT-OP-B Current Condition Start: 08/17/24 16:38 Freq: Status: Active Protocol: Document 08/18/24 08:17 NM (Rec: 08/18/24 09:02 NM [id number]) Current Condition History of Current Condition Onset Date chronic History of Current Condition Pt presents with chronic back pain. He has had pain for several years. He reports that he has a spine deformity ( scoliosis) since childhood. He was casted/braced. He ruptured a disc many years ago , had surgery due to condition . Reports that was doing well until several years ago. He has hx of bladder cancer; is follow up with oncologist for bladder cancer this month. Has hx of chemo and radiation, 3 years ago. 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 Has been seeing pain management with [facility]. Will see Dr. Sanchez; has had hx of injections and ablations; however, pt reports short term relief only. Pt had cyst at L4-L5, Dr Sanchez ruptured the cyst, which helped with the leg pain. Pt reports has had PT for same condition, states did not improve and has gotten worse. Pain is primarily on L side, reports that both in back and leg. He reports that he gets muscle pain in the legs. He reports that following his last discharge, he did his exercises for several months; states stretches currently not helping. He has been referred to an orthopedic office in [facility], not planning on surgery. He reports that symptoms started to get worse. Currently unable to play golf (1 year ago, unable lift his clubs), ambulate (previously 5000/day, now 3000/day)- states only can do 300-400 ft before needing to take a seated rest break. Uses a trek pole (1) for gait; denies any falls. Prior Treatments and Tests Pt's kidneys are being monitored for kidney function due to high creatinine Lumbar spine radiograph 03/2024 : Impression- Moderate levoscoliosis centered at L2 level. No acute compression fracture. Grade 1 spondylolisthesis at L1-2, L2- 3, and L4-5 levels as above. Degenerative disc disease throughout lower thoracic and lumbar spine. No gross pars defect Lumbar spine MRI 09/2022: Impression- No evidence of metastatic disease. Multilevel degenerative disc disease and arthropathy results in several central canal stenosis L3-4 and L4-5. Superimposed left synovial cyst also noted L4-5. PT-OP-C Subjective Start: 08/17/24 16:38 Freq: Status: Active Protocol: Document 09/30/24 11:32 SP (Rec: 09/30/24 12:24 SP [id number]) OP-PT Subjective Patient Comments Patient Comments Pt reports has been 2 weeks since back injection. Is performing stretching before getting out of bed and helping mobillity when gets up. He was soreness in legs mostly. Got HS cramp in L HS during stretching. He stated L hip hasn't hurt as much since started PT. PT-OP-E Functional Tests Start: 08/17/24 16:38 Freq: Status: Active Protocol: Document 08/18/24 08:17 NM (Rec: 08/18/24 09:02 NM [id number]) Functional Tests Five Times Sit to Stand Test Score 40.3 sec Comments 19 chair PT-OP-F Manual Assessment Start: 08/17/24 16:38 Freq: Status: Active Protocol: Document 08/18/24 08:17 NM (Rec: 08/18/24 11:17 NM [id number]) Manual Assessments Soft Tissue Assessment Soft Tissue Mobility Assessment Tightness and restrictions of B paraspinals, hamstrings, hip flexors, and calves. L is more restricted than R. L side also has swelling along foot/ ankle to calf compared to RLE Joint Mobility Assessment Joint Mobility Assessment Decreased mobility with PA springing of lumbar spine in sitting. Decreased joint space related to lumbar curve to L, rib hump present posteriorly on L side as well. Decreased AROM and PROM B hips, L>R PT-OP-G Mobility & Gait Start: 08/17/24 16:38 Freq: Status: Active Protocol: Document 08/18/24 08:17 NM (Rec: 08/18/24 11:17 NM [id number]) OP Gait Assessment Gait Gait Assistance Required: Standby Assistance Distance (Feet) 150 Gait Deviations General Gait Pattern Antalgic,Decreased Stride Length,Decreased Feet Clearance,Flexed Trunk,Step-to Gait Comments Gait Comments Decreased L foot clearance especially with ankle dorsiflexion. Forward trunk lean and demos unsteadiness of gait. Uses 1 trek pole in R hand for steadying PT-OP-H Neuro Start: 08/17/24 16:38 Freq: Status: Active Protocol: Document 08/20/24 10:47 NM (Rec: 08/20/24 11:34 NM [id number]) Sensation Evaluation Comments Summary Comments Decreased light touch sensation along L lower leg and calf PT-OP-J Posture/Palpation/Skin Start: 08/17/24 16:38 Freq: Status: Active Protocol: Document 08/18/24 08:17 NM (Rec: 08/18/24 11:17 NM [id number]) Posture Evaluation Position Standing Head/C-Spine Posture Forward Head T-Spine Posture Increased Kyphosis Thorax Posture (L) Prominent L-Spine Posture Fixed Scoliosis on (L) Shoulder Posture (L) Rounded,(R) Rounded Scapula Posture (L) Retracted Pelvis Posture Anteriorly Tilted,(L) Rotated Posterior,(R) Iliac Crest Superior,(L) Iliac Crest Inferior Hip Posture (L) Externally Rotated,(R) Externally Rotated Palpation Assessment Location lumbar spine Palpation Details Tenderness along B SIJ, lumbar paraspinals, glutes, posterior ribs No hamstring tenderness but increased restrictions L>R PT-OP-K Range of Motion Start: 08/17/24 16:38 Freq: Status: Active Protocol: Document 02/19/25 09:01 NM (Rec: 09/23/24 09:57 NM [id number]) Lumbar Spine Range of Motion Lumbar Spine Active Percentage Testing Position Standing Flexion 75 Extension 0 Rotation Left 100 Rotation Right 25 Lateral Flexion Left 50 Lateral Flexion Right 75 Comments pain with all motions; ext limited by bony restriction. L side more limited into R rotation and L lateral flexion PT-OP-L Special Tests Start: 08/17/24 16:38 Freq: Status: Active Protocol: Document 08/18/24 08:17 NM (Rec: 08/18/24 09:02 NM [id number]) Special Tests Lumbar Spine Special Tests Bateman/quadrant Test Results + L Straight Leg Raise Test Results + Comments L Standing Flexion Test Results + Slump Test Results - Comments tightness in hamstrings PT-OP-M Strength Start: 08/17/24 16:38 Freq: Status: Active Protocol: Document 09/23/24 09:01 NM (Rec: 09/23/24 09:57 NM [id number]) Trunk Strength Trunk Manual Muscle Testing Flexion 4- Good- Extension 4- Good- Rotation Left 4- Good- Rotation Right 4- Good- Lateral Flexion Left 4- Good- Lateral Flexion Right 4- Good- Comments pain with R LF Hip Strength Hip Manual Muscle Testing Right Flexion (L2) 4- Good- Extension (S1) 4- Good- Abduction 4- Good- Adduction 4- Good- External Rotation 4- Good- Internal Rotation 4- Good- Left Flexion (L2) 4- Good- Extension (S1) 4- Good- Abduction 4- Good- Adduction 4- Good- External Rotation 3+ Fair+ Internal Rotation 3+ Fair+ Knee Strength Knee Manual Muscle Testing Right Flexion (S2) 4 Good Extension (L3) 4 Good Left Flexion (S2) 4- Good- Extension (L3) 4 Good PT-OP-Q Treatments Start: 08/17/24 16:38 Freq: Status: Active Protocol: Document 09/30/24 11:32 SP (Rec: 09/30/24 12:24 SP [id number]) Therapeutic Exercises Supine Exercises Hamstring stretch Supine Exercise Name reviewed Side bilateral Resistance L>R Equipment Used c/ strap Reps/Minutes 30 ea Comments verbal cues; more tightness on L today ITB stretch Supine Exercise Name reveiewed Side bilateral Resistance L>R Equipment Used strap on foot Reps/Minutes 30 Sh x2 Comments cued TKE, tolerant range cross over straight leg piriformis stretch Supine Exercise Name 1. figure 4 opp knee bent vs straight 2. cross body ( piriformis) Side bilateral Reps/Minutes 60 sec each ex each LE Standing Exercises golf warm ups and swinge Standing Exercise Name 1. TS rotation 2. swing Resistance wedge club in arms 1. rotation 2. swing Reps/Minutes 10 reps each Left > right Comments cued less TS rounding, TA engagement- good pallof Standing Exercise Name HEP press Side bilateral Resistance level 2 double orange Reps/Minutes 15 ea Comments cued for relaxed shoulders down lat pull down Standing Exercise Name HEP- 1. arms extended, 2. W pull down Side bilateral Resistance level 2 band Equipment Used staggered stance Reps/Minutes 20 ea Comments cued for slight bent knees/ shld width apart/core bracing hip flexor stretch Standing Exercise Name doorway lunge Side bilateral Equipment Used forearms on doorframe Reps/Minutes 30 SH Comments cued set up and form, allow heel up/pelvis fwd Manual Therapy Treatment Consent Patient gave verbal consent for manual Yes treatment Soft Tissue Mobilization BLE Body Location L distal TFL, proximal adductor Mobilization Type Cross-Friction,Rolling Intensity/Depth Moderate Body Position Sidelying Comments STMs and MWM hip IR/ER leg extended Joint Mobilizations bilateral hips Joint L Direction inf, lat, PA Grade II Body Position Hooklying Comments c/ mobility strap for all except for AP. Towel for comfort inf and lat glide. Prone PA/quad stretch, CR hip IR and ER. Improved tolerance overall and little gain in hip ROM with less back tension. PT-OP-T Assessment and Plan Start: 08/17/24 16:38 Freq: Status: Active Protocol: Document 09/30/24 11:32 SP (Rec: 09/30/24 12:24 SP [id number]) Physical Therapy Assessment Goals Three Impairment forward trunk flexion 50% AROM Usp Goal (LTG) Pt will increase forward trunk flexion AROM > 50% in order to demonstrate improved hamstring length and ability to perform ADLs involving bending 09/08/24: initiated in PT 09/23/24: 75% forward trunk flexion, limited by HS length LTG Duration 8 weeks MET 09/23 Two Impairment pain with ambulation; limited tolerance Short Term Goal (STG) If appropriate, pt will be educated on and fitted for appropriate LRAD, likely 4WW, for symptom management 09/23/24: no appropriate for AD at this time STG Duration 6 weeks- GOAL NOT APPLICABLE Usp Goal (LTG) Pt will report that he is able to ambulate at least 50% farther during daily ambulation in order to demonstrate improved activity tolerance and pain management 09/23/24: pt reports can ambulate 25% further before needing to take a break due to back pain LTG Duration 8 weeks PROGRESSING 09/23 One Impairment 5x STS 40.3 sec Short Term Goal (STG) Pt will be able to perform at least 8/10 STS from standard chair with or without UE assist with improved form in order to increase BLE strength for transfers and decrease reliance on low back during transfers 09/08/24: able to perform STS from 21 plinth without UE assist, minimal cues 09/23/24: 10 STS from 20 plinth without UE assist, minimal cues for form, no pain in low back or hips STG Duration 4 weeks PROGRESSING 09/23 Logistics Specialist Goal (LTG) Pt will decrease 5x STS score by at least 5 seconds in order to demonstrate improved BLE strength and endurance for transfers LTG Duration 8 weeks Four Impairment not performing HEP Impairment ... Logistics Specialist Goal (LTG) Pt will report compliance with HEP at least 3x/wk in order to maximize progression with PT and maintain progression after transition to maitenance program 09/08/24: pt performing stretching daily, HEP otherwise as prescribed 09/23/24: performing HEP as prescribed LTG Duration 8 weeks MET Assessment Summary Assessment Pt responded well to manual, increased L hip ROM/ less tension. Continued cuing for postural corrections during ther ex, able progress resistance during paloff press . Some time spent TS and hip rotation golf swing motion to support future return to playing golf . Physical Therapy Plan Frequency and Duration Frequency of Treatment 2x/Week Duration of treatment (weeks) 8 Plan of Care Start Date 08/18/24 Plan of Care End Date 10/16/24 Therapeutic Interventions Therapeutic Interventions Balance Training,Gait Training ,Home Exercise Program,Joint Mobilizations,Manual Therapy, Neuromuscular Re-education, Orthotic/Prosthetic Management ,Patient/Caregiver Education, Self-Care/Home Management, Sensory Integration,Soft Tissue Mobilization,Taping, Therapeutic Activities, Therapeutic Exercises Modalities Cold Pack/Ice Massage,Hot Packs Next Visit Focus/Plan Next Note Type Treatment Note Next Visit Plan Next: trial calf raise and HS flex/ext in standing for active lengthening/shortening. Retrial hip hinge> deadlift and body mechanics training. STS from std chair- look at goals. Seated/supine core as able. Cues for posture and activities return to golf. Continue Spinal elongation, rib expansion and breathwork. Lengthen L trunk/QL as able. Manual ok to lumbar spine and hips; assess yuri to grade I-II hip mobs as needed, SIJ mob, MET
--- NOTE | 2024-10-02 12:17 | PT.OTN ---
Current Diagnoses Stiffness of right hip, not elsewhere classified (10/02/24) Stiffness of left hip, not elsewhere classified (10/02/24) Scoliosis, unspecified (10/02/24) Spondylosis without myelopathy or radiculopathy, lumbar region (10/02/24) Spinal stenosis, lumbar region without neurogenic claudication (10/02/24) Spinal stenosis, lumbar region with neurogenic claudication (10/02/24) Low back pain, unspecified (10/02/24) Other lack of coordination (10/02/24) Weakness (10/02/24) Personal history of malignant neoplasm of bladder (10/02/24) Physical Therapy Treatment Note PT-OP-A Visit Information Start: 08/17/24 16:38 Freq: Status: Active Protocol: Document 10/02/24 11:34 NM (Rec: 10/02/24 12:15 NM [id number]) Out-Patient Physical Therapy Visit Information Visit Information Visit Type Treatment Note Visit Note KX after 19 visits Visit Start Time 11:34 Visit Stop Time 12:14 Visit Number 13 (11/12 PN) PT-OP-B Current Condition Start: 08/17/24 16:38 Freq: Status: Active Protocol: Document 08/18/24 08:17 NM (Rec: 08/18/24 09:02 NM [id number]) Current Condition History of Current Condition Onset Date chronic History of Current Condition Pt presents with chronic back pain. He has had pain for several years. He reports that he has a spine deformity ( scoliosis) since childhood. He was casted/braced. He ruptured a disc many years ago , had surgery due to condition . Reports that was doing well until several years ago. He has hx of bladder cancer; is follow up with oncologist for bladder cancer this month. Has hx of chemo and radiation, 3 years ago. 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 Has been seeing pain management with [facility]. Will see Dr. Sanchez; has had hx of injections and ablations; however, pt reports short term relief only. Pt had cyst at L4-L5, Dr Sanchez ruptured the cyst, which helped with the leg pain. Pt reports has had PT for same condition, states did not improve and has gotten worse. Pain is primarily on L side, reports that both in back and leg. He reports that he gets muscle pain in the legs. He reports that following his last discharge, he did his exercises for several months; states stretches currently not helping. He has been referred to an orthopedic office in [facility], not planning on surgery. He reports that symptoms started to get worse. Currently unable to play golf (1 year ago, unable lift his clubs), ambulate (previously 5000/day, now 3000/day)- states only can do 300-400 ft before needing to take a seated rest break. Uses a trek pole (1) for gait; denies any falls. Prior Treatments and Tests Pt's kidneys are being monitored for kidney function due to high creatinine Lumbar spine radiograph 03/2024 : Impression- Moderate levoscoliosis centered at L2 level. No acute compression fracture. Grade 1 spondylolisthesis at L1-2, L2- 3, and L4-5 levels as above. Degenerative disc disease throughout lower thoracic and lumbar spine. No gross pars defect Lumbar spine MRI 09/2022: Impression- No evidence of metastatic disease. Multilevel degenerative disc disease and arthropathy results in several central canal stenosis L3-4 and L4-5. Superimposed left synovial cyst also noted L4-5. PT-OP-C Subjective Start: 08/17/24 16:38 Freq: Status: Active Protocol: Document 10/02/24 11:34 NM (Rec: 10/02/24 12:15 NM [id number]) OP-PT Subjective Patient Comments Patient Comments Pt has follow up with ortho in about 2 weeks, and with Dr. Freitas. Reports that he wakes up with discomfort in mornings but resolves as he gets moving. He wants to move down to 1x/wk. Pt also reports that he is wanting to work on lifting and carrying objects that are in front of him. PT-OP-E Functional Tests Start: 08/17/24 16:38 Freq: Status: Active Protocol: Document 08/18/24 08:17 NM (Rec: 08/18/24 09:02 NM [id number]) Functional Tests Five Times Sit to Stand Test Score 40.3 sec Comments 19 chair PT-OP-F Manual Assessment Start: 08/17/24 16:38 Freq: Status: Active Protocol: Document 08/18/24 08:17 NM (Rec: 08/18/24 11:17 NM [id number]) Manual Assessments Soft Tissue Assessment Soft Tissue Mobility Assessment Tightness and restrictions of B paraspinals, hamstrings, hip flexors, and calves. L is more restricted than R. L side also has swelling along foot/ ankle to calf compared to RLE Joint Mobility Assessment Joint Mobility Assessment Decreased mobility with PA springing of lumbar spine in sitting. Decreased joint space related to lumbar curve to L, rib hump present posteriorly on L side as well. Decreased AROM and PROM B hips, L>R PT-OP-G Mobility & Gait Start: 08/17/24 16:38 Freq: Status: Active Protocol: Document 08/18/24 08:17 NM (Rec: 08/18/24 11:17 NM [id number]) OP Gait Assessment Gait Gait Assistance Required: Standby Assistance Distance (Feet) 150 Gait Deviations General Gait Pattern Antalgic,Decreased Stride Length,Decreased Feet Clearance,Flexed Trunk,Step-to Gait Comments Gait Comments Decreased L foot clearance especially with ankle dorsiflexion. Forward trunk lean and demos unsteadiness of gait. Uses 1 trek pole in R hand for steadying PT-OP-H Neuro Start: 08/17/24 16:38 Freq: Status: Active Protocol: Document 08/20/24 10:47 NM (Rec: 08/20/24 11:34 NM [id number]) Sensation Evaluation Comments Summary Comments Decreased light touch sensation along L lower leg and calf PT-OP-J Posture/Palpation/Skin Start: 08/17/24 16:38 Freq: Status: Active Protocol: Document 08/18/24 08:17 NM (Rec: 08/18/24 11:17 NM [id number]) Posture Evaluation Position Standing Head/C-Spine Posture Forward Head T-Spine Posture Increased Kyphosis Thorax Posture (L) Prominent L-Spine Posture Fixed Scoliosis on (L) Shoulder Posture (L) Rounded,(R) Rounded Scapula Posture (L) Retracted Pelvis Posture Anteriorly Tilted,(L) Rotated Posterior,(R) Iliac Crest Superior,(L) Iliac Crest Inferior Hip Posture (L) Externally Rotated,(R) Externally Rotated Palpation Assessment Location lumbar spine Palpation Details Tenderness along B SIJ, lumbar paraspinals, glutes, posterior ribs No hamstring tenderness but increased restrictions L>R PT-OP-K Range of Motion Start: 08/17/24 16:38 Freq: Status: Active Protocol: Document 09/23/24 09:01 NM (Rec: 09/23/24 09:57 NM [id number]) Lumbar Spine Range of Motion Lumbar Spine Active Percentage Testing Position Standing Flexion 75 Extension 0 Rotation Left 100 Rotation Right 25 Lateral Flexion Left 50 Lateral Flexion Right 75 Comments pain with all motions; ext limited by bony restriction. L side more limited into R rotation and L lateral flexion PT-OP-L Special Tests Start: 08/17/24 16:38 Freq: Status: Active Protocol: Document 08/18/24 08:17 NM (Rec: 08/18/24 09:02 NM [id number]) Special Tests Lumbar Spine Special Tests Bateman/quadrant Test Results + L Straight Leg Raise Test Results + Comments L Standing Flexion Test Results + Slump Test Results - Comments tightness in hamstrings PT-OP-M Strength Start: 08/17/24 16:38 Freq: Status: Active Protocol: Document 09/23/24 09:01 NM (Rec: 09/23/24 09:57 NM [id number]) Trunk Strength Trunk Manual Muscle Testing Flexion 4- Good- Extension 4- Good- Rotation Left 4- Good- Rotation Right 4- Good- Lateral Flexion Left 4- Good- Lateral Flexion Right 4- Good- Comments pain with R LF Hip Strength Hip Manual Muscle Testing Right Flexion (L2) 4- Good- Extension (S1) 4- Good- Abduction 4- Good- Adduction 4- Good- External Rotation 4- Good- Internal Rotation 4- Good- Left Flexion (L2) 4- Good- Extension (S1) 4- Good- Abduction 4- Good- Adduction 4- Good- External Rotation 3+ Fair+ Internal Rotation 3+ Fair+ Knee Strength Knee Manual Muscle Testing Right Flexion (S2) 4 Good Extension (L3) 4 Good Left Flexion (S2) 4- Good- Extension (L3) 4 Good PT-OP-Q Treatments Start: 08/17/24 16:38 Freq: Status: Active Protocol: Document 10/02/24 11:34 NM (Rec: 10/02/24 12:15 NM [id number]) Therapeutic Exercises Supine Exercises Hamstring stretch Supine Exercise Name reviewed HEP Side bilateral Resistance L>R Equipment Used c/o strap Reps/Minutes 60 ea Comments verbal cues; more tightness on L today Sciatic Nerve glide Supine Exercise Name from hooklying: knee flex/ext Side left Reps/Minutes 15 piriformis stretch Supine Exercise Name 1. figure 4 opp knee bent vs straight 2. cross body ( piriformis) Side bilateral Reps/Minutes 60 sec each ex each LE Standing Exercises hamstring curl Side bilateral Equipment Used B hand support Reps/Minutes 20 ea Comments L tighter than R, no pain calf raise Side bilateral Equipment Used B hand support Reps/Minutes 20 ea Comments cued control sit to stand Standing Exercise Name c/ band under feet Resistance level 3 band under feet Equipment Used plinth Reps/Minutes 2x8 c/ seated rest break between sets Comments seated deadlift; no pain but challenging calf stretch Standing Exercise Name staggered stance c/ simultaneous hip flexor stretch Side bilateral Equipment Used c/ hand support on stair rail, ppt Reps/Minutes 60 ea Comments cueing for neutral foot; no pain Other Exercises quadruped Other Exercise Name rock backs Reps/Minutes 10 x 5 Comments for hip flexion; feels in quads d/t stretch Therapeutic Activity Therapeutic Activity body mechanics Reps/Minutes 15 min Comments 1. hip hinge @ wall c/ self tactile cues for form, less knee flexion more hip hinge 2. 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 needs mod cues to limit compensation 3. squat rows for carries and lifting c/ cables cueing for form gorge hip hinge and squat PT-OP-T Assessment and Plan Start: 08/17/24 16:38 Freq: Status: Active Protocol: Document 10/02/24 11:34 NM (Rec: 10/02/24 12:15 NM [id number]) Physical Therapy Assessment Goals Three Impairment forward trunk flexion 50% AROM Litigation Services Manager Goal (LTG) Pt will increase forward trunk flexion AROM > 50% in order to demonstrate improved hamstring length and ability to perform ADLs involving bending 09/08/24: initiated in PT 09/23/24: 75% forward trunk flexion, limited by HS length LTG Duration 8 weeks MET 09/23 Two Impairment pain with ambulation; limited tolerance Short Term Goal (STG) If appropriate, pt will be educated on and fitted for appropriate LRAD, likely 4WW, for symptom management 09/23/24: no appropriate for AD at this time STG Duration 6 weeks- GOAL NOT APPLICABLE Group Home Goal (LTG) Pt will report that he is able to ambulate at least 50% farther during daily ambulation in order to demonstrate improved activity tolerance and pain management 09/23/24: pt reports can ambulate 25% further before needing to take a break due to back pain LTG Duration 8 weeks PROGRESSING 09/23 One Impairment 5x STS 40.3 sec Short Term Goal (STG) Pt will be able to perform at least 8/10 STS from standard chair with or without UE assist with improved form in order to increase BLE strength for transfers and decrease reliance on low back during transfers 09/08/24: able to perform STS from 21 plinth without UE assist, minimal cues 09/23/24: 10 STS from 20 plinth without UE assist, minimal cues for form, no pain in low back or hips STG Duration 4 weeks PROGRESSING 09/23 Litigation Services Manager Goal (LTG) Pt will decrease 5x STS score by at least 5 seconds in order to demonstrate improved BLE strength and endurance for transfers 10/02/24: LTG Duration 8 weeks Four Impairment not performing HEP Impairment ... Group Home Goal (LTG) Pt will report compliance with HEP at least 3x/wk in order to maximize progression with PT and maintain progression after transition to [facility] 09/08/24: pt performing stretching daily, HEP otherwise as prescribed 09/23/24: performing HEP as prescribed LTG Duration 8 weeks MET Assessment Summary Assessment Initiated body mechanics training to address pt concerns about performing ADLs and volunteer work with lifting and carrying. Moderate cueing needed for spinal mechanics and core bracing; does have mild increase in pain in low back post lifting but reduced significantly with stretching. Trialed quadruped hip rockbacks for flexor mobility to improve hip hinge. No increased pain. Pt would continue to benefit from skilled PT for body mechanics training in order to improve ability to perform lifting/ carrying ADLs. Physical Therapy Plan Frequency and Duration Frequency of Treatment 2x/Week Duration of treatment (weeks) 8 Plan of Care Start Date 08/18/24 Plan of Care End Date 10/16/24 Therapeutic Interventions Therapeutic Interventions Balance Training,Gait Training ,Home Exercise Program,Joint Mobilizations,Manual Therapy, Neuromuscular Re-education, Orthotic/Prosthetic Management ,Patient/Caregiver Education, Self-Care/Home Management, Sensory Integration,Soft Tissue Mobilization,Taping, Therapeutic Activities, Therapeutic Exercises Modalities Cold Pack/Ice Massage,Hot Packs Next Visit Focus/Plan Next Note Type Treatment Note Next Visit Plan Body mechanics. Retrial hip hinge> deadlift and body mechanics training. STS from std chair- look at goals. Seated/supine core as able. Cues for posture and activities return to golf. Continue Spinal elongation, rib expansion and breathwork. Lengthen L trunk/QL as able. Manual ok to lumbar spine and hips; assess yuri to grade I-II hip mobs as needed, SIJ mob, MET
--- NOTE | 2024-10-07 11:30 | PT.OTN ---
Current Diagnoses Stiffness of right hip, not elsewhere classified (10/07/24) Stiffness of left hip, not elsewhere classified (10/07/24) Scoliosis, unspecified (10/07/24) Spondylosis without myelopathy or radiculopathy, lumbar region (10/07/24) Spinal stenosis, lumbar region without neurogenic claudication (10/07/24) Spinal stenosis, lumbar region with neurogenic claudication (10/07/24) Low back pain, unspecified (10/07/24) Other lack of coordination (10/07/24) Weakness (10/07/24) Personal history of malignant neoplasm of bladder (10/07/24) Physical Therapy Treatment Note PT-OP-A Visit Information Start: 08/17/24 16:38 Freq: Status: Active Protocol: Document 10/07/24 10:33 NM (Rec: 10/07/24 11:27 NM [id number]) Out-Patient Physical Therapy Visit Information Visit Information Visit Type Treatment Note Visit Note KX after 19 visits Visit Start Time 10:46 Visit Stop Time 11:24 Visit Number 14 (12/12 PN) Evaluation Information Evaluation Date 08/18/24 Precautions Precautions scoliosis, fall risk PT-OP-B Current Condition Start: 08/17/24 16:38 Freq: Status: Active Protocol: Document 08/18/24 08:17 NM (Rec: 08/18/24 09:02 NM [id number]) Current Condition History of Current Condition Onset Date chronic History of Current Condition Pt presents with chronic back pain. He has had pain for several years. He reports that he has a spine deformity ( scoliosis) since childhood. He was casted/braced. He ruptured a disc many years ago , had surgery due to condition . Reports that was doing well until several years ago. He has hx of bladder cancer; is follow up with oncologist for bladder cancer this month. Has hx of chemo and radiation, 3 years ago. 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 Has been seeing pain management with [facility]. Will see Dr. Sanchez; has had hx of injections and ablations; however, pt reports short term relief only. Pt had cyst at L4-L5, Dr Sanchez ruptured the cyst, which helped with the leg pain. Pt reports has had PT for same condition, states did not improve and has gotten worse. Pain is primarily on L side, reports that both in back and leg. He reports that he gets muscle pain in the legs. He reports that following his last discharge, he did his exercises for several months; states stretches currently not helping. He has been referred to an orthopedic office in [facility], not planning on surgery. He reports that symptoms started to get worse. Currently unable to play golf (1 year ago, unable lift his clubs), ambulate (previously 5000/day, now 3000/day)- states only can do 300-400 ft before needing to take a seated rest break. Uses a trek pole (1) for gait; denies any falls. Prior Treatments and Tests Pt's kidneys are being monitored for kidney function due to high creatinine Lumbar spine radiograph 03/2024 : Impression- Moderate levoscoliosis centered at L2 level. No acute compression fracture. Grade 1 spondylolisthesis at L1-2, L2- 3, and L4-5 levels as above. Degenerative disc disease throughout lower thoracic and lumbar spine. No gross pars defect Lumbar spine MRI 09/2022: Impression- No evidence of metastatic disease. Multilevel degenerative disc disease and arthropathy results in several central canal stenosis L3-4 and L4-5. Superimposed left synovial cyst also noted L4-5. PT-OP-C Subjective Start: 08/17/24 16:38 Freq: Status: Active Protocol: Document 10/07/24 10:33 NM (Rec: 10/07/24 11:27 NM [id number]) OP-PT Subjective Patient Comments Patient Comments Pt reports did well after last session with body mechanics training, reports felt it that same day but it felt pretty good the next days. He did his stretching this morning. PT-OP-E Functional Tests Start: 08/17/24 16:38 Freq: Status: Active Protocol: Document 08/18/24 08:17 NM (Rec: 08/18/24 09:02 NM [id number]) Functional Tests Five Times Sit to Stand Test Score 40.3 sec Comments 19 chair PT-OP-F Manual Assessment Start: 08/17/24 16:38 Freq: Status: Active Protocol: Document 08/18/24 08:17 NM (Rec: 08/18/24 11:17 NM [id number]) Manual Assessments Soft Tissue Assessment Soft Tissue Mobility Assessment Tightness and restrictions of B paraspinals, hamstrings, hip flexors, and calves. L is more restricted than R. L side also has swelling along foot/ ankle to calf compared to RLE Joint Mobility Assessment Joint Mobility Assessment Decreased mobility with PA springing of lumbar spine in sitting. Decreased joint space related to lumbar curve to L, rib hump present posteriorly on L side as well. Decreased AROM and PROM B hips, L>R PT-OP-G Mobility & Gait Start: 08/17/24 16:38 Freq: Status: Active Protocol: Document 08/18/24 08:17 NM (Rec: 08/18/24 11:17 NM [id number]) OP Gait Assessment Gait Gait Assistance Required: Standby Assistance Distance (Feet) 150 Gait Deviations General Gait Pattern Antalgic,Decreased Stride Length,Decreased Feet Clearance,Flexed Trunk,Step-to Gait Comments Gait Comments Decreased L foot clearance especially with ankle dorsiflexion. Forward trunk lean and demos unsteadiness of gait. Uses 1 trek pole in R hand for steadying PT-OP-H Neuro Start: 08/17/24 16:38 Freq: Status: Active Protocol: Document 08/20/24 10:47 NM (Rec: 08/20/24 11:34 NM [id number]) Sensation Evaluation Comments Summary Comments Decreased light touch sensation along L lower leg and calf PT-OP-J Posture/Palpation/Skin Start: 08/17/24 16:38 Freq: Status: Active Protocol: Document 08/18/24 08:17 NM (Rec: 08/18/24 11:17 NM [id number]) Posture Evaluation Position Standing Head/C-Spine Posture Forward Head T-Spine Posture Increased Kyphosis Thorax Posture (L) Prominent L-Spine Posture Fixed Scoliosis on (L) Shoulder Posture (L) Rounded,(R) Rounded Scapula Posture (L) Retracted Pelvis Posture Anteriorly Tilted,(L) Rotated Posterior,(R) Iliac Crest Superior,(L) Iliac Crest Inferior Hip Posture (L) Externally Rotated,(R) Externally Rotated Palpation Assessment Location lumbar spine Palpation Details Tenderness along B SIJ, lumbar paraspinals, glutes, posterior ribs No hamstring tenderness but increased restrictions L>R PT-OP-K Range of Motion Start: 08/17/24 16:38 Freq: Status: Active Protocol: Document 09/23/24 09:01 NM (Rec: 09/23/24 09:57 NM [id number]) Lumbar Spine Range of Motion Lumbar Spine Active Percentage Testing Position Standing Flexion 75 Extension 0 Rotation Left 100 Rotation Right 25 Lateral Flexion Left 50 Lateral Flexion Right 75 Comments pain with all motions; ext limited by bony restriction. L side more limited into R rotation and L lateral flexion PT-OP-L Special Tests Start: 08/17/24 16:38 Freq: Status: Active Protocol: Document 08/18/24 08:17 NM (Rec: 08/18/24 09:02 NM [id number]) Special Tests Lumbar Spine Special Tests Bateman/quadrant Test Results + L Straight Leg Raise Test Results + Comments L Standing Flexion Test Results + Slump Test Results - Comments tightness in hamstrings PT-OP-M Strength Start: 08/17/24 16:38 Freq: Status: Active Protocol: Document 09/23/24 09:01 NM (Rec: 09/23/24 09:57 NM [id number]) Trunk Strength Trunk Manual Muscle Testing Flexion 4- Good- Extension 4- Good- Rotation Left 4- Good- Rotation Right 4- Good- Lateral Flexion Left 4- Good- Lateral Flexion Right 4- Good- Comments pain with R LF Hip Strength Hip Manual Muscle Testing Right Flexion (L2) 4- Good- Extension (S1) 4- Good- Abduction 4- Good- Adduction 4- Good- External Rotation 4- Good- Internal Rotation 4- Good- Left Flexion (L2) 4- Good- Extension (S1) 4- Good- Abduction 4- Good- Adduction 4- Good- External Rotation 3+ Fair+ Internal Rotation 3+ Fair+ Knee Strength Knee Manual Muscle Testing Right Flexion (S2) 4 Good Extension (L3) 4 Good Left Flexion (S2) 4- Good- Extension (L3) 4 Good PT-OP-Q Treatments Start: 08/17/24 16:38 Freq: Status: Active Protocol: Document 10/07/24 10:33 NM (Rec: 10/07/24 11:27 NM [id number]) Therapeutic Exercises Sitting Exercises hip IR & ER Sitting Exercise Name HEP review Side bilateral Resistance level 2 band at ankles Equipment Used ball btwn knees Reps/Minutes 10 ea ER and 10 IR, ea leg Comments feels appropriately Standing Exercises pallof Standing Exercise Name HEP review: 1. press, 2. press + lift Side bilateral Resistance level 1 band for HEP carryover Reps/Minutes 10 ea direction Comments needs cues for set up and correct execution; no pain lat pull down Standing Exercise Name HEP review- 1. arms extended, 2. W pull down Side bilateral Resistance level 3 band Equipment Used staggered stance Reps/Minutes 20 ea Comments cued for core bracing sit to stand Standing Exercise Name 1. 5x STS, 2. c/ band at thighs Resistance level 4 band under feet Reps/Minutes 1. 17.8 sec, 2. 10 ea Comments good yuri to increased resistance but needs cueing for hinge Other Exercises step ups Side bilateral Resistance 5# db ea hand Equipment Used 6 step up Reps/Minutes 10 ea leg Therapeutic Activity Therapeutic Activity body mechanics Name c/ 5# in crate Reps/Minutes 10 min Comments 1. hip hinge with squat to lift 5# in crate from floor Min cues for hip hinge initially 2. carrying crate x 10 ft, multiple reps 3. lifting from waist <> to top shelf Cueing for core bracing, limit breath holding with lifting. Education on use of BLE to assist with lifting for momentum/control and mechanics as reaching above head PT-OP-T Assessment and Plan Start: 08/17/24 16:38 Freq: Status: Active Protocol: Document 10/07/24 10:33 NM (Rec: 10/07/24 11:27 NM [id number]) Physical Therapy Assessment Goals Three Impairment forward trunk flexion 50% AROM Usp Goal (LTG) Pt will increase forward trunk flexion AROM > 50% in order to demonstrate improved hamstring length and ability to perform ADLs involving bending 09/08/24: initiated in PT 09/23/24: 75% forward trunk flexion, limited by HS length LTG Duration 8 weeks MET 09/23 Two Impairment pain with ambulation; limited tolerance Short Term Goal (STG) If appropriate, pt will be educated on and fitted for appropriate LRAD, likely 4WW, for symptom management 09/23/24: no appropriate for AD at this time STG Duration 6 weeks- GOAL NOT APPLICABLE Usp Goal (LTG) Pt will report that he is able to ambulate at least 50% farther during daily ambulation in order to demonstrate improved activity tolerance and pain management 09/23/24: pt reports can ambulate 25% further before needing to take a break due to back pain LTG Duration 8 weeks PROGRESSING 09/23 One Impairment 5x STS 40.3 sec Short Term Goal (STG) Pt will be able to perform at least 8/10 STS from standard chair with or without UE assist with improved form in order to increase BLE strength for transfers and decrease reliance on low back during transfers 09/08/24: able to perform STS from 21 plinth without UE assist, minimal cues 09/23/24: 10 STS from 20 plinth without UE assist, minimal cues for form, no pain in low back or hips STG Duration 4 weeks PROGRESSING 09/23 Endless Belt Finisher Goal (LTG) Pt will decrease 5x STS score by at least 5 seconds in order to demonstrate improved BLE strength and endurance for transfers 10/07/24: 17.8 seconds from standard chair LTG Duration 8 weeks MET Four Impairment not performing HEP Impairment ... Usp Goal (LTG) Pt will report compliance with HEP at least 3x/wk in order to maximize progression with PT and maintain progression after transition to maitenance program 09/08/24: pt performing stretching daily, HEP otherwise as prescribed 09/23/24: performing HEP as prescribed LTG Duration 8 weeks MET Assessment Summary Assessment Pt progressing toward goals. Time spent reviewing HEP for improved carryover at home with strengthening and to progress exercises. Increased resistance for lat pull downs, hip ER/IR, and resisted sit to stand. Pt met 5x STS goal today, demos improvements in form and speed; also no back pain with STS compared to evaluation. Remainder of session spent on body mechanics training and education to improve tolerance for ADLS, lifting and carrying. Pt needs cueing for core bracing, to limit breath- holding, and for form. Reports improvement in understanding for carryover and in overall pain management with lifting/ carrying in session compared to at home during ADLs. Physical Therapy Plan Frequency and Duration Frequency of Treatment 2x/Week Duration of treatment (weeks) 8 Plan of Care Start Date 08/18/24 Plan of Care End Date 10/16/24 Therapeutic Interventions Therapeutic Interventions Balance Training,Gait Training ,Home Exercise Program,Joint Mobilizations,Manual Therapy, Neuromuscular Re-education, Orthotic/Prosthetic Management ,Patient/Caregiver Education, Self-Care/Home Management, Sensory Integration,Soft Tissue Mobilization,Taping, Therapeutic Activities, Therapeutic Exercises Modalities Cold Pack/Ice Massage,Hot Packs Next Visit Focus/Plan Next Note Type Discharge Summary Next Visit Plan Body mechanics if needed. HEP review if needed. Hip strengthening. Cues for posture and activities return to golf. Continue Spinal elongation, rib expansion and breathwork. Lengthen L trunk/QL as able. Manual ok to lumbar spine and hips; assess yuri to grade I-II hip mobs as needed, SIJ mob, MET
--- NOTE | 2024-10-13 12:48 | PT.OTN ---
Current Diagnoses Stiffness of right hip, not elsewhere classified (10/13/24) Stiffness of left hip, not elsewhere classified (10/13/24) Scoliosis, unspecified (10/13/24) Spondylosis without myelopathy or radiculopathy, lumbar region (10/13/24) Spinal stenosis, lumbar region without neurogenic claudication (10/13/24) Spinal stenosis, lumbar region with neurogenic claudication (10/13/24) Low back pain, unspecified (10/13/24) Other lack of coordination (10/13/24) Weakness (10/13/24) Personal history of malignant neoplasm of bladder (10/13/24) Physical Therapy Treatment Note PT-OP-A Visit Information Start: 08/17/24 16:38 Freq: Status: Active Protocol: Document 10/13/24 10:46 NM (Rec: 10/13/24 11:32 NM [id number]) Out-Patient Physical Therapy Visit Information Visit Information Visit Type Discharge Summary Visit Note KX after 19 visits Visit Start Time 10:47 Visit Stop Time 11:27 Visit Number 15 Evaluation Information Evaluation Date 08/18/24 Precautions Precautions scoliosis, fall risk PT-OP-B Current Condition Start: 08/17/24 16:38 Freq: Status: Active Protocol: Document 08/18/24 08:17 NM (Rec: 08/18/24 09:02 NM [id number]) Current Condition History of Current Condition Onset Date chronic History of Current Condition Pt presents with chronic back pain. He has had pain for several years. He reports that he has a spine deformity ( scoliosis) since childhood. He was casted/braced. He ruptured a disc many years ago , had surgery due to condition . Reports that was doing well until several years ago. He has hx of bladder cancer; is follow up with oncologist for bladder cancer this month. Has hx of chemo and radiation, 3 years ago. 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 Has been seeing pain management with [facility]. Will see Dr. Sanchez; has had hx of injections and ablations; however, pt reports short term relief only. Pt had cyst at L4-L5, Dr Sanchez ruptured the cyst, which helped with the leg pain. Pt reports has had PT for same condition, states did not improve and has gotten worse. Pain is primarily on L side, reports that both in back and leg. He reports that he gets muscle pain in the legs. He reports that following his last discharge, he did his exercises for several months; states stretches currently not helping. He has been referred to an orthopedic office in [facility], not planning on surgery. He reports that symptoms started to get worse. Currently unable to play golf (1 year ago, unable lift his clubs), ambulate (previously 5000/day, now 3000/day)- states only can do 300-400 ft before needing to take a seated rest break. Uses a trek pole (1) for gait; denies any falls. Prior Treatments and Tests Pt's kidneys are being monitored for kidney function due to high creatinine Lumbar spine radiograph 03/2024 : Impression- Moderate levoscoliosis centered at L2 level. No acute compression fracture. Grade 1 spondylolisthesis at L1-2, L2- 3, and L4-5 levels as above. Degenerative disc disease throughout lower thoracic and lumbar spine. No gross pars defect Lumbar spine MRI 09/2022: Impression- No evidence of metastatic disease. Multilevel degenerative disc disease and arthropathy results in several central canal stenosis L3-4 and L4-5. Superimposed left synovial cyst also noted L4-5. PT-OP-C Subjective Start: 08/17/24 16:38 Freq: Status: Active Protocol: Document 10/13/24 10:46 NM (Rec: 10/13/24 11:32 NM [id number]) OP-PT Subjective Patient Comments Patient Comments Pt reports sang a mussel fest over weekend, had to stand for 1.5 without rest. He reports that his back and L leg has been a little sore. He reports ready be done with PT, planning to continue with maintenance program. Has been doing some ambulation, states his normal 3000 steps before PT started; got to 4000 steps before needing to take a rest. PT-OP-E Functional Tests Start: 08/17/24 16:38 Freq: Status: Active Protocol: Document 08/18/24 08:17 NM (Rec: 08/18/24 09:02 NM [id number]) Functional Tests Five Times Sit to Stand Test Score 40.3 sec Comments 19 chair PT-OP-F Manual Assessment Start: 08/17/24 16:38 Freq: Status: Active Protocol: Document 08/18/24 08:17 NM (Rec: 08/18/24 11:17 NM [id number]) Manual Assessments Soft Tissue Assessment Soft Tissue Mobility Assessment Tightness and restrictions of B paraspinals, hamstrings, hip flexors, and calves. L is more restricted than R. L side also has swelling along foot/ ankle to calf compared to RLE Joint Mobility Assessment Joint Mobility Assessment Decreased mobility with PA springing of lumbar spine in sitting. Decreased joint space related to lumbar curve to L, rib hump present posteriorly on L side as well. Decreased AROM and PROM B hips, L>R PT-OP-G Mobility & Gait Start: 08/17/24 16:38 Freq: Status: Active Protocol: Document 08/18/24 08:17 NM (Rec: 08/18/24 11:17 NM [id number]) OP Gait Assessment Gait Gait Assistance Required: Standby Assistance Distance (Feet) 150 Gait Deviations General Gait Pattern Antalgic,Decreased Stride Length,Decreased Feet Clearance,Flexed Trunk,Step-to Gait Comments Gait Comments Decreased L foot clearance especially with ankle dorsiflexion. Forward trunk lean and demos unsteadiness of gait. Uses 1 trek pole in R hand for steadying PT-OP-H Neuro Start: 08/17/24 16:38 Freq: Status: Active Protocol: Document 08/20/24 10:47 NM (Rec: 08/20/24 11:34 NM [id number]) Sensation Evaluation Comments Summary Comments Decreased light touch sensation along L lower leg and calf PT-OP-J Posture/Palpation/Skin Start: 08/17/24 16:38 Freq: Status: Active Protocol: Document 08/18/24 08:17 NM (Rec: 08/18/24 11:17 NM [id number]) Posture Evaluation Position Standing Head/C-Spine Posture Forward Head T-Spine Posture Increased Kyphosis Thorax Posture (L) Prominent L-Spine Posture Fixed Scoliosis on (L) Shoulder Posture (L) Rounded,(R) Rounded Scapula Posture (L) Retracted Pelvis Posture Anteriorly Tilted,(L) Rotated Posterior,(R) Iliac Crest Superior,(L) Iliac Crest Inferior Hip Posture (L) Externally Rotated,(R) Externally Rotated Palpation Assessment Location lumbar spine Palpation Details Tenderness along B SIJ, lumbar paraspinals, glutes, posterior ribs No hamstring tenderness but increased restrictions L>R PT-OP-K Range of Motion Start: 08/17/24 16:38 Freq: Status: Active Protocol: Document 10/13/24 10:46 NM (Rec: 10/13/24 11:32 NM [id number]) Lumbar Spine Range of Motion Lumbar Spine Active Percentage Testing Position Standing Flexion 75 Extension 0 Rotation Left 100 Rotation Right 25 Lateral Flexion Left 50 Lateral Flexion Right 75 Comments pain with all motions; ext limited by bony restriction. L side more limited into R rotation and L lateral flexion PT-OP-L Special Tests Start: 08/17/24 16:38 Freq: Status: Active Protocol: Document 08/18/24 08:17 NM (Rec: 08/18/24 09:02 NM [id number]) Special Tests Lumbar Spine Special Tests Bateman/quadrant Test Results + L Straight Leg Raise Test Results + Comments L Standing Flexion Test Results + Slump Test Results - Comments tightness in hamstrings PT-OP-M Strength Start: 08/17/24 16:38 Freq: Status: Active Protocol: Document 09/23/24 09:01 NM (Rec: 09/23/24 09:57 NM [id number]) Trunk Strength Trunk Manual Muscle Testing Flexion 4- Good- Extension 4- Good- Rotation Left 4- Good- Rotation Right 4- Good- Lateral Flexion Left 4- Good- Lateral Flexion Right 4- Good- Comments pain with R LF Hip Strength Hip Manual Muscle Testing Right Flexion (L2) 4- Good- Extension (S1) 4- Good- Abduction 4- Good- Adduction 4- Good- External Rotation 4- Good- Internal Rotation 4- Good- Left Flexion (L2) 4- Good- Extension (S1) 4- Good- Abduction 4- Good- Adduction 4- Good- External Rotation 3+ Fair+ Internal Rotation 3+ Fair+ Knee Strength Knee Manual Muscle Testing Right Flexion (S2) 4 Good Extension (L3) 4 Good Left Flexion (S2) 4- Good- Extension (L3) 4 Good PT-OP-Q Treatments Start: 08/17/24 16:38 Freq: Status: Active Protocol: Document 10/13/24 10:46 NM (Rec: 10/13/24 11:32 NM [id number]) Therapeutic Exercises Supine Exercises Hamstring stretch Supine Exercise Name verbal review, did not perform ITB stretch Supine Exercise Name HEP review Side bilateral Resistance L>R Equipment Used strap on foot Reps/Minutes 2x60 ea Comments cued TKE, tolerant range cross over straight leg Sciatic Nerve glide Supine Exercise Name from hooklying: knee flex/ext Side left Equipment Used strap assist Reps/Minutes 30 ea (increased time needed) Comments post manual tx piriformis stretch Supine Exercise Name verbal review, did not perform lumbar traction Supine Exercise Name verbal review, did not perform in clinic Sitting Exercises hip IR & ER Sitting Exercise Name verbal review Standing Exercises pallof Standing Exercise Name HEP review: 1. press, 2. press + lift Side bilateral Resistance level 1 band for HEP carryover Reps/Minutes 15 ea direction, ea exercise ( increased time needed) Comments needs cues for set up and correct execution; no pain sit to stand Standing Exercise Name verbal review, did not perform calf stretch Standing Exercise Name HEP review on stairs Side bilateral Equipment Used c/ hand support on stair rail, ppt Reps/Minutes 60 ea Comments dropping heels of step; cued comfortable stretch hip flexor stretch Standing Exercise Name HEP review- on stairs Side bilateral Equipment Used BUE on stairs Reps/Minutes 60 ea Comments cued set up and form, allow heel up/pelvis fwd Manual Therapy Treatment Consent Patient gave verbal consent for manual Yes treatment Soft Tissue Mobilization lumbar spine Body Location B LS and SI Mobilization Type Cross-Friction,Rolling, Sustained Pressure,Other Intensity/Depth Moderate Body Position Sidelying Comments Pillows between legs for comfort. Increased restrictions along QL BLE Body Location L TFL, quad, proximal adductor , glute, HS Mobilization Type Cross-Friction,Rolling Intensity/Depth Moderate Body Position Sidelying Comments L side only, decreased restrictions with reps PT-OP-T Assessment and Plan Start: 08/17/24 16:38 Freq: Status: Active Protocol: Document 10/13/24 10:46 NM (Rec: 10/13/24 11:32 NM [id number]) Physical Therapy Assessment Goals Three Impairment forward trunk flexion 50% AROM Bronze Chaser Goal (LTG) Pt will increase forward trunk flexion AROM > 50% in order to demonstrate improved hamstring length and ability to perform ADLs involving bending 09/08/24: initiated in PT 09/23/24: 75% forward trunk flexion, limited by HS length LTG Duration 8 weeks MET 09/23 Two Impairment pain with ambulation; limited tolerance Short Term Goal (STG) If appropriate, pt will be educated on and fitted for appropriate LRAD, likely 4WW, for symptom management 09/23/24: no appropriate for AD at this time STG Duration 6 weeks- GOAL NOT APPLICABLE Mcc Goal (LTG) Pt will report that he is able to ambulate at least 50% farther during daily ambulation in order to demonstrate improved activity tolerance and pain management 09/23/24: pt reports can ambulate 25% further before needing to take a break due to back pain 10/13/24: pt reports that he is able to ambulate 4000 steps ( more than original 3000 steps) before needing a rest LTG Duration 8 weeks MET One Impairment 5x STS 40.3 sec Short Term Goal (STG) Pt will be able to perform at least 8/10 STS from standard chair with or without UE assist with improved form in order to increase BLE strength for transfers and decrease reliance on low back during transfers 09/08/24: able to perform STS from 21 plinth without UE assist, minimal cues 09/23/24: 10 STS from 20 plinth without UE assist, minimal cues for form, no pain in low back or hips STG Duration 4 weeks PROGRESSING 09/23 Mcc Goal (LTG) Pt will decrease 5x STS score by at least 5 seconds in order to demonstrate improved BLE strength and endurance for transfers 10/07/24: 17.8 seconds from standard chair LTG Duration 8 weeks MET Four Impairment not performing HEP Impairment ... Bronze Chaser Goal (LTG) Pt will report compliance with HEP at least 3x/wk in order to maximize progression with PT and maintain progression after transition to maitenance program 09/08/24: pt performing stretching daily, HEP otherwise as prescribed 09/23/24: performing HEP as prescribed LTG Duration 8 weeks MET Progress Towards Goals Progress Towards Goals Goals Met Assessment Summary Assessment Pt tolerated session well. Initiated session with manual treatment due to increased restrictions following increased standing over weekend; observable improvements in muscle length and discomfort following manual treatment. Remaining session emphasizing HEP for maintenance and prioritizing strengthening vs stretching. Increased time needed for exercises due to set up. Cueing needed only for pallof to prevent rotation back to starting position each rep. Physical Therapy Plan Frequency and Duration Frequency of Treatment 2x/Week Duration of treatment (weeks) 8 Plan of Care Start Date 08/18/24 Plan of Care End Date 10/16/24 Therapeutic Interventions Therapeutic Interventions Balance Training,Gait Training ,Home Exercise Program,Joint Mobilizations,Manual Therapy, Neuromuscular Re-education, Orthotic/Prosthetic Management ,Patient/Caregiver Education, Self-Care/Home Management, Sensory Integration,Soft Tissue Mobilization,Taping, Therapeutic Activities, Therapeutic Exercises Modalities Cold Pack/Ice Massage,Hot Packs Discharge Physical Therapy Discharge Reasons Goals Met Discharge Comments Pt has met all PT goals. He reports improvements with ability to perform ADLs/IADLs due to pain; although pain is still intermittently present, particularly when pt has stood or ambulated for long periods . However, pt reports that he is able to ambulate further before needing to take a rest after initiating PT. Pt and PT discussed discharge from PT. PT educated pt on continuing with maintenance program at least 3x/wk for 6 months; however, educated pt to follow up with PCP or rn pain management if pain/ symptoms return/change/worsen. Pt verbalizes understanding. Next Visit Focus/Plan Next Note Type Discharge Summary Next Visit Plan discharge from PT
== END 2024-10-15 08:52 | disposition home or self-care (01) ==
LOC: PHYS 10:45
PROVIDERS: Family Provider Student in an Organized Health Care Education/Training Program; PCP Student in an Organized Health Care Education/Training Program; Referring Provider Physician Assistant; Visit Provider Physician Assistant
DX: M48.062 Spinal stenosis, lumbar region with neurogenic claudication (principal); M54.50 Low back pain, unspecified; M41.9 Scoliosis, unspecified; Z85.51 Personal history of malignant neoplasm of bladder; M47.816 Spondylosis without myelopathy or radiculopathy, lumbar region; M48.061 Spinal stenosis, lumbar region without neurogenic claudication; R53.1 Weakness; R27.8 Other lack of coordination; M25.652 Stiffness of left hip, not elsewhere classified; M25.651 Stiffness of right hip, not elsewhere classified
CPT/HCPCS: 97110; 97140; 97162; 97530

== ENCOUNTER → 2024-10-15 14:25 | Outpatient (CLI) | payer MEDICARE, OTHER, SELFPAY ==
[2024-10-15 15:40] LABS: Influenza A - CEPHEID Flu A NEGATIVE (NEGATIVE); Influenza B - CEPHEID Flu B NEGATIVE (NEGATIVE); Respiratory Syncytial Virus Negative (Negative)
[2024-10-15 15:42] LABS: COVID-19 CEPHEID 4-PLEX PCR Negative (Negative)
== END ==
PROVIDERS: Family Provider Student in an Organized Health Care Education/Training Program; PCP Student in an Organized Health Care Education/Training Program; Visit Provider Student in an Organized Health Care Education/Training Program
DX: J02.9 Acute pharyngitis, unspecified (principal); R05.1 Acute cough
CPT/HCPCS: 0241U; 87070

== ENCOUNTER → 2024-12-01 10:20 | Outpatient (CLI) | payer MEDICARE, OTHER, SELFPAY ==
--- NOTE | 2024-12-01 | DI.ECHO.S_ITS ---
[facility] : : [id number] : [place] : : [id number] : : Phone: [phone] Echocardiogram Report + + :Name: VERONICA BROWN JR Study Date: 12/01/2024 Height: 71 in : :[facility] ReadingLocation: Weight: 185 lb : : Gender: Male BSA: 2.0 m2 : :: 1935 Age: 89 yrs BP: 141/67 mmHg: :Reason For Study: MURMUR : :Ordering Physician: MOISE, : :LALIT Fleming Performed By: Vern Frederick : :Referring: LALIT PHIPPS : + + Interpretation Summary The patient was in sinus bradycardia with heart rates between 50-57 bpm during the exam. The left ventricle is normal in size. The left ventricular ejection fraction is normal. The ejection fraction is estimated to be 65-70%. The right ventricle is mildly dilated. The right ventricular systolic function is normal. There is mild mitral regurgitation. The aortic valve is moderately calcified. There is minimally reduced leaflet mobility. The peak aortic velocity is 2.29 m/sec. The aortic valve mean gradient is 12.5 mmHg. The peak aortic velocity on the previous exam was 1.86 m/sec. There is mild aortic stenosis. There is mild to moderate tricuspid regurgitation. Compared to the prior echo exam, there has been an increase in TR severity. The right ventricular systolic pressure is estimated to be at least 36 mmHg based on an estimated right atrial pressure of 3 mm Hg. Previously 28 mmHg. Procedure: A two-dimensional transthoracic echocardiogram with color flow and Doppler was performed. The study quality was technically good. Comparison is made with the echocardiogram of 04/15/2020. The patient was in sinus bradycardia with heart rates between 50-57 bpm during the exam. Left Ventricle: The left ventricle is normal in size. Proximal septal thickening is noted. There is no echo evidence for significant left ventricular outflow tract obstruction. There is no thrombus. The ejection fraction is estimated to be 65-70%. The left ventricular ejection fraction is normal. There are no focal wall motion abnormalities. Diastolic parameters suggest a relaxation abnormality of the left ventricle, consistent with probable normal filling pressures. Right Ventricle: The right ventricle is mildly dilated. The right ventricular systolic function is normal. Atria: The left atrial size is normal. Right atrial size is normal. There is no Doppler evidence for an interatrial shunt. Mitral Valve: There is mild mitral annular calcification. The mitral valve leaflets appear mildly thickened, but open well. There is mild mitral regurgitation. Aortic Valve: The aortic valve is trileaflet. The aortic valve is moderately calcified. There is minimally reduced leaflet mobility. The peak aortic velocity is 2.29 m/sec. The aortic valve mean gradient is 12.5 mmHg. The peak aortic velocity on the previous exam was 1.86 m/sec. There is mild aortic stenosis. No aortic regurgitation is present. Tricuspid Valve: The tricuspid valve leaflets are thin and pliable. There is mild to moderate tricuspid regurgitation. The right ventricular systolic pressure is estimated to be at least 36 mmHg based on an estimated right atrial pressure of 3 mm Hg. Compared to the prior echo exam, there has been an increase in TR severity. Pulmonic Valve: The pulmonic valve is not well seen, but is grossly normal. There is trace pulmonic regurgitation. Great Vessels: The aortic root is normal size. The dimensions of the ascending aorta are normal. The pulmonary artery is normal size. The IVC is of normal diameter and collapses greater than 50% with a sniff. This suggests a low right atrial pressure of 3 mm Hg. Pericardium/ Pleura There is no pericardial effusion. There is no pleural effusion. MMode/2D Measurements & Calculations LVIDd: 4.5 cm LVOT diam: 2.1 cm LVIDs: 2.5 cm Ao root diam: 3.6 cm FS: 45.6 % asc Aorta Diam: 3.4 cm EPSS: 0.55 cm Ao Arch Diam (Prox Trans): 2.5 cm IVSd: 1.1 cm LVPWd: 0.90 cm LV aguilar. diameter/BSA (cm/m^2): 2.2 LV sys. diameter/BSA (cm/m^2): 1.2 LA A2 area: 19.7 cm2 RA long axis: 4.6 cm LA A4 area: 20.6 cm2 RA area: 14.7 cm2 LA length (vol): 5.2 cm RA vol: 39.6 ml LA vol: 66.1 ml RA : 19.4 ml/m2 LA vol index: 32.4 ml/m2 IVC diam: 0.80 cm RVD1 (basal): 4.4 cm RVD2 (mid): 3.1 cm TAPSE: 2.9 cm Doppler Measurements & Calculations Ao V2 max: 229.5 cm/sec LVOT Max Julien: 128.9 cm/sec Ao V2 mean: 170.0 cm/sec LV V1 max P.6 mmHg Ao max P.1 mmHg LV V1 VTI: 34.0 cm Ao mean P.5 mmHg LINDA(I,D): 2.0 cm2 Ao V2 VTI: 55.7 cm LINDA(V,D): 1.9 cm2 sev ratio: 0.61 LINDA indexed to BSA (cm^2/m^2): 1.00 MV E max julien: 94.2 cm/sec TR max julien: 285.5 cm/sec MV A max julien: 109.2 cm/sec TR max P.6 mmHg MV E/A: 0.86 PA V2 max: 124.7 cm/sec Med Peak E' Julien: 6.7 cm/sec PA V2 mean: 86.9 cm/sec E/E' med: 14.0 PA mean P.3 mmHg Lat Peak E' Julien: 9.0 cm/sec PA pr(Accel): 56.7 mmHg E/E' lat: 10.5 E/e' average: 12.2 MV dec time: 0.23 sec SV(LVOT): 113.0 ml Reading Physician:12:57 PM
== END ==
LOC: ECHO 10:20
PROVIDERS: Family Provider Student in an Organized Health Care Education/Training Program; PCP Student in an Organized Health Care Education/Training Program; Referring Provider Nurse Practitioner; Visit Provider Nurse Practitioner
DX: R01.1 Cardiac murmur, unspecified (principal); I08.3 Combined rheumatic disorders of mitral, aortic and tricuspid valves
CPT/HCPCS: 93306

== ENCOUNTER 2025-01-28 09:31 | Outpatient (CLI) | payer MEDICARE, OTHER, SELFPAY ==
[2025-01-28] VITALS (7 sets, daily range): BP systolic 152–197; BP diastolic 70–76; PULSE 49–60; RESP 16–20; TEMP 36.5; O2SAT 99–100
[2025-01-28] MEDS: MIDAZOLAM 2 MG/2 ML VIAL IV (10:55)
[2025-01-28] MEDS: BUPIVACAINE 0.25% (PF) VIAL 2 ML INJ (11:01)
[2025-01-28] MEDS: DEXAMETHASONE 10 MG/ML VIAL 30 MG INJ (11:02)
[2025-01-28] MEDS: BETAMETHASONE 30 MG/5 ML MDV 12 MG INJ (11:03)
[2025-01-28] MEDS: iopamidoL 15 ML VIAL 3 ML INJ (11:03)
--- NOTE | 2025-01-28 11:14 | P.PCN_ITS ---
Date/Time/Diagnoses Date of procedure: 01/28/25 Time of procedure: 11:14 Pre-procedure diagnosis: 1. HNP WITH RADICULAR FEATURES, 2. MULTILEVEL CENTRAL STENOSIS, Post-procedure diagnosis: same Procedure Notes Procedure: 1. FLUOROSCOPICALLY GUIDED CONTRAST CONTROLLED INTERLAMINAR EPIDURAL STEROID INJECTION - L3/4 Indications: Yaron is referred by ARVIND Grove for treatment of Bilateral Foraminal Stenosis L>R LE symptoms. Physician: Alec Sanchez Total Fluoroscopy time (seconds): 6 Total sedation minutes: 13 Complications: none Procedure in detail & Post-procedure care: FINDINGS Multilevel Central Spinal Stenosis with Nerve Root Compression DESCRIPTION OF PROCEDURE Fluoroscopically guided, contrast-controlled L3/4 translaminar epidural steroid injection. Following review of allergy and review of potential side effects and complications, including, but not necessarily limited to, infection, allergic reaction, local tissue breakdown, temporary as well as permanent nerve injury, paralysis, stroke and possible , the patient indicated that the patient understood and agreed to proceed. An informed consent document was signed by the patient, witnessed by a nurse, and placed in the patient's chart. Additionally, other treatment options including modalities, medications, and physical therapy were reviewed with the patient. After review of previous anaesthesic history and IV conscious sedation the patient was deemed safe to proceed with today?s procedure with IV conscious sedation as ASA class II designation. Safety time-out was performed to confirm patient ID, procedure to be performed and site of procedure. IV sedation was accomplished with a combination of 2mg of Versed was administered by the RN after DO order, titrated to patient comfort during the course of the procedure while the patient remained responsive to all verbal commands. In the prone position, following sterile prep and drape of the lumbar region, the L3/4 translaminar space was identified fluoroscopically. The skin was anesthetized via a 25-gauge, 1.5-inch needle with 1% lidocaine solution. At this point, a 22-gauge short bevel spinal needle was atraumatically introduced and advanced under fluoroscopic guidance into the region of the L3/4 translaminar space. Depth was confirmed on lateral view. Radiological data, including multiple fluoroscopic views of the lumbar spine, reveal a spinal needle at the L3/4 translaminar space. Lateral views then show placement of the needle in the epidural space. Subsequent views show contrast material flowing superiorly and inferiorly in the epidural space. No vascular or intrathecal uptake is observed. At this point, using loss of resistance technique with saline and air, the epidural space was entered. This was confirmed following negative aspiration with injection of approximately 1.5cc of Isovue 200, showing excellent epidural flow without vascular or intrathecal uptake. At this point, 1cc of 0.25% marcaine solution combined with 4cc or 20mg of dexamethasone and 12mg of betamethasone was injected without incident. The patient tolerated the procedure well without signs or symptoms of complications prior to transfer to the recovery area continued monitoring without incident. The patient was then transferred to the recovery area where they were observed for an appropriate period of time after the injection. The patient reported a VAS score of 7 prior to the procedure and a post- procedure VAS of 1. POST OP INSTRUCTIONS The patient was provided a Pain Log to continue to record their response to the target-specific procedure prior to follow-up visit with their referring physician. Additionally, specific post-injection care instructions and a contact number to our office were provided if concerns arise regarding possible complications associated with the procedure are suspected.
== END 2025-01-28 11:30 | disposition home or self-care (01) ==
LOC: RAD 09:33
PROVIDERS: Family Provider Student in an Organized Health Care Education/Training Program; PCP Student in an Organized Health Care Education/Training Program; Referring Provider Physical Medicine & Rehabilitation; Visit Provider Physical Medicine & Rehabilitation
DX: M51.16 Intervertebral disc disorders with radiculopathy, lumbar region (principal); M48.061 Spinal stenosis, lumbar region without neurogenic claudication
CPT/HCPCS: 62323; 99152; J0702; J1100; J2250

== ENCOUNTER 2025-04-27 10:18 | Outpatient (CLI) | payer MEDICARE, OTHER, SELFPAY ==
[2025-04-27] VITALS (8 sets, daily range): BP systolic 126–168; BP diastolic 58–88; PULSE 47–84; RESP 12–18; TEMP 36.4; O2SAT 97–100
[2025-04-27] MEDS: MIDAZOLAM 2 MG/2 ML VIAL IV (11:47)
[2025-04-27] MEDS: BETAMETHASONE 30 MG/5 ML MDV 12 MG INJ (11:50)
--- NOTE | 2025-04-27 13:08 | P.PCN_ITS ---
Date/Time/Diagnoses Date of procedure: 04/27/25 Time of procedure: 13:08 Pre-procedure diagnosis: 1. HNP WITH RADICULAR FEATURES, 2. MULTILEVEL CENTRAL STENOSIS, Post-procedure diagnosis: same Procedure Notes Procedure: 1. FLUOROSCOPICALLY GUIDED CONTRAST CONTROLLED INTERLAMINAR EPIDURAL STEROID INJECTION - L3/4 Indications: Yaron is referred by ARVIND Grove for treatment of Bilateral Foraminal Stenosis L>R LE symptoms. Physician: Alec Sanchez Total Fluoroscopy time (seconds): 10 Total sedation minutes: 14 Complications: none Procedure in detail & Post-procedure care: FINDINGS Multilevel Central Spinal Stenosis with Nerve Root Compression DESCRIPTION OF PROCEDURE Fluoroscopically guided, contrast-controlled L3/4 translaminar epidural steroid injection. Following review of allergy and review of potential side effects and complications, including, but not necessarily limited to, infection, allergic reaction, local tissue breakdown, temporary as well as permanent nerve injury, paralysis, stroke and possible , the patient indicated that the patient understood and agreed to proceed. An informed consent document was signed by the patient, witnessed by a nurse, and placed in the patient's chart. Additionally, other treatment options including modalities, medications, and physical therapy were reviewed with the patient. After review of previous anaesthesic history and IV conscious sedation the patient was deemed safe to proceed with today?s procedure with IV conscious sedation as ASA class II designation. Safety time-out was performed to confirm p atient ID, procedure to be performed and site of procedure. IV sedation was accomplished with a combination of 2mg of Versed was administered by the RN after DO order, titrated to patient comfort during the course of the procedure while the patient remained responsive to all verbal commands. In the prone position, following sterile prep and drape of the lumbar region, the L3/4 translaminar space was identified fluoroscopically. The skin was anesthetized via a 25-gauge, 1.5-inch needle with 1% lidocaine solution. At this point, a 22-gauge short bevel spinal needle was atraumatically introduced and advanced under fluoroscopic guidance into the region of the L3/4 translaminar space. Depth was confirmed on lateral view. Radiological data, including multiple fluoroscopic views of the lumbar spine, reveal a spinal needle at the L3/4 translaminar space. Lateral views then show placement of the needle in the epidural space. Subsequent views show contrast material flowing superiorly and inferiorly in the epidural space. No vascular or intrathecal uptake is observed. At this point, using loss of resistance technique with saline and air, the epidural space was entered. This was confirmed following negative aspiration with injection of approximately 1.5 cc of Isovue 200, showing excellent epidural flow without vascular or intrathecal uptake. At this point, 1cc of 0.25% rhonda ine solution combined with 3cc or 10mg of dexamethasone and 12mg of betamethasone was injected without incident. The patient tolerated the procedure well without signs or symptoms of complications prior to transfer to the recovery area continued monitoring without incident. The patient was then transferred to the recovery area where they were observed for an appropriate period of time after the injection. The patient reported a VAS score of 6 prior to the procedure and a post- procedure VAS of 0. POST OP INSTRUCTIONS The patient was provided a Pain Log to continue to record their response to the target-specific procedure prior to follow-up visit with their referring physician. Additionally, specific post-injection care instructions and a contact number to our office were provided if concerns arise regarding possible complications associated with the procedure are suspected.
== END 2025-04-27 12:17 | disposition home or self-care (01) ==
PROVIDERS: Family Provider Student in an Organized Health Care Education/Training Program; PCP Student in an Organized Health Care Education/Training Program; Referring Provider Physical Medicine & Rehabilitation; Visit Provider Physical Medicine & Rehabilitation
DX: M51.16 Intervertebral disc disorders with radiculopathy, lumbar region (principal); M48.061 Spinal stenosis, lumbar region without neurogenic claudication
CPT/HCPCS: 62323; 99152; J0702; J1100; J2250

== ENCOUNTER → 2025-07-08 10:55 | Outpatient (CLI) | payer MEDICARE, OTHER, SELFPAY ==
[2025-07-08 12:14] LABS: Appearance Urine UA CLEAR; Bilirubin Urine UA NEGATIVE (NEGATIVE); Color Urine UA YELLOW; Glucose Urine UA NEGATIVE (Negative); Ketones Urine UA NEGATIVE (NEGATIVE); Leukocyte Esterase Urine UA NEGATIVE (NEGATIVE); Nitrite Urine UA NEGATIVE (Negative); Occult Blood Urine UA NEGATIVE (Negative); Protein Urine UA NEGATIVE (Negative); Specific Gravity Urine UA 1.020 (1.000-1.035); Urobilinogen Urine UA 0.2 E.U./dL (0.2); pH Urine UA 6.0 (4.5-8.0)
[2025-07-08 12:18] LABS: Culture Indicated Urine Cult Not Indicated
== END ==
PROVIDERS: Family Provider Student in an Organized Health Care Education/Training Program; PCP Student in an Organized Health Care Education/Training Program; Referring Provider Student in an Organized Health Care Education/Training Program; Visit Provider Urology
DX: N40.1 Benign prostatic hyperplasia with lower urinary tract symptoms (principal)
CPT/HCPCS: 81001

== ENCOUNTER 2025-07-12 10:57 | Emergency (ER) | payer MEDICARE, OTHER, SELFPAY ==
[2025-07-12 11:10] VITALS: BP 177/75; PULSE 59; RESP 16; TEMP 36.7; O2SAT 100; BMI 25.7
--- NOTE | 2025-07-12 12:59 | ED.ABDPAIN ---
HPI - Abdominal Pain General Chief Complaint: Abdominal Pain Stated Complaint: Lower abdominal and Groin pain 7 days Time Seen by Provider: 07/12/25 11:26 Source: patient Mode of arrival: Ambulatory History of Present Illness HPI narrative: 89-year-old male with past medical history bladder cancer, BPH presents to the ED with 1 week of scrotal and perineal pain. Had a normal bowel movement earlier today. Patient denies fever, chills, chest pain, shortness of breath, nausea, vomiting, abdominal pain, dysuria, lightheadedness, dizziness, syncope. Related Data Home Medications ?Medication ?Instructions ?Recorded ?Confirmed metformin 500 mg tablet,extended 500 mg PO TID 11/13/19 07/05/25 release 24 hr CoQ 10 PO 08/29/21 07/05/25 lisinopril 20 mg tablet 20 mg PO DAILY 03/12/23 07/05/25 amlodipine 5 mg tablet 5 mg PO DAILY 07/01/23 07/05/25 levothyroxine 125 mcg tablet 125 mcg PO DAILY 01/15/25 07/05/25 (Synthroid) simvastatin 10 mg tablet (Zocor) 10 mg PO DAILY 01/15/25 07/05/25 multivitamin (Daily Multi-Vitamin 1 tab PO DAILY 02/10/25 07/05/25 tablet) celecoxib 200 mg capsule 200 mg PO DAILY 04/14/25 07/05/25 Previous Rx's ?Medication ?Instructions ?Recorded tamsulosin 0.4 mg capsule 0.8 mg (2 x 0.4 mg) PO DAILY #180 02/04/25 caps gabapentin 300 mg capsule 300 mg PO 3XD #90 caps 06/02/25 oxycodone-acetaminophen 5 mg-325 1 tab PO Q8H PRN pain #20 tabs 07/12/25 mg tablet (Percocet) Allergies Allergy/AdvReac Type Severity Reaction Status Date / Time meloxicam AdvReac Intermediate edema Verified 07/12/25 11:14 ciprofloxacin AdvReac Verified 07/12/25 11:14 Review of Systems Constitutional Constitutional: Denies chills, Denies fatigue, Denies fever(s), Denies frequent falls, Denies lethargy and Denies weakness Eyes Eyes: Denies change in vision, Denies eye discharge, Denies irritation and Denies loss of vision ENT Ears, Nose, Mouth, and Throat: Denies change in voice, Denies dizziness, Denies neck pain, Denies sore throat and Denies throat swelling Cardiovascular Cardiovascular: Denies chest pain, Denies irregular heart rhythm, Denies lightheadedness, Denies palpitations, Denies dyspnea, Denies dyspnea on exertion and Denies orthopnea Respiratory Respiratory: Denies cough, Denies dyspnea, Denies dyspnea on exertion and Denies wheezing Gastrointestinal Gastrointestinal: Denies abdominal pain, Denies change in bowel habits, Denies diarrhea, Denies nausea and Denies vomiting Genitourinary Comments: perineal, scrotal pain Musculoskeletal Musculoskeletal: Denies neck pain and Denies numbness Integumentary/Breasts Skin/Breast: Denies pruritus, Denies erythema, Denies rash and Denies wounds Neurologic Neurologic: Denies behavioral changes, Denies confusion, Denies dizziness, Denies frequent falls, Denies loss of vision, Denies numbness and Denies weakness Psychiatric Psychiatric: Denies anxiety, Denies behavioral changes, Denies confusion, Denies depression, Denies homicidal ideation and Denies suicidal ideation Endocrine Endocrine: Denies fatigue, Denies flushing and Denies palpitations Hematologic/Lymphatic Hematologic/Lymphatic: Denies easy bruising Allergic/Immunologic Allergic/Immunologic: Denies urticaria, Denies throat swelling and Denies wheezing Patient History Medical History Hx of primary hypertension Scoliosis Lumbar degenerative disc disease Lumbar facet arthropathy Lumbar spondylosis Lumbar spinal stenosis Lumbar radiculopathy Hx of radiation therapy History of chemotherapy Incomplete emptying of bladder UTI (urinary tract infection) Bladder cancer Benign prostatic hyperplasia History of tobacco use Lower urinary tract symptoms Bladder mass Gross hematuria Carpal tunnel syndrome Thyroid cancer Type 2 diabetes mellitus Hypothyroid Hypertension High cholesterol Surgical History H/O vasectomy History of appendectomy History of back surgery History of carpal tunnel release History of thyroidectomy Family History Grandmother Stroke Mother Hypertension Social History marital status: number of children: 2 Smoking Status: Former smoker alcohol intake: current caffeine: Yes Type(s) of exercise: walking and weight lifting frequency: 3-4 times per week duration: 45-60 minutes/day Smoking Status: Former smoker alcohol intake frequency: 0-2 drinks per day Exam Narrative Exam Narrative: Const General:?cooperative, healthy appearing and comfortable [facility] Head:?normal to inspection Ears:?hearing grossly normal bilaterally Nose:?external nose normal Face and sinus:?normal facial exam and sinuses nontender Mouth:?oral mucosae normal Throat:?posterior oropharynx normal Eyes General:?appearance normal, both eyes and all related structures Neck Neck:?normal visual inspection and no lymphadenopathy noted Resp Effort & Inspection:?normal respiratory effort Auscultation:?clear to auscultation bilaterally Cardio Rate:?regular rate Rhythm:?regular rhythm GI/ Abdomen is soft, nondistended, nontender to palpation. External exam with normal appearing perineum, scrotum. Neuro General:?patient alert, patient awake and patient oriented x3 Initial Vital Signs Initial Vital Signs: Vital Signs Temperature 98.0 F 07/12/25 11:10 Pulse Rate 59 L 07/12/25 11:10 Respiratory Rate 16 07/12/25 11:10 Blood Pressure 177/75 H 07/12/25 11:10 Pulse Oximetry 100 07/12/25 11:10 Oxygen Delivery Method Room Air 07/12/25 11:10 Course Orders Ordered: Discontinued Medications Sodium Chloride (Normal Saline 0.9%) 1,000 mls @ 1,000 mls/hr IV BOLUS ONE Stop: 07/12/25 15:20 Last Infusion: 07/12/25 15:55 Dose: Infused Documented By: Admin: 07/12/25 14:38 Dose: 1,000 mls/hr Documented By: RLS Vital Signs Vital signs: Vital Signs - 8 hr 07/12/25 11:10 Temperature 98.0 F Pulse Rate 59 L Respiratory Rate 16 Blood Pressure 177/75 H Pulse Oximetry 100 Oxygen Delivery Method Room Air MDM - Abdominal Pain Lab Data 07/12/25 13:00 07/12/25 15:00 Labs: Lab Results 07/12/25 07/12/25 Range/Units 13:00 15:00 WBC 5.5 (4.5-11.0) X10^3/uL RBC 3.78 L (4.5-5.9) X10^6/uL Hgb 12.2 L (13.5-17.5) g/dL Hct 35.9 L (41-53) % MCV 95.1 (80-100) fL MCH 32.2 (26-34) PG MCHC 33.8 (30-36) % RDW 14.6 (11.6-14.8) % Plt Count 179 (150-400) X10^3/uL Neut % (Auto) 60.1 (50-75) % Lymph % (Auto) 25.4 (25-40) % [place] % (Auto) 11.2 (3-14) % Eos % (Auto) 2.8 (2-4) % Baso % (Auto) 0.5 (0-2) % Neut # (Auto) 3300 (2314-5318) /uL Lymph # (Auto) 1400 (9035-3734) /uL [place] # (Auto) 600 (0-900) /uL Eos # (Auto) 200 (0-450) /uL Baso # (Auto) 0 (0-100) /uL Sodium 137 137 (137-145) mmol/L Potassium 5.3 H 5.1 (3.4-5.1) mmol/L Chloride 110 H 111 H (98-107) mmol/L Carbon Dioxide 20 L 18 L (22-32) mmol/L BUN 36 H 33 H (9-20) mg/dL Creatinine 1.33 H 1.24 (0.66-1.25) mg/dL Estimated GFR 51 L 56 L (>60) mL/min BUN/Creatinine Ratio 27.1 H 26.6 H (6-22) Glucose 113 H 90 (70-99) mg/dL Calcium 9.9 9.3 (8.4-10.2) mg/dL Total Bilirubin 0.4 0.3 (0.2-1.3) mg/dL AST 29 25 (17-59) IU/L ALT 21 19 (<50) IU/L Alkaline Phosphatase 56 56 (38-126) U/L Total Protein 6.8 6.1 L (6.3-8.2) g/dL Albumin 4.2 3.6 (3.5-5.0) g/dL Globulin 2.6 2.5 (1.7-4.1) g/dL Albumin/Globulin Ratio 1.6 1.4 (1.0-2.8) Lipase 450 H (23-300) U/L Point of care testing: Urine Dip Bedside Urine Glucose Negative Bedside Urine Bilirubin - Negative Bedside Urine Ketone - Negative Urine Specific [place] 1.015 Bedside Urine Occult Blood - Negative Bedside Urine pH 5.5 Bedside Urine Protein - Negative Bedside Urine Urobilinogen - Negative Bedside Urine Nitrite - Negative Bedside Urine Leukocytes - Negative Esterase MDM Narrative Medical decision making narrative: 89-year-old male with past medical history bladder cancer, BPH presents to the ED with 1 week of scrotal and perineal pain. Will obtain scrotal ultrasound, CT abdomen pelvis, labs, UA. Scrotal ultrasound with no sonographic evidence of testicular torsion or infection. Asymmetrically atrophic left testicle of uncertain etiology. CT abdomen pelvis shows prostatomegaly. There is mild circumferential bladder wall thickening which may represent chronic bladder outlet obstruction secondary to an enlarged prostate. Previously seen bladder wall mass is not visualized on current exam. Right lateral conal fascia 5 mm soft tissue nodule, possibly stable since prior CT in 2021. Finding is indeterminate, peritoneal implant can not be excluded. Small hiatal hernia. UA without UTI. GFR 56, which is baseline for patient. All other labs unremarkable. . Discussed findings with patient. Recommend follow-up with Dr. Crowley, oncologist for further evaluation. Pain medications prescribed. ED return precautions discussed with patient. Patient verbalized understanding. Medical records reviewed: Yes Discharge Plan Departure Patient Disposition: Home Clinical Impression: Perineum pain, male Instructions: DI for Abdominal Pain-Adult Activity Restrictions/Additional Instructions: you were evaluated in the ED today for abdominal and perineal pain. The ultrasound and CT did not show any abnormalities. It is unclear why you are experiencing this pain. Please follow-up with Dr. Crowley for further evaluation. You have been prescribed some pain medication to take at night. Return to the ED if you have worsening symptoms. Prescriptions: New oxycodone-acetaminophen [Percocet] 5-325 mg tablet 1 tab PO Q8H PRN (Reason: pain) Qty: 20 0RF No Action tamsulosin 0.4 mg capsule 0.8 mg PO DAILY Qty: 180 3RF gabapentin 300 mg capsule 300 mg PO 3XD Qty: 90 1RF simvastatin [Zocor] 10 mg tablet 10 mg PO DAILY levothyroxine [Synthroid] 125 mcg tablet 125 mcg PO DAILY metformin 500 mg tablet extended release 24 hr 500 mg PO TID lisinopril 20 mg tablet 20 mg PO DAILY amlodipine 5 mg tablet 5 mg PO DAILY celecoxib 200 mg capsule 200 mg PO DAILY CoQ 10 PO multivitamin [Daily Multi-Vitamin] Tablet 1 tab PO DAILY Referrals: Oleksandr Grove PA-C [Primary Care Provider, Medical] Stand Alone Forms: Patient Portal/API
--- NOTE | 2025-07-12 13:09 | DI.US.S_ITS ---
PROCEDURE: US SCROTUM INDICATIONS: scrotal, perineal pain TECHNIQUE: Real-time scanning was performed of the scrotum and testicles, with image documentation. Color and pulse Doppler interrogation was performed of both testicles. COMPARISON: None. FINDINGS: Right: Testicle is normal in size at 4.8 x 2.2 x 3.6 cm, and homogenous in echotexture. Epididymis is normal in overall size and morphology. No hydrocele or varicoceles. Overlying scrotal skin is normal in thickness. Left: Testicle is atrophic and measures 2.5 x 1.1 x 1.8 cm, and homogeneous in echotexture. Epididymis is normal in overall size and morphology. No hydrocele or varicoceles. Overlying scrotal skin is normal in thickness. Doppler: Color and pulse Doppler demonstrate normal and symmetric arterial flow in both testicles. IMPRESSION: No sonographic evidence of testicular torsion or infection. Asymmetrically atrophic left testicle of uncertain etiology. Approved by: Lisette Cr M.D.,Ph.D. on 07/12/2025 at 14:32
--- NOTE | 2025-07-12 13:10 | DI.CT.S_ITS ---
PROCEDURE: CT ABDOMEN PELVIS W CON INDICATIONS: abd, perineal, scrotal pain TECHNIQUE: After the administration of intravenous contrast, axial sections acquired from the lung bases to the pubic symphysis. Coronal and sagittal reformats were performed. For radiation dose reduction, the following was used: automated exposure control, adjustment of mA and/or kV according to patient size. COMPARISON: CT abdomen pelvis 08/16/2021. FINDINGS: Image quality: Diagnostic. Lower Chest: Small hiatal hernia. Subsegmental atelectasis. ABDOMEN: Liver: No solid mass. Gallbladder: No radiopaque gallstones or wall thickening. Contracted. Biliary ducts: No biliary dilation. Pancreas: No ductal dilation. Spleen: Size is within normal limits. Adrenal Glands: No adrenal nodules. Kidneys and Ureters: No hydronephrosis. No solid mass. No complex renal cystic lesion which requires follow up. Stomach and Bowel: Normal colonic caliber, without significant wall thickening. Peritoneum: No abnormal intraperitoneal fluid. No free air. Focal soft tissue nodule measuring 5 mm along the right lateral conal fascia (2/50), possibly present on prior CT in 2021. Ventral Wall: No significant ventral hernia. Abdominal Nodes: No retroperitoneal or mesenteric adenopathy by size criteria. Vessels: Aorta and inferior vena cava are normal in size. Aorto bi iliac atherosclerotic calcifications. PELVIS: Pelvic Organs: Prostatomegaly.. Bladder: Mildly increased circumferential bladder wall thickening. Previously seen mass on CT in August 2021 is no longer visualized.. Pelvic Nodes: No enlarged lymph nodes. Miscellaneous: No inguinal hernias are seen. Bones: No aggressive osseous abnormality. Multilevel degenerative changes without acute vertebral body compression fracture. IMPRESSION: Prostatomegaly. If there is clinical concern for prostate malignancy recommend correlation with PSA. Mild circumferential bladder wall thickening which may represent chronic bladder outlet obstruction secondary to enlarged prostate. Previously seen bladder wall mass is not visualized on current exam. Right lateral conal fascia 5 mm soft tissue nodule, possibly stable since prior CT in 2021. Finding is indeterminate, peritoneal implant cannot be excluded. Attention on follow-up imaging. Small hiatal hernia. Approved by: Lisette Cr M.D.,Ph.D. on 07/12/2025 at 15:09
[2025-07-12 13:41] LABS: Add Manual Diff / Slide Review NO; Hematocrit 35.9 % (41-53); Hemoglobin 12.2 g/dL (13.5-17.5); Lymphocytes Absolute Auto 1400 /uL (1100-4500); Mean Corpuscular HGB Conc 33.8 % (30-36); Mean Corpuscular Hemoglobin 32.2 PG (26-34); Mean Corpuscular Volume 95.1 fL (80-100); Platelet Count 179 X10^3/uL (150-400)
[2025-07-12 13:58] LABS: Alanine Aminotransferase 21 IU/L (<50); Albumin 4.2 g/dL (3.5-5.0); Albumin Globulin Ratio 1.6 (1.0-2.8); Alkaline Phosphatase 56 U/L (38-126); Blood Urea Nitrogen 36 mg/dL (9-20); Calcium 9.9 mg/dL (8.4-10.2); Carbon Dioxide 20 mmol/L (22-32); Chloride 110 mmol/L (98-107); Estimated Glomerular Filt Rate 51 mL/min (>60); Globulin 2.6 g/dL (1.7-4.1); Glucose 113 mg/dL (70-99); HEMOLYSIS 21 (0-50); Lipase 450 U/L (23-300); Potassium 5.3 mmol/L (3.4-5.1); Sodium 137 mmol/L (137-145); Total Protein 6.8 g/dL (6.3-8.2)
--- NOTE | 2025-07-12 14:33 | EKG_ITS ---
[place] [id number] [place] [id number] Test Date: 2025-07-12 Pat Name: Yaron Hernandez Jr Department: [facility] Room: Gender: Male [employer] Operator: : [id number] Requested By: Order Number: [id number] Reading MD: Gabriel Saez MD Measurements Intervals [place] Rate: 53 P: 71 [place]: 220 QRS: 54 QRSD: 86 T: 62 QT: 390 QTc: 365 Interpretive Statements Sinus bradycardia with 1st degree AV block Electronically Signed On 07-12-2025 14:53:03 PST by Gabriel Saez MD
[2025-07-12] MEDS: SODIUM CHLORIDE 0.9% 1,000 ML 1000 ML IV (14:38)
[2025-07-12 15:48] LABS: Alanine Aminotransferase 19 IU/L (<50); Albumin 3.6 g/dL (3.5-5.0); Albumin Globulin Ratio 1.4 (1.0-2.8); Alkaline Phosphatase 56 U/L (38-126); Blood Urea Nitrogen 33 mg/dL (9-20); Calcium 9.3 mg/dL (8.4-10.2); Carbon Dioxide 18 mmol/L (22-32); Chloride 111 mmol/L (98-107); Estimated Glomerular Filt Rate 56 mL/min (>60); Globulin 2.5 g/dL (1.7-4.1); Glucose 90 mg/dL (70-99); HEMOLYSIS < 15 (0-50); Potassium 5.1 mmol/L (3.4-5.1); Sodium 137 mmol/L (137-145); Total Protein 6.1 g/dL (6.3-8.2)
[2025-07-12 16:12] VITALS: BP 179/69; PULSE 60; RESP 12; O2SAT 98
== END 2025-07-12 17:11 | disposition home or self-care (01) ==
PROVIDERS: Emergency Provider Student in an Organized Health Care Education/Training Program; Family Provider Student in an Organized Health Care Education/Training Program; PCP Student in an Organized Health Care Education/Training Program
DX: R10.20 Pelvic and perineal pain unspecified side (principal); N50.82 Scrotal pain; N40.0 Benign prostatic hyperplasia without lower urinary tract symptoms; N50.0 Atrophy of testis; Z85.51 Personal history of malignant neoplasm of bladder; Z87.891 Personal history of nicotine dependence
CPT/HCPCS: 36415; 74177; 76870; 80053; 81003; 83690; 85025; 93005; 93010; 93975; 99284; 99285; J7030; Q9967

== ENCOUNTER → 2025-07-31 10:33 | Outpatient (CLI) | payer MEDICARE, OTHER, SELFPAY ==
[2025-07-31 13:10] LABS: Prostate Specific Antigen 1.18 ng/mL (0.10-4.00)
== END ==
PROVIDERS: Family Provider Student in an Organized Health Care Education/Training Program; PCP Student in an Organized Health Care Education/Training Program; Referring Provider Urology; Visit Provider Urology
DX: R97.20 Elevated prostate specific antigen [PSA] (principal)
CPT/HCPCS: 36415; 84153